=== PATIENT | female | born 1955 | race Caucasian/White ===

== ENCOUNTER 2023-09-12 09:58 | Outpatient (AMB) | payer OTHER, SELFPAY ==
--- NOTE | 2023-09-12 10:03 | MHC.PC.OV ---
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 Care F/U ( Growth On Neck ) Intake Note: pt is here to est care pt last mammo was 12/29 pt is coming here [place] pt has est with an TOY CONSULTANT In [facility] pt see's Derm [facility] Allergies caffeine Allergy (Severe, Verified 09/12/23 10:34) Palpitations cyclobenzaprine [From Flexeril] Allergy (Severe, Verified 09/12/23 10:34) Hives codone Allergy (Intermediate, Uncoded 09/12/23 10:34) Stomach Upset Medication List - Last Reconciled 09/12/23 by NUNU Yarbrough acetaminophen (Tylenol Extra Strength) 1,000 mg PO Q6H PRN amitriptyline mg PO amlodipine 5 mg PO DAILY atenolol mg PO BID biotin 1,000 mcg PO DAILY cholecalciferol (vitamin D3) 25 mcg PO DAILY coQ10 (ubiquinol) 200 mg PO DAILY cyclosporine 0.05% (Restasis) drps ophthalmic (eye) estradiol 0.01%(0.1mg/gram) vaginal flaxseed oil 1,000 mg PO DAILY fluorometholone 0.1% drps ophthalmic (eye) magnesium citrate,mag oxide mg PO wm-bs-rn3-yrh-bky-jvfy-lut-titi 250 mg (90 mg-160 mg) (Ocuvite Adult 50 Plus) 1 cap PO DAILY naproxen sodium (Aleve) 220 mg PO BID PRN kcrjv-8n-fbf-epa-fish oil-D3 667 mg (280 mg- 280 mg-107 mg) (Cardio [place] Benefits) caps PO omeprazole magnesium (Prilosec OTC) 20 mg PO DAILY PRN rosuvastatin mg PO triamcinolone acetonide 0.1% 1 appl topical BID-TID vitamin B complex (B Complex-Vitamin B12 tablet) 1 tab PO DAILY Tobacco use date assessed: 09/12/23 Fall risk assessment: 1 Fall in past year Last assessed Fall Risk: 09/12/23 Dental Screening Dental Screen Date: 01/05/24 Did you have a dental visit in the last 12 months?: Yes Did you have a dental problem in the last 6 months where you did not have access to dental care?: No Was dental information given to patient?: Patient has dentist HPI HPI Comments History of Present Illness Details Patient is a 68-year-old female here to establish care. She recently moved here from [place]. She originally made the appointment with a complaint of a growth on her neck which has since resided and is no longer a problem. She has a past medical history significant for hyperlipidemia, hypertension, vertigo. Her mammogram is due in October. Pap smear completed 6 months prior. Colonoscopy completed in 2021. Bone density completed within 5 years. Patient has agreed to send past medical records from previous provider. Patient states that she has experienced occasional heart palpitations. She denies any dizziness, shortness of breath, chest pain, numbness, epigastric pain, vomiting, diarrhea. Will obtain EKG and refer to Cardiology. She states that she has an echocardiogram performed recently in the past and will send us those records. [facility] Medical History (Updated 09/12/23 @ 11:35 by NUNU Yarbrough) Migraine Hyperlipidemia Hypertension Surgical History (Updated 09/12/23 @ 10:47 by NUNU Yarbrough) Hx of cholecystectomy History of breast biopsy Family History Family/Other Substance use disorder Social History Housing: [place] Patient Tobacco Use Status: Former Tobacco user e-Cigarette/Vaping Use: Never Used Second Hand Smoke Exposure: No service: No Current occupational status: retired Cognitive needs: No Hearing needs: No Vision needs: No Questionnaire PHQ-9 Over the last 2 weeks, how often have you been bothered by any of the following problems? 1. Little interest or pleasure in doing things: not at all 2. Feeling down, depressed, or hopeless: not at all 3. Trouble falling or staying asleep, or sleeping too much: not at all 4. Feeling tired or having little energy: not at all 5. Poor appetite or overeating: not at all 6. Feeling bad about yourself - or that you are a failure or have let yourself or your family down: not at all 7. Trouble concentrating on things, such as reading the newspaper or watching television: not at all 8. Moving or speaking so slowly that other people could have noticed. Or the opposite - being so fidgety or restless that you have been moving around a lot more than usual: not at all 9. Thoughts that you would be better off or of hurting yourself in some way: not at all Total score: 0 Depression Screening Interpretation: Negative Depression Screening Done: Yes 68350 - PHQ-9 Billing: Yes Source: Developed by Drs. Lauro Henry, Dyana Adam, Juan C Roland and colleagues, with an educational torey from [employer]. Thrive Questionnaire Date Thrive assessed: 09/12/23 I am a: Patient What is your living situation today?: I have a steady place to live Within the past 12 months, did the food you bought not last and you didn't have the money to get more?: Never true Within the past 12 months, did you worry whether your food would run out before you got money to buy more?: Never true Do you have trouble paying for medicines?: No Do you have trouble getting transportation to medical appointments?: No Do you have trouble paying your heating and electricity bill?: No Do you have trouble taking care of your child, family member or friend?: No Do you have trouble with day-to-day activities such as bathing, preparing meals, shopping, managing finances, etc.?: No Are you currently unemployed and looking for a job?: No Are you interested in more education?: No AUDIT C Alcohol Use Questionnaire (AUDIT-C) 1. How often do you have a drink containing alcohol?: Never Total Score: 0 RADHA-7 AMB Questionnaire RADHA-7 Date RADHA - 7 assessed: 09/12/23 Feeling nervous, anxious, or on edge: 0 = Not at all Not being able to stop or control worryin = Not at all Worrying too much about different things: 0 = Not at all Trouble relaxin = Not at all Being so restless that it is hard to sit still: 0 = Not at all Becoming easily annoyed or irritable: 0 = Not at all Feeling afraid as if something awful might happen: 0 = Not at all Total RADHA-7 score (0-4 normal; 5-9 mild; 10-14 moderate; 15-21 severe): 0 Source: Developed by Drs. Lauro Henry, Dyana Adam, Juan C Roland and colleagues, with an educational torey from [employer]. RADHA-7 Assessment Billing RADHA-7 Assessment Tool: RADHA-7 Assessment 86097 Review of Systems Const Details: Constitutional : No Weight loss, No Fever, No Chills, No Fatigue, No Malaise Cardiovascular : No Chest Pain, No SOB, No Dyspnea on Exertion, No Orthopnea, No Edema, No Palpitations Respiratory : No Cough, No Sputum, No Wheezing Gastrointestinal : No Nausea, No Vomiting, No Diarrhea, No Constipation, No abdominal Pain, No Hematochezia, No Melena Musculoskeletal : Admits intermittent pain of the right thigh. Denies trauma. Neuro : No Weakness, No Numbness, Admits occasional Dizziness, No Headache Psych : No Anxiety/Panic, No Depression Heme/Lymph: No Bruising, No Bleeding,No Lymphadenopathy Endocrine : No Polyuria, No Polydipsia All other systems reviewed and are negative Physical exam (Primary Care) Vital Signs: Last Vital Signs Pulse 67 09/12/23 10:04 BP 140/82 H 09/12/23 10:04 Pulse Ox 99 09/12/23 10:04 Oxygen Delivery Method Room Air 09/12/23 10:04 Care Plan Goal for BP management: Patient is going to take blood pressure readings at home. Next steps: Patient has follow-up appointment in 1 month BMI result Body Mass Index 31.9 Tobacco/Smoking Status: Tobacco use Status Tobacco use date assessed 09/12/23 09/12/23 10:24 Patient Tobacco Use Status Former Tobacco user 09/12/23 10:24 e-Cigarette/Vaping Use Never Used 09/12/23 10:24 Depression Screening Interpretation: Negative Const Other: Appearance: Alert.? Oriented X3.? No acute distress.? ENT: Pharynx normal.?Scant ceruman in right ear, TM inatact, pearly summers bilaterally. CVS: Normal heart rate and rhythm.? Pulses normal.? Respiratory: No respiratory distress.? Breath sounds normal.? Extremities: No lower extremity edema.? No calf ttp. 5/5 strength to bilateral upper and lower extremities. Pain on palpation to right thigh, medial aspect Neuro: Oriented X 3.? No motor deficit.? No sensory deficit. CN 2-12 intact Results Reviewed Results Reviewed: Will call patient with lab results. Assessment and Plan Assessment & Plan (1) Palpitations: Comment: Patient had in office EKG. Will refer to Cardiology. Patient states she had recent echocardiogram which she will be sending us. Patient has been educated on signs of worsening symptoms when to report back to the office or when to present to the ER. Code(s): R00.2 - Palpitations (2) Peripheral vestibular nystagmus: Comment: Patient has a history of B PPV. She states that she has had success in the past using physical therapy. Will refer to physical therapy for vertigo. Code(s): H55.09 - Other forms of nystagmus (3) Right thigh pain: Comment: Patient states for the past 2 months she has developed some right thigh pain. States the pain is intermittent. Denies any trauma to the area. Will order x-ray and intervene based on results Code(s): M79.651 - Pain in right thigh Plan: Will follow-up with x-ray results. Plan Take your medications as prescribed. If you were prescribed antibiotics today, it is important that you take your medication to their entirety, do not skip any doses, do not finish them early. Follow-up with your primary care provider this week. Return to the emergency department with new or worsening symptoms. Such as fevers, chills, chest pain, shortness of breath, nausea, vomiting, dizziness, headache, vision changes, lethargy In case of emergency call 911 Orders: Orders AMB EKG-In Office Today R00.2 - Palpitations Lipid Panel Today Z13.220 - Encounter for screening for lipoid disorders Vitamin D 25-OH (D2 and D3) Today Z13.21 - Encounter for screening for nutritional disorder UA CC w/rflx Micro + Cult Today E86.0 - Dehydration TSH reflex Free T4 Today Z13.29 - Encounter for screening for other suspected endocrine disorder MM tomosynthesis screening BI 1 Month Z12.31 - Encounter for screening mammogram for malignant neoplasm of breast PT Evaluation and Treatment Today H55.09 - Other forms of nystagmus Comprehensive Met. Panel Today Z91.89 - Other specified personal risk factors, not elsewhere classified Complete Blood Count Auto Diff Today Z13.0 - Encounter for screening for diseases of the blood and blood-forming organs and certain disorders involving the immune mechanism XR femur RT 2V Today M79.651 - Pain in right thigh Referrals Cardiology Referral R00.2 - Palpitations Coding Level of Care Code New Pt Level 4 (46868) Diagnoses Palpitations R00.2 Peripheral vestibular nystagmus H55.09 Right thigh pain M79.651 Additional Codes RADHA-7 Assessment Billing - RADHA-7 Assessment Tool: RADHA-7 Assessment 24133 ([id number]) Time Spent (min) 50
[2023-09-12 10:04] VITALS: BP 140/82; PULSE 67; O2SAT 99; BMI 31.9
== END 2023-09-12 11:22 | disposition home or self-care (01) ==
PROVIDERS: PCP Nurse Practitioner Primary Care; Visit Provider Nurse Practitioner Primary Care
DX: R00.2 Palpitations (principal); H55.09 Other forms of nystagmus; M79.651 Pain in right thigh
CPT/HCPCS: 99204

== ENCOUNTER 2023-10-09 10:46 | Outpatient (REF) | payer OTHER, SELFPAY ==
--- NOTE | ~2023-10-09 | XR_ITS ---
EXAMINATION: XR FEMUR, RIGHT CLINICAL INFORMATION: Right thigh pain. COMPARISON: None available. TECHNIQUE: AP and lateral views of the right femur were obtained. FINDINGS: The bones and soft tissues are normal. No fracture. No osseous lesions. XR/XR femur RT 2V IMPRESSION: Normal right femur.
[2023-10-09 13:08] LABS: MANUAL DIFF FLAG NO
[2023-10-09 13:24] LABS: Basophils Percent Auto 0.9 % (0-2); Eosinophils Absolute Auto 0.1 X10*3/uL (0.0-0.4); Eosinophils Percent Auto 2.4 % (0-4); Hematocrit 46.9 % (37.0-47.0); Hemoglobin 15.3 g/dl (12.0-16.0); Imm Gran Abs Auto 0.01 X10*3/uL (0.00-0.03); Imm Gran Pct Auto 0.2 % (0.0-0.4); Lymphocytes Absolute Auto 1.7 X10*3/uL (1.2-4.9); Mean Corpuscular HGB Conc 32.6 g/dl (31.0-35.0); Mean Corpuscular Hemoglobin 29.8 pg (27.0-33.0); Mean Corpuscular Volume 91.2 fL (80.0-98.0); Mean Platelet Volume 11.1 fL (9.4-12.3); Monocytes Absolute Auto 0.5 X10*3/uL (0.1-1.2); Monocytes Percent Auto 10.2 % (2-11); Neutrophils Absolute Auto 2.2 x10*3/uL (2.0-8.3); Neutrophils Percent Auto 49.3 % (45-73); Platelet Count 229 X10*3/uL (160-400); Red Blood Count 5.14 X10*6/uL (4.20-5.50); Red Cell Distribution Width 12.6 % (11.0-16.0); White Blood Count 4.5 X10*3/uL (4.8-10.8)
[2023-10-09 13:40] LABS: Color Urine Yellow; Glucose Urine UA Negative (Negative); Leukocyte Esterase Urine Negative (Negative); Nitrite Urine Negative (Negative); Urine Blood Negative (Negative); Urine Ketones Negative (Negative); Urine Protein Negative (Neg-Trace)
[2023-10-09 13:58] LABS: Alanine Aminotransferase 15 U/L (0-31); Albumin Level 3.8 g/dL (3.5-5.0); Alkaline Phosphatase 83 U/L (39-117); Anion Gap 11 (12-20); Aspartate Amino Transferase 26 U/L (5-31); Bilirubin Total 0.6 mg/dL (0.0-1.0); Blood Urea Nitrogen 15 mg/dL (9-16); Calcium 9.2 mg/dL (8.4-10.2); Carbon Dioxide 27 mmol/L (22-29); Chloride 108 mmol/L (96-108); Cholesterol 142 mg/dL (<200); Estimated Glomerular Filt Rate > 60; Glucose Random 85 mg/dL (60-115); HDL Cholesterol 42 mg/dL (>40); LDL Cholesterol Calculated 83 mg/dL (<100); Potassium 3.9 mmol/L (3.3-5.1); Sodium 142 mmol/L (135-145); Total Protein 6.8 g/dL (6.5-8.0); Triglycerides 85 mg/dL (<150)
[2023-10-09 14:00] LABS: TSH reflex Free T4 1.18 uIU/mL (0.32-4.0)
[2023-10-09 14:09] LABS: Appearance Urine Clear
[2023-10-13 17:23] LABS: Vitamin D 25-OH, D2 <4 ng/mL; Vitamin D 25-OH, D3 39 ng/mL; Vitamin D 25-OH, Total 39 ng/mL (30-100)
== END 2023-10-09 10:47 | disposition home or self-care (01) ==
LOC: HO.HMGCX 10:46
PROVIDERS: PCP Nurse Practitioner Primary Care; Visit Provider Nurse Practitioner Primary Care
DX: M79.651 Pain in right thigh (principal); E86.0 Dehydration; Z91.89 Other specified personal risk factors, not elsewhere classified; Z13.220 Encounter for screening for lipoid disorders; Z13.29 Encounter for screening for other suspected endocrine disorder; Z13.0 Encounter for screening for diseases of the blood and blood-forming organs and certain disorders involving the immune mechanism
CPT/HCPCS: 36415; 73552; 80053; 80061; 81003; 82306; 84443; 85025

== ENCOUNTER 2023-11-13 08:12 | Outpatient (AMB) | payer OTHER, SELFPAY ==
[2023-11-13 08:17] VITALS: BP 126/80; PULSE 62; O2SAT 97; BMI 32.0
--- NOTE | 2023-11-13 08:17 | A.OFFPC_ITS ---
Vital Signs 11/13/23 08:17 Height 5 ft 7.5 in Weight 207 lb 2 oz BMI 32.0 BP 126/80 Blood Pressure Location Rt brachial Position Sitting Pulse 62 Pulse Source Pulse Oximeter Pulse Oximetry (%) 97 Oxygen Delivery Method Room Air Intake Visit Reasons: Annual PE Intake Note: Pt is here for her Annual PE Pt's last Pap was [address] [place] Pt's has Mammo upcoming colon screen was 2020 in [place] and she was told 10 years Allergies caffeine Allergy (Severe, Verified 12/18/23 08:35) Palpitations cyclobenzaprine [From Flexeril] Allergy (Severe, Verified 12/18/23 08:35) Hives codone Allergy (Intermediate, Uncoded 12/09/23 09:21) Stomach Upset Medication List - Last Reconciled 11/13/23 by Joseluis Beckman, WOOD SCIENCE PROFESSOR acetaminophen (Tylenol Extra Strength) 1,000 mg PO Q6H PRN amitriptyline mg PO amlodipine 5 mg PO DAILY aspirin (Adult Aspirin Regimen) 81 mg PO DAILY atenolol mg PO BID biotin 1,000 mcg PO DAILY cholecalciferol (vitamin D3) 25 mcg PO DAILY coQ10 (ubiquinol) 200 mg PO DAILY estradiol 0.01%(0.1mg/gram) vaginal flaxseed oil 1,000 mg PO DAILY fluorometholone 0.1% drps ophthalmic (eye) lifitegrast 5% ([place]) drps ophthalmic (eye) magnesium citrate,mag oxide mg PO ao-pa-nn3-fje-nnv-xddy-lut-titi 250 mg (90 mg-160 mg) (Ocuvite Adult 50 Plus) 1 cap PO DAILY naproxen sodium (Aleve) 220 mg PO BID PRN vmctg-7r-zkv-epa-fish oil-D3 667 mg (280 mg- 280 mg-107 mg) (Cardio [place] Benefits) caps PO omeprazole magnesium (Prilosec OTC) 20 mg PO DAILY PRN rosuvastatin mg PO triamcinolone acetonide 0.1% 1 appl topical BID-TID vitamin B complex (B Complex-Vitamin B12 tablet) 1 tab PO DAILY Tobacco use date assessed: 11/13/23 Fall risk assessment: No Falls in past year Last assessed Fall Risk: 11/13/23 Dental Screening Dental Screen Date: 11/13/23 Did you have a dental visit in the last 12 months?: Yes Did you have a dental problem in the last 6 months where you did not have access to dental care?: No Was dental information given to patient?: Patient has dentist HPI HPI Comments History of Present Illness Details Patient is a 68-year-old female in for physical exam. Her next colonoscopy is due in 2029. Her mammogram is scheduled in 2 months. Due for bone density scan, will refer. Patient has established OBGYN. Up-to-date on immunizations with COVID and influenza. Patient does not want RSV vaccine. Patient will get shingles vaccine at local pharmacy. Patient has a chief complaint of chronic dry sinuses. She has an appointment with Ear Nose Throat in 5 days. Patient will be instructed that she can use saline rinse, and should utilize humidifier while sleeping. [facility] Medical History (Updated 12/09/23 @ 09:28 by Ajit Singh MD) Lower back pain Migraine Hyperlipidemia Hypertension Surgical History (Updated 09/12/23 @ 10:47 by NUNU Yarbrough) Hx of cholecystectomy History of breast biopsy Family History Family/Other Substance use disorder Social History Housing: House Patient Tobacco Use Status: Former Tobacco user e-Cigarette/Vaping Use: Never Used Second Hand Smoke Exposure: No service: No Current occupational status: retired Cognitive needs: No Hearing needs: No Vision needs: No Questionnaire PHQ-9 Over the last 2 weeks, how often have you been bothered by any of the following problems? 1. Little interest or pleasure in doing things: not at all 2. Feeling down, depressed, or hopeless: not at all 3. Trouble falling or staying asleep, or sleeping too much: not at all 4. Feeling tired or having little energy: not at all 5. Poor appetite or overeating: several days 6. Feeling bad about yourself - or that you are a failure or have let yourself or your family down: not at all 7. Trouble concentrating on things, such as reading the newspaper or watching television: not at all 8. Moving or speaking so slowly that other people could have noticed. Or the o pposite - being so fidgety or restless that you have been moving around a lot more than usual: not at all 9. Thoughts that you would be better off or of hurting yourself in some way: not at all Total score: 1 Depression Screening Interpretation: Negative Depression Screening Done: Yes 53405 - PHQ-9 Billing: Yes Source: Developed by Drs. Lauro Henry, Dyana Adam, Juan C Roland and colleagues, with an educational torey from [employer]. Thrive Questionnaire Date Thrive assessed: 11/13/23 AUDIT C Alcohol Use Questionnaire (AUDIT-C) 1. How often do you have a drink containing alcohol?: Never 2. How many drinks containing alcohol do you have on a typical day when you are drinking?: 1 or 2 3. How often do you have six or more drinks on one occasion?: Never Total Score: 0 RADHA-7 AMB Questionnaire RADHA-7 Date RADHA - 7 assessed: 11/13/23 Feeling nervous, anxious, or on edge: 0 = Not at all Not being able to stop or control worryin = Not at all Worrying too much about different things: 0 = Not at all Trouble relaxin = Not at all Being so restless that it is hard to sit still: 0 = Not at all Becoming easily annoyed or irritable: 1 = Several days Feeling afraid as if something awful might happen: 0 = Not at all Total RADHA-7 score (0-4 normal; 5-9 mild; 10-14 moderate; 15-21 severe): 1 Source: Developed by Drs. Lauro Henry, Dyana Adam, Juan C Roland and colleagues, with an educational torey from [employer]. Review of Systems Const Details: Constitutional : No Weight loss, No Fever, No Chills, No Fatigue, No Malaise ENT/Mouth : No sore throat, Admits dry nasal pasages. Eyes: No Eye Pain, No Swelling, No Redness Cardiovascular : No Chest Pain, No SOB, No Dyspnea on Exertion, No Orthopnea, No Edema, No Palpitations Respiratory : No Cough, No Sputum, No Wheezing Gastrointestinal : No Nausea, No Vomiting, No Diarrhea, No Constipation, No abdominal Pain, No Hematochezia, No Melena Genitourinary : No Dysuria, No Urinary Frequency, No Hematuria, Musculoskeletal : No joint pain, No Myalgias, No Joint Swelling Skin : No Skin Lesions, No rash Neuro : No Weakness, No Numbness, No Dizziness, No Headache Psych : No Anxiety/Panic, No Depression Heme/Lymph: No Bruising, No Bleeding,No Lymphadenopathy Endocrine : No Polyuria, No Polydipsia All other systems reviewed and are negative Physical exam (Primary Care) Vital Signs: Last Vital Signs Pulse 62 11/13/23 08:17 BP 126/80 11/13/23 08:17 Pulse Ox 97 11/13/23 08:17 Oxygen Delivery Method Room Air 11/13/23 08:17 BMI result Body Mass Index 32.0 Tobacco/Smoking Status: Tobacco use Status Tobacco use date assessed 11/13/23 11/13/23 08:25 Patient Tobacco Use Status Former Tobacco user 11/13/23 08:17 e-Cigarette/Vaping Use Never Used 11/13/23 08:17 PHQ-9: PHQ-9 Score PHQ-9: Total score 1 11/13/23 09:05 Depression Screening Interpretation: Negative Thrive Assessment: Date of Thrive Assessment Date Thrive assessed 11/13/23 11/13/23 08:31 Const Other: Appearance: Alert.? Oriented X3.? No acute distress.? Head: Normocephalic, atraumatic, Eyes: Pupils equal, round and reactive to light.?No photphobia. +red reflex. ENT: Pharynx normal.?Little Scaling in nasal passages, Cerumen impaction of right ear. Left TM visible pearly summers. Neck: Normal inspection.? Neck supple.? CVS: Normal heart rate and rhythm.? Pulses normal.? Respiratory: No respiratory distress.? Breath sounds normal.? Abdomen: Soft and nontender.? Skin: Skin warm and dry.? Normal skin color.? Normal skin turgor.? Extremities: No lower extremity edema.? No calf ttp. 5/5 strength to bilateral upper and lower extremities Back: No midline tenderness, no C-spine tenderness, full range of motion, no CVA tenderness bilaterally Neuro: Oriented X 3.? No motor deficit.? No sensory deficit. CN 2-12 intact Post Ear Lavage Left TM intact and pearly summers. Office Procedures Cerumen Removal From which ear canal was the cerumen removed: right Removal: irrigation Notes: patient tolerated procedure well [id number] Wax Removal by Spoon/Curette Results Reviewed Results Reviewed: Sodium 142 135-145 mmol/L Potassium 3.9 3.3-5.1 mmol/L CL 108 96-108 mmol/L CO2 27 22-29 mmol/L Gap 11 L 12-20 BUN 15 9-16 mg/dL Creat 0.85 0.5-1.4 mg/dL EGFR > 60 NOTE: For -[place] individuals, multiply the result by 1.210. Chronic Kidney Disease: Estimated GFR < 60 mL/min/1.73m2 Severe Kidney Disease: Estimated GFR < 15 mL/min/1.73m2 Glucose, Random 85 60-115 mg/dL CA 9.2 8.4-10.2 mg/dL Total Bili 0.6 0.0-1.0 mg/dL AST (GOT) 26 5-31 U/L ALT (GPT) 15 0-31 U/L Protein, Total 6.8 6.5-8.0 g/dL Alb 3.8 3.5-5.0 g/dL Triglyceride 85 <150 mg/dL Desirable Triglyceride: less than 150 mg/dL Borderline High Triglyceride 150-199 mg/dL High Triglyceride: 200-499 mg/dL Very High Triglyceride: greater than or equal to 5OO mg/dL Cholesterol 142 <200 mg/dL Desirable Cholesterol: less than 200 mg/dL Borderline High Cholesterol: 200-239 mg/dL High Cholesterol: greater than 239 mg/dL LDL Calculated 83 <100 mg/dL Desirable LDL: less than 100 mg/dL Near Optimal/Above Optimal LDL: 110-129 mg/dL Borderline High LDL: 130-159 mg/dL High LDL: 160-189 mg/dL Very High LDL: greater than or equal to 190 mg/dL HDL 42 >40 mg/dL Desirable HDL: greater than 40 mg/dL Note: This HDL assay may give artificially low results in patients with liver disease. Alk Phos 83 39-117 U/L TSH 1.18 0.32-4.0 uIU/mL Assessment and Plan Assessment & Plan (1) Encounter for routine adult physical exam with abnormal findings: Comment: Patient had labs drawn at previous appointment. Will have labs set to be drawn in 6 month follow-up Code(s): Z00.01 - Encounter for general adult medical examination with abnormal findings (2) Post-menopause: Comment: Will order patient bone density scan. Patient has established OBGYN. Code(s): Z78.0 - Asymptomatic menopausal state (3) Peripheral vestibular nystagmus: Comment: Patient is scheduled for physical therapy for vertigo in 7 days. Code(s): H55.09 - Other forms of nystagmus (4) Palpitations: Comment: Patient had EKG on file. Patient has cardiology appointment in 1 month. Code(s): R00.2 - Palpitations Plan: Take your medications as prescribed. If you were prescribed antibiotics today, it is important that you take your medication to their entirety, do not skip any doses, do not finish them early. Follow-up with your primary care provider this week. Return to the emergency department with new or worsening symptoms. Such as fevers, chills, chest pain, shortness of breath, nausea, vomiting, dizziness, headache, vision changes, lethargy In case of emergency call 911 Plan Patient will follow-up in 6 months Orders: Orders AMB Cerumen Removal 11/13/23 H61.21 - Impacted cerumen, right ear XR DEXA axial skeleton 11/13/23 Z78.0 - Asymptomatic menopausal state Comprehensive Met. Panel 6 Months I10 - Essential (primary) hypertension Complete Blood Count Auto Diff 6 Months Z13.0 - Encounter for screening for diseases of the blood and blood-forming organs and certain disorders involving the immune mechanism Coding Level of Care Code Est Pt Prev Care >65y(67049) Diagnoses Encounter for routine adult physical exam with abnormal findings Z00.01 Post-menopause Z78.0 Peripheral vestibular nystagmus H55.09 Palpitations R00.2 CPT Codes Office Procedure - CPT: 83649-Aiz Wax Removal by Spoon/Curette ([id number])
== END 2023-11-13 09:07 | disposition home or self-care (01) ==
LOC: HO.HMGC 08:12
PROVIDERS: PCP Nurse Practitioner Primary Care; Visit Provider Nurse Practitioner Primary Care
DX: Z00.01 Encounter for general adult medical examination with abnormal findings (principal); Z78.0 Asymptomatic menopausal state; H55.09 Other forms of nystagmus; R00.2 Palpitations
CPT/HCPCS: 69210; 99499

== ENCOUNTER 2023-12-09 09:13 | Outpatient (AMB) | payer OTHER, SELFPAY ==
--- NOTE | 2023-12-09 09:19 | A.OFFVIS_ITS ---
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 Intake Note: NPV Senior Telecommunications Specialist Required: No Accompanied by: Self / Same As Patient Allergies caffeine Allergy (Severe, Verified 12/09/23 09:21) Palpitations cyclobenzaprine [From Flexeril] Allergy (Severe, Verified 12/09/23 09:21) Hives codone Allergy (Intermediate, Uncoded 12/09/23 09:21) Stomach Upset Medication List - Last Reconciled 12/09/23 by Ajit Singh MD acetaminophen (Tylenol Extra Strength) 1,000 mg PO Q6H PRN amitriptyline 10 mg PO amlodipine 5 mg PO DAILY aspirin (Adult Aspirin Regimen) 81 mg PO DAILY atenolol 50 mg PO BID biotin 1,000 mcg PO DAILY cholecalciferol (vitamin D3) 25 mcg PO DAILY coQ10 (ubiquinol) 200 mg PO DAILY estradiol 0.01%(0.1mg/gram) vaginal flaxseed oil 1,000 mg PO DAILY fluorometholone 0.1% drps ophthalmic (eye) lifitegrast 5% (Xiidra) drps ophthalmic (eye) magnesium citrate,mag oxide mg PO [id number]-[id number]-weh-prh-bmac-lut-titi 250 mg (90 mg-160 mg) (Ocuvite Adult 50 Plus) 1 cap PO DAILY naproxen sodium (Aleve) 220 mg PO BID PRN sipyt-1k-xuw-epa-fish oil-D3 667 mg (280 mg- 280 mg-107 mg) (Cardio [place] Benefits) caps PO omeprazole magnesium (Prilosec OTC) 20 mg PO DAILY PRN rosuvastatin 20 mg PO triamcinolone acetonide 0.1% 1 appl topical BID-TID vitamin B complex (B Complex-Vitamin B12 tablet) 1 tab PO DAILY HPI HPI Comments History of Present Illness Details Ivonne is here for consultation regarding palpitations/PVCs. She states that she was living [place] and saw cardiology as well as EP there. As her family is from this area, she is moved locally. She states she saw somebody [facility] once and had a calcium scoring CT scan but did not follow-up. She would like to switch her care to [facility] for convenience. Overall, she is generally feeling okay. Palpitations are fairly controlled. She takes beta-blockers. She states she had various tests like echocardiograms, stress test in the past at [place]. Did not have any cardiac MRI or cardiac catheterization. She states they were talking about flecainide but she was never started on that. She has had these PVCs going back several decades almost since her 20s according to her. [facility] Medical History (Updated 12/09/23 @ 09:28 by Ajit Singh MD) Lower back pain Migraine Hyperlipidemia Hypertension Surgical History (Updated 09/12/23 @ 10:47 by NUNU Yarbrough) Hx of cholecystectomy History of breast biopsy Family History Family/Other Substance use disorder Social History Housing: House Patient Tobacco Use Status: Former Tobacco user e-Cigarette/Vaping Use: Never Used Second Hand Smoke Exposure: No service: No Current occupational status: retired Cognitive needs: No Hearing needs: No Vision needs: No Review of Systems Const Denies weakness Eyes Denies loss of vision ENT Denies dizziness Card Denies chest pain, Denies chest pain with activity, Denies syncope, Denies rapid heart rate, Denies pedal edema, Denies edema, Denies leg edema, Denies lightheadedness, Denies palpitations, Denies dyspnea, Denies dyspnea on exertion and Denies orthopnea Resp Denies cough, Denies dyspnea, Denies dyspnea on exertion and Denies wheezing GI Denies hematochezia and Denies change in stool character Denies hematuria, Denies urinary frequency and Denies dysuria Musc Denies abnormal gait, Denies muscle cramps, Denies muscle weakness, Denies numbness, Denies radiating pain into limb and Denies tingling Skin/Breast Denies nail changes and Denies rash Neuro Denies Abnormal speech present, Denies abnormal gait, Denies dizziness, Denies syncope, Denies loss of vision, Denies memory loss, Denies numbness, Denies t ingling and Denies weakness Psych Denies depression and Denies memory loss Endo Denies palpitations Aller/Immun Denies wheezing Physical Exam Vital Signs: Last Vital Signs Pulse 66 12/09/23 09:21 BP 134/80 12/09/23 09:21 BMI result Body Mass Index 32.3 Const General: comfortable and no acute distress Orientation/consciousness: patient oriented x3 HEENT Other: Unremarkable Head: Yes normal to inspection Neck Neck: Yes normal visual inspection Chest Chest palpation & inspection: normal inspection of the chest Resp Auscultation: clear to auscultation bilaterally Cardio Palpation: normal PMI Heart sounds: S1 normal heart sound present, S2 normal heart sound present, no gallops, no murmurs and no rubs GI Palpation (GI): Soft to palpation Back/Spine/Pelvis Other: unremarkable Skin General skin exam: no rashes or lesions noted Neuro General: patient oriented x3 Speech: No Abnormal speech present Extrem General: Yes normal to inspection Psych Mental Status: mental status grossly normal Assessment & Plan Assessment & Plan (1) PVC (premature ventricular contraction): Code(s): I49.3 - Ventricular premature depolarization Plan Recent EKG with sinus bradycardia at 59/Min; possible left atrial enlargement and otherwise unremarkable. Normal DE and corrected QT. Overall, history of PVCs going back many decades that have been previously worked up at [place]. Will need to get those records. May update an echocardiogram for cardiac function and get a Holter. We will also get calcium scoring CT scan that she has had [facility]. Follow-up once prior records available and after testing completed. Orders: Orders CA echo transthoracic complete Today I49.3 - Ventricular premature depolarization ECG 7 day holter monitor Today I49.3 - Ventricular premature depolarization Coding Level of Care Code New Pt Level 3 (61106) Diagnoses PVC (premature ventricular contraction) I49.3
[2023-12-09 09:21] VITALS: BP 134/80; PULSE 66; BMI 32.3
== END 2023-12-09 09:39 | disposition home or self-care (01) ==
PROVIDERS: PCP Nurse Practitioner Primary Care; Visit Provider Internal Medicine
DX: I49.3 Ventricular premature depolarization (principal)
CPT/HCPCS: 99203

== ENCOUNTER → 2023-12-09 09:13 | Outpatient (BNVA) | payer OTHER, SELFPAY | PROVIDERS: PCP Nurse Practitioner Primary Care; Visit Provider Internal Medicine ==

== ENCOUNTER 2023-12-18 08:06 | Outpatient (AMB) | payer OTHER, SELFPAY ==
--- NOTE | 2023-12-18 08:29 | AM.OFFWIN_ITS ---
Intake Vital Signs 12/18/23 08:31 Height 5 ft 7.5 in Weight 207 lb BMI 31.9 BP 132/80 Blood Pressure Location Lt brachial Position Sitting Pulse 75 Pulse Source Pulse Oximeter Temp 98.3 F Temp Source Temporal Artery Scan Pulse Oximetry (%) 96 Oxygen Delivery Method Room Air Intake Visit Reasons: EP ?Sinus infection Intake Note: pt is here today for sinus infection started 3 days ago Patient Tobacco Use Status: Former Tobacco user Allergies caffeine Allergy (Severe, Verified 12/18/23 08:35) Palpitations cyclobenzaprine [From Flexeril] Allergy (Severe, Verified 12/18/23 08:35) Hives codone Allergy (Intermediate, Uncoded 12/09/23 09:21) Stomach Upset Do you need a note to return to daycare/school/sports/work: No HPI HPI Comments History of Present Illness Details 68 y/o female patient who presents to [facility] in clinic with c/o Sinus pressure and congestion x 3 days. [facility] Medical History (Updated 12/09/23 @ 09:28 by Ajit Singh MD) Lower back pain Migraine Hyperlipidemia Hypertension Surgical History (Updated 09/12/23 @ 10:47 by NUNU Yarbrough) Hx of cholecystectomy History of breast biopsy Family History Family/Other Substance use disorder Social History Housing: House Patient Tobacco Use Status: Former Tobacco user e-Cigarette/Vaping Use: Never Used Second Hand Smoke Exposure: No service: No Current occupational status: retired Cognitive needs: No Hearing needs: No Vision needs: No Review of Systems Const All systems reviewed & are unremarkable except as noted in HPI and below Physical Exam Vital Signs: Last Vital Signs Temp 98.3 F 12/18/23 08:31 Pulse 75 12/18/23 08:31 BP 132/80 12/18/23 08:31 Pulse Ox 96 12/18/23 08:31 Oxygen Delivery Method Room Air 12/18/23 08:31 BMI result Body Mass Index 31.9 Const General: comfortable and no acute distress Orientation/consciousness: patient oriented x3 HEENT Head: Yes normocephalic Ears: external ears normal and TM abnormal with fluid behind the TM bilateral; not bulging, not bullous, not with effusion, not erythematous, not perforated and not retracted General nose exam: Abnormal mucous membranes and turbinates present boggy and Nasal discharge present Face and sinus: Yes sinus tenderness Mouth: moist mucous membranes Throat: Yes posterior oropharynx normal Resp Effort & Inspection: normal respiratory effort and able to speak in complete sentences Auscultation: clear to auscultation bilaterally, no crackles, no rales, no rhonchi and no wheezes Cardio Rate: regular rate Rhythm: regular rhythm Neuro General: patient oriented x3 Assessment & Plan Assessment & Plan (1) Acute rhinosinusitis: Code(s): J01.90 - Acute sinusitis, unspecified Plan: - Rest and hdrate well with fluids - Acetaminophen for pain relief - OTC cold remedies. Orders: Orders SARS-CoV2/FLU/RSV Today J01.90 - Acute sinusitis, unspecified Medications: New pseudoephedrine HCl ER (Sudafed 12 Hour) 120 mg PO Q12H 30 tabs 0RF J01.90 - Acute sinusitis, unspecified azithromycin 500 mg PO DAILY 3 tabs 0RF 3 days J01.90 - Acute sinusitis, unspecified Coding Level of Care Code Est Pt Level 3 (25563) Diagnoses Acute rhinosinusitis J01.90 Time Spent (min) 15
[2023-12-18 08:31] VITALS: BP 132/80; PULSE 75; TEMP 36.8; O2SAT 96; BMI 31.9
== END 2023-12-18 09:08 | disposition home or self-care (01) ==
PROVIDERS: PCP Nurse Practitioner Primary Care; Visit Provider Nurse Practitioner Family
DX: J01.90 Acute sinusitis, unspecified (principal)
CPT/HCPCS: 99213

== ENCOUNTER 2023-12-18 08:48 | Outpatient (REF) | payer OTHER, SELFPAY ==
[2023-12-18 11:39] LABS: Influenza A PCR NEGATIVE (Negative); Influenza B PCR NEGATIVE (Negative); Resp Syncy Virus RNA Qual PCR NEGATIVE (Negative); SARS COV2 PCR INHOUSE NEGATIVE (Negative)
== END 2023-12-18 08:49 | disposition home or self-care (01) ==
LOC: HO.LAB 08:48
PROVIDERS: Visit Provider Nurse Practitioner Family
DX: J01.90 Acute sinusitis, unspecified (principal)
CPT/HCPCS: 0241U

== ENCOUNTER → 2023-12-30 10:46 | Outpatient (REF) | payer OTHER, SELFPAY ==
--- NOTE | 2023-12-30 10:51 | HM_ITS ---
Conclusion: 1. Patient was monitored for total period of 6 days and 22 hours 2. Baseline normal sinus rhythm with average heart of 67 beats per minute 3. No significant pauses noted 4. Occasional PACs noted 5. Rare PVCs noted 6. One 3 beat luis of nonsustained VT noted at 177 beats per minute 7. One episode of palpitation correlates with ventricular couplet MTDD
--- NOTE | 2023-12-30 10:51 | CA_ITS ---
Transthoracic Echocardiogram Patient (Last, First, Middle): Ivonne Jimenez, Gender: Female Date of : 1955 Age: 68 Procedure Date: 12/30/2023 Procedure Type: Transthoracic Echocardiogram Location: OP Height: 172.72 cm Weight: 90.72 kg BSA: 2.04 m2 Heart Rate: bpm BP: 110 / 78 mmHg Newspaper Editor: TO Referring MD: Ajit Singh MD Lamp Developer: Froylan Pereyra MD Symptoms: I49.3 - Ventricular premature depolarization Study Quality: Fair/Contrast ECG Rhythm: Sinus Conclusions: - Essentially normal study Findings Procedure Information Contrast agent, definity, is being given per protocol without apparent complications. Left Ventricle Normal left ventricular size, thickness, and systolic function. The visually estimated ejection fraction is between 55-60%. Spectral Doppler is indicative of a normal filling pattern. Right Ventricle Normal right ventricular cavity size and systolic function. Atria Both atria are normal in size. Interatrial shunt cannot be excluded. Aortic Valve The aortic valve structure and function is likely normal. There is no aortic valve stenosis. There is no aortic valve regurgitation. Mitral Valve Normal mitral valve structure and function. There is trace mitral valve regurgitation. There is no mitral valve stenosis. Pulmonic Valve The pulmonic valve is likely normal. Tricuspid Valve Likely normal tricuspid valve structure and function. Tricuspid regurgitation envelope is inadequate for calculation of right ventricular systolic pressure. Normal right atrial pressure. Great Vessels All visible segments of the aorta are normal in size. The pulmonary artery was not well visualized. There is no dilatation of the ascending aorta measuring 2.80 cm. Venous The inferior vena cava is normal in size and collapses greater than 50% with inspiration. Pericardium/Pleural There is no evidence of pericardial effusion. Prior Study Comparison No prior study available for comparison. Measurements 2D Linear Measurements IVSd: 1.00 0.6-0.9/0.6-1.0 cm LVIDd: 4.42 3.9-5.3/4.2-5.9 cm LVIDd Index: 2.17 2.4-3.2/2.2-3.1 cm/m2 LVIDs: 2.92 2.0-3.6 cm LVPWd: 0.91 0.7-1.1 cm LA Diam: 3.20 2.7-3.8/3.0-4.0 cm LAIDs Index: 1.57 1.5-2.3 cm/m2 LV Mass: 174.10 67-162/88-224 g LV Mass Index: 85.34 43-95/49-115 g/m2 LVOT Diam: 1.90 3.0+(-)1.3 cm 2D Systolic Function EF 4C: 56.10 >55% EF 2C: 62.30 >55% EF BiP: 58.80 >55% Mitral Valve MV Pk E: 0.85 MV PK A: 0.78 MV Decel Time: 175.00 E/A: 1.10 E'Lateral: 7.94 E'Medial: 6.53 E/E' Med: 13.10 E/E' Lat: 10.70 PHT: 51.00 MVA PHT: 4.31 Decel Bethel: 4.87 Aortic Valve AoV Pk Colton: 1.33 AoV Mn Colton: 0.96 AoV VTI: 0.36 AoV Pk Grad: 7.00 Aov Mn Grad: 4.00 MARY CARMEN Cont.VTI: 2.10 LVOT LVOT Pk Colton: 1.00 LVOT Mn Colton: 0.68 LVOT VTI: 0.26 LVOT Pk Grad: 4.00 LVOT Mn Grad: 2.00 LVOT Diam: 1.90 LVOT Area: 2.84 Diastolic Function MV Pk E: 0.85 MV Pk A: 0.78 E/A: 1.10 E'Medial: 6.53 E/E' Med: 13.10 E' Laterial: 7.94 E/E' Lat: 10.70 Right Ventricle TAPSE (mm): 20.90 TVS' Colton: 10.60 Tricuspid Valve RA Press: 3.00 Great Vessels Aorta Sinus of Valsalva: 3.12 2.0-3.5 cm Ao Asc: 2.80 2.1-3.4 cm Updated in Other Vendor System with Status of Final Froylan Pereyra MD electronically signed on 12/31/2023 3:24:46 PM with status of Final
== END ==
LOC: HO.CARD 10:46
PROVIDERS: PCP Nurse Practitioner Primary Care; Visit Provider Internal Medicine
DX: I49.3 Ventricular premature depolarization (principal)
CPT/HCPCS: 93242; 93306; Q9957

== ENCOUNTER → 2023-12-30 10:51 | Outpatient (BNV) | payer OTHER, SELFPAY | PROVIDERS: PCP Nurse Practitioner Primary Care; Visit Provider Internal Medicine Cardiovascular Disease | DX: I49.1 Atrial premature depolarization (principal); I49.3 Ventricular premature depolarization | CPT/HCPCS: 93244; 93306 ==

== ENCOUNTER 2024-01-08 10:50 | Outpatient (REF) | payer OTHER, SELFPAY ==
--- NOTE | ~2024-01-08 | MM_ITS ---
EXAMINATION: MM SCREENING DIGITAL BREAST TOMOSYNTHESIS, BILATERAL CLINICAL INFORMATION: Screening. Asymptomatic. COMPARISON: Mammography: There are no prior mammograms for comparison. TECHNIQUE: Digital breast tomosynthesis is performed in both the craniocaudal and mediolateral oblique views along with computer-aided detection (CAD). Synthesized 2D images are generated from the tomosynthesis. FINDINGS: There are scattered areas of fibroglandular density (ACR BI-RADS breast composition Category b). There are grouped calcifications in the upper inner quadrant of the right breast for which additional mammographic imaging magnification is advised. Few, coarse benign calcifications are present in the deep third of the superior aspect of the right breast. In the left breast, there are no significant masses, abnormal calcifications, or other abnormalities. MM/MM tomosynthesis screening BI IMPRESSION: Calcifications of the right breast warrant additional mammographic imaging with magnification. No mammographic signs of malignancy left breast. ASSESSMENT: BI-RADS BI-RADS 0 - Incomplete: Needs additional Imaging. RECOMMENDATION: Additional views of the right breast. Radiology department staff will contact the patient for additional imaging. Additional Imaging required This examination should not preclude the clinical evaluation of a suspicious palpable abnormality. This patient's information was entered into a reminder system with a target due date for their next mammogram.
--- NOTE | ~2024-01-08 | MM_ITS ---
EXAMINATION: BONE DENSITOMETRY CLINICAL INDICATION: Asymptomatic menopausal state. COMPARISON: This is the patient's baseline examination. TECHNIQUE: Using a Sokolin DXA System (software version: 13.1) manufactured by [employer], dual-energy x-ray absorptiometry was performed of the lumbar spine and left hip. The images are of good technical quality. Summary results are attached. FINDINGS: AP SPINE L1-L2 (excluding L3 and L4): The data of L1-L4 has been changed to exclude the L3 and L4 vertebral bodies, because degenerative sclerosis at these levels may cause overestimation of lumbar spine density. BMD 1.263 g/cm2, Z-score 1.6, T-score 0.8, normal. LEFT FEMUR, NECK: BMD 0.932 g/cm2, Z-score 0.3, T-score -0.8, normal. LEFT FEMUR, TOTAL: BMD 1.052 g/cm2, Z-score 1.1, T-score 0.4, normal. IDENTIFIED RISK FACTORS: Height loss. Menopause. HISTORY OF FRACTURE: None listed. MEDICATIONS: Calcium supplement and/or multivitamin. Vitamin D. MM/XR DEXA axial skeleton IMPRESSION: 1. DIAGNOSIS: Normal bone density based on the lowest T-score value of -0.8 in the femoral neck applying World Health Organization criteria. 2. 10-YEAR FRACTURE RISK PREDICTION, FRAX: According to the guidelines, FRAX calculation should only be performed on patients in the osteopenia bone density category.?Therefore, FRAX was not performed on this patient.? 3. Treatment Recommendations: NOF guidelines recommend consideration for treatment in postmenopausal women and men age 50 and older presenting with the following: -A hip or vertebral (clinical or morphometric) fracture. -T-score less than or equal to -2.5 at the femoral neck or spine after appropriate evaluation to exclude secondary causes. -Low bone mass at the hip or spine and a 10-year fracture probability by FRAX of greater than or equal to 3% for hip fracture or greater than or equal to 20% for major osteoporotic fracture based on the [place] adapted WHO algorithm. 4. Other Recommendations: All treatment decisions require clinical judgment and consideration of individual patient factors, including patient preferences, comorbidities, previous drug use, risk factors not captured in the FRAX model (e.g. frailty, falls, vitamin D deficiency, increased bone turnover, interval significant decline in bone density) and possible under or overestimation of fracture risk by FRAX. FUTURE SCAN RECOMMENDATION: People with diagnosed cases of osteoporosis or at high risk for fracture should have regular bone mineral density tests. For patients eligible for Medicare, routine testing is allowed once every 2 years. The testing frequency can be increased to one year for patients who have rapidly progressing disease, those who are receiving or discontinuing medical therapy to restore bone mass, or have additional risk factors.
== END 2024-01-08 10:51 | disposition home or self-care (01) ==
LOC: HO.MAMMO 10:50
PROVIDERS: PCP Nurse Practitioner Primary Care; Visit Provider Nurse Practitioner Primary Care
DX: Z12.31 Encounter for screening mammogram for malignant neoplasm of breast (principal); Z13.820 Encounter for screening for osteoporosis; Z78.0 Asymptomatic menopausal state
CPT/HCPCS: 77063; 77067; 77080

== ENCOUNTER → 2024-01-08 11:00 | Outpatient (BNV) | payer OTHER, SELFPAY | PROVIDERS: PCP Nurse Practitioner Primary Care; Visit Provider Radiology Diagnostic Radiology | DX: Z12.31 Encounter for screening mammogram for malignant neoplasm of breast (principal) | CPT/HCPCS: 77063; 77067 ==

== ENCOUNTER 2024-02-17 14:04 | Outpatient (REF) | payer OTHER, SELFPAY ==
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
== END 2024-02-17 14:05 | disposition home or self-care (01) ==
LOC: HO.MAMMO 14:04
PROVIDERS: PCP Nurse Practitioner Primary Care; Visit Provider Nurse Practitioner Primary Care
DX: R92.1 Mammographic calcification found on diagnostic imaging of breast (principal)
CPT/HCPCS: 77061; 77065

== ENCOUNTER → 2024-02-17 14:30 | Outpatient (BNV) | payer MEDICARE, SELFPAY | PROVIDERS: PCP Nurse Practitioner Primary Care; Visit Provider Radiology Diagnostic Radiology | DX: R92.1 Mammographic calcification found on diagnostic imaging of breast (principal) | CPT/HCPCS: 77061; 77065; G0279 ==

== ENCOUNTER 2024-02-18 12:46 | Outpatient (REF) | payer OTHER, SELFPAY ==
--- NOTE | ~2024-02-18 | US_ITS ---
EXAMINATION: US DIAGNOSTIC ULTRASOUND BREAST, RIGHT CLINICAL INFORMATION: 5:00 oval mass right breast measuring approximately 8 mm, please evaluate sonographically. COMPARISON: No prior ultrasound. Prior mammography from [place] 12/10/2022, 08/17/2021, and 07/11/2020 were obtained. TECHNIQUE: Ultrasound of the right breast is performed with real-time summers scale imaging and color Doppler. Attention was given to the lower inner quadrant of the right breast. FINDINGS: At the 5:00 axis, 2 cm from the nipple, there is a 7 x 5 x 3 mm oval hypoechoic circumscribed mildly lobular mass with no posterior features, wider than tall, no internal or surrounding blood flow, or surrounding parenchymal distortion. 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 Unfortunately, no prior ultrasound is available, and thus six-month interval targeted right breast ultrasound is recommended to ensure stability. Otherwise, there is no additional suspicious finding in the lower inner quadrant of the right breast. Results are provided to the patient at time of visit by the technologist. US/US breast RT limited mamm only IMPRESSION: -No findings suspicious for malignancy in the right breast. -7 mm probable fibroadenoma is present in the 5:00 axis right breast, 2 cm from the nipple, measuring 7 x 5 x 3 mm. This appears similar to exams dating back to 2019. This is probably benign and targeted six-month follow-up right breast ultrasound recommended to ensure stability. -Calcifications are also probably benign and appear relatively unchanged although no prior magnification views available for direct comparison. Recommend six-month interval follow-up right breast mammography to include standard magnification views, and a full-field right ML view. ASSESSMENT: BI-RADS 3 - Probably benign finding(s) - 6 month follow-up suggested RECOMMENDATION: 6 Month F/U
== END 2024-02-18 12:47 | disposition home or self-care (01) ==
LOC: HO.MAMMO 12:46
PROVIDERS: PCP Nurse Practitioner Primary Care; Visit Provider Nurse Practitioner Primary Care
DX: R92.2 Inconclusive mammogram (principal)
CPT/HCPCS: 76642

== ENCOUNTER → 2024-02-18 13:00 | Outpatient (BNV) | payer OTHER, SELFPAY | PROVIDERS: PCP Nurse Practitioner Primary Care; Visit Provider Radiology Diagnostic Radiology | DX: N63.14 Unspecified lump in the right breast, lower inner quadrant (principal) | CPT/HCPCS: 76642 ==

== ENCOUNTER 2024-03-16 08:00 | Outpatient (RCR) | payer MEDICARE, SELFPAY ==
[2023-11-19 10:11] VITALS: BP 142/84; PULSE 64; O2SAT 96
--- NOTE | 2024-03-16 09:02 | MHC.PT.DC ---
[facility] [place] Office [place] Office [place] Office [address] Oleg Young [address] [phone] F: [phone] F: [phone] F: [phone] F: [phone] Physical Therapy Discharge Report Diagnosis: This is a 68 yo female presenting to skilled PT with a script for BPPV. Date of Surgery: Date of Evaluation: 11/19/23 Date of Discharge: 03/16/24 Treatments to Date: 16 Cancellations to Date: 0 No Shows to Date: 0 Discharge Status: Achieved Goals Improved Function Independent with HEP Discharge Summary: Patient has had 16 visits of PT. She has been tested for BPPV, educated on balance programs/HEP's, vestibular dysfunction HEP, strengthening HEP and educated on importance of a healthy lifestyle. She has made progress with her balance, has met her PT goals and is ready for DC at this time. She has an HEP to continue that are a multifaceted approach and is looking into an exercise bike for home. Educated her that she may return in 6 months-1 year if she would like a refresher and reassessment. She demos 5/5 hip and knee strength other than gluts which is about a 4+/5. She demos 24/24 on the DGI and normal scores on the [place] SOPT. She is ready and appropriate for DC at this time. Electronically signed by: Luz Mancilla, PT Please sign and return to therapist. Thank you for your referral.
== END 2024-03-16 09:02 | disposition home or self-care (01) ==
LOC: HO.PTCHIC 08:00
PROVIDERS: PCP Nurse Practitioner Primary Care; Visit Provider Nurse Practitioner Primary Care
DX: H55.09 Other forms of nystagmus (principal)
CPT/HCPCS: 95992; 97110; 97112; 97161

== ENCOUNTER 2024-03-17 08:45 | Outpatient (AMB) | payer OTHER, SELFPAY ==
[2024-03-17 08:55] VITALS: BP 126/70; PULSE 62; BMI 32.0
--- NOTE | 2024-03-17 08:55 | A.OFFVIS_ITS ---
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 Required: No Accompanied by: Self / Same As Patient Allergies caffeine Allergy (Severe, Verified 12/18/23 08:35) Palpitations cyclobenzaprine [From Flexeril] Allergy (Severe, Verified 12/18/23 08:35) Hives codone Allergy (Intermediate, Uncoded 12/09/23 09:21) Stomach Upset Medication List - Last Reconciled 03/17/24 by Ajit Singh MD acetaminophen (Tylenol Extra Strength) 1,000 mg PO Q6H PRN amitriptyline 10 mg PO amlodipine 5 mg PO DAILY aspirin (Adult Aspirin Regimen) 81 mg PO DAILY atenolol 50 mg PO BID biotin 1,000 mcg PO DAILY cholecalciferol (vitamin D3) 25 mcg PO DAILY coQ10 (ubiquinol) 200 mg PO DAILY estradiol 0.01%(0.1mg/gram) vaginal flaxseed oil 1,000 mg PO DAILY fluorometholone 0.1% drps ophthalmic (eye) lifitegrast 5% (Xiidra) drps ophthalmic (eye) magnesium citrate,mag oxide mg PO [id number]-[id number]-zkd-cqik-lut-titi 250 mg (90 mg-160 mg) (Ocuvite Adult 50 Plus) 1 cap PO DAILY naproxen sodium (Aleve) 220 mg PO BID PRN vyaaj-6w-pkl-epa-fish oil-D3 667 mg (280 mg- 280 mg-107 mg) (Cardio [place] Benefits) caps PO omeprazole magnesium (Prilosec OTC) 20 mg PO DAILY PRN pseudoephedrine HCl ER (Sudafed 12 Hour) 120 mg PO Q12H rosuvastatin 20 mg PO 5XW triamcinolone acetonide 0.1% 1 appl topical BID-TID vitamin B complex (B Complex-Vitamin B12 tablet) 1 tab PO DAILY HPI Comments Details: Ivonne returns for follow-up. Recently seen in consultation regarding palpitations and PVCs. She states that she was living [place] and saw cardiology as well as EP there. As her family is from this area, she has moved locally. She states she saw somebody [facility] once and had a calcium scoring CT scan but did not follow-up. She would like to switch her care to [facility] for c onvenience. Overall, she states that she feels fine. No specific complaints from cardiac at this time. She states she has had PVCs going back decades, almost his 20s. Remains on beta-blockers. [facility] Medical History (Updated 03/17/24 @ 11:28 by Ajit Singh MD) Atherosclerotic cardiovascular disease Lower back pain Migraine Hyperlipidemia Hypertension Surgical History Hx of cholecystectomy History of breast biopsy Family History Family/Other Substance use disorder Social History Housing: House Patient Tobacco Use Status: Former Tobacco user e-Cigarette/Vaping Use: Never Used Second Hand Smoke Exposure: No service: No Current occupational status: retired Cognitive needs: No Hearing needs: No Vision needs: No Review of Systems Const All systems reviewed & are unremarkable except as noted in HPI and below Denies chills, Denies fatigue, Denies fever(s), Denies weight gain and Denies weight loss Eyes Reports as per HPI and Denies no additional complaints ENT Denies no additional complaints and Reports as per HPI Card Denies chest pain, Denies leg edema, Denies lightheadedness, Denies palpitations, Denies dyspnea on exertion and Denies orthopnea Resp Denies cough and Denies dyspnea on exertion GI Denies hematochezia and Denies change in stool character Reports as per HPI Musc Denies muscle weakness and Denies radiating pain into limb Skin/Breast Reports system reviewed and no additional complaints, except as documented Neuro Reports no additional complaints and Reports as per HPI Psych Reports no additional complaints and Reports as per HPI Endo Denies fatigue and Denies palpitations Deuce/Lymph Reports no additional complaints and Reports as per HPI Aller/Immun Reports no additional complaints and Reports as per HPI Physical Exam Vital Signs: Last Vital Signs Pulse 62 03/17/24 08:55 BP 126/70 03/17/24 08:55 BMI result Body Mass Index 32.0 Const General: comfortable and no acute distress Orientation/consciousness: patient oriented x3 HEENT Other: Unremarkable Head: Yes normal to inspection Neck Neck: Yes normal visual inspection Chest Chest palpation & inspection: normal inspection of the chest Resp Auscultation: clear to auscultation bilaterally Cardio Palpation: normal PMI Heart sounds: S1 normal heart sound present, S2 normal heart sound present, no gallops, no murmurs and no rubs GI Palpation (GI): Soft to palpation Back/Spine/Pelvis Other: unremarkable Skin General skin exam: no rashes or lesions noted Neuro General: patient oriented x3 Extrem General: Yes normal to inspection Psych Mental Status: mental status grossly normal Assessment & Plan Assessment & Plan (1) Atherosclerotic cardiovascular disease: Code(s): I25.10 - Atherosclerotic heart disease of [place] coronary artery without angina pectoris Category: Medical Plan: In the calcium scoring CT scan from June 2023, total score was 90. All of it is in the LAD. She states that she is working with her PCP regarding statins. Per patient, has started intolerance. Currently, she is taking rosuvastatin 5 times a week as guided by her PCP. No specific changes at this time. Last LDL in our system 83 mg/dL but it seems that she also gets some done through her own PCP in [place]. (2) PVC (premature ventricular contraction): Code(s): I49.3 - Ventricular premature depolarization Category: Medical Plan: Recent EKG with sinus bradycardia at 59/Min; possible left atrial enlargement and otherwise unremarkable. Normal MN and corrected QT. Echocardiogram with LVEF of 55-60%; no significant valvular findings. In the Holter, underlying rhythm is sinus with an average rate of 67/Min. Rare supraventricular and ventricular ectopy with minimal burden. Overall, very low burden and with normal LVEF no specific management. She is already on beta-blockers that may can be continued. (3) PAC (premature atrial contraction): Code(s): I49.1 - Atrial premature depolarization Category: Medical Plan: Beta-blockers as above. Plan Total time spent including review of outside records, counseling, documentation, coordination of care 32 minutes. Coding Level of Care Code Est Pt Level 4 (47798) Diagnoses Atherosclerotic cardiovascular disease I25.10 PVC (premature ventricular contraction) I49.3 PAC (premature atrial contraction) I49.1
== END 2024-03-17 09:19 | disposition home or self-care (01) ==
PROVIDERS: PCP Nurse Practitioner Primary Care; Visit Provider Internal Medicine
DX: I25.10 Atherosclerotic heart disease of native coronary artery without angina pectoris (principal); I49.3 Ventricular premature depolarization; I49.1 Atrial premature depolarization
CPT/HCPCS: 99214

== ENCOUNTER → 2024-03-17 08:45 | Outpatient (BNVA) | payer OTHER, SELFPAY | PROVIDERS: PCP Nurse Practitioner Primary Care; Visit Provider Internal Medicine ==

== ENCOUNTER 2024-09-02 08:59 | Outpatient (REF) | payer OTHER, SELFPAY ==
--- NOTE | ~2024-09-02 | MM_ITS ---
EXAMINATION: MM DIAGNOSTIC DIGITAL BREAST TOMOSYNTHESIS, RIGHT Limited right breast ultrasound. CLINICAL INFORMATION: 6 month follow-up for right breast calcifications in probable complicated cyst versus solid mass at 5:00 on ultrasound. COMPARISON: Mammography: Comparison is made with multiple prior examinations dating back to 2019. TECHNIQUE: Digital breast tomosynthesis is performed in both the craniocaudal and mediolateral oblique views along with computer-aided detection (CAD). Synthesized 2D images are generated from the tomosynthesis. Limited right breast ultrasound. FINDINGS: The breasts are heterogeneously dense, which may obscure small masses (ACR BI-RADS breast composition Category c). Postsurgical changes are stable. Grouped amorphous calcifications in the upper inner breast middle depth are slightly increased from prior. Focal asymmetry in the lower central to slightly inner breast middle depth is stable from priors. No suspicious other abnormal findings. Targeted color Doppler ultrasound in the right breast at 5:00 2 cm from nipple again demonstrates a hypoechoic oval parallel circumscribed solid mass measuring 7 x 5 x 3 mm not significantly changed from prior ultrasound. MM/MM tomosynthesis diagnostic RT IMPRESSION: 1. Grouped calcifications in the upper inner breast middle depth slightly increased from prior. Recommend stereotactic core needle biopsy at this time for further valuation. The findings and recommendations were discussed with the patient the procedure will be scheduled. 2. Solid mass versus complicated cyst at 5:00 2 cm from nipple. Recommend 6 month follow-up for further evaluation of stability. ASSESSMENT: BI-RADS BI-RADS 4 - Suspicious finding RECOMMENDATION: Biopsy recommended Results were provided to the patient at time of visit by the technologist. This patient's information was entered into a reminder system with a target due date for their next mammogram. Electronically signed by: Renetta Hahn DO 09/02/2024 10:03 AM [facility]
--- OUTSIDE RECORDS SUMMARY | 2024-09-02 09:01 | XMS_ITS ---
Author Name [facility] Organization Unknown History of Medication Use Medication Directions Dispensed Refills Start Date End Date Stat estradiol (ESTRACE) 0.01 % vaginal cream Insert 2 g into the vagina daily. 08/28/2024 09/07/9999 aborted estradiol (ESTRACE) 0.01 % vaginal cream Place 0.5 grams into the vagina at bedtime twice weekly 08/28/2024 09/07/9999 active iVizia (PF) 04/25/2024 completed Miebo (PF) (drops) instill one drop into both eyes four times a day 04/17/2024 completed Eysuvis (drops, suspension) one drop four times daily for 2 weeks then twice daily for 2 weeks then stop 01/17/2024 completed ezetimibe (tablet) 10 mg 01/17/2024 co mpleted estradiol (cream) 0.01 % (0.1 mg/gram) 01/17/2024 completed amlodipine (tablet) 5 mg 01/17/2024 c ompleted Maskell-3 01/17/2024 completed Vitamin D3 01/17/2024 completed biotin 01/17/2024 completed rosuvastatin (tablet) 20 mg 01/17/2024 completed B-Complex (tablet) 01/17/2024 co mpleted Ocuvite Lutein 25 01/17/2024 com pleted Xiidra (dropperette) one drop twice daily in each eye 01/17/2024 completed coQ10 (ubiquinol) 01/17/2024 com pleted magnesium 01/17/2024 completed atenolol (tablet) 50 mg 01/17/2024 com pleted magnesium 30 MG tablet Take 30 mg by mouth 2 (two) times a day. 06/14/2023 active acetaminophen (TYLENOL) 120 MG suppository Insert 120 mg into the rectum 4 times daily (every 6 hours) as needed for moderate pain. 06/14/2023 active triamcinolone (KENALOG) 0.025 % cream Apply topically 2 (two) times a day. 06/14/2023 active Biotin 3 MG Tab Take 1 tablet by mouth daily. 06/14/2023 active naproxen sodium (ALEVE) 220 mg tablet Take 220 mg by mouth 2 (two) times a day with meals. Take with meals or food to reduce stomach upset. 06/14/2023 active thiamine (VITAMIN B-1) 250 mg tablet Take 250 mg by mouth daily. 06/14/2023 active rosuvastatin (CRESTOR) 20 MG tablet Take 20 mg by mouth 3 (three) times a week. 06/14/2023 active amLODIPine (NORVASC) 5 MG tablet Take 5 mg by mouth daily. 06/14/2023 active OMEprazole (PriLOSEC) 10 MG capsule Take 10 mg by mouth daily. 06/14/2023 active atenolol (TENORMIN) 50 MG tablet Take 50 mg by mouth 2 (two) times a day. 06/14/2023 active Restasis 0.05 % ophthalmic emulsion Administer 1 drop to both eyes 2 (two) times a day. 06/14/2023 active conjugated estrogens (PREMARIN) vaginal cream Apply a blueberry sized dollop into vagina digitally twice weekly 07/09/2023 active ergocalciferol (VITAMIN D2,DRISDOL) 36881 units Cap Take 50,000 Units by mouth once a week. 06/14/2023 active Problems Problem Status Onset Date Problem Type Date of Resoluti on Source Vaginal discharge active 2024-08-26 [facility] Atrophic vaginitis active [facility] Urinary tract infection symptoms active [facility]DiagnosisAct [facility]
== END 2024-09-02 09:00 | disposition home or self-care (01) ==
LOC: HO.MAMMO 08:59
PROVIDERS: Visit Provider Internal Medicine
DX: R92.8 Other abnormal and inconclusive findings on diagnostic imaging of breast (principal)
CPT/HCPCS: 76642; 77061; 77065

== ENCOUNTER → 2024-09-02 09:15 | Outpatient (BNV) | payer OTHER, SELFPAY | PROVIDERS: Visit Provider Internal Medicine | DX: R92.1 Mammographic calcification found on diagnostic imaging of breast (principal) | CPT/HCPCS: 76642; 77061; 77065 ==

== ENCOUNTER 2024-09-23 08:18 | Outpatient (AMB) | payer OTHER, SELFPAY ==
[2024-09-23 08:19] VITALS: BMI 31.7
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
--- OUTSIDE RECORDS SUMMARY | 2024-09-23 08:22 | XMS_ITS | Continuity of Care Document ---
Author Organization Cecilio Moore, Main Office Address [address] [facility] [address] [place] [address] Care Team Providers Care Associate Professor Of Surgery Name Role Phone BRIDGET HERRING Playground Official SOLEDAD JONAS Neurologist DANO ALAS Web Graphic Designer Assessment No assessment recorded. Plan of Treatment Reminders Order Date Submit Date Provider Last Modified By Organization Details Last Modified Time Details Appointments FOLLOW UP 45 2024 09:30A M Cecilio Mcnulty M.D. Not available Not available Not available JULITO Nagel ess 2024 09:30A M Reel Worker Not available Not available Not available JULITO SAWE 2024 01:00P M Cecilio Mcnulty M.D. Not available Not available Not available Lab None recorded . Referral None recorded . Procedures None recorded . Surgeries None recorded . Imaging None recorded . Medication Orders None recorded . Patient TargetsNo targets recorded. Patient InstructionsNo instructions recorded. Reason for Referral None Reported. Results Created Date Observation Date Name Description Value Unit Range Abnormal Flag Note LastModifiedBy Organization Detail LastModifiedTime 09/15/1908/26/2024 , carot id arter y No observ ation record ed. [email or web address] Not Available 2024 08:14:56 Result Notes None recorded. Problems Name Problem SNOMED Code Status Onset Date Resolution Date Notes Provider Name and Address Organization Details Recorded Time Palpitat ions 13843415 Active PVCs Cecilio Mcnulty MD [address] [place], [address], Cecilio Moore 3 11:19:24 Migraine 20581599 Active with aura, left sided pain Cecilio Mcnulty MD [address] [facility], [place], [address], [place] Cecilio D. 3 10:17:28 Hyperten sive disorder 92287258 Active Cecilio Mcnulty MD [address] [facility], [place], [address], [place], Cecilio D. 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 3 10:19:11 Low back pain 024321257 Active Cecilio Mnculty MD [address] [facility], [place], [address], [place], Cecilio D. 3 10:20:07 Eczema 89137226 Active Cecilio Mcnulty MD [address] [facility], [place], [address], [place] Cecilio D. 3 10:20:41 Hemorrho ids 19734305 Active Cecilio Mcnulty MD [address] [facility], [place], [address], [place] Cecilio D. 3 10:20:57 Kidney stone 83548108 Completed 02/20/2023 Cecilio Mcnulty MD [address] [facility], [place], [address], [place], Cecilio D. 3 10:25:36 Peripher al vestibul ar disease 84092242 Active Cecilio Mcnulty MD [address], [place], [address], [place], Cecilio D. 3 11:19:36 Hyperlip idemia 53728805 Active Cecilio Mcnulty MD [address], [place], [address], [place], Cecilio D. 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 Procedures Surgical History Date Name Laterality Status Provider Name and Address Organization Details Recorded Time 10/30/19 24 JULITO CORTES completed Cecilio Mcnulty MD [address] [place] [address], [address], Cecilio Moore 10/29/2023 18:49:30 08/08/20 23 comprehensive eye examination completed Cecilio Martinez 10/17/2023 12:51:20 01/07/20 23 Dental prophylaxis adult completed Cecilio Martinez 10/17/2023 12:51:47 11/07/19 23 Most Recent Mammogram completed Cecilio Coronado 02/20/2023 10:07:11 05/09/20 22 Date of Last Pap Smear completed Cecilio Coronado 02/20/2023 10:07:45 12/19/19 22 Dxa bone density yasir vrt fx completed Cecilio Coronado 10/31/2023 09:53:28 09/08/19 05 Song Writer Surgery completed Cecilio Coronado 02/20/2023 08:59:01 09/08/19 00 Breast Biopsy completed Cecilio Coronado 02/20/2023 08:57:33 09/08/18 99 cholecystectomy completed Cecilio Okeefe 02/20/2023 08:58:22 Imaging Results None recorded. Procedure Notes None recorded. Medical Equipment None Reported. Allergies Allergen ID Allergen Name Allergen Category Reaction Reaction Severity Criticality Documentation Date Start Date Code Code System Note Provider Name and Address Organization Details Recorded Time 3652 caffeine food,medi cation Not available Not available Not available 02/20/2023 1886 RxNorm DEN Fu Ian D. 3 08:59:50 3653 codeine medicatio n vomiting Not available low 02/20/2023 2670 RxNorm Cecilio Mcnulty MD [address] [place] [address], [address], Cecilio Moore 3 10:36:38 3654 cyclobenz aprine hydrochlo ride medicatio n hives Not available low 02/20/2023 96917 RxNorm Cecilio Mcnulty MD [address] [place] [address], [address], Cecilio Moore 3 10:36:45 3655 hydrochlo rothiazid e medicatio n vomiting Not available low 02/20/2023 5487 RxNorm Cecilio Mcnulty MD [address] [place] [address], [address], Cecilio Moore 3 10:37:08 Medications Name Sig Start Date Stop Date Status Note LastModified by Organization Details LastModified Time azithromy ashli 250 mg tablet TAKE 2 TABLETS BY MOUTH TODAY, THEN TAKE 1 TABLET DAILY FOR 9 DAYS DIRECTED 02/15 completed Not Available Not Available Not Available sumatript an 100 mg tablet TAKE 1 TABLET (100 MG) BY ORAL ROUTE AFTER ONSET OF MIGRAINE ; MAY REPEAT AFTER 2 HOURS IF HEADACHE RETURNS, NOT TO EXCEED 200MG IN 24HRS active Not Available Not Available No t Available famotidin e 40 mg tablet TAKE 1 TABLET BY MOUTH EVERY MORNING 10/16 completed Not Available Not Available Not Available naproxen 250 mg tablet 1 tpo with food or milk orally twice daily as needed 02/20 completed Not Available Not Available Not Available amlodipin e 5 mg tablet TAKE 1 TABLET BY MOUTH EVERY DAY active Not Available Not Available No t Available triamcino lone acetonide 0.1 % topical cream APPLY TO AFFECTED AREAS TWICE A DAY X 2 WEEKS THEN NEEDED active Not Available Not Available No t Available prednisol one acetate 1 % eye drops,ivonne pension 1 drop in both eyes 2-4 times a day as needed 02/15 completed Not Available Not Available Not Available amitripty line 10 mg tablet Take 1 tabletes by mouth every evening active Not Available Not Available No t Available fluoromet holone 0.1 % eye drops,ivonne pension INSTILL 1 DROP INTO BOTH EYES 4 TIMES A DAY FOR 5 DAYS THEN STOP active Not Available Not Available No t Available gabapenti n 300 mg capsule 1 senior attorney qpm 02/20 completed Not Available Not Available Not Available mupirocin 2 % topical ointment APPLY TO AFFECTED AREA TWICE A DAY FOR 10 DAYS 05/19 completed Not Available Not Available Not Available gabapenti n 100 mg capsule 1 senior attorney qam 02/20 completed Not Available Not Available Not Available clobetaso l 0.05 % topical ointment 02/20 completed Not Available Not Available Not Available estradiol 0.01% (0.1 mg/gram) vaginal cream Apply 1/4 applicat or 3 times per week active Once weekly Not Available Not Available Not Available atenolol 50 mg tablet TAKE 1 TABLET BY MOUTH TWICE A DAY active Not Available Not Available No t Available azithromy ashli 500 mg tablet 02/15 completed Not Available Not Available Not Available ezetimibe 10 mg tablet TAKE 1 TABLET BY MOUTH EVERY DAY NOT TAKING 04/30 completed Not Available Not Available Not Available Restasis 0.05 % eye drops in a dropperet te INSTILL 1 DROP INTO BOTH EYES TWICE A DAY 10/16 completed Not Available Not Available Not Available rosuvasta tin 20 mg tablet TAKE ONE TABLET BY MOUTH FIVE DAYS A WEEK ONLY 2024 active Not Available Not Available Not Avai lable magnesium active Not Available Not Amanda ilable Not Available biotin active Not Available Not Availa ble Not Available Vitamin D3 1,000 UNTIS 2 X DAY active Not Available Not Available No t Available Zirgan 0.15 % eye gel 02/20 completed Not Available Not Available Not Available Aleve 220 mg capsule Take 2 capsules every day by oral route as needed. active for migraine Not Available Not Available Not Available Xiidra 5 % eye drops in a dropperet te INSTILL 1 DROP INTO BOTH EYES TWICE A DAY 05/19 completed Not Available Not Available Not Available Eysuvis 0.25 % eye drops,ivonne pension LOCATION : BOTH EYES. ONE DROP FOUR TIMES DAILY FOR 2 WEEKS THEN TWICE DAILY FOR 2 WEEKS THEN STOP 02/15 completed Not Available Not Available Not Available Miebo (PF) 100 % eye drops INSTILL ONE DROP INTO BOTH EYES FOUR TIMES DAILY . BOTTLE PREPARAT ION IS REQUIRED . REFER TO PACKAGE INSERT FOR SPECIAL PREPARAT ION AND ADMINIST RATION INSTRUCT IONS. active Not Available Not Available No t Available Vitals None Recorded Social History Question Answer Notes LastModified by Organizat ion Details LastModified Time Tobacco Smoking Status Never Smoker DEN Fu Ian D. 02/20/2023 08:52:45 What Is Your Level Of Alcohol Consumption? None [email or web address] Information not available 02/20/2023 What Is Your Level Of Caffeine Consumption? None [email or web address] Information not available 02/20/2023 What Type Of Diet Are You Following? REGULAR [email or web address] Information not available 02/20/2023 What Was The Date Of Your Most Recent Tobacco Screening? 05/19/2024 [email or web address] Information not available 05/19/2024 Do You Use Any Illicit Or Recreational Drugs? No [email or web address] Information not available 02/20/2023 Has Tobacco Cessation Counseling Been Provided? No [email or web address] Information not available 02/20/2023 Do You Or Have You Ever Used Any Other Forms Of Tobacco Or Nicotine? No [email or web address] Information not available 02/20/2023 Sex: Unknown Functional Status Question Answer Note LastModified by Organizat ion Details LastModified Time What is your exercise level? Occasional Walks twice a week [email or web address] Information not available 02/20/2023 Mental Status None recorded. Family History Relationship Description Onset Age of this Age Resolved Age Notes LastModified by Organization Details LastModified Time Brother Family history of Cardiovascul ar disease CABG x 4 [email or web address] Not available 02/20/2023 10:34:51 Brother Migraine [email or web address] Not availab le 02/20/2023 10:35:48 Mother Family history of Hypertension [email or web address] Not available 10:34:26 Mother Family history of hyperlipidem ia [email or web address] Not available 2022 10:35:01 Unspecified Relation Family history of headache disorder [email or web address] Not available 2022 08:13:42 Maternal Uncle Family history of Glaucoma [email or web address] Not available 2022 10:35:20 Father Malignant tumor of lung [email or web address] Not available 2022 10:33:51 Medical History Condition Response Other Y Arthritis Y Kidney Stones Y Heart Disease Y Eczema Y Headaches Y Hypertension Y Chicken Pox Y Kidney Disease Y Gynecological History Statement/Question Response Date of Last Pap Smear 05/09/2022 Most Recent Mammogram 11/06/2022 Obstetrics History GPAL:G 0 P 0 0 0 0 Immunizations Vaccine Type Date Status Note Provider Nam e and Address Organization Details Recorded Time COVID-19, mRNA, LNP-S, PF, 100 mcg/0.5mL dose or 50 mcg/0.25mL dose 1 completed DEN Fu Ian D. 04/22/2023 11:50:30 COVID-19, mRNA, LNP-S, PF, 100 mcg/0.5mL dose or 50 mcg/0.25mL dose 1 completed DEN Fu Ian D. 04/22/2023 11:50:42 COVID-19, mRNA, LNP-S, PF, 100 mcg/0.5mL dose or 50 mcg/0.25mL dose 1 completed DEN Fu Ian D. 04/22/2023 11:50:51 COVID-19, mRNA, LNP-S, PF, 100 mcg/0.5mL dose or 50 mcg/0.25mL dose 2 completed DEN Fu Ian D. 04/22/2023 11:51:02 COVID-19, mRNA, LNP-S, bivalent, PF, 50 mcg/0.5 mL or 25mcg/0.25 mL dose 2 completed DEN Fu Ian D. 04/22/2023 11:51:38 Tdap 3 completed DEN Fu Ian D. 04/22/2023 11:51:57 Pneumococcal conjugate PCV20, polysaccharide [id number] conjugate, adjuvant, PF 3 completed DEN Fu Ian D. 04/22/2023 11:52:47 Pneumococcal conjugate PCV 13 1 completed DEN Fu Ian D. 04/22/2023 11:53:17 influenza, unspecified formulation 2 completed DEN Fu Ian D. 04/22/2023 11:53:43 COVID-19, mRNA, LNP-S, bivalent, PF, 50 mcg/0.5 mL or 25mcg/0.25 mL dose 3 completed Cecilio Mcnulty MD [address] [place] [address], [phone], Cecilio Moore 04/25/2023 08:05:28 Past Encounters Encounter ID Performer Location Encounter Start Date Encounter Closed Date Diagnosis/Indication Diagnosis SNOMED-CT Code Diagnosis ICD10 Code Diagnosis Note [id number] Antonieta Mcnulty Main Office [address] [facility] [address] [place] [address] 08/26/2024 11:39:12 09/15/2024 15:49:09 Health Concerns Section Related Observation LastModified by Organization Detkrunal abbott LastModified Time None Recorded Concern Status LastModified by Organization Details LastModified Time None Recorded Payers Encounter Date Sequence Insurance Name Policy Number Policy [place] Covered Member ID [place] Member ID Guarantor Name 08/26/2024 1 [employer] (MEDICARE REPLACEMENT/ ADVANTAGE - PPO) Ivonne Jimenez [id number] Ivonne Jimenez [place] Episode No OBEpisode recorded.
--- OUTSIDE RECORDS SUMMARY | 2024-09-23 08:22 | XMS_ITS | Data Portability ---
Author Organization [facility] - Cecilio Mcnulty, Inactive Address [address] [place] [address] Care Team Providers Care High Energy Forming Equipment Operator Name Role Phone BRIDGET HERRING Restaurant Greeter SOLEDAD JONAS Neurologist DANO ALAS Feedmobile Driver [phone] Assessment Encounter Date Assessment Date Assessment LastModified by Organization Details LastModified Time 10/30/2023 10/30/2023 Patient has received initial Covid 19 vaccinations along with appropriate boosters. Patient has received annual high-dose influenza vaccine. RSV vaccine has been recommended. Shingrix vaccines have been recommended. Patient farnsworth last gynecology exam in July [address] Denice Walton. Last mammogram was reportedly in December 2022 and was normal. Patient's last bone density test was on 12/18/2021 and was normal with follow-up recommended after 12/18/2026. Last eye exam was in August 2023 and following annually. Patient's last dental exam was on 10/29/2023 and following regularly. InBody screening is notable for normal muscle mass. Next annual wellness exam to be done in one year. [email or web address] Not available 10/31/2023 09:23:36 Plan of Treatment Reminders Order Date Submit Date Provider Last Modified By Organization Details Last Modified Time Details Appointments FOLLOW UP 45 2024 09:30A M Cecilio Mcnulty M.D. Not available Not available Not available JULITO Nagel ess 2024 09:30A M Loom Operator Apprentice Not available Not available Not available JULITO SAWE 2024 01:00P Fernanda Mcnulty M.D. Not available Not available Not available Lab hsv (1+2) igm Ab, serum 2023 [facility], [address] [place], [address], 06/11/2024 04:03:14 BMP, serum or plasma 2023 [facility], [address] [place], [address], 05/15/2024 15:00:17 TSH, serum or plasma 2023 [facility], [address] [place], [address], 05/15/2024 15:00:20 lipid panel, serum 2023 [facility], [address] [place], [address], 05/15/2024 15:00:15 apolipop rotein B (apo B), serum 2023 024 [facility], [address] [place] [address], [phone], 05/15/2024 15:00:21 hepatic function panel, serum 2023 024 [facility], [address] [place] [address], [phone], 05/15/2024 15:00:17 PERFECTO (antinuc lear antibodi es) screen, ifa, serum 2023 024 [facility], [address] [place], [address], 05/15/2024 15:00:18 erythroc yte sediment ation rate by oliva en method 2023 024 [facility], [address] [place] [address], [phone], 05/15/2024 15:00:18 ccp (cyclic citrulli nated peptide) igg, serum [address] [employer] [facility], [address] [place] [address], [phone], 05/15/2024 15:00:19 C3 + C4 (complem ent), serum [address] [employer] [facility], [address] [place], [address], 05/15/2024 15:00:16 sjogren antibody panel, serum [address] [employer] [facility], [address] [place] [address], [phone], 05/15/2024 15:00:19 Referral None recorded . Procedures None recorded . Surgeries None recorded . Imaging None recorded . Medication Orders None recorded . Patient TargetsNo targets recorded. Patient Instructions Encounter Date Encounter Id Patient Instructions Last Modified By Organization Details Last Modified Time 10/30/2023 [id number] In compliance with Medicare guidelines, we will be billing Medicare to inform them of your adherence to completing your necessary preventive care. [email or web address] Not available 10/29/2023 18:49:29 Discussed and explained advance directives such as standard forms to the {{patient* caregi gennaro patient and caregiver}}. Face to face discussion lasted for a duration of _5__ minutes. [email or web address] Not available 10/30/2023 15:38:31 Reason for Referral None Reported. Results Created Date Observation Date Name Description Value Unit Range Abnormal Flag Note LastModifiedBy Organization Detail LastModifiedTime 10/16/19 24 10/20/2023 ALBUM INVENU URINE W/CRE ATINI NE creatinine, random urine 149 mg/dL 20-275 normal Not Available [facility] [address], [place], [address], 10/20/2023 16:11:24 10/16/19 24 10/20/2023 ALBUM INVENU M URINE W/CRE ATINI NE albumin, urine 0.8 mg/dL see note: normal Refer ence Range : Refer ence Range Not estab lishe d Not Available [facility] [place] [facility] [address] [place], [address], 10/20/2023 16:11:24 10/16/19 24 10/20/2023 ALBUM IN, RANDO M URINE W/CRE ATINI NE albumin/crea tinine ratio, random urine 5 mcg/m g_cre at <30 normal The ADA defin es abnor malit ies in album in excre tion as follo ws: Album inuri a Categ ory Resul t (mcg/ mg creat inine ) Mali l to Mildl y incre ased <30 Moder ately incre ased 30-29 9 Sever brigette incre ased > OR = 300 The ADA recom mends that at least two of three speci mens colle cted withi n a 3-6 month perio d be abnor mal befor e consi vanessa g a patie nt to be withi n a diagn ostic categ ory. Not Available [facility] [place] [facility] [address] [place], [place], [address], 10/20/2023 16:11:24 10/16/19 24 10/20/2023 BASIC METAB OLIC PANEL glucose 89 mg/dL 65-99 normal Fasti ng refer ence inter hayley Not Available [facility] [place] [facility] [address] [place], [place], [address], 10/20/2023 16:11:25 10/16/19 24 10/20/2023 BASIC METAB OLIC PANEL urea nitrogen (BUN) 18 mg/dL 7-25 normal Not Available [facility] [place] [facility] [address] [place], [address], 10/20/2023 16:11:25 10/16/19 24 10/20/2023 BASIC METAB OLIC PANEL creatinine 0.88 mg/dL 0.50-1 .05 normal Not Available [facility] [address] [place], [place], [address], 10/20/2023 16:11:25 10/16/19 24 10/20/2023 BASIC METAB OLIC PANEL eGFR 72 mL/mi n/1.7 3m2 > or = 60 normal Not Available [facility] [address] [place], [place], [address], 10/20/2023 16:11:25 10/16/19 24 10/20/2023 BASIC METAB OLIC PANEL BUN/creatini ne ratio SEE NOTE: (calc ) 6-22 Not Repor ty: BUN and Creat inine are withi n refer ence range . Not Available [facility] [address] [place], [place], [address], 10/20/2023 16:11:25 10/16/19 24 10/20/2023 BASIC METAB OLIC PANEL sodium 140 mmol/ L 135-14 6 normal Not Available [facility] [address] [place], [place], [address], 10/20/2023 16:11:25 10/16/19 24 10/20/2023 BASIC METAB OLIC PANEL potassium 4.3 mmol/ L 3.5-5. 3 normal Not Available [facility] [address] [place], [place], [address], 10/20/2023 16:11:25 10/16/19 24 10/20/2023 BASIC METAB OLIC PANEL chloride 103 mmol/ L 98-110 normal Not Available [facility] [address] [place], [place], [address], 10/20/2023 16:11:25 10/16/19 24 10/20/2023 BASIC METAB OLIC PANEL carbon dioxide 31 mmol/ L 20-32 normal Not Available [facility] [address], [place], [address], 10/20/2023 16:11:25 10/16/19 24 10/20/2023 BASIC METAB OLIC PANEL calcium 9.3 mg/dL 8.6-10 .4 normal Not Available [facility] [address], [place], [address], 10/20/2023 16:11:25 10/16/19 24 10/20/2023 HEPAT IC FUNCT ION PANEL protein, total 6.9 g/dL 6.1-8. 1 normal Not Available [facility] [address], [place], [address], 10/20/2023 16:11:25 10/16/19 24 10/20/2023 HEPAT IC FUNCT ION PANEL albumin 4.2 g/dL 3.6-5. 1 normal Not Available [facility] [address], [place], [address], 10/20/2023 16:11:25 10/16/19 24 10/20/2023 HEPAT IC FUNCT ION PANEL globulin 2.7 g/dL_ (calc ) 1.9-3. 7 normal Not Available [facility] [address], [place], [address], 10/20/2023 16:11:25 10/16/19 24 10/20/2023 HEPAT IC FUNCT ION PANEL albumin/glob ulin ratio 1.6 (calc ) 1.0-2. 5 normal Not Available [facility] [address], [place], [address], 10/20/2023 16:11:25 10/16/19 24 10/20/2023 HEPAT IC FUNCT ION PANEL bilirubin, total 0.4 mg/dL 0.2-1. 2 normal Not Available [facility] [address], [place], [address], 10/20/2023 16:11:25 10/16/19 24 10/20/2023 HEPAT IC FUNCT ION PANEL bilirubin, direct 0.1 mg/dL < or = 0.2 normal Not Available [facility] [address], [place], [address], 10/20/2023 16:11:25 10/16/19 24 10/20/2023 HEPAT IC FUNCT ION PANEL bilirubin, indirect 0.3 mg/dL _(nikolai c) 0.2-1. 2 normal Not Available [facility] [address], [place], [address], 10/20/2023 16:11:25 10/16/19 24 10/20/2023 HEPAT IC FUNCT ION PANEL alkaline phosphatase 82 U/L 37-153 normal Not Available [facility] [address], [place], [address], 10/20/2023 16:11:25 10/16/19 24 10/20/2023 HEPAT IC FUNCT ION PANEL AST 22 U/L 10-35 normal Not Available [facility] [address], [place], [address], 10/20/2023 16:11:25 10/16/19 24 10/20/2023 HEPAT IC FUNCT ION PANEL ALT 16 U/L 6-29 normal Not Available [facility] [address], [place], [address], 10/20/2023 16:11:25 10/16/19 24 10/20/2023 LIPOP ROTEI N (A) lipoprotein (A) 58 nmol/ L <75 Risk Categ ory Optim al < 75 nmol/ L Moder ate 75 - 125 nmol/ L High > 125 nmol/ L Cardi ovasc ular event risk categ ory cut point s (opti mal, moder ate, high) are based on Elena Gomes. [facility] 2017; 69:69 2-711 . Not Available [facility] [place] [facility] [address], [place], [address], 10/20/2023 16:11:26 10/16/19 24 10/20/2023 CBC (H/H, RBC, INDIC ES, WBC, PLT) white blood cell count 4.3 thous and/u L 3.8-10 .8 normal Not Available [facility] [place] [facility] [address], [place], [address], 10/20/2023 16:11:27 10/16/19 24 10/20/2023 CBC (H/H, RBC, INDIC ES, WBC, PLT) red blood cell count 5.38 jamel on/uL 3.80-5 .10 high Not Available [facility] [place] [facility] [address], [place], [address], 10/20/2023 16:11:27 10/16/19 24 10/20/2023 CBC (H/H, RBC, INDIC ES, WBC, PLT) hemoglobin 16.0 g/dL 11.7-1 5.5 high Not Available [facility] [place] [facility] [address], [place], [address], 10/20/2023 16:11:27 10/16/19 24 10/20/2023 CBC (H/H, RBC, INDIC ES, WBC, PLT) hematocrit 48.5 % 35.0-4 5.0 high Not Available [facility] [place] [facility] [address], [place], [address], 10/20/2023 16:11:27 10/16/19 24 10/20/2023 CBC (H/H, RBC, INDIC ES, WBC, PLT) MCV 90.1 fL 80.0-1 00.0 normal Not Available [facility] [place] [facility] [address], [place], [address], 10/20/2023 16:11:27 10/16/19 24 10/20/2023 CBC (H/H, RBC, INDIC ES, WBC, PLT) MCH 29.7 pg 27.0-3 3.0 normal Not Available [facility] [place] [facility] [address], [place], [address], 10/20/2023 16:11:27 10/16/19 24 10/20/2023 CBC (H/H, RBC, INDIC ES, WBC, PLT) MCHC 33.0 g/dL 32.0-3 6.0 normal Not Available [facility] [address], [place], [address], 10/20/2023 16:11:27 10/16/19 24 10/20/2023 CBC (H/H, RBC, INDIC ES, WBC, PLT) RDW 12.3 % 11.0-1 [address] [facility] [place] [facility] [address], [place], [address], 10/20/2023 16:11:27 10/16/19 24 10/20/2023 CBC (H/H, RBC, INDIC ES, WBC, PLT) platelet count 227 thous and/u L 140-40 0 normal Not Available [facility] [address], [place], [address], 10/20/2023 16:11:27 10/16/19 24 10/20/2023 CBC (H/H, RBC, INDIC ES, WBC, PLT) MPV 11.5 fL 7.5-12 .5 normal Not Available [facility] [address], [place], [address], 10/20/2023 16:11:27 10/16/19 24 10/20/2023 URINA LYSIS , COMPL ETE color DARK YELLOW yellow normal Not Available [facility] [place] [facility] [address], [place], [address], 10/20/2023 16:11:27 10/16/19 24 10/20/2023 URINA LYSIS , COMPL ETE appearance CLEAR clear normal Not Available [facility] [place] [facility] [address], [place], [address], 10/20/2023 16:11:27 10/16/19 24 10/20/2023 URINA LYSIS , COMPL ETE specific gravity 1.022 1.001- 1.035 normal Not Available [facility] [address], [place], [address], 10/20/2023 16:11:27 10/16/19 24 10/20/2023 URINA LYSIS , COMPL ETE pH 7.0 5.0-8. 0 normal Not Available [facility] [address], [place], [address], 10/20/2023 16:11:27 10/16/19 24 10/20/2023 URINA LYSIS , COMPL ETE glucose NEGATI VE negati ve normal Not Available [facility] [address], [place], [address], 10/20/2023 16:11:27 10/16/19 24 10/20/2023 URINA LYSIS , COMPL ETE bilirubin NEGATI VE negati ve normal Not Available [facility] [address], [place], [address], 10/20/2023 16:11:27 10/16/19 24 10/20/2023 URINA LYSIS , COMPL ETE ketones NEGATI VE negati ve normal Not Available [facility] [address], [place], [address], 10/20/2023 16:11:27 10/16/19 24 10/20/2023 URINA LYSIS , COMPL ETE occult blood NEGATI VE negati ve normal Not Available [facility] [place] [facility] [address], [place], [address], 10/20/2023 16:11:27 10/16/19 24 10/20/2023 URINA LYSIS , COMPL ETE protein NEGATI VE negati ve normal Not Available [facility] [place] [facility] [address], [place], [address], 10/20/2023 16:11:27 10/16/19 24 10/20/2023 URINA LYSIS , COMPL ETE nitrite NEGATI VE negati ve normal Not Available [facility] [place] [facility] [address], [place], [address], 10/20/2023 16:11:27 10/16/19 24 10/20/2023 URINA LYSIS , COMPL ETE leukocyte esterase NEGATI VE negati ve normal Not Available [facility] [place] [facility] [address], [place], [address], 10/20/2023 16:11:27 10/16/19 24 10/20/2023 URINA LYSIS , COMPL ETE WBC 0-5 /hpf < or = 5 normal Not Available [facility] [place] [facility] [address], [place], [address], 10/20/2023 16:11:27 10/16/19 24 10/20/2023 URINA LYSIS , COMPL ETE RBC NONE SEEN /hpf < or = 2 normal Not Available [facility] [place] [facility] [address], [place], [address], 10/20/2023 16:11:27 10/16/19 24 10/20/2023 URINA LYSIS , COMPL ETE squamous epithelial cells 0-5 /hpf < or = 5 Not Available [facility] [place] [facility] [address] [place], [place], [address], 10/20/2023 16:11:27 10/16/19 24 10/20/2023 URINA LYSIS , COMPL ETE bacteria NONE SEEN /hpf none seen normal Not Available [facility] [place] [facility] [address] [place], [place], [address], 10/20/2023 16:11:27 10/16/19 24 10/20/2023 URINA LYSIS , COMPL ETE hyaline cast NONE SEEN /lpf none seen normal Not Available [facility] [place] [facility] [address], [place], [address], 10/20/2023 16:11:27 10/16/19 24 10/20/2023 URINA LYSIS , COMPL ETE note This urine was meena zed for the prese nce of WBC, RBC, bacte lorena, casts , and other forme d eleme nts. Only those eleme nts seen were repor ty. Not Available [facility] [place] [facility] [address] [place], [place], [address], 10/20/2023 16:11:27 10/16/19 24 10/20/2023 HEPAT ITIS C AB W/REF L TO HCV RNA, QN, PCR hepatitis C antibody NON-RE ACTIVE non-re active normal HCV antib sofie was non-r eacti ve. There is no labor atory evide nce of HCV infec tion. In most cases , no furth er actio n is requi red. Howev er, if recen t HCV expos ure is suspe cted, a test for HCV RNA (test code 21562 ) is sugge sted. For addit ional infor liliana n mariela e refer to http: //edu catnilton n.que stdia gnost ics.c om/fa q/FAQ 22v1 (This link is being provi ded for infor matio nal/ educa taryn l purpo ses only. ) Not Available [facility] [place] [facility] [address], [place], [address], 10/20/2023 16:11:28 10/16/19 24 10/16/2023 APOLI POPRO TEIN B apolipoprote in B 83 mg/dL <90 Risk: Optim al <90 mg/dL ; Moder ate 90-11 9 mg/dL ; High >= 120 mg/dL ; Cardi ovasc ular event risk categ ory cut point s (opti mal, moder ate, high) are based on Natio nal Lipid Assoc iatio n recom menda tions - Kai PEREZ et al. J of Clin Lipid . 2015; 9: 129-1 69 and Guillermo SALDAÑA et al. Endoc r Pract . 2017; 23(Sterling ppl 2):1- 87. Not Available [facility] - Manual Order Only [address], [place], [address], 10/23/2023 19:55:12 10/16/19 24 10/16/2023 HSCRP hs-CRP 0.7 mg/L <1.0 The AHA/C DC Guide lines recom mend hs-CR P range s for ident ifyin g Relat ming Cardi ovasc ular Risk in patie nts ages >17 years : <1.0 mg/L Lower Relat ming Cardi ovasc ular Risk; 1.0-3 .0 mg/L [place] ge Relat ming Cardi ovasc ular Risk; 3.1-1 0.0 mg/L Highe r Relat ming Cardi ovasc ular Risk. For patie nts with highe r cardi ovasc ular risk, consi karel retes ting in 1-2 weeks to exclu de a benig n trans ient eleva tion secon diane to infec tion or infla mmati on from the basel ine CRP value . Persi stent eleva tions of >10.0 mg/L upon retes ting may be assoc iated with infec tion and infla mmati on. The AHA/C DC recom menda tions are based on Pears on TA et al. Circjack linares n. 2002; 107:4 99-51 1. Not Available [facility] - Manual Order Only [address], [place], [address], 10/23/2023 19:55:12 10/16/19 24 10/16/2023 LIPID PANEL cholesterol, total 154 mg/dL <200 Not Available [facility] - Manual Order Only [address], [place], [address], 10/23/2023 19:55:13 10/16/19 24 10/16/2023 LIPID PANEL HDL cholesterol 47 mg/dL >49 low Not Available [facility] Manual Order Only [address], [place], [address], 10/23/2023 19:55:13 10/16/19 24 10/16/2023 LIPID PANEL triglyceride s 76 mg/dL <150 Not Available [facility] - Manual Order Only [address], [place], [address], 10/23/2023 19:55:13 10/16/19 24 10/16/2023 LIPID PANEL LDL cholesterol 91 mg/dL _(nikolai c) <100 Marisela able range <100 mg/dL for prima ry preve ntion ; <70 mg/dL for patie nts with CHD or diabe tic patie nts with >= 2 CHD risk facto rs. LDL-C is now calcu lated using the Jia n-Hop kins kelly montero, which is a valid ated novel kenya briseno than the Fried bj equat ion in the estim ation of LDL-C . Jia DAY et al. OLGA LIDIA. 2013; 310(1 9): 2061- 2068 (http ://ed ucati on.Qu Zafar [employer]. com/f aq/FA Q164) Not Available [facility] - Manual Order Only [address], [place], [address], 10/23/2023 19:55:13 10/16/19 24 10/16/2023 LIPID PANEL chol/HDL-C 3.3 calc <5.0 Not Available [facility] - Manual Order Only [address], [place], [address], 10/23/2023 19:55:13 10/16/19 24 10/16/2023 LIPID PANEL non-HDL cholesterol 107 mg/dL _(nikolai c) <130 For patie nts with diabe ayo plus 1 major ASCVD risk facto r, treat ing to a non-H DL-C goal of <100 mg/dL (LDL- C of <70 mg/dL ) is consi dered a thera peuti c optio n. Not Available [facility] - Manual Order Only [address], [place], [address], 10/23/2023 19:55:13 10/16/19 24 10/16/2023 ADMA AND SDMA adma (asymmetric dimethylargi nine) 103 NG/mL <100 high [place] ty ADMA level s are assoc iated with signi fican t subcl inica l ather oscle rosis while eleva ty SDMA level s are assoc iated with kidne y funct ion and stron gly corre late with reduc ed eGFR. Avail able prosp ectiv e studi es sugge st an incre ased risk of cardi ovasc ular disea se with highe r ADMA anuradha ntrat ions (1). Based on an inter nal refer ence range study using 180 'appa rentl y healt hy,' non-s mokin g donor s, [facility] has defin ed the follo wing cut-o ffs for ADMA: A cut-o ff of <100 ng/mL defin es an 'appa rentl y healt hy' popul ation at optim al relat ming risk for a cardi ovasc ular event , 100-1 23 ng/mL defin es a popul ation at moder ate relat ming risk for a cardi ovasc ular event , and >123 ng/mL defin es a high relat ming risk popul ation . (Refe rence : 1-Nghia Fuentes al. J Am Heart Assoc . 2015; 4: e0018 33).T his test was devel oped and its meena tical perfo rmanc e elal cteri stics have been deter mined by [facility] Cardi ometa jose segovia of [place] sotelo at [facility]. It has not been clear ed or appro syeda by the U.S. Food and Drug Admin istra tion. This assay has been valid ated pursu ant to the CLIA regul ation s and is used for clini nikolai purpo ses. Not Available [facility] - Manual Order Only [address], [place], [address], 10/23/2023 19:55:13 10/16/19 24 10/16/2023 ADMA AND SDMA sdma (symmetric dimethylargi nine) 118 NG/mL 73-135 Not Available [facility] - Manual Order Only [address], [place], [address], 10/23/2023 19:55:13 10/16/19 24 10/16/2023 TMAO (TRIM ETHYL AMINE N-OXI DE) tmao (trimethylam ine N-oxide) 0.9 um <6.2 Based on a popul ation (N=40 [id number]) defin ed as ambul atory stabl e patie nts witho ut acute coron mingo syndr ome who under went elect ming diagn ostic coron mingo angio graph y (1) and a refer ence range study of appar ently healt hy donor s (N=18 [id number]), we have defin ed the follo wing cut-o ffs for TMAO to asses s relat ming risk of a cardi ovasc ular event : A cut-o ff of <6.2 uM defin es a popul ation at optim al relat ming risk for a cardi ovasc ular event relat ming to those above this level . 6.2-9 .9 uM defin es a popul ation at moder ate relat ming risk for a cardi ovasc ular event (two- fold incre ased risk of MACE at 3 years ) relat ming to those with TMAO <6.2 uM (1). Given the dose- depen dent relat ionsh ip betwe en TMAO and cardi ovasc ular event risk demon strat ed acros s multi ple clini nikolai subgr oups (2), those above the upper limit of the [facility] 95% popul ation inter hayley (>=10 .0 uM) are defin ed as high relat ming risk for a cardi ovasc ular event relat ming to those with TMAO <6.2 uM. (Refe helene s: 1-Shivam love et al. N Engl J Med. 2013; 368:1 575-1 584. 2-Kings burgos Y, et al. J Am Heart Assoc . 2017; 6(7)) .This test was devel oped and its meena tical perfo rmanc e ella cteri stics have been deter mined by [facility] Cardi ometa bolandrew segovia of [place] sotelo at [facility]. It has not been clear ed or appro syeda by the U.S. Food and Drug Admin istra tion. This assay has been valid ated pursu ant to the CLIA regul ation s and is used for clini nikolai purpo ses. Not Available [facility] Manual Order Only [id number], [place], [address], 10/23/2023 19:55:14 10/16/19 24 10/16/2023 THYRO ID STIMU LATIN G HORMO NE (TSH) thyroid stimulating hormone (TSH) 2.20 mlu/L 0.40-4 .50 For addit ional infor mariela mcnair e refer to http: //dyan montero.Que stDia gnost ics.c om/fa q/FAQ 138 This test was perfo rmed using the Sieme ns TSH immun oassa y metho d. Value s obtai song with previ ous assay metho ds canno t be used inter kimble eably . Not Available [facility] - Manual Order Only [address], [place], [address], 10/23/2023 19:55:14 10/16/19 24 10/16/2023 URIC ACID uric acid 4.3 mg/dL 2.5-7. 3 Not Available [facility] - Manual Order Only [address], [place], [address], 10/23/2023 19:55:14 10/16/19 24 10/16/2023 HEMOG LOBIN A1C HbA1C 5.2 % <5.7 For the purpo se of cesario irizarry for the prese nce of diabe ayo: <5.7% is consi stent with the absen ce of diabe ayo; 5.7-6 .4% is consi stent with incre ased risk for diabe ayo (pred iabet es); >= 6.5% is consi stent with diabe ayo. This assay resul t is consi stent with a decre ased risk of diabe ayo. Curre ntly, no conse nsus exist s edwin cazares use of hemog lobin A1c for diagn osis of diabe ayo in child rosalba. Accor debora to Ameri can Diabe ayo Assoc iatio n (ADA) guide lines , hemog lobin A1c <7.0% repre sents optim al contr ol in non-p regna nt diabe tic patie nts. Diffe rent metri cs may apply to speci fic patie nt popul ation s. Stand ards of Medic al Care in Diabe ayo (ADA) . Not Available [facility] - Manual Order Only [id number], [place], [address], 10/23/2023 19:55:15 10/16/19 24 10/16/2023 HEMOG LOBIN A1C estimated average glucose 103 mg/dL <117 The estim ated avera ge gluco se value is an adjun ct to the treat ment of both Type I and Type II Diabe ayo. It is not inten ded for the diagn osis or risk asses sment of patie nts witho ut diabe ayo. (Refe rence : Dillan DÍAZ et al. Diabe ayo Care 2008; 31:14 73-14 78). Not Available [facility] - Manual Order Only [id number], [place], [address], 10/23/2023 19:55:15 10/16/19 24 10/16/2023 MYELO PEROX IDASE myeloperoxid ase 344 pmol/ L <470 Based on a high risk sub-p opula tion (N=92 0) defin ed as ambul atory stabl e patie nts witho ut acute coron mingo syndr ome who under went elect ming diagn ostic coron mingo angio graph y (1) and a refer ence range study of appar ently healt hy donor s, we have defin ed the follo wing cut-o ffs for MPO: A cut-o ff of <470 pmol/ L defin es an 'appa rentl y healt hy' popul ation at optim al relat ming risk for a cardi ovasc ular event , 470-5 39 pmol/ L defin es a popul ation at moder ate relat ming risk for a cardi ovasc ular event (2-fo ld incre ased risk of MACE at 3 years ), and > = 540 pmol/ L defin es a popul ation with a high relat ming risk for a cardi ovasc ular event . (Refe rence : 1. Joce et al. Am J Cardi ol. 2013; 111:4 65-47 0 and perso nal commu nicat ion with Joce et al). This test was devel oped and its meena tical perfo rmanc e ella cteri stics have been deter mined by [facility] ometa jose sotelo at [facility]. It has not been clear ed or appro syeda by the U.S. Food and Drug Admin istra tion. This assay has been valid ated pursu ant to the CLIA regul ation s and is used for clini nikolai purpo ses. Not Available [facility] - Manual Order Only [id number], [place], [address], 10/23/2023 19:55:15 10/16/19 24 10/16/2023 VITAM IN D 25 HYDRO XY LC-MS /MS vitamin D 25 hydroxy by lc-MS/MS 42.7 NG/mL >29.9 Vitam in D, 25-Hy droxy repor ts anuradha ntrat ions of two commo n forms , 25-OH D2 and 25-OH D3. 25-OH D3 indic ates both endog enous produ ction and suppl ement ation . 25-OH D2 is an indic ator of exoge nous sourc es, such as diet or suppl ement ation . Thera py is based on measu remen t of Total 25-OH D, with level s <20 ng/mL indic ative of Vitam in D defic iency , while level s betwe en 20 ng/mL and 30 ng/mL sugge st insuf ficie ncy. Optim al level s are >=30 ng/mL . For addit ional infor mariela mcnair e refer to http: //[facility] cody montero.que stdia gnost ics.c om/fa q/FAQ 199(T his link is being provi ded for infor liliana montero/[facility] cody nal purpo ses only. )This test was devel oped and its meena tical perfo rmanc e ella cteri stics have been deter mined by [facility] timothy Navas r of [place] ashleigh at [facility]. It has not been clear ed or appro syeda by the U.S. Food and Drug Admin istra tion. This assay has been valid ated pursu ant to the CLIA regul ation s and is used for clini nikolai purpo ses. Not Available [facility] - Manual Order Only [id number], [place], [address], 10/23/2023 19:55:16 10/17/19 24 10/17/2023 visnilton n scree n* Acuity Far - Right Eye 20/35 Not Available Main O ffice [address], [place], [address], 10/17/2023 12:49:01 10/17/19 24 10/17/2023 visio n scree n* Acuity Far - Left Eye 20/40 Not Available Main O ffice [address], [place], [address], 10/17/2023 12:49:01 10/17/19 24 10/17/2023 visio n scree n* Acuity Intermediate - OU 20/35 Not Available Main O ffice [address] [facility] [address], [place], [address], 10/17/2023 12:49:01 10/17/19 24 10/17/2023 visio n scree n* Acuity Near - OU 20/25 Not Available Main O ffice [address] [facility] [address], [place], [address], 10/17/2023 12:49:01 10/17/19 24 10/17/2023 visio n scree n* Lateral Glare Passed Not Available Main O ffice [address] [facility] [address], [place], [address], 10/17/2023 12:49:01 10/17/19 24 10/17/2023 visio n scree n* Stereopsis Far 70% Not Available Main O ffice [address] [facility] [address], [place], [address], 10/17/2023 12:49:01 10/17/19 24 10/17/2023 visio n scree n* Phorias Far - Horizontal 0.0 Not Available Fernanda n Office [address], [place], [address], 10/17/2023 12:49:01 10/17/19 24 10/17/2023 visio n scree n* Phorias Far - Vertical 0.0 Not Available Main Office [address] [facility] [address], [place], [address], 10/17/2023 12:49:01 10/17/19 24 10/17/2023 visio n scree n* Fusion Far 4 Dots Not Available Main Of fice [address] [facility] [address], [place], [address], 10/17/2023 12:49:01 10/17/19 24 10/17/2023 visio n scree n* Colors Far - Jose Guadalupe Passed Not Available Main O ffice [address] [facility] [address], [place], [address], 10/17/2023 12:49:01 10/17/19 24 10/17/2023 visio n scree n* Peripheral Vision Test - Left Percei syeda Not Available Main Office [address] [facility] [address], [place], [address], 10/17/2023 12:49:01 10/17/19 24 10/17/2023 visio n scree n* Peripheral Vision Test - Right Percei syeda Not Available Main Office [address], [place], [address], 10/17/2023 12:49:01 10/17/19 24 10/17/2023 artificial glass eye maker test* Unknown Analyte 66.1 Not Available Main O ffice [address] [facility] [address], [place], [address], 10/17/2023 12:40:30 10/17/19 24 10/17/2023 artificial glass eye maker test* Unknown Analyte 74.0 Not Available Main O ffice [address] [facility] [address], [place], [address], 10/17/2023 12:40:30 10/17/19 24 10/17/2023 artificial glass eye maker test* Unknown Analyte 53.5 Not Available Main O ffice [address] [facility] [address], [place], [address], 10/17/2023 12:40:30 10/17/19 24 10/17/2023 artificial glass eye maker test* Unknown Analyte 68.1 Not Available Main O ffice [address] [facility] [address], [place], [address], 10/17/2023 12:40:30 10/17/19 24 10/17/2023 artificial glass eye maker test* Unknown Analyte 54.0 Not Available Main O ffice [address] [facility] [address], [place], [address], 10/17/2023 12:40:30 10/17/19 24 10/17/2023 artificial glass eye maker test* Unknown Analyte 60.4 Not Available Main O ffice [address] [facility] [address], [place], [address], 10/17/2023 12:40:30 10/17/19 24 10/17/2023 gait test (PROC ) Time taken to walk 4m 5.22 Not Available Main Office [address] [facility] [address], [place], [address], 10/17/2023 12:40:30 10/17/19 24 10/17/2023 gait test (PROC ) Gait speed in meters p/s 0.76 Not Available Main O ffice [address] [facility] [address], [place], [address], 10/17/2023 12:40:30 10/17/19 24 10/17/2023 STOP bang sleep apnea tool* Result 3 Not Available Main Offic e [address] [facility] [address], [place], [address], 10/17/2023 12:40:29 10/17/19 24 10/17/2023 STOP bang sleep apnea tool* Interpretati on 3-4 Interm ediate Risk for DANIEL Not Available Main Office [address] [facility] [address], [place], [address], 10/17/2023 12:40:29 10/17/19 24 10/17/2023 STOP bang sleep apnea tool* CPAP No Not Available Main Offic e [address] [facility] [address], [place], [address], 10/17/2023 12:40:29 10/17/19 24 10/17/2023 lakeisha metry testi ng* Status if not performed Patien t unable to comple te Not Available Main Office [address] [facility] [address], [place], [address], 10/17/2023 12:40:29 10/17/19 24 10/17/2023 funct ional asses sment scree edie* Gender Female Not Available Main Offic e [address] [facility] [address], [place], [address], 10/17/2023 12:40:29 10/17/19 24 10/17/2023 funct ional asses sment scree edie* Result Satisf ied Not Available Main Office [address] [facility] [address], [place], [address], 10/17/2023 12:40:29 10/17/19 24 10/17/2023 epwor th sleep iness scale * Total Score 5 Not Available Main O ffice [address] [facility] [address], [place], [address], 10/17/2023 12:40:29 10/17/19 24 10/17/2023 epwor th sleep iness scale * Indication 0-10 Normal Not Available Main Office [address] [facility] [address], [place], [address], 10/17/2023 12:40:29 10/17/19 24 10/17/2023 narvaez anxie ty inven tory* Total Score 6 Not Available Main O ffice [address] [facility] [address], [place], [address], 10/17/2023 12:40:28 10/17/19 24 10/17/2023 narvaez anxie ty inven tory* Indication 0-7 Normal Not Available Main Office [address] [facility] [address], [place], [address], 10/17/2023 12:40:28 10/17/19 24 10/17/2023 (TEDDY) ankle brach ial index * Right Arm 120 Not Available Main Off ice [address] [facility] [address], [place], [address], 10/17/2023 12:40:28 10/17/19 24 10/17/2023 (TEDDY) ankle brach ial index * Left Arm 120 Not Available Main Offi ce [address] [facility] [address], [place], [address], 10/17/2023 12:40:28 10/17/19 24 10/17/2023 (TEDDY) ankle brach ial index * Right Ankle 170 Not Available Main O ffice [address] [facility] [address], [place], [address], 10/17/2023 12:40:28 10/17/19 24 10/17/2023 (TEDDY) ankle brach ial index * Left Ankle 210 Not Available Main Of fice [address] [facility] [address], [place], [address], 10/17/2023 12:40:28 10/17/19 24 10/17/2023 (TEDDY) ankle brach ial index * Right TEDDY 1.41 Not Available Main Off ice [address] [facility] [address], [place], [address], 10/17/2023 12:40:28 10/17/19 24 10/17/2023 (TEDDY) ankle brach ial index * Right TEDDY Intrepretati on Greate r than 1.4 -Calci ficati on Vessel Harden ing Not Available Main Office [address] [facility] [address], [place], [address], 10/17/2023 12:40:28 10/17/19 24 10/17/2023 (TEDDY) ankle brach ial index * Left TEDDY 1.75 Not Available Main Offi ce [address] [facility] [address], [place], [address], 10/17/2023 12:40:28 10/17/19 24 10/17/2023 (TEDDY) ankle brach ial index * Left TEDDY Interpretati on Greate r than 1.4 -Calci ficati on Vessel Harden ing Not Available Main Office [address] [facility] [address], [place], [address], 10/17/2023 12:40:28 10/17/19 24 10/17/2023 body compo sitio n meena sis (PROC ) Body Mass Index (BMI) 31.8 Not Available Main Office [address] [facility] [address], [place], [address], 10/17/2023 12:40:28 10/17/19 24 10/17/2023 body compo sitio n meena sis (PROC ) Body Fat % 50.1 Not Available Main Of fice [address] [facility] [address], [place], [address], 10/17/2023 12:40:28 10/17/19 24 10/17/2023 body compo sitio n meena sis (PROC ) Skeletal Muscle Mass (SMS) 54.5 Not Available Main O ffice [address] [facility] [address], [place], [address], 10/17/2023 12:40:28 10/17/19 24 10/17/2023 body compo sitio n meena sis (PROC ) Basal Metabolic Rate (BMR) 1363 Not Available Main Office [address] [facility] [address], [place], [address], 10/17/2023 12:40:28 01/19/20 24 01/26/2024 LIPID PANEL , STAND DALILA cholesterol, total 146 mg/dL <200 normal Not Available [facility] - Manual Order Only [address], [place], [address], 01/26/2024 22:24:26 01/19/20 24 01/26/2024 LIPID PANEL , STAND DALILA HDL cholesterol 48 mg/dL > or = 50 low Not Available [facility] - Manual Order Only [address], [place], [address], 01/26/2024 22:24:26 01/19/20 24 01/26/2024 LIPID PANEL , STAND DALILA triglyceride s 85 mg/dL <150 normal Not Available [facility] - Manual Order Only [address], [place], [address], 01/26/2024 22:24:26 01/19/20 24 01/26/2024 LIPID PANEL , STAND DALILA LDL-choleste rol 81 mg/dL _(nikolai c) normal Refer ence range : <100 Marisela able range <100 mg/dL for prima ry preve ntion ; <70 mg/dL for patie nts with CHD or diabe tic patie nts with > or = 2 CHD risk facto rs. LDL-C is now calcu lated using the Jia n-Hop kins calcu latio n, which is a valid ated novel yvano d josette rudd r accur acoliverio than the Fried bj equat ion in the estim ation of LDL-C . Jia montero SS et al. OLGA LIDIA. 2013; 310(1 9): 2061- 2068 (http ://ed ucati on.Tasha resendizPointworthys. com/f aq/FA Q164) Not Available [facility] - Manual Order Only [address], [place], [address], 01/26/2024 22:24:26 01/19/20 24 01/26/2024 LIPID PANEL , STAND DALILA chol/HDLC ratio 3.0 (calc ) <5.0 normal Not Available [facility] - Manual Order Only [address], [place], [address], 01/26/2024 22:24:26 01/19/20 24 01/26/2024 LIPID PANEL , STAND DALILA non HDL cholesterol 98 mg/dL _(nikolai c) <130 normal For patie nts with diabe ayo plus 1 major ASCVD risk facto r, treat ing to a non-H DL-C goal of <100 mg/dL (LDL- C of <70 mg/dL ) is alfredoi martine melendez optio n. Not Available [facility] - Manual Order Only [address], [place], [address], 01/26/2024 22:24:26 01/19/20 24 01/26/2024 HEPAT IC FUNCT ION PANEL protein, total 6.8 g/dL 6.1-8. 1 normal Not Available [facility] - Manual Order Only [address], [place], [address], 01/26/2024 22:24:26 01/19/20 24 01/26/2024 HEPAT IC FUNCT ION PANEL albumin 4.1 g/dL 3.6-5. 1 normal Not Available [facility] - Manual Order Only [address], [place], [address], 01/26/2024 22:24:26 01/19/20 24 01/26/2024 HEPAT IC FUNCT ION PANEL globulin 2.7 g/dL_ (calc ) 1.9-3. 7 normal Not Available [facility] - Manual Order Only [address], [place], [address], 01/26/2024 22:24:26 01/19/20 24 01/26/2024 HEPAT IC FUNCT ION PANEL albumin/glob ulin ratio 1.5 (calc ) 1.0-2. 5 normal Not Available [facility] - Manual Order Only [address], [place], [address], 01/26/2024 22:24:26 01/19/20 24 01/26/2024 HEPAT IC FUNCT ION PANEL bilirubin, total 0.5 mg/dL 0.2-1. 2 normal Not Available [facility] - Manual Order Only [address], [place], [address], 01/26/2024 22:24:26 01/19/20 24 01/26/2024 HEPAT IC FUNCT ION PANEL bilirubin, direct 0.1 mg/dL < or = 0.2 normal Not Available [facility] - Manual Order Only [address], [place], [address], 01/26/2024 22:24:26 01/19/20 24 01/26/2024 HEPAT IC FUNCT ION PANEL bilirubin, indirect 0.4 mg/dL _(nikolai c) 0.2-1. 2 normal Not Available [facility] - Manual Order Only [address], [place], [address], 01/26/2024 22:24:26 01/19/20 24 01/26/2024 HEPAT IC FUNCT ION PANEL alkaline phosphatase 84 U/L 37-153 normal Not Available [facility] - Manual Order Only [address], [place], [address], 01/26/2024 22:24:26 01/19/20 24 01/26/2024 HEPAT IC FUNCT ION PANEL AST 23 U/L 10-35 normal Not Available [facility] - Manual Order Only [address], [place], [address], 01/26/2024 22:24:26 01/19/20 24 01/26/2024 HEPAT IC FUNCT ION PANEL ALT 18 U/L 6-29 normal Not Available [facility] - Manual Order Only [address], [place], [address], 01/26/2024 22:24:26 01/19/20 24 01/26/2024 APOLI POPRO TEIN B apolipoprote in B 71 mg/dL <90 Refer ence Range : <90 Risk Categ ory: Optim al < 90 Moder ate 90 - 119 High > or = 120 Cardi ovasc ular event risk categ ory cut point s (opti mal, moder ate, high) are based on Natio nal Lipid Assoc iatio n recom cesara rainer -Pablo gray TA et al. J Clin Lipid . 2015; 9:129 -169 and Guillermo SALDAÑA et al. Endoc r Pract . 2017; 23(Sterling ppl 2):1- 87. Not Available [facility] - Manual Order Only [address], [place], [address], 01/26/2024 22:24:27 01/19/20 24 01/26/2024 CARDI O IQ(R) HOMOC YSTEI NE homocysteine 9.3 umol/ L <10.4 Homoc ystei ne is incre ased by funct ional defic iency of folat e or vitam in B12. Testi ng for methy lmalo rei acid diffe renti ates betwe en these defic ienci es. Other cause s of incre ased homoc ystei ne inclu de renal failu re, folat e antag onist s such as metho trexa te and pheny toin, and expos ure to nitro us oxide . Selhu b J, et al. Shruti Inter n Med. 1999; 131(5 ):331 -9. Homoc ystei ne is incre ased by funct ional defic iency of folat e or vitam in B12. Testi ng for methy lmalo rei acid diffe renti ates betwe en these defic ienci es. Other cause s of incre ased homoc ystei ne inclu de renal failu re, folat e antag onist s such as metho trexa te and pheny toin, and expos ure to nitro us oxide . Selsosa Murray, et al., Shruti Inter n Med. 1999; 131(5 ):331 -9. Not Available [facility] - Manual Order Only [address], [place], [address], 01/26/2024 22:24:27 05/06/20 24 05/15/2024 LIPID PANEL , STAND DALILA cholesterol, total 152 mg/dL <200 normal Not Available [facility] [place] [facility] [address], [place], [address], 05/15/2024 15:00:12 05/06/20 24 05/15/2024 LIPID PANEL , STAND DALILA HDL cholesterol 47 mg/dL > or = 50 low Not Available [facility] [place] [facility] [address], [place], [address], 05/15/2024 15:00:12 05/06/20 24 05/15/2024 LIPID PANEL , STAND DALILA triglyceride s 87 mg/dL <150 normal Not Available [facility] [place] [facility] [address], [place], [address], 05/15/2024 15:00:12 05/06/20 24 05/15/2024 LIPID PANEL , STAND DALILA LDL-choleste rol 87 mg/dL _(nikolai c) normal Refer ence range : <100 Marisela able range <100 mg/dL for prima ry preve ntion ; <70 mg/dL for patie nts with CHD or diabe tic patie nts with > or = 2 CHD risk facto rs. LDL-C is now calcu lated using the Jia n-Hop kins calcu vijay n, which is a valid ated novel yvano balwinder lorenzote r accur acy than the Fried bj equat ion in the estim ation of LDL-C . Jia DAY et al. OLGA LIDIA. 2013; 310(1 9): 2061- 2068 (http ://ed ucati on.Qu [employer]. com/f aq/FA Q164) Not Available [facility] [place] [facility] [address], [place], [address], 05/15/2024 15:00:12 05/06/20 24 05/15/2024 LIPID PANEL , STAND DALILA chol/HDLC ratio 3.2 (calc ) <5.0 normal Not Available [facility] [place] [facility] [address], [place], [address], 05/15/2024 15:00:12 05/06/20 24 05/15/2024 LIPID PANEL , STAND DALILA non HDL cholesterol 105 mg/dL _(nikolai c) <130 normal For patie nts with diabe ayo plus 1 major ASCVD risk facto r, treat ing to a non-H DL-C goal of <100 mg/dL (LDL- C of <70 mg/dL ) is consi dered a thera peuti c optio n. Not Available [facility] [place] [facility] [address], [place], [address], 05/15/2024 15:00:12 05/06/20 24 05/15/2024 COMPL EMENT COMP C3 + C4 complement component C3C 137 mg/dL 83-193 normal Not Available [facility] [place] [facility] [address], [place], [address], 05/15/2024 15:00:16 05/06/20 24 05/15/2024 COMPL EMENT COMP C3 + C4 complement component C4C 39 mg/dL 15-57 normal Not Available [facility] [place] [facility] [address], [place], [address], 05/15/2024 15:00:16 05/06/20 24 05/15/2024 BASIC METAB OLIC PANEL glucose 90 mg/dL 65-99 normal Fasti ng refer ence inter hayley Not Available [facility] [place] [facility] [address], [place], [address], 05/15/2024 15:00:17 05/06/20 24 05/15/2024 BASIC METAB OLIC PANEL urea nitrogen (BUN) 17 mg/dL 7-25 normal Not Available [facility] [place] [facility] [address], [place], [address], 05/15/2024 15:00:17 05/06/20 24 05/15/2024 BASIC METAB OLIC PANEL creatinine 0.90 mg/dL 0.50-1 .05 normal Not Available [facility] [place] [facility] [address] [place], [place], [address], 05/15/2024 15:00:17 05/06/20 24 05/15/2024 BASIC METAB OLIC PANEL eGFR 70 mL/mi n/1.7 3m2 > or = 60 normal Not Available [facility] [place] [facility] [address], [place], [address], 05/15/2024 15:00:17 05/06/2005/15/2024 BASIC METAB OLIC PANEL BUN/creatini ne ratio SEE NOTE: (calc ) 6-22 Not Repor ty: BUN and Creat inine are withi n refer ence range . Not Available [facility] [place] [facility] [address], [place], [address], 05/15/2024 15:00:17 05/06/20 24 05/15/2024 BASIC METAB OLIC PANEL sodium 142 mmol/ L 135-14 6 normal Not Available [facility] [place] [facility] [address], [place], [address], 05/15/2024 15:00:17 05/06/20 24 05/15/2024 BASIC METAB OLIC PANEL potassium 4.6 mmol/ L 3.5-5. 3 normal Not Available [facility] [address], [place], [address], 05/15/2024 15:00:17 05/06/20 24 05/15/2024 BASIC METAB OLIC PANEL chloride 104 mmol/ L 98-110 normal Not Available [facility] [address], [place], [address], 05/15/2024 15:00:17 05/06/20 24 05/15/2024 BASIC METAB OLIC PANEL carbon dioxide 27 mmol/ L 20-[address] [facility] [place] [facility] [address], [place], [address], 05/15/2024 15:00:17 05/06/20 24 05/15/2024 BASIC METAB OLIC PANEL calcium 9.5 mg/dL 8.6-10 .[address] [facility] [place] [facility] [address], [place], [address], 05/15/2024 15:00:17 05/06/2005/15/2024 HEPAT IC FUNCT ION PANEL protein, total 6.8 g/dL 6.1-8. 1 normal Not Available [facility] [address], [place], [address], 05/15/2024 15:00:17 05/06/20 24 05/15/2024 HEPAT IC FUNCT ION PANEL albumin 4.1 g/dL 3.6-5. [address] [facility] [place] [facility] [address], [place], [address], 05/15/2024 15:00:17 05/06/20 24 05/15/2024 HEPAT IC FUNCT ION PANEL globulin 2.7 g/dL_ (calc ) 1.9-3. 7 normal Not Available [facility] [address], [place], [address], 05/15/2024 15:00:17 05/06/20 24 05/15/2024 HEPAT IC FUNCT ION PANEL albumin/glob ulin ratio 1.5 (calc ) 1.0-2. 5 normal Not Available [facility] [address], [place], [address], 05/15/2024 15:00:17 05/06/20 24 05/15/2024 HEPAT IC FUNCT ION PANEL bilirubin, total 0.5 mg/dL 0.2-1. 2 normal Not Available [facility] [address], [place], [address], 05/15/2024 15:00:17 05/06/20 24 05/15/2024 HEPAT IC FUNCT ION PANEL bilirubin, direct 0.1 mg/dL < or = 0.2 normal Not Available [facility] [address], [place], [address], 05/15/2024 15:00:17 05/06/20 24 05/15/2024 HEPAT IC FUNCT ION PANEL bilirubin, indirect 0.4 mg/dL _(nikolai c) 0.2-1. 2 normal Not Available [facility] [address], [place], [address], 05/15/2024 15:00:17 05/06/20 24 05/15/2024 HEPAT IC FUNCT ION PANEL alkaline phosphatase 88 U/L 37-153 normal Not Available [facility] [address], [place], [address], 05/15/2024 15:00:17 05/06/20 24 05/15/2024 HEPAT IC FUNCT ION PANEL AST 22 U/L 10-35 normal Not Available [facility] [address], [place], [address], 05/15/2024 15:00:17 05/06/20 24 05/15/2024 HEPAT IC FUNCT ION PANEL ALT 16 U/L 6-29 normal Not Available [facility] [address], [place], [address], 05/15/2024 15:00:17 05/06/20 24 05/15/2024 SED RATE BY MODIF IED WESTE RGREN sed rate by modified westergren 2 mm/h < or = 30 normal Not Available [facility] [address], [place], [address], 05/15/2024 15:00:18 05/06/20 24 05/15/2024 PERFECTO SCREE N, IFA, W/REF L TITER AND PATTE RN PERFECTO screen, ifa POSITI VE negati ve abnormal PERFECTO IFA is a first line scree n for detec ting the prese nce of up to appro ximat brigette 150 autoa ntibo dies in vario us autoi mmune disea ses. A posit ming PERFECTO IFA resul t is sugge stive of autoi mmune disea se and refle xes to titer and monie rn. Furth er labor atory testi ng may be consi dered if clini sherry indic ated. For addit ional infor mariela mcnair e refer to http: //[facility] cody montero.Que stDia gnost ics.c om/fa q/FAQ 177 (This link is being provi ded for infor liliana nal/ educa taryn l purpo ses only. ) Not Available [facility] [place] [facility] [address], [place], [address], 05/15/2024 15:00:18 05/06/20 24 05/15/2024 PERFECTO SCREE N, IFA, W/REF L TITER AND PATTE RN PERFECTO titer 1:40 titer high A low level PERFECTO titer may be prese nt in pre-c linic al autoi mmune disea ses and mali l indiv idual s. Refer ence Range <1:40 Negat ming 1:40- 1:80 Low Antib sofie Level >1:80 [place] ty Antib sofie Level Not Available [facility] [address], [place], [address], 05/15/2024 15:00:18 05/06/20 24 05/15/2024 PERFECTO SCREE N, IFA, W/REF L TITER AND PATTE RN PERFECTO pattern NUCLEA R, HOMOGE NEOUS abnormal Homog eneou s patte rn is assoc iated with syste ivon lupus eryth emato ivonne (SLE) , drug- induc ed lupus and rochelle ile idiop athic arthr itis. AC-1: Homog eneou s Inter natio nal Conse nsus on PERFECTO Patte rns (http s://d oi.or g/10. 1515/ [facility]- 2017- 0052) Not Available [facility] [place] [facility] [address], [address], 05/15/2024 15:00:18 05/06/2005/15/2024 SJOGR EN'S ANTIB ODIES (SS-A ,SS-B ) sjogren's antibody (ss-A) <1.0 NEG ai <1.0 neg normal Not Available [facility] [place] [facility] [address], [address], 05/15/2024 15:00:19 05/06/20 24 05/15/2024 SJOGR EN'S ANTIB ODIES (SS-A ,SS-B ) sjogren's antibody (ss-B) <1.0 NEG ai <1.0 neg normal Not Available [facility] [place] [facility] [address], [address], 05/15/2024 15:00:19 05/06/2005/15/2024 CYCLI C CITRU LLINA TY PEPTI DE (CCP) AB (IGG) cyclic citrullinate d peptide (ccp) Ab (IgG) <16 units normal Refer ence Range Negat ming: <20 Weak Posit ming: 20-39 Moder ate Posit ming: 40-59 Stron g Posit ming: >59 Not Available [facility] [place] [facility] [address], [address], 05/15/2024 15:00:19 05/06/2005/15/2024 HSV 1/2 IGG,T YPE SPECI FIC AB hsv 1 IgG, type specific Ab 3.05 index high Not Available [facility] [place] [facility] [address] [place], [address], 05/15/2024 15:00:20 05/06/20 24 05/15/2024 HSV 1/2 IGG,T YPE SPECI FIC AB hsv 2 IgG, type specific Ab <0.90 index normal Index Inter preta tion ----- ----- ----- ---- <0.90 Negat ming 0.90- 1.09 Equiv ocal >1.09 Posit ming This assay utili zes recom binan t type- speci fic antig ens to diffe renti ate HSV-1 from HSV-2 infec tions . A posit ming resul t canno t disti nguis h betwe en recen t and past infec tion. If recen t HSV infec tion is suspe cted but the resul ts are negat ming or equiv ocal, the assay shoul d be repea ty in 4-6 weeks . The perfo rmanc e ella cteri stics of the assay have not been estab lishe d for pedia tric popul ation s, immun ocomp romis ed patie nts, or neona nathaniel scree edie. For addit ional infor marieal mcnair e refer to http: //dyan montero.Que stDia gnost ics.c om/fa q/FAQ 118 (This link is being provi ded for infor liliana fernandes/ educjuan alberto centeno l purpo ses only. ) Not Available [facility] [place] [facility] [address] [place], [address], 05/15/2024 15:00:20 05/06/20 24 05/15/2024 TSH TSH 2.57 mIU/L 0.40-4 .50 normal Not Available [facility] [place] [facility] [address] [place], [address], 05/15/2024 15:00:20 05/06/20 24 05/15/2024 APOLI POPRO TEIN B apolipoprote in B 81 mg/dL <90 Refer ence Range : <90 Risk Categ ory: Optim al < 90 Moder ate 90 - 119 High > or = 120 Cardi ovasc ular event risk categ ory cut point s (opti mal, moder ate, high) are based on Natio nal Lipid Assoc iatio n recom menda tiliseth -Pablo crystalon TA et al. J Clin Lipid . 2015; 9:129 -169 and Guillermo SALDAÑA et al. Endoc r Pract . 2017; 23(Sterling ppl 2):1- 87. Not Available [facility] [address], [place], [address], 05/15/2024 15:00:20 10/17/19 24 10/17/2023 elect rocar diogr am No observ ation record ed. [address], [address], 10/30/2023 09:51:40 10/17/19 24 10/17/2023 audio gram No observ ation record ed. [address], [address], 10/30/2023 09:51:39 11/04/19 24 audio gram No observ ation record ed. [address], [address], 02/16/2024 15:01:16 11/04/19 24 visio n scree n* No observ ation record ed. [address], [address], 02/16/2024 15:01:16 11/04/19 24 elect rocar diogr am No observ ation record ed. [address] [place], [address], 02/16/2024 15:01:16 11/04/19 24 body compo sitio n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 perform this serologic workup including PERFECTO, sedimentat ion rate, CCP antibody, complement (C3 and C4) levels and Sjogren antibodies . Ulcer of mouth [id number] K12.1 Patient appears to have episodic mouth ulceration s also likely representi ng aphthous ulcers. Patient wishes to have herpes simplex titers drawn which will be done at this time. Patient has been encouraged to use only use symptomati c management versus antiviral therapy as severity of ulcer is mild and resolves in several days. Spider bite wound [id number] T14.8XXA Patient with small lesion on the right wrist which has characteri stics of a spider bite. Patient will continue to monitor and report any increase in erythema, tenderness , fever or red streaking up the arm. [id number] Cecilio Mcnulty MD Main Office [address] [place] [address] [address] [place] [address] 05/19/2024 13:54:47 05/19/2024 14:46:28 Hyperlipidemia [id number] E78.49 Patient has a history of elevated LDL and low HDL and has increased rosuvastat in 20 mg to 5 times per week due to an abnormal coronary calcium score of 89. Patient is taking low-dose aspirin (81 mg) daily. Recent fasting blood work notable for total cholestero l 152, HDL 47, triglyceri caden 87 (increased from 85), LDL 87 (increased from 81), apolipopro tein B 81 (increased from 71) and normal hepatic panel. Patient has been encouraged to continue to follow a low-choles terol diet and to increase both aerobic exercise and resistance training. Lipoprotei n (a) was previously normal at 58. Patient will continue fish oil twice a day. Recheck fasting lipid panel, apolipopro tein B in 3-6 months. If patient unable to achieve goal LDL of less than 70, goal apolipopro tein B less than 70, goal HDL greater than 50 and goal triglyceri caden less than 100 then patient will need to consider the addition of either Zetia 10 mg daily or replacemen t of OTC fish oil with Vascepa 2 g twice daily. Patient will be scheduled for follow-up CIMT test in August 2024. Hypertensive disorder 38 831073 I10 Patient has borderline blood pressure of 136/78 in the office today. Patient will continue current management consisting of amlodipine and atenolol therapy. Patient been encouraged to follow a low-sodium diet and to increase activity/e xercise. Recheck blood pressure at follow-up visit in 3-6 months. Patient encouraged to continue to follow blood pressure at home. Goal blood pressure is less than 130/80. Migraine [id number] G43.90 9 Patient has a history of migraine headaches which may have had mild preventati ve benefit from regular amitriptyl ine dosing. Patient will report any increase in frequency or severity of migraines while tapering amitriptyl ine or after its discontinu ation. Patient will continue use of Aleve or sumatripta n at onset of headaches/ aura. Palpitations [id number] R0 0.2 Patient has a history of palpitatio ns associated with PVCs. Patient will continue atenolol 50 mg twice daily. Patient has been evaluated by clinical cardiology /electroph ysiology in the past and patient will continue to follow with Dr. Israel montero of cardiology . Obesity [id number] E66.09 Z68.32 Patient has an elevated BMI of 32.9 and a previous InBody screening notable for elevated body fat mass/perce nt body fat. Patient has been advised to reduce portion size, increase exercise (aerobic and resistance training) and reduce/chloe id consumptio n of complex carbohydra te and starch after 3 p.m. Patient will consider intermitte nt fasting in hopes of indirectly leading to weight loss. Recheck at next visit. Dry eyes [id number] H04.1 23 Patient has significan t history of dry eye but also notes history of dry mouth and vaginal dryness and question if patient has a form of sicca syndrome. Patient does also complain of rather diffuse joint discomfort . Serologic workup including PERFECTO, sedimentat ion rate, CCP antibody, complement (C3 and C4) levels and Sjogren antibodies was normal. We will taper off amitriptyl ine (10 mg alternatin g with 5 mg every other day for several weeks than 5 mg every day for several weeks then 5 mg every other day for several weeks then discontinu e). Patient will be referred to [facility] for further evaluation and potential treatment of dry eyes syndrome. Peripheral vestibular disease [id number] H81.399 Patient has a history of peripheral vestibular disease/dy sfunction and patient will taper off amitriptyl ine as noted above. Patient will notify the office if develops any significan t recurrent symptoms while tapering amitriptyl ine or after its discontinu ation. Patient was referred to neurology (Drs. Villagomez/Elie rivera/Radha Shane) for continued management . [id number] Antonieta Mcnulty Main Office [address] [place] [address] [address] [place] [address] 08/26/2024 11:39:12 09/15/2024 15:49:09 Health Concerns Section Related Observation LastModified by Organization Detai ls LastModified Time None Recorded Concern Status LastModified by Organization Details LastModified Time None Recorded Advance Directives Directive None Recorded Payers Encounter Date Sequence Insurance Name Policy Number Policy [place] Covered Member ID [place] Member ID Guarantor Name 10/30/2023 1 [employer] (MEDICARE REPLACEMENT/ ADVANTAGE - PPO) Ivonne Jimenez [id number] Ivonne Jimenez 02/16/2024 1 [employer] (MEDICARE REPLACEMENT/ ADVANTAGE - PPO) Ivonne Jimenez [id number] Ivonne Jimenez 04/30/2024 1 [employer] (MEDICARE REPLACEMENT/ ADVANTAGE - PPO) Ivonne Jimenez [id number] Ivonne Jimenez 05/19/2024 1 [employer] (MEDICARE REPLACEMENT/ ADVANTAGE - PPO) Ivonne Jimenez [id number] Ivonne Jimenez 08/26/2024 1 [employer] (MEDICARE REPLACEMENT/ ADVANTAGE - PPO) Ivonne Jimenez [id number] Ivonne Jimenez Notes Date Note Type Note Provider Name and Address Organization Details Recorded Time 10/30/2023 text/html Medicare Annual Wellness VisitReported bypatient.Diet and Nutrition:healthy diet Fracture Risk:no history of fractures; no recent explained fracture; no sudden unexplained fractures; no previous musculoskeletal injuries Physical Activity:exercises on a regular basis; recent increase in physical activity; good physical condition Depression Risk:never feels sad, empty, or tearful; no loss of interest in activities; no significant changes in weight; no sleep disturbances or insomnia; no agitation; no loss of energy; no feelings of worthlessness or guilt; no thoughts of suicide; no history of depression; no history of mood disorders Orientation:no disorientation to time; no disorientation to date; no disorientation to place Concentration and Memory:no decreased concentrating ability; no memory lapses or loss; does not forget words Speech/Motor difficulties:no speech difficulties; no difficulty expressing formulated concepts; no difficulty with fine manipulative tasks; no difficulty writing/copying; no slowed reaction time; does not knock things over when trying to pick them up Hearing:no loss of hearing Vision:no vision problems Activities of Daily Living:able to bathe with limited or no assistance; able to contol urination and bowels; able to dress with limited or no assistance; able to feed self with limited or no assistance; able to get out of chair or bed with limited or no assistance; able to groom with limited or no assistance; able to toilet with limited or no assistance Instrumental Activities of Daily Living:able to do house work with limited or no assistance; able to grocery shop with limited or no assistance; able to manage medications with limited or no assistance; able to manage money with limited or no assistance; able to prepare meals with limited or no assistance; able to use the phone with limited or no assistance Falls Risk Assessment:no frequent falls while walking; no fall in the past year; no fall since last visit; no dizziness/vertigo Home Safety:no unsafe david hazzards; no unsafe stairs; no unsafe gas appliances; working smoke/CO detectors; wears protective head gear for biking/high velocity; use of seatbelts; practicing 'safer sex'; no vision or hearing loss while driving; no fire arms; has hand bars in the bathroom/shower; good lighting in the home Patient is here for the [facility] Wellness Program and Subsequent Annual Wellness Exam. During this visit we will review and discuss their Health Risk Assessment and review the various tests and procedures performed as part of the [facility] Annual Wellness Program. The patient has no current acute medical complaints, nor any recent hospitalizations. Discussion Points for Review during Visit: -Review current medical conditions and specialists' consultations in detail. -Labs and testing review in great detail. -Review risks associated w/pain, nutrition, hydration, sleep, stress, activity and sexual health. -Review risks of alcohol, caffeine, and tobacco. -Preventative services and offer available/appropriate services. -Review personal, home and driving safety. Cecilio Mcnulty MD [address] [place] [address], [phone], Cecilio Moore. 10/31/2023 09:23:41 02/16/2024 text/html Patient presents for three-month hyperlipidemia, hypertension, obesity, palpitations and peripheral vestibular disease follow-up. Patient since her last visit she started daily low-dose aspirin therapy, doubled her fish oil, increased rosuvastatin to 5 days per week and has been attending physical therapy for balance training. Patient also notes seeing a slip seat coverer, Dr. Alas, who performed echocardiogram which was reportedly normal. Cecilio Mcnulty MD [address] [place] [address], [phone], Cecilio Moore. 02/16/2024 16:00:07 04/30/2024 text/html The patient now presents for complaint of small lesion on the right wrist following a pinch several days ago. Patient denies any additional skin lesions, fever or any red streaking up the arm. Patient also notes episodic oral ulcerations that occur approximately every 2 weeks with resolution after 3-4 days. Patient notes ulcers are similar to canker sores that she has had in the past. Patient also notes significant dry eye which has been difficult to manage as well as complaints of dry mouth and vaginal dryness. Patient has now been placed on Meibo ophthalmic drops (1 drop both eyes 4 times a day). Cecilio Mcnulty MD [address] [place], [phone], Cecilio Moore. 04/30/2024 16:54:27 05/19/2024 text/html Patient presents for six-month hyperlipidemia, hypertension, migraine, obesity, palpitations and peripheral vestibular disease follow-up. Patient was advised to take [place] ProDHA however supplement contains possible iodine which patient is allergic and therefore patient has not taken the supplement. Patient notes continued severe dry eye which has prevented cataract surgery. Patient has been taking amitriptyline for many years for anxiety disorder but feels as though she does not need this anymore particularly since mucosal membrane dryness is associated with the medication. 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 Cecilio Mcnulty MD [address] [place] [address], [phone], Cecilio Moore 05/19/2024 18:25:35 OBGyn Episode No OBEpisode recorded.
== END 2024-09-23 09:16 | disposition home or self-care (01) ==
PROVIDERS: PCP Internal Medicine; Visit Provider Surgery
DX: R92.1 Mammographic calcification found on diagnostic imaging of breast (principal)
CPT/HCPCS: 99203

== ENCOUNTER 2024-11-10 10:01 | Outpatient (AMB) | payer OTHER, SELFPAY ==
--- NOTE | 2024-11-10 10:12 | A.OFFVIS_ITS ---
Vital Signs 11/10/24 10:21 Height 5 ft 7.5 in Weight 203 lb BMI 31.3 BP 132/60 Blood Pressure Location Rt brachial Position Sitting Pulse 61 Intake Visit Reasons: s/p stero bx at [facility] Intake Note: This patient presents for breast biopsy results. Pt c/o; reports no complaints. 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: No Accompanied by: Self / Same As Patient Allergies caffeine Allergy (Severe, Verified 11/10/24 10:22) Palpitations cyclobenzaprine [From Flexeril] Allergy (Severe, Verified 11/10/24 10:22) Hives codone Allergy (Intermediate, Uncoded 11/10/24 10:22) Stomach Upset Medication List - Last Reconciled 11/10/24 by Hilton Stephenson MD acetaminophen (Tylenol Extra Strength) 1,000 mg PO Q6H PRN amitriptyline 10 mg PO amlodipine 5 mg PO DAILY aspirin (Adult Aspirin Regimen) 81 mg PO DAILY atenolol 50 mg PO BID biotin 1,000 mcg PO DAILY cholecalciferol (vitamin D3) 25 mcg PO DAILY coQ10 (ubiquinol) 200 mg PO DAILY estradiol 0.01%(0.1mg/gram) vaginal flaxseed oil 1,000 mg PO DAILY fluorometholone 0.1% drps ophthalmic (eye) lifitegrast 5% (Xiidra) drps ophthalmic (eye) magnesium citrate,mag oxide mg PO [id number]-gjy-ctkt-lut-titi 250 mg (90 mg-160 mg) (Ocuvite Adult 50 Plus) 1 cap PO DAILY naproxen sodium (Aleve) 220 mg PO BID PRN vnwse-5p-zit-epa-fish oil-D3 667 mg (280 mg- 280 mg-107 mg) (Cardio [place] Benefits) caps PO omeprazole magnesium (Prilosec OTC) 20 mg PO DAILY PRN pseudoephedrine HCl ER (Sudafed 12 Hour) 120 mg PO Q12H rosuvastatin 20 mg PO 5XW triamcinolone acetonide 0.1% 1 appl topical BID-TID vitamin B complex (B Complex-Vitamin B12 tablet) 1 tab PO DAILY HPI HPI s/p stero bx at [facility]: Details: She had undergone stereotactic biopsy with an upright mammogram machine in [facility] last 10/15/2024. This was arranged because of right breast calcifications. This had to be an upright mammogram machine as she could not tolerate being in prone position for prolonged periods of time because of her back problems. She has no new complaints currently. [facility] Medical History Calcification of right breast Atherosclerotic cardiovascular disease Lower back pain Migraine Hyperlipidemia Hypertension Surgical History Hx of surgical procedure S/P anal fissurectomy Hx of cholecystectomy History of breast biopsy Family History Family/Other Substance use disorder Maternal Aunt Ovarian cancer Other Lung cancer Stomach cancer Social History Housing: House Patient Tobacco Use Status: Former Tobacco user e-Cigarette/Vaping Use: Never Used Second Hand Smoke Exposure: No service: No Current occupational status: retired Cognitive needs: No Hearing needs: No Vision needs: No Female Reproductive History Menstrual Age of Menarche: 14 Review of Systems Const Denies chills and Denies fever(s) Card Denies chest pain and Denies chest pain at rest Resp Denies cough GI Denies abdominal pain Physical Exam Vital Signs: Last Vital Signs Pulse 61 11/10/24 10:21 BP 132/60 11/10/24 10:21 BMI result Body Mass Index 31.3 Const General: comfortable and no acute distress Resp Effort & Inspection: normal respiratory effort GI Palpation (GI): Soft to palpation Assessment & Plan Assessment & Plan (1) Calcification of right breast: Code(s): R92.1 - 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 Category: Medical Plan: Status post stereotactic biopsy done in [facility]. Fortunately her path report shows benign breast tissue with Lyndsay adenomatous stroma She understands the benign nature of this pathology. I emphasized to her the importance of regular screening mammograms I can see her in the office on a p.r.n. basis. Coding Level of Care Code Est Pt Level 3 (09152) Diagnoses Calcification of right breast R92.1
[2024-11-10 10:21] VITALS: BP 132/60; PULSE 61; BMI 31.3
--- OUTSIDE RECORDS SUMMARY | 2024-11-10 11:47 | XMS_ITS | Data Portability ---
Author Organization [facility] [place], [facility] Address [address] , [place] [address] Care Team Providers Care Collection Officer Name Role Phone [facility]YS[facility] OTHER Assessment No assessment recorded. Plan of Treatment Reminders Order Date Submit Date Provider Last Modified By Organization Details Last Modified Time Details Appointments None recorded. Lab None recorded. Referral physical therapist referral - 1. 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 Right chondromalc ia patella, VMO protocol 2012 013 SIMRAN Not available 3 03:53:55 Procedures None recorded. Surgeries None recorded. Imaging x-ray, knee 2012 013 [facility] [place], [address], [place], [address], 3 03:54:04 x-ray, shoulder 2012 013 [facility] [place], [address], [address], [place], [address], 3 03:54:04 Medication Orders prednisone 10 mg tablet 2012 013 SIMRAN [id number], [address], [address], 3 03:53:59 Patient TargetsNo targets recorded. Patient Instructions Encounter Date Encounter Id Patient Instructions Last Modified By Organization Details Last Modified Time 02/10/2013 [id number] Right shoulder impingement, plan prednisone low dose daily and physical therapy for this, if not better after 6012 weeks consider ultrasound to rule out biceps pathology and bursitis. ? ? ?For her knee, mostly patellofemoral which would improve with therapy and strengthening. ? ? ?All questions answered, if side effects from prednisone call and taper dose, otherwise follow up 6 weeks for repeat check and prednisone taper. ? ? ?This is low dose unlike dose-pack but may have effects and if so let us know so taper can occur quickly over one week. ? ? ? Reassured right sternoclavicular joint swelling is due to change of use with shoulder pain and or exacerbated by her underlying mild scoliosis, not evidence of tumor. ? ? ?No need for CT or further workup unless it becomes red, warm or grows painful. ? ? ? dboyette Not available 02/10/2013 21:29:06 Reason for Referral 1. Right shoulder mild adhes ming capsultis with AC joint arthritis, impingement, SC joint swelling evaluate and treat as needed.2. Right chondromalcia patella, VMO protocol Referring Physician: Vida Couch, Orthopedic Surgery, Encounter Date: 02/10/2013 Results Created Date Observation Date Name Description Value Unit Range Abnormal Flag Note LastModifiedBy Organization Detail LastModifiedTime Result Notes None recorded. Problems Name Problem SNOMED Code Status Onset Date Resolution Date Notes Provider Name and Address Organization Details Recorded Time Chondromalaci a of patella 12797890 Active Not Available [facility] 3 03:00:40 Adhesive capsulitis of shoulder 969189957 Active Not Available [facility] 3 03:00:40 Bursitis of shoulder 040050975 Active Not Available [facility] 3 03:00:40 Problem Notes None recorded. Procedures Surgical History Date Name Laterality Status Provider Name and Address Organization Details Recorded Time General Surgery completed Vida Couch MD [address], [address], [place], [address], [facility] 02/10/2013 13:34:07 General Surgery completed Hemal [facility] 02/10/2013 13:26:51 General Surgery completed Vida Couch MD [address], [address], [place], [address], [facility] [place] 02/10/2013 13:34:07 General Surgery completed MD Justa Hendricks[address], [place], [address], [facility] [place] 02/10/2013 13:34:07 Hysteroscopy ablation completed Vida Couch MD [address], [address], [place], [address], [facility] [place] 02/10/2013 13:34:07 Imaging Results None recorded. Procedure Notes None recorded. Medical Equipment None Reported. Allergies Allergen ID Allergen Name Allergen Category Reaction Reaction Severity Criticality Documentation Date Start Date Code Code System Note Provider Name and Address Organization Details Recorded Time 33504 codeine medicatio n nausea Not available Not available 02/10/2013 2670 RxNorm Quashima Booker lewis [facility] [place] 3 13:26:51 95059 cyclobenz aprine hydrochlo ride medicatio n angioedem a hives Not available Not available Not available 02/10/2013 71940 RxNorm Yassinema Booker lewis [facility] 3 13:26:51 52863 caffeine food,medi cation other severe Not available 02/10/2013 1886 RxNorm nervo , khoa Couch MD [address], [address], [place], [address], [facility] [place] 3 13:32:54 59044 cortisone medicatio n other severe Not available 02/10/2013 2878 RxNorm invol untar y muscl e spasm Vida Couch MD [address], [address], [place], [address], [facility] [place] 3 13:41:15 Medications Name Sig Start Date Stop Date Status Note LastModified by Organization Details LastModified Time prednisone 10 mg tablet Take 1 tablet every day by oral route with meals for 60 days. 013 active Not Available Not Available Not Avai lable amitriptylin e-chlordiaze poxide 12.5 mg-5 mg tablet active Not Available Not Available Not Available prednisone 20 mg tablet active Not Available Not Available Not Available flaxseed oil 1,000 mg capsule active Not Available Not Available Not Available potassium 99 mg tablet active Not Available Not Available No t Available atenolol 50 mg tablet active Not Available Not Available No t Available naproxen 500 mg tablet active Not Available Not Available No t Available biotin 1 mg tablet active Not Available Not Available Not Available glucosamin 375 mg-chond 300 mg-collagen 50 mg-hyaluroni c acid 2 mg cap active Not Available Not Available Not Available magnesium active Not Available Not Amanda ilable Not Available [place] 3 Fish Oil active Not Available Not Available Not Available CoQ-10 active Not Available Not Availa ble Not Available B-12 DOTS active Not Available Not Amanda ilable Not Available PEG-3350 with flavor packs 420 gram oral solution active Not Available Not Available Not Available Vitals Date Recorded Body weight Body height Body mass index (BMI) Provider Name and Address Organization Details Last Updated DateTime 02/10/2013 11782 g 170 cm 27.5 kg/m2 Hemal [facility] [place] 02/10/2013 13:26:51 Social History Question Answer Notes LastModified by Organizat ion Details LastModified Time What Is Your Level Of Alcohol Consumption? None [id number] Information not available 06/23/2020 How Much Tobacco Do You Chew? None [id number] Information not available 06/23/2020 Are You Currently Employed? Yes [id number] Information not available 06/23/2020 Which Illicit Or Recreational Drugs Have You Used? None [id number] Information not available 06/23/2020 Who Is Your Employer? 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 With Others Information not available 02/10/2013 Marital Status Informatio n not available 02/10/2013 How Much Tobacco Do You Smoke? No [id number] Information not available 06/23/2020 Sex: Unknown Functional Status None recorded. Mental Status None recorded. Family History Relationship Description Onset Age of this Age Resolved Age Notes LastModified by Organization Details LastModified Time Unspecified Relation Malignant neoplastic disease previo usly record ed as Cancer [id number] Not available 02/24/2013 03:00:28 Medical History Condition Response Coronary Artery Disease N Gout N Dental Cavities N Kidney Stones N Hyperthyroidism N Heart Arrhythmia N A: No Past Medical Problems Reported N Connective Tissue Disease (RA, Lupus) N Reflux Disease N Poliomyelitis N Hiatal Hernia/Reflux Disease N Depression N Pacemaker N Anesthesia Complications N Has Pacemaker N Arthritis N COPD/Lung Disease N Blood Clots (Deep Venous Thrombosis) N Infections N Cancer N Stroke/TIA N Hypercholesterolemia N Liver Disease N Organ Transplant N GI Disease/Reflux N Alcohol Abuse N Fibromyalgia Y Dialysis N Leg/Foot Ulcers N Kidney Disease N Defibrillator N Anemia N Implants N Ulcers N Heart Attack ([place]) N Peripheral Vascular Problem N Diabetes N Bleeding Disorder N Claustrophobic N Heart Murmur N Tuberculosis N AIDS/HIV N Drug Dependency/Addiction N Urinary Tract Infection N Chronic Pain N Asthma N Seizures N Sleep Apnea N Pulmonary Embolism N Hypertension Y Osteoporosis N Gynecological HistoryNo gynecological history recorded. Obstetrics History GPAL:G 0 P 0 0 0 0 Past Encounters Encounter ID Performer Location Encounter Start Date Encounter Closed Date Diagnosis/Indication Diagnosis SNOMED-CT Code Diagnosis ICD10 Code Diagnosis Note [id number] [facility] [address] [facility] [place] [address] 02/10/2013 13:13:44 02/10/2013 14:51:55 Health Concerns Section Related Observation LastModified by Organization Detai ls LastModified Time None Recorded Concern Status LastModified by Organization Details LastModified Time None Recorded Advance Directives Directive None Recorded Payers Encounter Date Sequence Insurance Name Policy Number Policy [place] Covered Member ID [place] Member ID Guarantor Name 02/10/2013 1 [place] DOS ON OR BEFORE 09/08/2024 - [facility] (PPO) [id number] Ivonne Jimenez [id number] Ivonne Jimenez Notes Date Note Type Note Provider Name a nd Address Organization Details Recorded Time 3 text/html 57 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 Had frozen left shoulder years ago, never got all range of motion back, now right side starting to hurt and losing some motion. Had evaluation at [facility] where she was given Aleve and therapy. Now still hurting with overhead and adduction. MRI showed bursitis. Patient not enthusiastic about injection of steroid. States previous injecitons caused her a systemic reaction with muscle spasm. Now having neck and sternoclavicular pain. Other problem is her right knee, notes pain wtih wrong step, no specific injury, here for recommendations. Vida Couch MD [address], [address], [place], [address], [facility] [place] 02/10/2013 21:29:20 OBGyn Episode No OBEpisode recorded.
--- OUTSIDE RECORDS SUMMARY | 2024-11-10 11:47 | XMS_ITS | Encounter Summary ---
Author Organization [facility] Address [address] [place] [address] Care Team Providers Care Final Inspector Balance Wheel Name Role Phone Cecilio Mcnulty MD Primary Care Provider [phone] Reason for Referral * Imaging (Routine) - Pending Review Specialty Diagnoses / Procedures Referred By Contac t Referred To Contact Radiology Diagnoses 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 Procedures MG Stereo Bx Breast Perc 1st Lesion Right w/ MG Post Clip Imaging to follow Hilton Stephenson MD [address] [place] [address] DR NEUMANN [address] [place] [address] Phone: tel: fax: [address] [address] Phone: tel: Referral ID Status Reason Start Date Expiration Date V isits Requested Visits Authorized [id number] Pending Review 10/05/2024 10/05/2025 1 1 Reason for Visit * Imaging (Routine) - Pending Review Specialty Diagnoses / Procedures Referred By Contac t Referred To Contact Radiology Diagnoses 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 Procedures MG Stereo Bx Breast Perc 1st Lesion Right w/ MG Post Clip Imaging to follow Hilton Stephenson MD [address] [place] [address] DR [facility] [place] [address] Phone: tel: fax: [address] [address] Phone: tel: Referral ID Status Reason Start Date Expiration Date V isits Requested Visits Authorized [id number] Pending Review 10/05/2024 10/05/2025 1 1 Encounter Details Date Type Department Care Team (Latest Contact Info) Description 10/14/2024 7:18 AM EST - 10/14/2024 11:59 PM EST Hospital Encounter [facility] at [address] [address] 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 Discharge Disposition: Home or Self Care Social History Tobacco Use Types Packs/Day Years Used Date Smoking Tobacco: Never Assessed Comments Unknown Sex and Gender Information Value Date Recorded Sex Assigned at Female 10/08/2024 9:19 AM EST Legal Sex Female 10:19 AM EST Gender Identity Female 10/08/2024 9:19 AM EST Sexual Orientation Straight 10/08/2024 9: 19 AM EST documented as of this encounter Discharge Disposition Disposition Code Departure Means Destination Home or Self Care documented in this encounter Plan of Treatment Not on file documented as of this encounter Procedures Procedure Name Priority Date/Time Associated Diagnosis Comments MG STEREO BX BREAST PERC 1ST LESION RIGHT Routine 10/14/2024 9:02 AM EST 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 TISSUE EXAM Routine 10/14/2024 8:12 AM EST 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 documented in this encounter Results * MG Stereo Bx Breast Perc 1st Lesion Right w/ MG Post Clip Imaging to follow (10/14/2024 9:02 AM EST) Anatomical Region Laterality Modality Breast Right Mammography 10/14/2024 8:53 AM EST Impressions 10/15/2024 1:53 PM EST Stereotactic core biopsy of the right breast. ?? Pathology: Date of pathology report: 10/15/2024 Pathology: Benign breast tissue with calcifications and fibroadenomatoid stroma. No atypia or neoplasm identified. Pathologist: Ashly Bates M.D. Concordant with the imaging appearance. Patient was notified of the results and recommended follow-up. RECOMMENDATION: Screening bilateral mammogram is recommended in 1 year. -------- FINAL REPORT -------- Dictated By: Anneliese Ponce Dictated Date: 10/14/2024 08:53 ET Assigned Physician: Anneliese Ponce Reviewed and Electronically Signed By: Anneliese Ponce Signed Date: 10/15/2024 13:53 ET Workstation ID: [id number] Transcribed By: Self Edit Transcribed Date: 10/15/2024 13:49 ET Narrative 10/15/2024 1:53 PM EST STEREOTACTIC BREAST CORE NEEDLE BIOPSY CLINICAL: ?? 69 years old, Female, referred for stereotactic breast biopsy of right breast calcifications. ?? COMPARISON: 09/02/2024, 02/17/2024, 01/08/2024, 12/10/2022 PROCEDURE: ?? Informed consent was obtained. ??Preprocedure time out was performed per routine. ??The patient was positioned upright, and preliminary digital tomographic/stereotactic imaging of the right breast confirms the presence of calcifications medially at 3:00. ?? A medial approach was used. The skin was prepped using sterile technique. Cutaneous and subcutaneous anesthesia was achieved using 2% Xylocaine. ?? A standard 10- gauge core biopsy needle was advanced to the target, and satisfactory positioning was confirmed with pre- and post-fire imaging. ??A total of 5 vacuum assisted core biopsy specimens were obtained. Specimen radiograph reveals the presence of calcification. Specimens were sent for pathologic analysis, results pending. A coil shaped postbiopsy clip was deployed to kyle the biopsy site. ?? Postprocedure mammographic images disclose the clip to be at the targeted site. RCC, RMLO and RML 2-D post procedure mammography was performed. There are no visualized residual microcalcifications noted at the biopsy site. There is a small hematoma measuring 1.6 x 0.4 cm at the biopsy site. BREAST DENSITY: Specimens were sent for pathologic analysis, results pending. ??Hemostasis was achieved with manual compression. Dermabond and sterile gauze were applied, and the patient was given post biopsy instructions. There were no immediate complications. ??The patient tolerated the procedure well and left the department in good condition. Procedure Note Anneliese Ponce MD - 10/15/2024 STEREOTACTIC BREAST CORE NEEDLE BIOPSY CLINICAL: 69 years old, Female, referred for stereotactic breast biopsyof right breast calcifications. COMPARISON: 09/02/2024, 02/17/2024, 01/08/2024, 12/10/2022 PROCEDURE: Informed consent was obtained. Preprocedure time out was performed perroutine. The patient was positioned upright, and preliminary digitaltomographic/stereotactic imaging of the right breast confirms the presenceof calcifications medially at 3:00. A medial approach was used. The skin was prepped using sterile technique.Cutaneous and subcutaneous anesthesia was achieved using 2% Xylocaine. Astandard 10-gauge core biopsy needle was advanced to the target, andsatisfactory positioning was confirmed with pre- and post-fire imaging. Atotal of 5 vacuum assisted core biopsy specimens were obtained. Specimen radiograph reveals the presence of calcification. Specimens weresent for pathologic analysis, results pending. A coil shaped postbiopsyclip was deployed to kyle the biopsy site. Postprocedure mammographicimages disclose the clip to be at the targeted site. RCC, RMLO and RML 2-D post procedure mammography was performed. There areno visualized residual microcalcifications noted at the biopsy site. Thereis a small hematoma measuring 1.6 x 0.4 cm at the biopsy site. BREAST DENSITY: Specimens were sent for pathologic analysis, results pending. Hemostasiswas achieved with manual compression. Dermabond and sterile gauze wereapplied, and the patient was given post biopsy instructions. There were noimmediate complications. The patient tolerated the procedure well andleft the department in good condition. IMPRESSION: Stereotactic core biopsy of the right breast. Pathology: Date of pathology report: 10/15/2024 Pathology: Benign breast tissue with calcifications and fibroadenomatoidstroma. No atypia or neoplasm identified. Pathologist: Ashly Bates M.D. Concordant with the imaging appearance. Patient was notified of theresults and recommended follow-up. RECOMMENDATION: Screening bilateral mammogram is recommended in 1 year. -------- FINAL REPORT -------- Dictated By: Anneliese Ponce Dictated Date: 10/14/2024 08:53 ET Assigned Physician: Anneliese Ponce Reviewed and Electronically Signed By: Anneliese Ponce Signed Date: 10/15/2024 13:53 ET Workstation ID: [id number] Transcribed By: Self Edit Transcribed Date: 10/15/2024 13:49 ET us Hilton Stephenson MD IMG BI PROCEDURES F inal Result * Tissue exam (10/14/2024 8:12 AM EST) Final Diagnosis A. Right breast, 3 o'clock, calcifications, stereotactic core biopsy: Benign breast tissue with calcifications in fibroadenomatoid stroma No atypia or neoplasm identified B. Right breast, 3 o'clock, tissue, stereotactic core biopsy: Benign breast tissue with calcifications in fibroadenomatoid stroma No atypia or neoplasm identified 10/15/2024 10:05 AM [facility] Comment Dr. Ponce notified via secure chat on 10/15/24. 10/15/2024 10:05 AM [facility] Clinical Information 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 [R92.1] Biopsy is done for: Microcalcification s, coarse Ultrasound shows: 5 10g samples, 5 mm group of calcifications in the right breast as 3 o'clock Probability that the target was sampled: High History of previous breast cancer: No History of non-breast cancer: No History of atypical hyperplasia: No History of radiation/chemothe rapy: No 10/15/2024 10:05 AM [facility] Gross Description A. Breast, Right, calcifications: Labeled right breast calcs . Received in formalin are eight soft, yellow-white to red, fibrofatty tissue cores and core fragments, admixed with a moderate amount of blood clot, ranging from 0.1 x 0.1 cm to 1.3 x 0.5 cm, submitted in toto in one cassette, between sponges, eight pieces, x3. B. Breast, Right, tissue: Labeled right breast tissue . Received in formalin, on a plastic collection device, are multiple soft to rubbery, yellow-white to red, fibrofatty tissue cores and core fragments, admixed with a moderate amount of blood clot, ranging from less than 0.1 cm to 2.2 x 0.5 cm, aggregating to 5.0 x 4.3 x 0.5 submitted in toto in two cassettes, between sponges, multiple pieces, x3. Please note: Small tissue fragments may not survive processing. Time tissue collected: A: 8:12 AM (10/14/2024), B: 8:22 AM (10/14/2024) Time tissue put in formalin: A and B: 8:22 AM (10/14/2024) Time tissue exits final stage of formalin on tissue processor: 9:00 PM (10/14/2024) Total fixation time (Ideally greater than 6 hours and less than 72 hours): Approximately 12.75 hours dvb/AL 10/15/2024 10:05 AM EST [facility] Disclaimer Unless otherwise specified, all tissue is 10% NB formalin fixed and paraffin embedded. 10/15/2024 10:05 AM EST [facility] Tissue Right breast structure / Unknown 10/14/2024 8:12 AM EST 10/14/2024 9:38 AM EST Tissue specimen (specimen) Right breast structure / Unknown 10/14/2024 8:22 AM EST 10/14/2024 9:38 AM EST us Anneliese Ponce MD LAB PATHOLOGY ORDERABLES Final R esult [facility] [address] [place] [address], documented in this encounter Visit Diagnoses Diagnosis 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 documented in this encounter Administered Medications Inactive Administered Medications - up to 3 most recent administrations Medication Order MAR Action Action Date Dose Rate Site lidocaine (XYLOCAINE) 2 % injection 10 mL 10 mL, intradermal, Once, On Gabriella 10/14/24 at 0800, For 1 dose Given 10/14/2024 8:33 AM EST 10 mL Right Breast lidocaine-EPINEPHrine (XYLOCAINE W/EPI) 1 %-1:100,000 injection 10 mL 10 mL, injection, Once, On Gabriella 10/14/24 at 0800, For 1 dose Given 10/14/2024 8:31 AM EST 10 mL documented in this encounter Care Teams Final Inspector Balance Wheel Relationship Specialty Start Date End Date Cecilio Mcnulty MD [address] [address] PCP - General Internal Medicine 10/08/24 documented as of this encounter
--- OUTSIDE RECORDS SUMMARY | 2024-11-10 11:47 | XMS_ITS | Clinical Summary ---
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 Discharge Disposition: Home or Self Care 10/14/2024 7:18 AM EST - 10/14/2024 11:59 PM EST Hospital Encounter [facility] at [address] [phone] 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 Discharge Disposition: Home or Self Care from Last 3 Months Social History Tobacco Use Types Packs/Day Years Used Date Smoking Tobacco: Never Assessed Comments Unknown Sex and Gender Information Value Date Recorded Sex Assigned at Female 10/08/2024 9:19 AM EST Legal Sex Female 10:19 AM EST Gender Identity Female 10/08/2024 9:19 AM EST Sexual Orientation Straight 10/08/2024 9: 19 AM EST Plan of Treatment Health Maintenance Due Date Last Done Comments DTaP,Tdap,and Td Vaccines (1 - Tdap) 1975 Pneumococcal Vaccine: 50+ Ye ars (1 of 1 - PCV) 2006 Zoster Vaccines (1 of 2) 2006 COVID-19 Vaccine (2023-2 5 season) 2024 Influenza Vaccine (#1) 2024 Colorectal Cancer Screening: Colonoscopy 09/23/2024 Depression Screening 09/23/2024 Falls Risk Assessment 09/23/2024 Hepatitis C Screening 09/23/2024 Medicare Annual Wellness Visit 09/23/2024 Osteoporosis Screening (Bone Density Screening) 09/23/2024 Social Influencers of Health Screening 09/23/2024 Breast Cancer Screening 10/14/2026 10/14/2024 RSV Immunization Patients 60 + Years Old (1 - 1-dose 75+ series) 2031 HIB Vaccines Aged Out No longer eligi ble based on patient's age to complete this topic HPV Vaccines Aged Out No longer eligi ble based on patient's age to complete this topic Hepatitis A Vaccines Aged Out No long er eligible based on patient's age to complete this topic Hepatitis B Vaccines Aged Out No long er eligible based on patient's age to complete this topic IPV Vaccines Aged Out No longer eligi ble based on patient's age to complete this topic MMR Vaccines Aged Out No longer eligi ble based on patient's age to complete this topic Meningococcal ACWY Vaccine Aged Out N o longer eligible based on patient's age to complete this topic Meningococcal B Vacine Aged Out No lo nger eligible based on patient's age to complete this topic RSV Immunization Patients Un karel 20 months Aged Out No longer eligible b ased on patient's age to complete this topic Varicella Vaccines Aged Out No longer eligible based on patient's age to complete this topic Medical Devices Implanted Type Area Collar Setter Device Identifier Shelf Expiration Date Model / Serial / Lot Marker Biopsy [employer] Implant Strl Breast Bx - [id number] Implanted:Qty: 1 on 10/14/2024 by Anneliese Ponce MD at [facility] Imaging Implants Right: Breast [employer] [id number] 03/11/2027 4010-05- 10-T3 / / [id number] Procedures Procedure Name Priority Date/Time Associated Diagnosis Comments MG MAMMO DIGITAL DIAGNOSTIC POST CLIP RIGHT Routine 10/14/2024 10:08 AM EST 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 MG STEREO BX BREAST PERC 1ST LESION RIGHT Routine 10/14/2024 9:02 AM EST 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 TISSUE EXAM Routine 10/14/2024 8:12 AM EST 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 from Last 3 Months Results * MG Mammo Digital Diagnostic Clip Post MG Guide Right (Statistics) (10/14/2024 10:08 AM EST) Anatomical Region Laterality Modality Breast [...] Signed Date: 10/15/2024 13:53 ET Workstation ID: [id number] Transcribed By: Self Edit Transcribed Date: 10/15/2024 [...] Signed Date: 10/15/2024 13:53 ET Workstation ID: [id number] Transcribed By: Self Edit Transcribed Date: 10/15/2024 13:49 ET Hilton Stephenson MD IMG BI PROCEDURES F inal Result * MG Stereo Bx Breast Perc 1st [...] Signed Date: 10/15/2024 13:53 ET Workstation ID: [id number] Transcribed By: Self Edit Transcribed Date: 10/15/2024 [...] Signed Date: 10/15/2024 13:53 ET Workstation ID: [id number] Transcribed By: Self Edit Transcribed Date: 10/15/2024 [...] atypia or neoplasm identified 10/15/2024 10:05 AM [facility] Comment Dr. Ponce notified via secure chat on 10/15/24. 10/15/2024 10:05 AM [facility] Clinical Information Mammographic calcification found [...] of radiation/chemothe rapy: No 10/15/2024 10:05 AM [facility] Gross Description A. Breast, Right, [...] 12.75 hours dvb/AL 10/15/2024 10:05 AM EST [facility] Disclaimer Unless otherwise specified, all tissue is 10% NB formalin fixed and paraffin embedded. 10/15/2024 10:05 AM EST [facility] Tissue Right breast structure / Unknown 10/14/2024 8:12 AM EST 10/14/2024 9:38 AM EST Tissue specimen (specimen) Right breast structure / Unknown 10/14/2024 8:22 AM EST 10/14/2024 9:38 AM EST us Anneliese Ponce MD LAB PATHOLOGY ORDERABLES Final R esult [facility] [address] [place] [address], from Last 3 Months Insurance [facility] MEDIC[facility]VANTAGE on file Care Teams Group Therapist Relationship Specialty Start Date End Date Cecilio Mcnulty MD [address] [place] [phone] PCP - General Internal Medicine 10/08/24
--- OUTSIDE RECORDS SUMMARY | 2024-11-10 11:47 | XMS_ITS | Encounter Summary ---
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 Procedures MG Mammo Digital Diagnostic Clip Post MG Guide Right (Statistics) Hilton Stephenson MD [address] [place] [address] [address] NEUM[address] [place] [phone] Phone: tel: fax: [address] [phone] Phone: tel: Referral ID Status Reason Start Date Expiration Date Visits Re quested Visits Authorized [id number] Closed 10/05/2024 10/05/2025 1 1 Reason for Visit * Imaging (Routine) - Closed Specialty Diagnoses / Procedures Referred By Contac t Referred To Contact Radiology Diagnoses 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 Procedures MG Mammo Digital Diagnostic Clip Post MG Guide Right (Statistics) Hilton Stephenson MD [address] [place] [address] [address] NEUMANN [address] [place] [phone] Phone: tel: fax: [address] [phone] Phone: tel: Referral ID Status Reason Start Date Expiration Date Visits Re quested Visits Authorized [id number] Closed 10/05/2024 10/05/2025 1 1 Encounter Details Date Type Department Care Team (Latest Contact Info) Description 10/14/2024 8:30 AM EST - 10/14/2024 11:59 PM EST [facility] at [address] [phone] Mammographic calcification found on diagnostic [...] documented in this encounter Results * MG Mammo Digital Diagnostic Clip [...] Signed Date: 10/15/2024 13:53 ET Workstation ID: [id number] Transcribed By: Self Edit Transcribed Date: 10/15/2024 [...] Signed Date: 10/15/2024 13:53 ET Workstation ID: [id number] Transcribed By: Self Edit Transcribed Date: 10/15/2024 13:49 ET us Hilton Stephenson MD IMG BI PROCEDURES F inal Result documented in this encounter Visit Diagnoses Diagnosis 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
--- OUTSIDE RECORDS SUMMARY | 2024-11-10 11:47 | XMS_ITS | Clinical Summary ---
Author Organization [facility] Address [address] [place] [address] Care Team Providers Care Patternmaker Helper Name Role Phone Unavailable Primary Care Provider Unavailabl e Allergies Active Allergy Reactions Criticality Noted Date Comments Cyclobenzaprine Unknown/Patient and Family Unable to Define Medium 06/12/2023 Medications Medication Sig Dispensed Refills Start Date End Date Status amLODIPine (NORVASC) 5 MG tablet Take 5 mg by mouth daily. 05/16/2023 Active atenolol (TENORMIN) 50 MG tablet Take 50 mg by mouth 2 (two) times a day. 05/16/2023 Active Restasis 0.05 % ophthalmic emulsion Administer 1 drop to both eyes 2 (two) times a day. 05/16/2023 Active rosuvastatin (CRESTOR) 20 MG tablet Take 20 mg by mouth 3 (three) times a week. 04/18/2023 Active naproxen sodium (ALEVE) 220 mg tablet Take 220 mg by mouth 2 (two) times a day with meals. Take with meals or food to reduce stomach upset. Active acetaminophen (TYLENOL) 120 MG suppository Insert 120 mg into the rectum 4 times daily (every 6 hours) as needed for moderate pain. Active OMEprazole (PriLOSEC) 10 MG capsule Take 10 mg by mouth daily. Active magnesium 30 MG tablet Take 30 mg by mouth 2 (two) times a day. Active ergocalciferol (VITAMIN D2,DRISDOL) 32804 units Cap Take 50,000 Units by mouth once a week. Active Biotin 3 MG Tab Take 1 tablet by mouth daily. Active thiamine (VITAMIN B-1) 250 mg tablet Take 250 mg by mouth daily. Active triamcinolone (KENALOG) 0.025 % cream Apply topically 2 (two) times a day. Active estradiol (ESTRACE) 0.01 % vaginal creamIndications:Atro phic vaginitis Place 0.5 grams into the vagina at bedtime twice weekly 42.5 g 1 08/26/2024 Active Active Problems Problem Noted Date Diagnosed Date Vaginal discharge 08/26/2024 Assessment & Plan (08/26/2024 2:28 PM EST): Using vaginal estrogen successfully for dryness Has some vaginal discharge that is beige and has an odor No bleeding Also intermittent L groin irritation No new exposures to soaps, etc No GI or issues No new sexual contacts Affirm collected Encounter for annual routine gynecological exami [facility] [place] 06/12/2023 Assessment & Plan (06/12/2023 10:55 AM EDT): 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 Pap done - every 3-4 years Mammo and colonoscopy current Bone density was perfect a few years ago Mild urge incontinence - declines meds Vaginal estrogen reinitiated Encounters Date Type Department Care Team Description 09/03/2024 Orders Only [facility] Department Of Telephone Directory Deliverer [address] [place] [address] Denice Walton MD Acute vaginitis (Primary Dx) 08/26/2024 2:00 PM EST Office Visit [facility] Department Of Telephone Directory Deliverer [address] [phone] Denice Walton MD Atrophic vaginitis (Primary Dx); Vaginal discharge; Urinary tract infection symptoms 08/26/2024 Orders Only [facility] Department Of Telephone Directory Deliverer [address] [phone] Denice Walton MD from Last 3 Months Family History Medical History Relation Name Comments Heart attack Brother Hypertension Mother Relation Name Status Comments Brother Mother Social History Tobacco Use Types Packs/Day Years Used Date Smoking Tobacco: Never Smokeless Tobacco: Never Tobacco Cessation:Counseling Given: Not Answered Sex and Gender Information Value Date Recorded Sex Assigned at Female 06/12/2023 10:26 AM EDT Gender Identity Female 06/12/2023 10:26 AM EDT Sexual Orientation Heterosexual (straight) 06/12 10:26 AM EDT Last Filed Vital Signs Vital Sign Reading Time Taken Comments Blood Pressure 120/75 08/26/2024 2:11 PM EST Pulse 65 08/26/2024 2:11 PM EST Temperature - - Respiratory Rate - - Oxygen Saturation - - Inhaled Oxygen Concentration - - Weight 92.5 kg (204 lb) 08/26/2024 2:11 PM EST Height 170.2 cm (5' 7 ) 08/26/2024 2:11 PM EST Body Mass Index 31.95 08/26/2024 2:11 PM EST Plan of Treatment Upcoming Encounters Date Type Department Care Team (Late st Contact Info) Description 01/13/2025 11:30 AM EDT Office Visit [facility] Department Of Telephone Directory Deliverer Lucinda [address] [place] [phone] Denice Walton MD [address] [place] [address] Health Maintenance Due Date Last Done Comments Hepatitis C Virus Screening 1956 DTaP/Tdap/Td Vaccines (1 - Tdap) 1975 Mammogram 1996 Colonoscopy 2001 Pneumococcal Vaccines 50+ (1 of 1 - PCV) 2006 Zoster (Shingles) Vaccine (1 of 2) 2006 RSV Vaccine 60 years and older and Patients (1 - Risk 60-74 years 1-dose series) 2016 DXA Bone Density (Females,Ages 65 and older) 2021 Influenza Vaccine 04/08/2024 05/09/2022, 06/06/2020 COVID-19 Vaccine ( season) 2024 06/03/2022, 01/23/2022, 07/09/2021, Additional history exists Hepatitis B Vaccines Aged Out No long er eligible based on patient's age to complete this topic Procedures Procedure Name Priority Date/Time Associated Diagnosis Comments URINE CULTURE Routine 08/26/2024 8:35 PM EST POCT URINALYSIS DIPSTICK, NON-AUTOMATED Routine 08/26/2024 2:58 PM EST Atrophic vaginitis Vaginal discharge Urinary tract infection symptoms BACTERIAL VAGINOSIS, STEPHANIE Routine 08/26/2024 2:54 PM EST Atrophic vaginitis Vaginal discharge Urinary tract infection symptoms CV/TV, STEPHANIE Routine 08/26/2024 2:54 PM EST Atrophic vaginitis Vaginal discharge Urinary tract infection symptoms from Last 3 Months Results * (ABNORMAL) URINE CULTURE (08/26/2024 8:35 PM EST) Urine Culture Rt Status Beta hemolytic Streptococcus , group G Less than 10,000 colonies/mL (A) [facility] 1 Comment: Penicillin and ampicillin are drugs of choice for treatment of beta-hemolytic streptococcal infections. Susceptibility testing of penicillins and other beta-lactam agents approved by the FDA for treatment of beta-hemolytic streptococcal infections need not be performed routinely because nonsusceptible isolates are extremely rare in any beta-hemolytic streptococcus and have not been reported for Streptococcus pyogenes (group A). ([facility]) 08/26/2024 8:35 PM EST 08/27/2024 Narrative [facility] ([facility]JI) - 09/03/2024 1:20 PM EST Performed at: ??01 - [facility] [address] ??[id number] Health Science Writer: Harriett Shelton MD, Phone: ??[phone] Specimen Comment: A duplicate report has been generated due to demographic updates. Denice Walton MD LAB AMB MICRO DIAMOND DUNCAN [facility]) [facility] * (ABNORMAL) POCT Urinalysis Dipstick, Non-Automated (08/26/2024 2:58 PM EST) Source, UA Voided Color, UA Yellow Yellow & Clear, Yellow Clarity, UA Clear Clear Glucose, UA Negative Negative Bilirubin, UA Negative Negative Ketones, UA Trace (5)(A) Negative Spec Grav, UA 1.010 1.005, 1.010, 1.015, 1.020, 1.025 Blood, UA Negative Negative pH, UA 7.0 5.0, 5.5, 6.0, 6.5, 7.0, 7.5, 8.0 Protein, UA Trace(A) Negative Urobilinogen, UA 1.0 0.2, 1.0 Nitrite, UA Negative Negative Leukocyte Esterase, UA Negative Negative Lot Number na Glue Jointer Feeder Pass Pass Urine 08/26/2024 2:58 PM EST Denice Walton MD POINT OF CARE TEST O RDERABLES * CV/TV, STEPHANIE (08/26/2024 2:54 PM EST) Trichomonas Vaginalis TMA NEGATIVE NEGATIVE [facility] Wendy Species NEGATIVE NEGATIVE [facility] Wendy Glabrata NEGATIVE NEGATIVE [facility] Microbiology 08/26/2024 2:54 PM EST 08/26/2024 8:37 PM EST Denice Walton MD LAB AMB MICRO ORDERA BLES [facility] [address] * Bacterial Vaginosis, STEPHANIE (08/26/2024 2:54 PM EST) Bacterial Vaginosis, PCR NEGATIVE Negative [facility] Microbiology Artery specimen / Unknown 08/26/2024 2:54 PM EST 08/26/2024 8:37 PM EST Denice Walton MD LAB AMB MICRO ORDERA BLES [facility] [address] [place] [address] from Last 3 Months
--- OUTSIDE RECORDS SUMMARY | 2024-11-10 11:47 | XMS_ITS | Data Portability ---
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 Plan of Treatment Reminders Order Date Submit Date Provider Last Modified By Organization Details Last Modified Time Details Appointments None recorded. Lab HPV DNA, high-risk + low-risk 2021 022 [facility], [address], [place], [address], 07:57:25 CMP, serum or plasma 2020 021 [email or web address], [address], [place] [address] [place] [address], [address], 14:08:27 vitamin B12, serum 2020 021 [email or web address], [address], [place] [address], [address], 14:08:27 CBC w/ auto diff 2020 021 [email or web address] [facility], [address], [place] [address], [address], 14:08:28 estradiol, serum 2020 021 [email or web address], [address], [address], [place], [address], 14:08:28 FSH (follicle- stimulatin g hormone), serum 2020 021 [email or web address] [facility], [address], [address], [place], [address], 14:08:28 T3, free, serum or plasma 2020 021 [email or web address] [facility], [address], [address], [place], [address], 14:08:28 TSH, serum or plasma 2020 021 [email or web address] [facility], [address], [facility] [address], [place], [address], 14:08:28 thyroid peroxidase (tpo) Ab, serum 2020 021 [email or web address] [facility], [address], [address], [place], [address], 14:08:28 vitamin D, 25-hydroxy , total, serum 2020 021 [facility], [address], [address], [place], [address], 14:08:28 testostero ne, total, serum 2020 021 [email or web address], [address], [address], [place], [address], 14:08:29 T4, free, serum 2020 021 [email or web address] [facility], [address] [facility], [place], [address], 14:08:29 urinalysis , dipstick 2020 021 [email or web address] In-Office Order, Internal Use Only DO Not Attach Compendium DO Not Attach Compendium, Do Not Delete/merge, [id number] 10:51:11 culture, urine 2020 021 [place] [facility], [address], [facility] [address], [place], [address], 23:18:10 Referral urogynecol ogy physical therapy referral [address] [facility], [address] [place] [address], [address], 09:44:46 Procedures None recorded. Surgeries None recorded. Imaging None recorded. Medication Orders clobetasol 0.05 % topical ointment 2021 022 [facility][id number], [address] [place] [address], [address], 2 16:31:07 estradiol 0.01% (0.1 mg/gram) vaginal cream 2020 021 [id number] [address] [place] [address], [address], 1 12:39:34 Diflucan 150 mg tablet 2020 021 [email or web address] [id number] [address] [place] [address], [address], 2 15:20:36 estradiol 0.01% (0.1 mg/gram) vaginal cream 2019 020 [facility] #[id number], [address] [place] [address], [address], 0 10:39:13 Patient TargetsNo targets recorded. Patient Instructions Encounter Date Encounter Id Patient Instructions Last Modified By Organization Details Last Modified Time 07/03/2020 [id number] Discussed very briefly the use of oral vitamin K2 supplement in addition or with Vitamin D. Given its low risk I have recommended she consider use. Follow labeled instructions. Consider tumeric or CBD for pain She completed a symptom questionnaire. Her severity score was 16 points suggesting mild condition. She is given a [employer] book to consider this or traditional treatment options [email or web address] Not available 07/03/2020 10:37:46 11/13/2020 [id number] fu prn - will report results to her via patient portal [email or web address] Not available 11/13/2020 13:26:28 03/07/2021 [id number] discussed biote and decided to proceed with labs and further discussion about hormone pellets. Increase cream to qd [email or web address] Not available 03/28/2021 06:45:52 11/06/2021 [id number] I discussed the patient various age-appropriate wellness issues. Including available screening. I reviewed with her the benefits of exercise and healthy eating and weight maintenance. I've completed testing as outlined in this note and she is to follow up for other testing with her primary care provider as she desires. Will repeat exam in ~ 3 months with likely step down in steroid strength; continue the estrogen cream in pattern tolerated- stop if needed [email or web address] Not available 11/06/2021 16:30:58 05/08/2022 [id number] remain off clobetasol; use estrogen cream twice weekly ; fu CARLEE if any return of issues nuckles Not available 05/08/2022 09:24:58 Reason for Referral Urogynecology Physical Thera py Referral for Urinary incontinence Referring Physician: Emilia Dodge, Gynecology, Encounter Date: 11/13/2020 Results Created Date Observation Date Name Description Value Unit Range Abnormal Flag Note LastModifiedBy Organization Detail LastModifiedTime 11/14/19 21 11/14/2020 cultu re, urine culture, urine, routine SEE NOTE CULTU RE, URINE , ROUTI NE Micro Numbe r: [id number] Test Statu s: Final Speci men Sourc e: URINE Speci men Quali ty: Adequ ate Resul t: No Growt h Not Available [facility] [address] [place], [address], 11/14/2020 23:18:10 11/14/19 21 11/13/2020 urina lysis , dipst ick Leukocytes Negati ve Not Available In-Office Order Internal Use Only DO Not Attach Compendium DO Not Attach Compendium, Do Not Delete/merge, 11/13/2020 09:40:02 11/14/19 21 11/13/2020 urina lysis , dipst ick Nitrite negati ve Not Available In-Office Order Internal Use Only DO Not Attach Compendium DO Not Attach Compendium, Do Not Delete/merge, 11/13/2020 09:40:02 11/14/19 21 11/13/2020 urina lysis , dipst ick Urobilinogen .2 Not Available In-Of fice Order Internal Use Only DO Not Attach Compendium DO Not Attach Compendium, Do Not Delete/merge, 11/13/2020 09:40:02 11/14/19 21 11/13/2020 urina lysis , dipst ick Protein Negati ve Not Available In-Office Order Internal Use Only DO Not Attach Compendium DO Not Attach Compendium, Do Not Delete/merge, 11/13/2020 09:40:02 11/14/19 21 11/13/2020 urina lysis , dipst ick pH 6.5 Not Available In-Office Order Internal Use Only DO Not Attach Compendium DO Not Attach Compendium, Do Not Delete/merge, 11/13/2020 09:40:02 11/14/19 21 11/13/2020 urina lysis , dipst ick Blood Negati ve Not Available In-Office Order Internal Use Only DO Not Attach Compendium DO Not Attach Compendium, Do Not Delete/merge, 11/13/2020 09:40:02 11/14/19 21 11/13/2020 urina lysis , dipst ick Specific Sutton 1.025 Not Available In-Off ice Order Internal Use Only DO Not Attach Compendium DO Not Attach Compendium, Do Not Delete/merge, 11/13/2020 09:40:02 11/14/19 21 11/13/2020 urina lysis , dipst ick Ketone Negati ve Not Available In-Office Order Internal Use Only DO Not Attach Compendium DO Not Attach Compendium, Do Not Delete/merge, [id number] 11/13/2020 09:40:02 11/14/19 21 11/13/2020 urina lysis , dipst ick Bilirubin Negati ve Not Available In-Office Order Internal Use Only DO Not Attach Compendium DO Not Attach Compendium, Do Not Delete/merge, [id number] 11/13/2020 09:40:02 11/14/19 21 11/13/2020 urina lysis , dipst ick Glucose Negati ve Not Available In-Office Order Internal Use Only DO Not Attach Compendium DO Not Attach Compendium, Do Not Delete/merge, [id number] 11/13/2020 09:40:02 11/14/19 21 11/13/2020 urina lysis , dipst ick Appearance Slight ly Cloudy Not Available In-Office Order Internal Use Only DO Not Attach Compendium DO Not Attach Compendium, Do Not Delete/merge, [id number] 11/13/2020 09:40:02 11/14/19 21 11/13/2020 urina lysis , dipst ick Color Pale Yellow Not Available In-Office Order Internal Use Only DO Not Attach Compendium DO Not Attach Compendium, Do Not Delete/merge, [id number] 11/13/2020 09:40:02 11/07/19 22 11/06/2021 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 Sourc e Not Given : Adequ acy: Satis facto ry for evalu ation - Image d ThinP rep techn ique Gener al Categ ory: Negat natalie for Intra epith elial Lesio n or Malig bre Narra tive Descr iptio n: Atrop hy B. Uroge nital sourc e for HPV testi ng: NEGAT NATALIE for high risk human papil dave virus by Pant er Aptim a HPV Assay testi ng The Aptim a HPV Assay test by the Pant danielle cage, is an FDA-a pprov ed in vitro nucle ic acid ampli ficat ion test for the quali tativ e detec tion of E6/E7 viral messe nger RNA (mRNA ) from 14 high- risk types of human papil lomav irus (HPV) in cervi nikolai speci mens. The high- risk types detec ty by the assay inclu de 16, 18, 31, 33, 35, 39, 45, 51, 52, 56, 58, 59, 66 and 68. Cervi nikolai speci mens in ThinP rep Pap Test vials conta ining Prese rvCyt solut ion and colle cted with broom or cytob moore/ spatu la devic es may be teste d with the Aptim a HPV Assay . The estab lishe d repor table jase l refer ence inter hayley is NEGAT NATALIE. The FDA has appro syeda the use of this test as indic ated: 1) To scree n patie nts 21 years or older with atypi nikolai squam ous cells of undet ermin ed signi fican ce (ASCU S) cervi nikolai cytol ogy resul ts to deter mine the need for refer ral to colpo scopy . The resul ts of this test are not inten ded to preve nt women from [facility] to colpo scopy . 2) In women 30 years and older , the Aptim a HPV Assay test can be used with cervi nikolai cytol ogy to adjun ctive ly scree n to asses s the prese nce or absen ce of high- risk HPV types . This infor liliana n, toget her with the physi coreen? s asses sment of cytol ogy histo ry, other risk facto rs, and profe ssion al guide lines , may be used to guide patie nt manag ement . The Aptim a HPV Assay test is not inten ded for use as a scree edie devic e for women under age 30 with jase l cervi nikolai cytol ogy. This test is not a subst itute for regul ar cervi nikolai cytol ogy scree edie. Detec tion of HPV using the APTIM A HPV Assay does not diffe renti ate HPV types and canno t evalu ate persi stenc e of any one type. This assay has not been evalu ated for manag ement of HPV vacci nated women , women with prior ablat natalie or excis ional thera py, hyste recto my, pregn louise, or those women with other risk facto rs (e.g. , immun ocomp romis ed healt h, histo ry of sexua lly trans mitte d infec tions ). The Aptim a HPV Assay is desig song to luís bush for detec tion of cervi nikolai disea se and shoul d be used in conju nctio n with clini nikolai infor matio n deriv ed from other diagn ostic and scree edie tests , physi nikolai exami natio ns, and full medic al histo ry, in accor dance with appro priat e patie nt manag ement proce dures . El ectro nical ly Nancy d Out * ASC/ 22 DEN Watson( CP) Clini nikolai Histo ry Date of Last Menst rual Perio d: Comme nts: A. Sourc e Not Given : Recei syeda one ThinP rep vial conta ining 20ml of Prese rvcyt fluid for Pap testi ng. B. Uroge nital sourc e for HPV testi ng: Recei syeda inter rosa aliqu otted ThinP rep Prese rvcyt fluid for testi ng. Previ ous pap date: 2017 Preci ous pap resul ts: WNL & Negat natalie HPV Not Available [facility] [address], [place], [address], 11/08/2021 16:45:27 Result Notes None recorded. Problems Name Problem SNOMED Code Status Onset Date Resolution Date Notes Provider Name and Address Organization Details Recorded Time Palpitations [id number] Marion lewis [place] - [facility] 4 09:30:30 Mitral valve prolapse 883302677 Active Maria A lewis [place] [facility] 4 09:30:30 Stress [id number] ROME Cummings - [facility] 4 09:30:30 Hypertensive disorder 64225552 Active Maria A Rangel null, [place] - [facility] 4 09:30:30 Polyp of colon 67009680 Active Maria A Rangel null, [place] [facility] 4 09:30:30 Hypercholester olemia 90343983 Active Maria A Rangel null, [place] [facility] 4 09:30:30 Atrophic vulvovaginitis 96087693 Active Jared Escamilla null[place] [facility] 5 11:21:49 Urinary incontinence 839242769 Active Jared Escamilla null[place] [facility] 5 11:21:49 Vertigo 920178376 Active 2021 Mary Beth Rodriguez null[place] [facility] 2 15:32:50 Low back pain 560522489 Active 2021 Mary Beth Rodriguez null[place] [facility] 2 15:32:57 Problem Notes None recorded. Procedures Surgical History Date Name Laterality Status Provider Name and Address Organization Details Recorded Time 022 Date of Last Pap Smear completed Mary Beth Rodriguez [facility] 05/08/2022 08:32:08 022 microscopic examination of cervical Papanicolaou smear and Human papillomavirus deoxyribonucleic acid detection cotesting completed Julee Nj [facility] 05/14/2023 15:15:35 022 Date of Last Mammogram completed Mary Beth Rodriguez [facility] 11/06/2021 15:33:16 022 completed Mary Beth Rodriguez [facility] 11/06/2021 15:33:55 020 Date of Last Colonoscopy completed Su Hurley [facility] 07/03/2020 09:11:18 012 Colonoscopy completed Maria A Rangel [facility] 06/16/2014 09:30:30 009 Operative Hysteroscopy completed Maria A Rangel [facility] 06/16/2014 09:30:30 007 Colonoscopy completed Maria A Rangel [facility] 06/16/2014 09:30:30 004 Breast Surgery completed Maria A Rangel [facility] 06/16/2014 09:30:30 004 Cholecystectomy completed Maria A Rangel [facility] 06/16/2014 09:30:30 980 Breast Surgery completed Maria A Rangel [facility] 06/16/2014 09:30:30 Imaging Results None recorded. Procedure Notes None recorded. Medical Equipment None Reported. Allergies Allergen ID Allergen Name Allergen Category Reaction Reaction Severity Criticality Documentation Date Start Date Code Code System Note Provider Name and Address Organization Details Recorded Time 5962 codeine medicatio n nausea Not available Not available 06/16/2014 2670 RxNorm Maria A lewis [facility] 4 09:43:29 5963 caffeine food,medi cation irregular heart rate Not available Not available 06/16/2014 1886 RxNorm shake s Maria A lewis [facility] 4 09:43:29 5964 hydrocodo ne Not available dizziness Not available Not available 06/16/2014 5489 RxNorm GI upset Maria A lewis [facility] 4 09:43:29 5965 cyclobenz aprine hydrochlo ride medicatio n hives Not available Not available 06/16/2014 06374 RxNorm Maria A lewis [facility] 4 09:43:29 Medications Name Sig Start Date Stop Date Status Note LastModified by Organization Details LastModified Time amoxicilli n 500 mg capsule active Not Available Not Available Not Available prednisone 10 mg tablet 10/21 completed Not Available Not Available Not Available doxycyclin e hyclate 100 mg capsule 03/18 completed Not Available Not Available Not Available amitriptyl ine-chlord iazepoxide 12.5 mg-5 mg tablet TAKE 1/2 TABLET BY MOUTH ONCE DAILY 10/07 completed Not Available Not Available Not Available atorvastat in 10 mg tablet qd 10/21 completed Not Available Not Available Not Available azithromyc in 250 mg tablet 10/21 completed Not Available Not Available Not Available ibuprofen 800 mg tablet 10/20 completed Not Available Not Available Not Available tramadol 37.5 mg-acetami nophen 325 mg tablet active Not Available Not Available No t Available fluconazol e 150 mg tablet TAKE 1 TAB BY MOUTH NOW 11/06 completed Not Available Not Available Not Available metoprolol succinate ER 50 mg tablet,ext ended release 24 hr 11/17 completed Not Available Not Available Not Available clarithrom ycin 500 mg tablet active Not Available Not Available No t Available sumatripta n 100 mg tablet ONE TAB AT ONSET OF HEADACHE - DO NOT EXCEED 3 PER WEEK active prn Not Available Not Available No t Available ondansetro n HCl 4 mg tablet 10/07 completed Not Available Not Available Not Available prednisone 20 mg tablet 07/03 completed Not Available Not Available Not Available atenolol 25 mg tablet 1 tab daily 12/03 completed Not Available Not Available Not Available naproxen 250 mg tablet 1 TABLET WITH FOOD OR MILK ORALLY TWICE A DAY 90 DAYS active PRN Not Available Not Available No t Available amlodipine 2.5 mg tablet qd 10/21 completed Not Available Not Available Not Available ciprofloxa ashli 250 mg tablet 03/18 completed Not Available Not Available Not Available amlodipine 5 mg tablet TAKE 1 TABLET BY MOUTH EVERY DAY active Not Available Not Available No t Available valacyclov ir 500 mg tablet TAKE 1 TABLET EVERY DAY 10/21 completed Not Available Not Available Not Available sulfametho xazole 800 mg-trimeth oprim 160 mg tablet 10/07 completed Not Available Not Available Not Available triamcinol one acetonide 0.1 % topical cream PLEASE SEE ATTACHED FOR DETAILED DIRECTION S active Not Available Not Available No t Available acyclovir 800 mg tablet 10/07 completed Not Available Not Available Not Available Vitamin B-12 50 mcg tablet Take 2 tablets every day by oral route. 10/07 completed Not Available Not Available Not Available oxycodone- acetaminop hen 5 mg-325 mg tablet 10/07 completed Not Available Not Available Not Available prednisolo ne acetate 1 % eye drops,susp ension LOCATION: BOTH EYES. USE 1 DROP IN BOTH EYES 2-4 TIMES A DAY NEEDED active Not Available Not Available No t Available tamsulosin 0.4 mg capsule 10/07 completed Not Available Not Available Not Available amitriptyl ine 10 mg tablet TAKE 1 OR 2 TABLETS BY MOUTH EVERY EVENING active Not Available Not Available No t Available cephalexin 500 mg capsule 10/07 completed Not Available Not Available Not Available Proctofoam HC 1 %-1 % APPLY 1 APPLICATO R INTO RECTUM EVERY 6 HOURS NEEDED FOR PAIN 10/07 completed Not Available Not Available Not Available triamcinol one acetonide 0.1 % topical ointment as needed active Not Available Not Available N ot Available lisinopril 10 mg tablet 10/07 completed Not Available Not Available Not Available fluorometh olone 0.1 % eye drops,susp ension LOCATION: BOTH EYES. USE 1 DROP 4 TIMES A DAY IN BOTH EYES X 7-10 DAYS NEEDED active Not Available Not Available No t Available polymyxin B sulfate 10,000 unit-trime thoprim 1 mg/mL eye drops 03/18 completed Not Available Not Available Not Available flecainide 50 mg tablet TAKE 1 1/2 TABLETS BY MOUTH EVERY 12 HOURS 05/08 completed Not Available Not Available Not Available gabapentin 300 mg capsule TAKE 1 CAPSULE BY MOUTH EVERY DAY IN THE EVENING active Not Available Not Available No t Available montelukas t 10 mg tablet TAKE 1 TABLET BY MOUTH EVERY DAY 03/07 completed Not Available Not Available Not Available gabapentin 100 mg capsule TAKE 1 CAPSULE BY MOUTH EVERY DAY IN THE MORNING active Not Available Not Available No t Available clobetasol 0.05 % topical ointment APPLY A THIN LAYER TO THE AFFECTED AREA(S) BY TOPICAL ROUTE 1 TIMES PER DAY active Not Available Not Available No t Available diazepam 10 mg tablet active Not Available Not Available Not Available estradiol 0.01% (0.1 mg/gram) vaginal cream APPLY 1/4 APPLICATO R 3 TIMES PER WEEK active Not Available Not Available No t Available methylpred nisolone 4 mg tablets in a dose pack active Not Available Not Available Not Available fluticason e propionate 50 mcg/actuat ion nasal spray,susp ension prn 03/18 completed Not Available Not Available Not Available atenolol 50 mg tablet TAKE 1 TABLET BY MOUTH TWICE A DAY active Not Available Not Available No t Available diazepam 5 mg tablet 11/13 completed Not Available Not Available Not Available amoxicilli n 875 mg-potassi um clavulanat e 125 mg tablet active Not Available Not Available Not Available magnesium 250 mg (as magnesium oxide) tablet Take 1 tablet every day by oral route. active Not Available Not Available No t Available Vitamin D3 25 mcg (1,000 unit) capsule Take 1 capsule twice a day by oral route. active Not Available Not Available No t Available Restasis 0.05 % eye drops in a dropperett e INSTILL 1 DROP INTO BOTH EYES TWICE A DAY active Not Available Not Available No t Available Ciprodex 0.3 %-0.1 % ear drops,susp ension 07/03 completed Not Available Not Available Not Available rosuvastat in 20 mg tablet TAKE 1 TABLET BY MOUTH THREE TIMES A WEEK. active Not Available Not Available No t Available Aleve 1 po prn active Not Available Not Avai lable Not Available vitamin B complex QD active Not Available Not Available Not Available Fish Oil 1 tab qd active Not Available Not Av ailable Not Available Glucosamin e 1 tab qd 10/07 completed Not Available Not Available Not Available Co Q10 1 tab qd active Not Available Not Avai lable Not Available Flax Seed Oil 1 tab prn active Not Available Not Available No t Available multivitam in 1 tab qd active Not Available Not Available Not Available diclofenac 1 % topical gel 07/03 completed Not Available Not Available Not Available Zirgan 0.15 % eye gel PLACE 1 DROP INTO THE RIGHT EYE 5 TIMES A DAY FOR 7 DAYS, THEN 1 DROP 3 TIMES A DAY FOR 7 DAYS active Not Available Not Available No t Available Suprep Bowel Prep Kit 17.5 gram-3.13 gram-1.6 gram oral solution 07/03 completed Not Available Not Available Not Available Osphena 60 mg tablet TAKE 1 TABLET(S) EVERY DAY BY ORAL ROUTE. active Not Available Not Available No t Available Osphena 1 daily with food 2013 active was given 3 weeks of sample s; see ECW Not Available Not Available Not Available Xiidra 5 % eye drops in a dropperett e PLACE 1 DROP INTO BOTH EYES TWICE DAILY 03/07 completed Not Available Not Available Not Available Intrarosa 6.5 mg vaginal insert INSERT 1 VAGINAL INSERT EVERY DAY BY VAGINAL ROUTE 12/03 completed Not Available Not Available Not Available Vitals Date Recorded Body height Body mass index (BMI) Body weight Heart rate Systolic blood pressure Diastolic blood pressure Provider Name and Address Organization Details Last Updated DateTime 0 170.82 cm 31.2 kg/m2 47400.0 7 g 64 /min 120 mm[Hg] 70 mm[Hg] Su Hurley [facility] 0 09:07:11 Date Recorded Body height Body mass index (BMI) Body weight Body temperature Heart rate Oxygen saturation Oxygen saturation in Arterial blood by Pulse oximetry Systolic blood pressure Diastolic blood pressure Provider Name and Address Organization Details Last Updated DateTime 1 170.82 cm 31.7 kg/m2 24474.1 3 g 98 [degF] 69 /min 99 % 99 % 110 mm[Hg] 59 mm[Hg] Molly Benavidez [facility] 1 09:03:20 Date Recorded Body height Body mass index (BMI) Body weight Heart rate Oxygen saturation Oxygen saturation in Arterial blood by Pulse oximetry Systolic blood pressure Diastolic blood pressure Provider Name and Address Organization Details Last Updated DateTime 1 170.82 cm 31.1 kg/m2 23744.1 1 g 62 /min 98 % 98 % 130 mm[Hg] 83 mm[Hg] Mary Beth Rodriguez [facility] 1 11:51:13 Date Recorded Body height Body mass index (BMI) Body weight Heart rate Oxygen saturation Oxygen saturation in Arterial blood by Pulse oximetry Systolic blood pressure Diastolic blood pressure Provider Name and Address Organization Details Last Updated DateTime 2 170.82 cm 31.2 kg/m2 87202.3 5 g 63 /min 98 % 98 % 125 mm[Hg] 83 mm[Hg] Mary Beth Rodriguez [facility] 2 15:37:40 Date Recorded Body height Body mass index (BMI) Body weight Heart rate Oxygen saturation Oxygen saturation in Arterial blood by Pulse oximetry Systolic blood pressure Diastolic blood pressure Provider Name and Address Organization Details Last Updated DateTime 2 170.82 cm 31.2 kg/m2 89205.3 5 g 61 /min 96 % 96 % 115 mm[Hg] 67 mm[Hg] Mary Beth Rodriguez [facility] 2 08:36:12 Social History Question Answer Notes LastModified by Organizat ion Details LastModified Time Tobacco Smoking Status Former Smoker SOCIAL SMOKER Yanira lewis [facility] 10/21/2019 16:10:15 Do You Have An Advance Directive? Yes Has To Update Since Mother . [email or web address] Information not available 11/06/2021 What Is Your Level Of Alcohol Consumption? None Information not available 06/16/2014 Are You Blind Or Do You Have Difficulty Seeing? No [email or web address] Information not available 11/06/2021 Is Blood Transfusion Acceptable In An Emergency? Yes Information not available 10/07/2017 What Is Your Level Of Caffeine Consumption? None Allergic To Caffine [email or web address] Information not available 11/06/2021 How Much Tobacco Do You Chew? None Information not available 12/03/2018 In The 14 Days Before Symptom Onset, Have You Had Close Contact With A Laboratory-confi rmed COVID-19 While That Case Was Ill? No Information not available 07/03/2020 In The 14 Days Before Symptom Onset, Have You Had Close Contact With A Person Who Is Under Investigation For COVID-19 While That Person Was Ill? No Information not available 07/03/2020 Have You Been To An Area Known To Be High Risk For COVID-19? No Information not available 07/03/2020 Are You Currently Employed? No Information not available 11/06/2021 Are You Deaf Or Do You Have Serious Difficulty Hearing? No [email or web address] Information not available 11/06/2021 What Type Of Diet Are You Following? VEGETARIAN Information not available 07/03/2020 Which Illicit Or Recreational Drugs Have You Used? None Information not available 06/16/2014 Do You Or Have You Ever Used E-cigarettes Or Vape? Never Used Electronic Cigarettes Information not available 10/21/2019 Education Post Graduate Informatio n not available 07/03/2020 What Is The Highest Grade Or Level Of School You Have Completed Or The Highest Degree You Have Received? 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 No [email or web address] Information not available 11/06/2021 Live Alone Or With Others? With Others Information not available 12/03/2018 Tobacco (Snuff) No Informati on not available 12/03/2018 Are Your Immunizations Up To Date? Yes Information not available 10/07/2017 Marital Status Informatio n not available 12/03/2018 Do You Have A Medical Power Of Venetian Blind Tape Cutter? Yes Has To Update Since Mother . [email or web address] Information not available 11/06/2021 What Was The Date Of Your Most Recent Tobacco Screening? 07/03/2020 Information not available 07/03/2020 How Many Children Do You Have? 0 Information not available 12/03/2018 Performs Monthly Self-breast Exam? Yes Information not available 10/07/2017 What Is Your Relationship Status? Information not available 06/20/2014 Do You Use Your Seat Belt Or Car Seat Routinely? Yes [email or web address] Information not available 11/06/2021 Seat Belts Used Routinely Yes Information not available 10/07/2017 Are You Sexually Active? No 2 Months Ago Information not available 06/20/2014 Do You Have Smoke And Carbon Monoxide Detectors In Your Home? Yes [email or web address] Information not available 11/06/2021 At What Age Did You Start Smoking Tobacco? 21 [email or web address] Information not available 11/06/2021 Are You Passively Exposed To Smoke? No [email or web address] Information not available 11/06/2021 Do You Or Have You Ever Used Smokeless Tobacco? Never Used Smokeless Tobacco Information not available 10/21/2019 How Much Tobacco Do You Smoke? No Information not available 06/16/2014 General Stress Level High Information not available 07/03/2020 Do You Feel Stressed (tense, Restless, Nervous, Or Anxious, Or Unable To Sleep At Night)? SI61812-8 Sleep Pattern Has Changed, Going To Sleep Around 2am [email or web address] Information not available 11/06/2021 Do You Use Any Illicit Or Recreational Drugs? No [email or web address] Information not available 11/06/2021 Do You Use Sunscreen Routinely? Yes Information not available 10/07/2017 How Many Years Have You Smoked Tobacco? 1 Information not available 10/21/2019 Do You Or Have You Ever Used Any Other Forms Of Tobacco Or Nicotine? No [email or web address] Information not available 11/06/2021 Sex: Female Functional Status Question Answer Note LastModified by Organizat ion Details LastModified Time Do you have difficulty walking or climbing stairs? No Information not available 11/06/2021 Are you able to walk? [email or web address] Information not available 11/06/2021 Do you have difficulty doing errands alone? No [email or web address] Information not available 11/06/2021 Do you have difficulty dressing or bathing? No Information not available 11/06/2021 What is your exercise level? Moderate walks dog x2 daily [email or web address] Information not available 11/06/2021 Mental Status Question Answer Note LastModified by Organization D etails LastModified Time Do you have difficulty concentrating, remembering or making decisions? No Information no t available 11/06/2021 Family History Relationship Description Onset Age of this Age Resolved Age Notes LastModified by Organization Details LastModified Time Father 44 Lung cancer Not available 04/28/2015 08:44:00 Mother Hypertensive disorder [email or web address] Not available 2014 08:44:00 Paternal Grandfather 85 [email or web address] Not available 04/09 08:44:00 Paternal Grandmother 60 Stomac h fCance r Not available 10/20/2017 15:49:59 Maternal Grandfather 66 Pancre atic cancer Not available 04/28/2015 08:44:00 Maternal Grandmother 84 [email or web address] Not available 04/09 08:44:00 Brother No current problems or disability [email or web address] Not available 04/28 08:44:00 Notes:Maternal aunt of Ovarian Cancer 2 yrs. ago;paternal uncle with stomach cancer, completed hereditary cancer syndrome questionnaire-(not Ashkenazi Protestant decent) EMR updated - November/2012, information booklet given on BRCA testing. Medical History Condition Response Heart Disease Y Palpitations Y Hypertension Y High Cholesterol Y Gynecological History Statement/Question Response Abnormal Pap Y Are You Currently being treated N Date of Last Mammogram 09/08/2021 N Post Menopausal Bleeding N STIs/STDs N Current Control Method Menopause Age at Menarche 15 09/08/2021 0 If Post Menopausal, Age at Menopause 55 Date of Last Colonoscopy 05/09/2020 0 Most Recent Bone Density Sexually Active? N Menses Monthly N 0 Date of Last Pap Smear 11/06/2021 Sexual Problems? N 0 LMP Definite Hormone Replacement Therapy N Obstetrics History GPAL:G 0 P 0 0 0 0 Type Value Full Term 0 Living 0 Total 0 Immunizations Vaccine Type Date Status Note Provider Nam e and Address Organization Details Recorded Time SARS-COV-2 (COVID-19) vaccine, UNSPECIFIED 1 completed ROME Godoy [facility] 03/07/2021 11:54:30 SARS-COV-2 (COVID-19) vaccine, UNSPECIFIED 1 completed ROME Godoy [facility] 03/07/2021 11:54:40 COVID-19, mRNA, LNP-S, PF, 100 mcg/0.5mL dose or 50 mcg/0.25mL dose 0 completed ROME Godoy [facility] 11/06/2021 15:24:55 Pneumococcal conjugate PCV20, polysaccharide [id number] conjugate, adjuvant, PF 2 completed Not Available [facility] 12/13/2022 03:01:14 COVID-19, mRNA, LNP-S, PF, 100 mcg/0.5mL dose or 50 mcg/0.25mL dose 2 completed ROME Godoy [facility] 05/08/2022 08:31:50 Past Encounters Encounter ID Performer Location Encounter Start Date Encounter Closed Date Diagnosis/Indication Diagnosis SNOMED-CT Code Diagnosis ICD10 Code Diagnosis Note [id number] Jared Escam[facility]uy per[facility] [address] [facility] [place] [address] 06/20/2014 14:56:35 06/21/2014 15:12:51 Gynecologic examination 12186934 Atrophic vulvovaginitis 81891086 [id number] Jared Escamilla [facility] [address] [place] [address] 04/28/2015 08:24:44 04/28/2015 11:00:57 Atrophic vulvovaginitis 55437391 Urinary incontinence 627241441 Family his tory of malignant neoplasm of ovary 413306318 with breast and pancreatic cancer [id number] MD Osiel Holt[address] [place] [address] 10/07/2017 11:02:25 10/07/2017 12:49:03 Gynecologic examination 73756141 Z01.419 Atrophy of vagina 599175 009 N95.2 [id number] MD Osiel Holt [address] [place] [address] 10/20/2017 09:54:57 10/20/2017 12:01:02 Family history of malignant neoplasm of ovary 499933817 Z80.41 with pancreatic cancer [id number] MD Osiel Holt [address] [place] [address] 11/17/2017 13:53:36 11/17/2017 14:44:18 Family history of malignant neoplasm of ovary 674887410 Z80.41 with pancreatic cancer; her genetic testing no clinically significan t genetic mutations identified Seema risk 2.3 % 5 year and 10.8 % lifetime for breast cancer [id number] MD Osiel Holt [address] [place] [address] 03/18/2018 08:25:28 03/18/2018 14:29:59 Atrophy of vagina 413924550 N95.2 Left lower quadrant pain 153908372 R10.32 Postmenopa usal bleeding 19762609 N95.0 likely due to trauma from vaginal us probe [id number] MD Osiel Holt [address] [place] [address] 12/03/2018 09:18:52 12/03/2018 10:54:39 Gynecologic examination 41222199 Z01.419 [id number] MD Osiel Holt[address] [place] [address] 10/21/2019 15:52:05 10/21/2019 17:12:05 Atrophic vulva 829659194 N90.5 [id number] MD Osiel Holt [address] [place] [address] 07/03/2020 08:54:58 07/03/2020 10:38:43 Gynecologic examination 06123968 Z01.419 Atrophy of vagina 978937 009 N95.2 [id number] MD Osiel Holt [address] [place] [address] 11/13/2020 08:50:24 11/13/2020 10:11:34 Increased frequency of urination 953481387 R35.0 Urinary incontinence 165 501091 R32 Atrophic vulva 695861068 N90.5 [id number] MD Osiel Holt [address] [facility] [place] [address] 03/07/2021 10:48:17 03/07/2021 13:12:17 Atrophy of vagina 857480965 N95.2 Disorder o f endocrine system 573034722 E34.9 see will have drawn via her PCP to avoid duplicatio n Vulvitis 60739099 N76.2 [id number] MD Osiel Holt [address] [facility] [place] [address] 11/06/2021 14:45:54 11/06/2021 16:32:24 Postmenopausal state 54958504 Z78.0 needs to keep wellness care visits with her PCP; may return for any gynecologi c problems and for Medicare allowed care (as she desires) Vulvitis 23611712 N76.2 will treat LSA briefly with close fu Atrophic vulvovaginitis 74639335 N95.2 improved with the every other month topical estradiol cream Gynecologi c examination 78692127 Z01.419 [id number] MD Osiel Holt [address] [place] [address] 05/08/2022 08:18:14 05/08/2022 09:28:10 Chronic vulvitis 2509782 N76.3 not clinically now c/w with lichen sclerosis Atrophic vulvovaginitis 64181327 N95.2 improved with now with twice weekly estrogen cream Health Concerns Section Related Observation LastModified by Organization Detai ls LastModified Time None Recorded Concern Status LastModified by Organization Details LastModified Time None Recorded Advance Directives Directive Y: Has to update since ryne segovia . Payers Encounter Date Sequence Insurance Name Policy Number Policy [place] Covered Member ID [place] Member ID Guarantor Name 07/03/2020 1 [place] BEFORE 09/08/2024 - [facility] (PPO) [id number] Ivonne Jimenez [id number] Ivonne Jimenez 11/13/2020 1 [place] 09/08/2024 - [facility] (PP[place]) [id number] Ivonne Jimenez [id number] Ivonne Jimenez 03/07/2021 1 [place] BEFORE 09/08/2024 - [facility] (PP[place]) [id number] Ivonne Jimenez [id number] Ivonne Jimenez 05/08/2022 1 [employer] (MEDICARE REPLACEMENT/ ADVANTAGE - PPO) Ivonne Jimenez [id number] Ivonne Jimenez Notes Date Note Type Note Provider Name and Address Organization Details Recorded Time 07/03/2020 text/html Pt is present fo r annual exam. Pt has no concerns this time. Her mother 2 months ago- it is very sad. Isolating because of covid. Back and pelvic pain ? due to lifting her mother. Not sexually active but has restarted the estrogen cream Emilia Dodge MD [address], [place], [address], [facility] 07/03/2020 10:39:15 11/13/2020 text/html Pt here for foll ow up for postmenopausal atrophic vaginitis. She is having continuing problems urine loss. She has a new PCP in [place] and having some of her issues addressed. Ongoing back pain. She might be moving to [place]. Vaginal irritation is improved. No plan for sexually activity Emilia Dodge MD [address], [place], [address], [facility] 11/13/2020 13:26:38 03/07/2021 text/html 65yo female pres ent for f/u for incontinence, and dysuria. Pt stated she has irritation in rectal and vaginal area for about a week. Pt c/o of burning when urinating. Urine specimen collected Pt denied discharge/odor Pt stated she does experience incontinence after waiting too long to void. Pt stated she does wear panty liners due to leakage. (Ex laughing) Pt currently in therapy for issues w/her back, and her balance. Pt mentioned her back pain has been a [facility] issue chronic back pain). Pt stated denied [facility] PT. Pt stated she's enrolled in 2 different therapies at the moment, and can not tolerate another one. Pt open to other options Pt interested in BioTe HRT. Pt stated she completed the book. Pt mentioned she can not attend zoom meeting tonight at 6pm, due to music lessons. Emilia Dodge MD [address], [place], [address], [facility] 03/28/2021 06:46:09 11/06/2021 text/html 66YO F medicare examIs not moving to [facility] signed-tkg Pt stated she's currently using heart monitor for excessive palpitation. Pt monitored by Dr. Hitchcock at . Pt verbalized her monitor will be removed today 11/06/21, and 2 week f/u scheduled. She says that she is noticing improvement in her vaginal dryness. She is only able to use the hormone vaginal cream for about a month. At that time it causes irritation and she discontinues it for a month and is able to resume again. She is not currently sexually active and has no future plans of definitively returning to vaginal sexual activity. In review of the patient's records we had spoken in the past of various treatment modalities for some of her persisting vaginal atrophy but given the stress of her life,cost and her mother's she never pursued either the Intrarosa or the Votiva treatments. she does use some steroid cream perianally at times for her eczema. Emilia Dodge MD [address], [place], [address], [facility] 11/06/2021 17:53:54 05/08/2022 text/html 66YO F vaginal atrophy f/ubought house in [place] and will likely move in 1-2 years- very happy. Pt expressed relief from vaginal irritation. Pt stated she did use clobetasol for 30 days, but kept tube for future use. Pt states her itching has decreased tremendously, but slight itch remain, tolerable. must sign abn-tkg Emilia Dodge MD [address], [place], [address], [facility] 05/08/2022 09:25:56 OBGyn Episode No OBEpisode recorded.
--- OUTSIDE RECORDS SUMMARY | 2024-11-10 11:48 | XMS_ITS | Patient Health Record ---
Author Organization [facility] [address] Address [address] [place] [address] Care Team Providers Care Nurse Anesthesia Program Director Name Role Phone Gonzalez Nieves Primary Care Provider Unavailabl Jakub Quinn Unavailable [phone] [facility] Unavailable U navailable Allergies Allergen (clinical drug ingredient) Drug/Non Drug Allergy documented on EMR Reaction Allergy Type Onset Date Status caffeine Caffeine palpitations Drug Allergy Acti ve Flexeril hives Drug Allergy Active codeine Codeine stomach upset Drug Allergy Act ming Reason For Referral No Information Medications Medication SIG (Take, Route, Frequency, Duration) Notes Start Date End Date Status Estrace 0.1 MG/GM as directed Vaginal Active Naproxen 250 MG 1 tablet with food or milk Orally Twice a day for 90 days OTC Active Gabapentin 300 MG 1-2 capsules Orally once a day for 90 days Active Amitriptyline HCl 10 MG 1 tablet at bedtime Orally Once a day Active Rosuvastatin Calcium 20 MG 1 tablet Orally twice a week Active Atenolol 50 MG 1 tablet Orally twice a day Active amLODIPine Besylate 2.5 MG 1 tablet Orally Once a day Active Gabapentin 100 MG 1 capsule Orally QAM for 90 days patient to take 100 mg during daytime and continue 300 mg in evening 03/20/2022 Active SUMAtriptan Succinate 25 MG 1 tablet at least 2 hours between doses as needed Orally prn Active Restasis Multidose A ctive Triamcinolone & Emollient Active Social History Alcohol Screening Question Answer Notes Did you have a drink containing alcohol in the p ast year? No Points 0 Interpretation Negative Opioid Risk Tool Question Answer Notes Family history of substance abuse? No Age (kyle box if 16-45)? No History of preadolescent sexual abuse? No Psychological disease? No Problems Problem Type SNOMED Code ICD Code Onset Dates Problem Status W/U Status Risk Notes Problem Lumbosacral spondylosis without myelopathy (40905586) Other spondylosis, lumbar region (M47.896) Active confirmed Problem Low back pain (712873032) Low Back Pain (M54.5) Active confirmed Problem Lumbar radiculopathy (963659042) Radiculopathy, lumbar region (M54.16) Active confirmed Problem Long-term current use of drug therapy (725017140) Other long term care social worker (current) drug therapy (Z79.899) Active confirmed Problem Low back pain (278024463) Low back pain, unspecified (M54.50) Active confirmed Plan Of Treatment No Information Insurance Providers Payer Name Payer Address Payer Phone Subscriber Number Group Number Insured Name Patient Relationship to Insured Coverage Start Date Coverage End Date [employer] [address] [address] [place] [address] [id number] Ivonne Jimenez Self - patient is the insured 1 Medical (General) History Medical History History ICD Code Cardiovascular: High blood pressure,High cholesterol Musculoskeletal: Fibromyalgia,Vertebral compression fracture Neuro: Headache,Neuropathy Genitourinary: Kidney stones Gastrointestinal: Acid reflux/Ulcer Migraine headache Dizziness Fibromyalgia Surgical History Surgery Date(Month/Year) left breast bx and lumpectomy 09/1986 right breast lumpectomy 2000 Cholecystectomy 1999 fischuerectomy 2007 Hystrotomy 2009 Hospitalization History Reason Date(Month/Year) sepsis 2014
--- OUTSIDE RECORDS SUMMARY | 2024-11-10 11:48 | XMS_ITS | Data Portability ---
Author Organization [facility]/ sameera manzanares, HOME Address [address] [place] [address] Care Team Providers Care Marine Equipment Engineer Name Role Phone [facility] Lidding Machine Operator [phone] [facility] Harvest Manager [phone] [facility] Personnel Supervisor [facility] Mid Level Developer [phone] [facility] HEAD [facility] N[facility]K [facility] [place] ryngologist [facility] Neurologist [phone] Assessment Encounter Date Assessment Date Assessment LastModified by Organization Details LastModified Time 10/22/2021 10/22/2021 Patient advised to call if palpitations get worse or there are any associated chest pain, shortness of breath and/or dizziness. [email or web address] Not available 10/22/2021 15:07:02 10/24/2022 10/24/2022 Patient presente d to office today for their Medicare Annual Wellness Visit. Education was provided on healthy nutrition, including a diet rich in fruits and vegetables, minimizing simple carbohydrates, salt, and saturated fats. Encouraged regular cardiovascular exercise such as walking at least 30 minutes daily, 5 times per week. Emphasized preventive health measures and educated pt on fall prevention and community-based lifestyle interventions to help reduce health risks and promote healthy living. [email or web address] Not available 10/24/2022 11:50:11 Plan of Treatment Reminders Order Date Submit Date Provider Last Modified By Organization Details Last Modified Time Details Appointments None recorded. Lab None recorded. Referral None recorded. Procedures None recorded. Surgeries None recorded. Imaging electrocard iogram 2022 023 [email or web address] Gonzalez Nieves MD, [address], [place], [address], 3 13:31:27 US, duplex, carotid artery 2021 022 [email or web address] Not available 14:46:46 Medication Orders gabapentin 300 mg capsule 2022 023 [email or web address] [id number], [address], [address], 3 13:13:32 gabapentin 100 mg capsule 2022 023 [email or web address] [id number], [facility] [address], [address], 3 13:13:32 Patient TargetsNo targets recorded. Patient Instructions Encounter Date Encounter Id Patient Instructions Last Modified By Organization Details Last Modified Time 10/22/2021 [id number] premature heartb eat: care instructions [email or web address] Not available 10/22/2021 15:21:44 palpitations: ca re instructions [email or web address] Not available 10/22/2021 15:21:44 lightheadedness or faintness: care instructions Not available 10/22/2021 15:21:44 Phone call time 20 minutes 10 seconds. [email or web address] Not available 10/22/2021 15:20:55 04/18/2022 [id number] premature heartb eat: care instructions [email or web address] Not available 04/18/2022 13:55:29 When You Want to Lose Weight: Care Instructions Not available 04/18/2022 13:55:30 carotid stenosis : care instructions [email or web address] Not available 04/18/2022 13:55:29 high cholesterol : care instructions [email or web address] Not available 04/18/2022 13:55:29 high blood press ure: care instructions [email or web address] Not available 04/18/2022 13:55:29 learning about h igh blood pressure [email or web address] Not available 04/18/2022 13:55:30 skin lesions: ca re instructions [email or web address] Not available 04/18/2022 13:55:29 Call time 25 min utes Discussed each entity and management/treatment options. Pt questions answered, decision reflected above. Pt verbalizes understanding. [email or web address] Not available 04/18/2022 14:02:00 10/16/2022 [id number] Today's visit is Part 1 of 2 of the [facility] annual wellness exam encounter. Today's visit is the pre-physical testing which will be reviewed with patient in about 2 weeks as part of the MD encounter. [email or web address] Not available 10/16/2022 10:29:49 10/24/2022 [id number] back care and preventing injuries: care instructions [email or web address] Not available 10/24/2022 13:13:32 getting back to normal after low back pain: care instructions [email or web address] Not available 10/24/2022 13:13:32 learning about relief for back pain Not available 10/24/2022 13:13:32 premature heartb eat: care instructions [email or web address] Not available 10/24/2022 13:13:31 When You Want to Lose Weight: Care Instructions [email or web address] Not available 10/24/2022 13:13:32 carotid stenosis : care instructions [email or web address] Not available 10/24/2022 13:13:31 polycythemia: ca re instructions [email or web address] Not available 10/24/2022 13:13:31 high blood press ure: care instructions [email or web address] Not available 10/24/2022 13:13:31 learning about h igh blood pressure [email or web address] Not available 10/24/2022 13:13:31 Stress Incontine nce: Care Instructions [email or web address] Not available 10/26/2022 13:57:10 gastroesophageal reflux disease (GERD): care instructions [email or web address] Not available 10/24/2022 13:13:32 skin self examination [email or web address] Not available 10/24/2022 13:13:31 medicare prevent natalie services guide Not available 10/24/2022 13:13:31 advance care planning: care instructions [email or web address] Not available 10/24/2022 13:13:31 high cholesterol : care instructions [email or web address] Not available 10/24/2022 13:13:31 statins: care instructions Not available 10/24/2022 13:15:35 breast self-exam : care instructions [email or web address] Not available 10/24/2022 13:13:31 learning about al bennett cancer [email or web address] Not available 10/24/2022 13:13:31 Excerpt from Sharonda Nino's Undo It! book. In the spirit of keeping it simple, here is the way of eating that we have proven can reverse the progression of so many different chronic illnesses: *Consume mostly plants ( good carbs and good protein ): vegetables, fruits, whole grains, legumes, soy products, and small amounts of nuts and seeds in forms as close as posssible to their natural, unprocessed state. *What you INCLUDE in your diet is as important as what you EXCLUDE.. There are many thousands of protective factors in plant-based foods that have anti-cancer, anti-heart disease, and anti-aging properties as well as being very low in disease-promoting substances. *Minimize, or, even better, eliminate animal protein and replace it with plant-based protein. *Avoid sugar, white flour, white rice, and other bad carbs. *Consume 3 grams per day of good fats (omega-3 fatty acids). *Reduce intake of total fat, and especially bad fats such as trans fats, saturated fats, and partially hydrogenated fats. *Organic is optimal - foods taste much better, and they are much lower in pesticide residues, which can disrupt your hormones. Advised patient to schedule next annual wellness exam in one year. [email or web address] Not available 10/16/2022 16:13:40 Reason for Referral None Reported. Results Created Date Observation Date Name Description Value Unit Range Abnormal Flag Note LastModifiedBy Organization Detail LastModifiedTime 03/20/20 22 03/21/2022 LIPID PANEL , STAND DALILA cholesterol, total 164 mg/dL <200 normal Not Available [facility] [address] [place], [address], 03/21/2022 03:48:38 03/20/20 22 03/21/2022 LIPID PANEL , STAND DALILA HDL cholesterol 46 mg/dL > or = 50 low Not Available [facility] [address] [place], [address], 03/21/2022 03:48:38 03/20/20 22 03/21/2022 LIPID PANEL , STAND DALILA triglyceride s 107 mg/dL <150 normal Not Available [facility] [address] [place], [address], 03/21/2022 03:48:38 03/20/20 22 03/21/2022 LIPID PANEL , STAND DALILA LDL-choleste rol 98 mg/dL _(nikolai c) normal Refer ence range : <100 Marisela able range <100 mg/dL for prima ry preve ntion ; <70 mg/dL for patie nts with CHD or diabe tic patie nts with > or = 2 CHD risk facto rs. LDL-C is now calcu lated using the Jia n-Hop kins calcu latnilton n, which is a valid ated novel yvano balwinder pererai debora blaire r accur acy than the Fried bj equat ion in the estim ation of LDL-C . Jia montero SS et al. OLGA LIDIA. 2013; 310(1 9): 2061- 2068 (http ://ed ucati on.[employer]. Krauttools/f aq/FA Q164) Not Available [facility] [address] [place], [address], 03/21/2022 03:48:38 03/20/20 22 03/21/2022 LIPID PANEL , STAND DALILA chol/HDLC ratio 3.6 (calc ) <5.0 normal Not Available [facility] [address] [place], [address], 03/21/2022 03:48:38 03/20/20 22 03/21/2022 LIPID PANEL , STAND DALILA non HDL cholesterol 118 mg/dL _(nikolai c) <130 normal For patie nts with diabe ayo plus 1 major ASCVD risk facto r, treat ing to a non-H DL-C goal of <100 mg/dL (LDL- C of <70 mg/dL ) is consi dered a thera peuti c optio n. Not Available [facility] [address] [place], [address], 03/21/2022 03:48:38 03/20/20 22 03/21/2022 COMPR EHENS NATALIE METAB OLIC PANEL glucose 88 mg/dL 65-99 normal Fasti ng refer ence inter hayley Not Available [facility] [address] [place] [address], [address], 03/21/2022 03:48:39 03/20/20 22 03/21/2022 COMPR EHENS NATALIE METAB OLIC PANEL urea nitrogen (BUN) 22 mg/dL 7-25 normal Not Available [facility] [address] [place], [address], 03/21/2022 03:48:39 03/20/20 22 03/21/2022 COMPR EHENS NATALIE METAB OLIC PANEL creatinine 0.92 mg/dL 0.50-1 .05 normal Not Available [facility] [address] [place], [address], 03/21/2022 03:48:39 03/20/20 22 03/21/2022 COMPR EHENS NATALIE METAB OLIC PANEL eGFR 69 mL/mi n/1.7 3m2 > or = 60 normal The eGFR is based on the CKD-E PI 2020 equat ion. To calcu late the new eGFR from a previ ous Creat inine or Cysta tin C resul t, go to https ://joselyn bran.o kaylen/shireen marion s/ kdoqi /gfr% 5Fcal culat or Not Available [facility] [address] [place] [address], [address], 03/21/2022 03:48:39 03/20/20 22 03/21/2022 COMPR EHENS NATALIE METAB OLIC PANEL BUN/creatini ne ratio NOT APPLIC ABLE (calc ) 6-22 Not Available [facility] [address] [place] [address], [address], 03/21/2022 03:48:39 03/20/20 22 03/21/2022 COMPR EHENS NATALIE METAB OLIC PANEL sodium 141 mmol/ L 135-14 6 normal Not Available [facility] [address] [place], [address], 03/21/2022 03:48:39 03/20/20 22 03/21/2022 COMPR EHENS NATALIE METAB OLIC PANEL potassium 4.8 mmol/ L 3.5-5. 3 normal Not Available [facility] [address] [place] [address], [address], 03/21/2022 03:48:39 03/20/20 22 03/21/2022 COMPR EHENS NATALIE METAB OLIC PANEL chloride 104 mmol/ L 98-110 normal Not Available [facility] [address] [place] [address], [address], 03/21/2022 03:48:39 03/20/20 22 03/21/2022 COMPR EHENS NATALIE METAB OLIC PANEL carbon dioxide 30 mmol/ L 20-32 normal Not Available [facility] [address] [place] [address], [address], 03/21/2022 03:48:39 03/20/20 22 03/21/2022 COMPR EHENS NATALIE METAB OLIC PANEL calcium 9.8 mg/dL 8.6-10 .4 normal Not Available [facility] [address] [place] [address], [address], 03/21/2022 03:48:39 03/20/20 22 03/21/2022 COMPR EHENS NATALIE METAB OLIC PANEL protein, total 7.0 g/dL 6.1-8. 1 normal Not Available [facility] [address] [place] [address], [address], 03/21/2022 03:48:39 03/20/20 22 03/21/2022 COMPR EHENS NATALIE METAB OLIC PANEL albumin 4.2 g/dL 3.6-5. 1 normal Not Available [facility] [address] [place], [address], 03/21/2022 03:48:39 03/20/20 22 03/21/2022 COMPR EHENS NATALIE METAB OLIC PANEL globulin 2.8 g/dL_ (calc ) 1.9-3. 7 normal Not Available [facility] [address] [place], [address], 03/21/2022 03:48:39 03/20/20 22 03/21/2022 COMPR EHENS NATALIE METAB OLIC PANEL albumin/glob ulin ratio 1.5 (calc ) 1.0-2. 5 normal Not Available [facility] [address] [place], [address], 03/21/2022 03:48:39 03/20/20 22 03/21/2022 COMPR EHENS NATALIE METAB OLIC PANEL bilirubin, total 0.7 mg/dL 0.2-1. 2 normal Not Available [facility] [address] [place], [address], 03/21/2022 03:48:39 03/20/20 22 03/21/2022 COMPR EHENS NATALIE METAB OLIC PANEL alkaline phosphatase 78 U/L 37-153 normal Not Available [facility] [address] [place], [address], 03/21/2022 03:48:39 03/20/20 22 03/21/2022 COMPR EHENS NATALIE METAB OLIC PANEL AST 23 U/L 10-35 normal Not Available [facility] [address] [place], [address], 03/21/2022 03:48:39 03/20/20 22 03/21/2022 COMPR EHENS NATALIE METAB OLIC PANEL ALT 16 U/L 6-29 normal Not Available [facility] [address] [place], [address], 03/21/2022 03:48:39 10/16/19 23 10/16/2022 CBC WITH DIFFE RENTI AL WBC 5.4 K/uL 3.8-10 .8 Not Available [facility] - Manual Order Only [address], [place], [address], 10/21/2022 20:25:35 10/16/19 23 10/16/2022 CBC WITH DIFFE RENTI AL RBC 5.36 M/uL 3.80-5 .10 high Not Available [facility] - Manual Order Only [address], [place], [address], 10/21/2022 20:25:35 10/16/19 23 10/16/2022 CBC WITH DIFFE RENTI AL hemoglobin 16.2 g/dL 11.7-1 5.5 high Not Available [facility] - Manual Order Only [address], [place], [address], 10/21/2022 20:25:35 10/16/19 23 10/16/2022 CBC WITH DIFFE RENTI AL hematocrit 48.7 % 35.0-4 5.0 high Not Available [facility] - Manual Order Only [address], [place], [address], 10/21/2022 20:25:35 10/16/19 23 10/16/2022 CBC WITH DIFFE RENTI AL MCV 90.9 fL 80.0-1 00.0 Not Available [facility] - Manual Order Only [address], [place], [address], 10/21/2022 20:25:35 10/16/19 23 10/16/2022 CBC WITH DIFFE RENTI AL MCH 30.2 pg 27.0-3 3.0 Not Available [facility] - Manual Order Only [address], [place], [address], 10/21/2022 20:25:35 10/16/19 23 10/16/2022 CBC WITH DIFFE RENTI AL MCHC 33.3 g/dL 32.0-3 6.0 Not Available [facility] - Manual Order Only [address], [place], [address], 10/21/2022 20:25:35 10/16/19 23 10/16/2022 CBC WITH DIFFE RENTI AL red cell distribution width 12.6 % 11.0-1 5.0 Not Available [facility] - Manual Order Only [address], [place], [address], 10/21/2022 20:25:35 10/16/19 23 10/16/2022 CBC WITH DIFFE RENTI AL platelet count 230 K/uL 140-40 0 Not Available [facility] - Manual Order Only [address], [place], [address], 10/21/2022 20:25:35 10/16/19 23 10/16/2022 CBC WITH DIFFE RENTI AL mean platelet volume 11.4 fL 7.5-12 .5 Not Available [facility] - Manual Order Only [address], [place], [address], 10/21/2022 20:25:35 10/16/19 23 10/16/2022 CBC WITH DIFFE RENTI AL neutrophil % 50.3 % 38.0-8 0.0 Not Available [facility] - Manual Order Only [address], [place], [address], 10/21/2022 20:25:35 10/16/19 23 10/16/2022 CBC WITH DIFFE RENTI AL neutrophil absolute 2.71 K/uL 1.50-7 .80 Not Available [facility] - Manual Order Only [address], [place], [address], 10/21/2022 20:25:35 10/16/19 23 10/16/2022 CBC WITH DIFFE RENTI AL lymphocyte % 36.0 % 15.0-4 9.0 Not Available [facility] - Manual Order Only [address], [place], [address], 10/21/2022 20:25:35 10/16/19 23 10/16/2022 CBC WITH DIFFE RENTI AL lymphocyte absolute 1.94 K/uL 0.85-3 .90 Not Available [facility] - Manual Order Only [address], [place], [address], 10/21/2022 20:25:35 10/16/19 23 10/16/2022 CBC WITH DIFFE RENTI AL monocyte % 11.3 % 0.0-13 .0 Not Available [facility] - Manual Order Only [address], [place], [address], 10/21/2022 20:25:35 10/16/19 23 10/16/2022 CBC WITH DIFFE RENTI AL monocyte absolute 0.61 K/uL 0.20-0 .95 Not Available [facility] - Manual Order Only [address], [place], [address], 10/21/2022 20:25:35 10/16/19 23 10/16/2022 CBC WITH DIFFE RENTI AL eosinophil % 1.5 % 0.0-8. 0 Not Available [facility] - Manual Order Only [address], [place], [address], 10/21/2022 20:25:35 10/16/19 23 10/16/2022 CBC WITH DIFFE RENTI AL eosinophil absolute 0.08 K/uL 0.00-0 .50 Not Available [facility] - Manual Order Only [address], [place], [address], 10/21/2022 20:25:35 10/16/19 23 10/16/2022 CBC WITH DIFFE RENTI AL basophil % 0.9 % 0.0-2. 0 Not Available [facility] - Manual Order Only [address], [place], [address], 10/21/2022 20:25:35 10/16/19 23 10/16/2022 CBC WITH DIFFE EDWIN AL basophil absolute 0.05 K/uL 0.00-0 .20 Not Available [facility] - Manual Order Only [address], [place], [address], 10/21/2022 20:25:35 10/16/19 23 10/16/2022 COMPR EHENS NATALIE METAB OLIC PANEL glucose 88 mg/dL 65-99 Not Available [facility] - Manual Order Only [address], [place], [address], 10/21/2022 20:25:36 10/16/19 23 10/16/2022 COMPR EHENS NATALIE METAB OLIC PANEL calcium 9.7 mg/dL 8.5-10 .5 Not Available [facility] - Manual Order Only [address], [place], [address], 10/21/2022 20:25:36 10/16/19 23 10/16/2022 COMPR EHENS NATALIE METAB OLIC PANEL sodium 142 mmol/ L 136-14 5 Not Available [facility] - Manual Order Only [address], [place], [address], 10/21/2022 20:25:36 10/16/19 23 10/16/2022 COMPR EHENS NATALIE METAB OLIC PANEL potassium 4.5 mmol/ L 3.5-5. 1 Not Available [facility] - Manual Order Only [address], [place], [address], 10/21/2022 20:25:36 10/16/19 23 10/16/2022 COMPR EHENS NATALIE METAB OLIC PANEL chloride 105 mmol/ L 95-108 Not Available [facility] - Manual Order Only [address], [place], [address], 10/21/2022 20:25:36 10/16/19 23 10/16/2022 COMPR EHENS NATALIE METAB OLIC PANEL CO2 (carbon dioxide) 29 mmol/ L 21-33 Not Available [facility] - Manual Order Only [address], [place], [address], 10/21/2022 20:25:36 10/16/19 23 10/16/2022 COMPR EHENS NATALIE METAB OLIC PANEL BUN (blood urea nitrogen) 19 mg/dL 8-23 Not Available [facility] - Manual Order Only [address], [place], [address], 10/21/2022 20:25:36 10/16/19 23 10/16/2022 COMPR EHENS NATALIE METAB OLIC PANEL creatinine 0.88 mg/dL 0.50-1 .05 Not Available [facility] - Manual Order Only [address], [place], [address], 10/21/2022 20:25:36 10/16/19 23 10/16/2022 COMPR EHENS NATALIE METAB OLIC PANEL protein, total 7.1 g/dL 6.1-8. 0 Not Available [facility] - Manual Order Only [address], [place], [address], 10/21/2022 20:25:36 10/16/19 23 10/16/2022 COMPR EHENS NATALIE METAB OLIC PANEL albumin 4.4 g/dL 3.5-5. 5 Not Available [facility] - Manual Order Only [address], [place], [address], 10/21/2022 20:25:36 10/16/19 23 10/16/2022 COMPR EHENS NATALIE METAB OLIC PANEL globulin 2.7 g/dL_ (calc ) 1.8-3. 8 Not Available [facility] - Manual Order Only [address], [place], [address], 10/21/2022 20:25:36 10/16/19 23 10/16/2022 COMPR EHENS NATALIE METAB OLIC PANEL albumin/glob ulin ratio 1.6 calc 1.0-2. 5 Not Available [facility] - Manual Order Only [address], [place], [address], 10/21/2022 20:25:36 10/16/19 23 10/16/2022 COMPR EHENS NATALIE METAB OLIC PANEL alkaline phosphatase 91 U/L <150 Not Available [facility] - Manual Order Only [address], [place], [address], 10/21/2022 20:25:36 10/16/19 23 10/16/2022 COMPR EHENS NATALIE METAB OLIC PANEL alanine aminotransfe rase (ALT) 17 U/L 6-29 Not Available [facility] - Manual Order Only [address], [place], [address], 10/21/2022 20:25:36 10/16/19 23 10/16/2022 COMPR EHENS NATALIE METAB OLIC PANEL aspartate aminotransfe rase (AST) 27 U/L 10-35 Not Available [facility] - Manual Order Only [address], [place], [address], 10/21/2022 20:25:36 10/16/19 23 10/16/2022 COMPR EHENS NATALIE METAB OLIC PANEL bilirubin, total 0.5 mg/dL <1.3 Not Available [facility] - Manual Order Only [address], [place], [address], 10/21/2022 20:25:36 10/16/19 23 10/16/2022 COMPR EHENS NATALIE METAB OLIC PANEL BUN/creatini ne ratio NOT APPLIC ABLE calc 6-22 Not Available [facility] - Manual Order Only [address], [place], [address], 10/21/2022 20:25:36 10/16/19 23 10/16/2022 COMPR EHENS NATALIE METAB OLIC PANEL eGFR 72 mL/mi n/1.7 3m_sq uared >59 The eGFR is based on the CKD-E PI 2020 equat ion. To calcu late the new eGFR from a previ ous Creat inine or Cysta tin C resul t, go to https ://joselyn w.beckie shant.o rg/pr ofess ional s/kdo qi/gf r%5Fc alcul ator. Not Available [facility] - Manual Order Only [address], [place], [address], 10/21/2022 20:25:36 10/16/19 23 10/16/2022 THYRO ID STIMU LATIN G HORMO NE (TSH) thyroid stimulating hormone (TSH) 1.26 mlu/L 0.40-4 .50 For addit ional infor mariela mcnair e refer to http: //[facility] cody montero.Que stDia gnost ics.c om/fa q/FAQ 138 This test was perfo rmed using the Sieme ns TSH immun oassa y metho d. Value s obtai song with previ ous assay metho ds canno t be used inter kimble eably . Not Available [facility] - Manual Order Only [address], [place], [address], 10/21/2022 20:25:36 10/16/19 23 10/16/2022 HEMOG LOBIN A1C HbA1C 5.2 % <5.7 [...] of diabe ayo in child rosalba. Accor ding to Ameri can Diabe ayo Assoc iatio n (ADA) guide lines , hemog lobin A1c <7.0% repre sents optim al contr ol in non-p regna nt diabe tic patie nts. Diffe rent metri cs may apply to speci fic patie nt popul ation s. Stand ards of Medic al Care in Diabe ayo (ADA) . Not Available [facility] - Manual Order Only [address], [place], [address], 10/21/2022 20:25:37 10/16/19 23 10/16/2022 HEMOG LOBIN A1C estimated average glucose 103 mg/dL <117 The estim ated avera ge gluco se value is an adjun ct to the treat ment of both Type I and Type II Diabe ayo. It is not inten ded for the diagn osis or risk asses sment of patie nts witho ut diabe ayo. (Refe rence : Dillan montero DM et al. Diabe ayo Care 2008; 31:14 73-14 78). Not Available [facility] - Manual Order Only [address], [place], [address], 10/21/2022 20:25:37 10/16/19 23 10/16/2022 LIPID PANEL W/ TG/HD L-C (ORDE RED WITH LIPOP ROTEI N, NMR) cholesterol, total 152 mg/dL <200 Not Available [facility] - Manual Order Only [address], [place], [address], 10/21/2022 20:25:37 10/16/19 23 10/16/2022 LIPID PANEL W/ TG/HD L-C (ORDE RED WITH LIPOP ROTEI N, NMR) HDL cholesterol 47 mg/dL >49 low Not Available [facility] - Manual Order Only [address], [place], [address], 10/21/2022 20:25:37 10/16/19 23 10/16/2022 LIPID PANEL W/ TG/HD L-C (ORDE RED WITH LIPOP ROTEI N, NMR) triglyceride s 82 mg/dL <150 Not Available [facility] - Manual Order Only [address], [place], [address], 10/21/2022 20:25:37 10/16/19 23 10/16/2022 LIPID PANEL W/ TG/HD L-C (ORDE RED WITH LIPOP ROTEI N, NMR) LDL cholesterol, calculated 88 mg/dL _(nikolai c) <100 Marisela able range <100 mg/dL for prima ry preve ntion ; <70 mg/dL for patie nts with CHD or diabe tic patie nts with >= 2 CHD risk facto rs. LDL-C is now calcu lated using the Jia montero-Hop kins brooku vijay n, which is a valid ated novel metho d provdevika cazares blaire r accur acy than the Fried bj equat ion in the estim ation of LDL-C . Jia montero SS et al. OLGA LIDIA. 2013; 310(1 9): 2061- 2068 (http ://ed ucati on.Travee [email or web address]. Krauttools/f aq/FA Q164) Not Available [facility] - Manual Order Only [address], [place], [address], 10/21/2022 20:25:37 10/16/19 23 10/16/2022 LIPID PANEL W/ TG/HD L-C (ORDE RED WITH LIPOP ROTEI N, NMR) chol/HDL-C 3.2 calc <3.6 Not Available [facility] - Manual Order Only [address], [place], [address], 10/21/2022 20:25:37 10/16/19 23 10/16/2022 LIPID PANEL W/ TG/HD L-C (ORDE RED WITH LIPOP ROTEI N, NMR) non-HDL cholesterol 105 mg/dL _(nikolai c) <130 For patie nts with diabe ayo plus 1 major ASCVD risk facto r, treat ing to a non-H DL-C goal of <100 mg/dL (LDL- C of <70 mg/dL ) is consi martine melendez optio n. Not Available [facility] - Manual Order Only [address], [place], [address], 10/21/2022 20:25:37 10/16/19 23 10/16/2022 LIPID PANEL W/ TG/HD L-C (ORDE RED WITH LIPOP ROTEI N, NMR) TG/HDL-C 1.7 calc <2.0 Not Available [facility] - Manual Order Only [address], [place], [address], 10/21/2022 20:25:37 10/16/19 23 10/16/2022 MYELO PEROX IDASE myeloperoxid ase 322 pmol/ L <470 Based on a high risk sub-p opula tion (N=92 0) defin ed as ambul atory stabl e patie nts witho ut acute coron mingo syndr ome who under went elect natalie diagn ostic coron mingo angio graph y (1) and a refer ence range study of appar ently healt hy donor s, we have defin ed the follo wing cut-o ffs for MPO: A cut-o ff of <470 pmol/ L defin es an 'appa rentl y healt hy' popul ation at optim al relat natalie risk for a cardi ovasc ular event , 470-5 39 pmol/ L defin es a popul ation at moder ate relat natalie risk for a cardi ovasc ular event (2-fo ld incre ased risk of MACE at 3 years ), and > = 540 pmol/ L defin es a popul ation with a high relat natalie risk for a cardi ovasc ular event . (Refe rence : 1. Joce et al. Am J Cardi ol. 2013; 111:4 65-47 0 and perso nal commu nicat ion with Ohbson et al). This test was devel gerardo and its meena tical perfo rmanc e ella cteri stics have been deter mined by [facility] sotelo at [facility]. It has not been clear ed or appro syeda by the U.S. Food and Drug Admin istra tion. This assay has been valid ated pursu ant to the CLIA regul ation s and is used for clini nikolai purpo ses. Not Available [facility] - Manual Order Only [address], [place], [address], 10/21/2022 20:25:37 10/16/19 23 10/16/2022 VITAM IN D 25 HYDRO XY LC-MS /MS vitamin D 25 hydroxy by lc-MS/MS 46.2 NG/mL >29.9 Vitam in D, 25-Hy droxy [...] al level s are >=30 ng/mL . Vitam in-D is fat-s olubl e and there fore inadv erten t or inten taryn l inges tion of exces sivel y high amoun ts could be toxic . Studi es in child rosalba and adult s sugge st blood level s would need to excee d 150 ng/mL befor e there is any anuradha rn. Marcel RAMIREZ, Donna chacon [place], Hans off-f errdali i JOHN, et al. Evalu ation , treat ment, and preve ntion of vitam in D defic iency : an Endoc rine Socie ty clini nikolai pract ice guide line. J Clin Endoc rinol Metab . 2011; 96(7) :1911 -30. This test is perfo rmed by a Liqudevika britt Chrom atogr catherine Scruggs m Mass Spect romet ry (LC-M S/MS) kenya britt. This test was devel oped and its perfo rmanc e ella cteri stics deter mined by the [facility] It has not been clear ed or appro syeda by the U.S. FDA. The [facility] is regul ated under Clini nikolai Labor atory Impro vemen t Amend ments (CLIA ) as quali fied to perfo rm high- compl exity testi ng. This test is used for clini nikolai purpo ses. It shoul d not be regar ded as inves tigat ional or for resea rch. Not Available [facility] - Manual Order Only [address], [place], [address], 10/21/2022 20:25:38 10/16/19 23 10/16/2022 LIPOP ROTEI N FRACT IONAT ION, NMR W/LIP ID PANEL LDL-P 1456 nmol/ L <935 high Relat natalie risk: Optim al <935; Moder ate 935-1 816; High >1816 nmol/ L. Refer ence range is 592-2 404 nmol/ L. This test is perfo rmed by a Nucle ar Magne tic Reson ance kenya britt. This test was devel oped and its perfo rmanc e ella cteri stics deter mined by [employer] It has not been clear ed or appro syeda by the U.S. FDA. The [facility] is regul ated under Clini nikolai Labor atory Impro vemen t Amend ments (CLIA ) as quali fied to perfo rm high- compl exity testi ng. This test is used for clini nikolai purpo ses. It shoul d not be regar ded as inves tigat ional or for resea rch. Not Available [facility] - Manual Order Only [address], [place], [address], 10/21/2022 20:25:38 10/16/19 23 10/16/2022 LIPOP ROTEI N FRACT IONAT ION, NMR W/LIP ID PANEL small LDL-P 749 nmol/ L <467 high Relat natalie risk: Optim al <467; Moder ate 467-8 20; High >820 nmol/ L. Refer ence range is <1408 nmol/ L. Not Available [facility] - Manual Order Only [address], [place], [address], 10/21/2022 20:25:38 10/16/1910/16/2022 LIPOP ROTEI N FRACT IONAT ION, NMR W/LIP ID PANEL LDL size 20.6 nm >20.5 Relat natalie risk: Optim al >20.5 ; High <20.6 nm. Refer ence range is 20.0- 22.3 nm. Not Available [facility] - Manual Order Only [address], [place], [address], 10/21/2022 20:25:38 10/16/1910/16/2022 LIPOP ROTEI N FRACT IONAT ION, NMR W/LIP ID PANEL HDL-P 33.1 umol/ L >32.8 Relat natalie risk: Optim al >32.8 ; Moder ate 29.2- 32.8; High <29.2 umol/ L. Refer ence range is 21.1- 43.4 umol/ L. Not Available [facility] - Manual Order Only [address], [place], [address], 10/21/2022 20:25:38 10/16/1910/16/2022 LIPOP ROTEI N FRACT IONAT ION, NMR W/LIP ID PANEL large HDL-P 3.3 umol/ L >7.2 low Relat natalie risk: Optim al >7.2; Moder ate 5.3-7 .2; High <5.3 umol/ L. Refer ence range is >3.5 umol/ L. Not Available [facility] - Manual Order Only [address], [place], [address], 10/21/2022 20:25:38 10/16/19 23 10/16/2022 LIPOP ROTEI N FRACT IONAT ION, NMR W/LIP ID PANEL HDL size 8.6 nm >9.0 low Relat natalie risk: Optim al >9.0; Moder ate 8.7-9 .0; High <8.7 nm. Refer ence range is 8.3-1 0.5 nm. Not Available [facility] - Manual Order Only [address], [place], [address], 10/21/2022 20:25:38 10/16/1910/16/2022 LIPOP ROTEI N FRACT IONAT ION, NMR W/LIP ID PANEL large VLDL-P 2.1 nmol/ L <3.7 Relat natalie risk: Optim al <3.7; Moder ate 3.7-6 .1; High >6.1 nmol/ L. Refer ence range is <16.0 nmol/ L. Not Available [facility] - Manual Order Only [address], [place], [address], 10/21/2022 20:25:38 10/16/1910/16/2022 LIPOP ROTEI N FRACT IONAT ION, NMR W/LIP ID PANEL VLDL size 47.8 nm <47.1 high Relat natalie risk: Optim al <47.1 ; Moder ate 47.1- 49.0; High >49.0 nm. Refer ence range is 41.1- 61.7 nm. Not Available [facility] - Manual Order Only [address], [place], [address], 10/21/2022 20:25:38 10/16/1910/16/2022 URINA LYSIS , COMPL ETE color YELLOW yellow Not Available [facility] - Manual Order Only [address], [place], [address], 10/21/2022 20:25:39 10/16/19 23 10/16/2022 URINA LYSIS , COMPL ETE appearance CLEAR clear Not Available [facility] - Manual Order Only [address], [place], [address], 10/21/2022 20:25:39 10/16/19 23 10/16/2022 URINA LYSIS , COMPL ETE specific gravity 1.021 1.001- 1.035 Not Available [facility] - Manual Order Only [address], [place], [address], 10/21/2022 20:25:39 10/16/19 23 10/16/2022 URINA LYSIS , COMPL ETE pH 7.0 5.0-8. 0 Not Available [facility] - Manual Order Only [address], [place], [address], 10/21/2022 20:25:39 10/16/19 23 10/16/2022 URINA LYSIS , COMPL ETE glucose NEGATI VE negati ve Not Available [facility] - Manual Order Only [address], [place], [address], 10/21/2022 20:25:39 10/16/19 23 10/16/2022 URINA LYSIS , COMPL ETE bilirubin NEGATI VE negati ve Not Available [facility] - Manual Order Only [address], [place], [address], 10/21/2022 20:25:39 10/16/19 23 10/16/2022 URINA LYSIS , COMPL ETE ketones NEGATI VE negati ve Not Available [facility] - Manual Order Only [address], [place], [address], 10/21/2022 20:25:39 10/16/19 23 10/16/2022 URINA LYSIS , COMPL ETE occult blood NEGATI VE negati ve Not Available [facility] - Manual Order Only [address], [place], [address], 10/21/2022 20:25:39 10/16/19 23 10/16/2022 URINA LYSIS , COMPL ETE protein NEGATI VE negati ve Not Available [facility] - Manual Order Only [address], [place], [address], 10/21/2022 20:25:39 10/16/19 23 10/16/2022 URINA LYSIS , COMPL ETE nitrite NEGATI VE negati ve Not Available [facility] - Manual Order Only [address], [place], [address], 10/21/2022 20:25:39 10/16/19 23 10/16/2022 URINA LYSIS , COMPL ETE leukocyte esterase NEGATI VE negati ve Not Available [facility] - Manual Order Only [address], [place], [address], 10/21/2022 20:25:39 10/16/19 23 10/16/2022 URINA LYSIS , COMPL ETE WBC 0-5 /hpf <6 Not Available [facility] - Manual Order Only [address], [place], [address], 10/21/2022 20:25:39 10/16/19 23 10/16/2022 URINA LYSIS , COMPL ETE RBC 0-2 /hpf 0-3 Not Available [facility] - Manual Order Only [address], [place], [address], 10/21/2022 20:25:39 10/16/19 23 10/16/2022 URINA LYSIS , COMPL ETE squamous epithelial cells 0-5 /hpf 0-5 Not Available [facility] - Manual Order Only [address], [place], [address], 10/21/2022 20:25:39 10/16/19 23 10/16/2022 URINA LYSIS , COMPL ETE bacteria NONE SEEN /hpf none seen Not Available [facility] - Manual Order Only [address], [place], [address], 10/21/2022 20:25:39 10/16/19 23 10/16/2022 URINA LYSIS , COMPL ETE hyaline casts NONE SEEN /lpf none seen This urine was meena zed for the prese nce of WBC, RBC, bacte lorena, casts , and other forme d eleme nts. Only those eleme nts seen were repor ty. Not Available [facility] - Manual Order Only [address], [place], [address], 10/21/2022 20:25:39 10/02/19 22 09/04/2021 elect janine diogr am No observ ation record ed. [email or web address] Gonzalez Nieves MD [address] [facility] [address], [place], [address], 10/02/2021 11:41:06 10/02/19 22 09/04/2021 lakeisha metry testi ng* No observ ation record ed. [email or web address] Gonzalez Nieves MD [address] [facility] [address], [place], [address], 10/02/2021 11:41:48 10/02/19 22 09/04/2021 body compo sitio n meena sis (PROC ) No observ ation record ed. [email or web address] Not Available 2021 11:42:19 12/19/19 22 12/18/2021 DEXA, axial skele ton No observ ation record ed. [facility] [address] [place] [address] [address], [place], [address], 12/30/2021 12:29:46 04/03/20 22 03/20/2022 US, tee x, carot id arter y No observ ation record ed. [email or web address] Not Available 2021 13:41:32 10/16/19 elect janine rose am No observ ation record ed. [email or web address] Gonzalez Tavarez [address], [place], [address], 10/26/2022 13:39:53 11/14/19 23 10/16/2022 body compo sitio n meena sis (PROC ) No observ ation record ed. [email or web address] Not Available 2022 13:31:42 11/14/19 23 10/16/2022 elect janine rose am No observ ation record ed. [email or web address] [address], [place], [address], 11/13/2022 13:32:23 Result Notes None recorded. Problems Name Problem SNOMED Code Status Onset Date Resolution Date Notes Provider Name and Address Organization Details Recorded Time Obesity 300829422 Active 2019 Gonzalez Nieves MD [facility] [employer] PAMELA Moffett, [place], [place], [address] [place] [address] , [facility] - Nieves/ van Cleeff 3 20:24:13 Impairme nt of balance 106067574 Active 2019 Gonzalez Nieves MD [facility] [employer] PAMELA Moffett [facility], [place], [place], [address] [place] [address] , [facility] - Nieves/ van [place] 3 20:24:13 Fibromya lgia 416794391 Active 2019 Gonzalez Nieves MD [facility] [employer] PAMELA Moffett, [place], [place], [address] [place] [address] , [facility] - Nieves/ [place] 3 20:24:13 Low back pain 818386834 Active 2019 MD Corby [employer] PAMELA Moffett, [place], [place], [address] [place] [address] , [facility] - Eezquiel/ van [place] 3 20:24:13 Benign essentia l hyperten karo 3091515 Active 2019 MD Corby Pace [employer] PAMELA [place]off[place], [place], [place], [address] [place] [address] , [facility] - Ezequiel/ van [place] 3 20:24:13 Hyperlip idemia 59473695 Active 2019 Gonzalez Nieves MD [facility] [email or web address] [employer] [place], [place], [address] [place] [address] , [place] - Ezequiel/ van [place] 3 20:24:13 Gastroes ophageal reflux disease 488409708 Active 2019 Gonzalez Nieves MD [facility] [email or web address], [place], [place], [address] [place] [address] , [place] - Ezequiel/ [place] 3 20:24:13 Menopaus al symptom 68826988 Active 2019 Gonzalez Nieves MD [facility] [email or web address],[address] [employer] [place], [address] [place] [address] , [facility] - Ezequiel/ [place] 3 20:24:13 Eczema 81499856 Active 2019 Gonzalez Nieves MD [facility] [email or web address],[address] [employer] [place], [address] [place] [address] , [place] - Ezequiel/ [place] 3 20:24:13 Female stress incontin ence 25983487 Active 2019 Gonzalez Nieves MD [facility] [email or web address],[address] [employer] [place], [address] [place] [address] , [place] - Ezequiel/ [place] 3 20:24:13 Gynecolo gic examinat ion Active 2019 Not Available [facility] 1 08:52:02 Screenin g for malignan t neoplasm of breast Active 2019 Not Available [facility] 1 08:52:02 Screenin g for malignan t neoplasm of colon Active 0 Dr. Damon, normal, next 10 yrs. Gonzalez Nieves MD [facility] [email or web address],[address] [employer] [place], [place], [address] [place] [address] , [place] - Ezequiel/ [place] 3 11:55:45 Ventricu lar prematur e beats 56481012 Active 1980 = Gonzalez Nieves MD [facility] [email or web address],[address] [employer] [place], [place], [address] [place] [address] , [facility] - Nieves/ [place] 3 20:24:13 Calcific ation of coronary artery 657375422 Active 07/2019 LAD 39.1. Mild calcific ation of Ascendin g/descen ding thoracic aorta. Gonzalez Nieves MD [address] [facility],[address], [place], [place], [address] [place] [address] , [facility] - Ezequiel/ [place] 3 20:24:13 Arterios clerosis of thoracic aorta 46113478236 4106 Active 07/2019 CT chest 07/2019 LAD 39.1. Mild calcific ation of Ascendin g/descen ding thoracic aorta. Gonzalez Nieves MD [facility] [facility],[address], [place], [place], [address] [place] [address] , [facility] Ezequiel/ van [place] 3 20:24:13 Screenin g for cardiova scular system disease Active 08/2020 ApoE 3/4. Lp(a) 64 - normal <75. Not Available [facility] 1 08:52:02 Erythroc ytosis 839489650 Active 2019 Gonzalez Nieves MD [facility],[address] [facility], [place], [place], [address] [place] [address] , [facility] Ezequiel/ [place] 3 20:24:13 Numbness of tongue 01226080 Active 2019 Gonzalez Nieves MD [facility] [facility],[address], [place], [address] , [place] Ez[employer]iel/ [place] 3 20:24:13 Idiopath ic peripher al neuropat hy 38998667 Active 2019 Gonzalez Nieves MD [facility],[address], [place], [address] , [facility] Ezequiel/ van [place] 3 20:24:13 Carotid atherosc lerosis 691795432 Active 2020 Gonzalez Nieves MD [facility],[address], [place], [place], [address] [place] [address] , [facility] - Ezequiel/ van [place] 3 20:24:13 Screenin g for osteopor osis Active 2021 Gonzalez Nieves MD [address] [email or web address],[address], [place], [address] , [place] - Ezequiel/ [place] 2 07:30:59 Acute COVID-19 8878862089 Completed 202110/24/2022 Gonzalez Nieves MD [address] [email or web address],[address], [place], [address] , [place] - [employer]iel/ [employer] [place] 3 12:48:10 Problem Notes None recorded. Procedures Surgical History Date Name Laterality Status Provider Name and Address Organization Details Recorded Time 10/24/19 23 Female [facility] [id number] completed Jennifer Duran Nieves/ [place] 10/24/2022 09:15:00 06/08/20 22 Most Recent Mammogram completed Gonzalez Nieves MD [facility] [email or web address],[address], [place], [address], [place] - Ezequiel/ [place] 10/24/2022 11:53:25 09/04/20 21 Female [facility] Screenings and Procedures [id number] completed Gonzalez Nieves MD [facility] [email or web address],[address], [place], [address], [place] - Ezequiel/ [place] 09/23/2021 07:19:30 08/28/20 20 Female [facility] Screenings and Procedures [id number] completed Gonzalez Nieves MD [facility] [email or web address],[address], [place], [address], [place] - Ezequiel/ [place] 09/07/2020 16:27:19 06/08/20 20 Date of Last Pap Smear completed Gonzalez Nieves MD [facility] [email or web address],[address], [place], [address], [place] - Ezequiel/ [place] 08/28/2020 15:45:25 09/08/19 10 operation on female genital organs completed Gonzalez Nieves MD [facility] [email or web address],[address], [place], [address], [place] Nieves/ [place] 06/25/2020 15:48:02 09/08/19 05 External Grinder Tender Surgery completed Gonzalez Nieves MD [address], [place], [address], [place] - Nieves/ [place] 06/25/2020 15:49:56 09/08/19 00 biopsy of breast completed Gonzalez Nieves MD [address] [email or web address],[address], [place], [address], [place] - Ezequiel/ [place] 06/25/2020 15:44:54 09/08/18 99 cholecystectomy completed Gonzalez Nieves MD [address], [place], [address], [place] - Ezequiel/ [place] 06/25/2020 15:45:08 09/08/18 90 excisional biopsy of breast completed Gonzalez Nieves MD [address], [place], [address], [place] - Ezequiel/ [place] 06/25/2020 15:44:38 Imaging Results Imaging Date Name Status LastModified by Organization Details LastModified Time 09/04/2021 electrocardiogram completed [email or web address] Gonzalez Tavarez H[address], [place], [address], 10/02/2021 11:41:06 09/04/2021 spirometry testing* completed [email or web address] [address], [place], [address], 10/02/2021 11:41:48 09/04/2021 body composition analysis (PROC) completed Information not available 10/02/2021 11:42:19 12/18/2021 DEXA, axial skeleton completed [facility] [address], [place], [address], 12/30/2021 12:29:46 03/20/2022 US, duplex, carotid artery completed Information not available 04/18/2022 13:41:32 10/16/2022 electrocardiogram completed [email or web address] [address], [place], [address], 10/26/2022 13:39:53 10/16/2022 body composition analysis (PROC) completed Information not available 11/13/2022 13:31:42 10/16/2022 electrocardiogram completed Gonzalez Nieves MD [address] [place] [address] [address], [place], [address], 11/13/2022 13:32:23 Procedure Notes None recorded. Medical Equipment None Reported. Allergies No known drug allergies Medications Name Sig Start Date Stop Date Status Note LastModified by Organization Details LastModified Time azithromyci n 250 mg tablet TAKE 2 TABLETS BY MOUTH TODAY, THEN TAKE 1 TABLET DAILY FOR 4 DAYS 08/28 completed Not Available Not Available Not Available fluconazole 150 mg tablet TAKE 1 TAB BY MOUTH NOW 06/20 completed Not Available Not Available Not Available sumatriptan 100 mg tablet ONE TAB AT ONSET OF HEADACHE - DO NOT EXCEED 3 PER WEEK active Not Available Not Available No t Available prednisone 20 mg tablet 08/28 completed Not Available Not Available Not Available naproxen 250 mg tablet 1 TABLET WITH FOOD OR MILK ORALLY TWICE A DAY 90 DAYS active Not Available Not Available No t Available amlodipine 5 mg tablet TAKE 1 TABLET BY MOUTH EVERY DAY active Not Available Not Available No t Available aspirin 81 mg tablet,marilyn yed release Take 1 tablet every day by oral route. 2020 active Not Available Not Available Not Avai lable triamcinolo ne acetonide 0.1 % topical cream PLEASE SEE ATTACHED FOR DETAILED DIRECTION S active Not Available Not Available No t Available prednisolon e acetate 1 % eye drops,suspe nsion LOCATION: BOTH EYES. USE 1 DROP IN BOTH EYES 2-4 TIMES A DAY NEEDED active Not Available Not Available No t Available amitriptyli ne 10 mg tablet TAKE 1 OR 2 TABLETS BY MOUTH EVERY EVENING active Not Available Not Available No t Available flecainide 50 mg tablet TAKE 1 1/2 TABLETS BY MOUTH EVERY 12 HOURS 10/16 completed Not Available Not Available Not Available gabapentin 300 mg capsule TAKE 1 CAPSULE BY MOUTH EVERY DAY IN THE EVENING active Not Available Not Available No t Available montelukast 10 mg tablet TAKE 1 TABLET BY MOUTH EVERY DAY 06/20 completed Not Available Not Available Not Available gabapentin 100 mg capsule TAKE 1 CAPSULE BY MOUTH EVERY DAY IN THE MORNING active Not Available Not Available No t Available clobetasol 0.05 % topical ointment APPLY A THIN LAYER TO THE AFFECTED AREA(S) BY TOPICAL ROUTE 1 TIMES PER DAY 10/16 completed Not Available Not Available Not Available estradiol 0.01% (0.1 mg/gram) vaginal cream APPLY 1/4 APPLICATO R 3 TIMES PER WEEK active Not Available Not Available No t Available atenolol 50 mg tablet TAKE 1 TABLET BY MOUTH TWICE A DAY active Not Available Not Available No t Available diazepam 5 mg tablet TAKE 1 TABLET BY MOUTH SINGLE DOSE TAKE 30 MINS BEFORE MRI active Not Available Not Available No t Available Restasis 0.05 % eye drops in a dropperette LOCATION: BOTH EYES. INSTILL ONE DROP INTO BOTH EYES TWICE DAILY active Not Available Not Available No t Available Ciprodex 0.3 %-0.1 % ear drops,suspe nsion INSTILL 5 DROPS INTO RIGHT EAR 2 TIMES PER DAY FOR 5 DAYS. 08/28 completed Not Available Not Available Not Available rosuvastati n 20 mg tablet TAKE 1 TABLET BY MOUTH THREE TIMES A WEEK. active Not Available Not Available No t Available Suprep Bowel Prep Kit 17.5 gram-3.13 gram-1.6 gram oral solution USE DIRECTED 08/28 completed Not Available Not Available Not Available Xiidra 5 % eye drops in a dropperette PLACE 1 DROP INTO BOTH EYES TWICE DAILY 03/26 completed Not Available Not Available Not Available Vitals Date Recorded Body height Heart rate Systolic blood pressure Diastolic blood pressure Provider Name and Address Organization Details Last Updated DateTime 10/22/2021 168.88 cm 88 /min 110 mm[Hg] 51 mm[Hg] Gonzalez Nieves MD [facility],[address] [place] [address], [address] , ROME Nieves/ sameera Harper 10/22/2021 15:19:11 Date Recorded Body height Body mass index (BMI) Body weight Provider Name and Address Organization Details Last Updated DateTime 04/18/2022 168.88 cm 31.3 kg/m2 88539.7 g Gonzalez Nieves MD [facility],[address], [place], [address], ROME Nieves/ sameera Harper 04/18/2022 13:42:31 Date Recorded Body height Body mass index (BMI) Body weight Heart rate Systolic blood pressure Diastolic blood pressure Provider Name and Address Organization Details Last Updated DateTime 3 168.88 cm 31 kg/m2 59381.5 1 g 84 /min 110 mm[Hg] 80 mm[Hg] Cristiane Gonzalez ESCOBAR Nieves/ sameera Harper 3 10:34:05 Date Recorded Body height Body mass index (BMI) Body weight Heart rate Systolic blood pressure Diastolic blood pressure Provider Name and Address Organization Details Last Updated DateTime 3 168.88 cm 31 kg/m2 62174.5 1 g 82 /min 118 mm[Hg] 68 mm[Hg] Jennifer Garzon ROME Nieves/ sameera Harper 3 11:16:38 Social History Question Answer Notes LastModified by Organizat ion Details LastModified Time Tobacco Smoking Status Former Smoker Jennifer Garzon ROME lewis/ sameera Harper 10/16/2022 16:19:33 Do You Have An Advance Directive? No [email or web address] Information not available 10/16/2022 What Is Your Level Of Alcohol Consumption? None [id number] Information not available 07/11/2020 Are You Blind Or Do You Have Difficulty Seeing? No Information not available 10/16/2022 What Is Your Level Of Caffeine Consumption? None [id number] Information not available 07/11/2020 How Much Tobacco Do You Chew? None [id number] Information not available 07/11/2020 Are You Currently Employed? No Retired. [id number] Information not available 07/11/2020 Are You Deaf Or Do You Have Serious Difficulty Hearing? No [email or web address] Information not available 10/16/2022 What Type Of Diet Are You Following? VEGETARIAN 08/2021 - Some Fish And Eggs 06/2020 need To Get Sugar Out Of My Diet. Information not available 09/04/2021 Which Illicit Or Recreational Drugs Have You Used? None [id number] Information not available 07/11/2020 Do You Or Have You Ever Used E-cigarettes Or Vape? Never Used Electronic Cigarettes [id number] Information not available 07/11/2020 What Is Your Occupation? 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 [id number] Information not available 07/11/2020 Have There Been Any Changes To Your Family Or Social Situation? Yes Brother Lives In [facility] . Mother Lived With Her And 04/2020 At Age 96 (sepsis). [id number] Information not available 07/11/2020 Are There Any Guns Present In Your Home? No [email or web address] Information not available 08/28/2020 Hobbies/Activit ies Arts Engaged In Her Spiritism Sikh (reader, Choir, Handbells) [email or web address] Information not available 06/23/2020 Live Alone Or With Others? Alone Information not available 06/23/2020 Assessed Health Literacy Yes [email or web address] Information not available 06/25/2020 Barriers To Care No [email or web address] Information not available 06/25/2020 Seeking Employment? No Information not available 06/23/2020 Marital Status 03/2014 - Eh Passed. Caregiver For Year Prior To His Slowly Progressive Peripheral Neuropathy Unknown Etiology. Last 2.5 Months On Ventilator No Diaphragm Movement. Information not available 06/23/2020 Do You Have A Medical Power Of Casino Worker? No In Progress [email or web address] Information not available 10/16/2022 What Was The Date Of Your Most Recent Tobacco Screening? 10/16/2022 [email or web address] Information not available 10/16/2022 How Many Children Do You Have? 0 [id number] Information not available 07/11/2020 Performs Monthly Self-breast Exam? Yes [email or web address] Information not available 08/28/2020 What Is Your Relationship Status? 03/2014 - Eh Passed. Caregiver For Year Prior To His Slowly Progressive Peripheral Neuropathy Unknown Etiology. Last 2.5 Months On Ventilator No Diaphragm Movement. [email or web address] Information not available 10/16/2022 Seat Belts Used Routinely Yes [email or web address] Information not available 08/28/2020 Number Of Sexual Partners 0 [email or web address] Information not available 06/25/2020 Smoke Alarm In Home Yes [email or web address] Information not available 08/28/2020 At What Age Did You Start Smoking Tobacco? 21 [email or web address] Information not available 10/16/2022 Do You Or Have You Ever Used Smokeless Tobacco? Never Used Smokeless Tobacco [id number] Information not available 07/11/2020 How Much Tobacco Do You Smoke? No Smoked 3 Cigarettes A Day X 2 Years, Quite In 1977. Medically Speaking Same Risk As Never Smoker. [id number] Information not available 07/11/2020 General Stress Level High Covid And Mourning Information not available 06/23/2020 Do You Use Any Illicit Or Recreational Drugs? No [email or web address] Information not available 10/16/2022 Do You Use Sunscreen Routinely? Yes Information not available 08/28/2020 Has Tobacco Cessation Counseling Been Provided? No [email or web address] Information not available 10/16/2022 How Many Years Have You Smoked Tobacco? 0 [id number] Information not available 07/11/2020 Do You Or Have You Ever Used Any Other Forms Of Tobacco Or Nicotine? No Information not available 10/16/2022 Sex: Female Functional Status Question Answer Note LastModified by Organizat ion Details LastModified Time Do you have difficulty walking or climbing stairs? No [email or web address] Information not available 10/16/2022 Do you have transportation difficulties? No [email or web address] Information not available 10/16/2022 Do you have difficulty doing errands alone? No [email or web address] Information not available 10/16/2022 Are you able to care for yourself? Yes [email or web address] Information n ot available 10/16/2022 Do you have difficulty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 was provided via telemedicine through synchronous live video chat using www.[employer], a secure interactive telecommunication system. Both the physician and the patient are located within [place]. Televisit consent was provided verbally by patient who initiated visit. Pt is adherent to current medicine regimen and we have looked for and assessed for adverse clinical effects (side effects) and he/she is tolerating well.She ate Indian food and felt sick, can't come in. She is doing better.Lipids. Optimal.Medication monitoring. Normal kidney and liver fxn.CAD/PVCs. She had f/u with cardiology and EP. During a week PVC's acted up they discussed flecainide and in fact EP doc wrote Rx but she didn't start. He advised that if she started med to let him know to monitor EKG. She has [employer] mobile at home to monitor. I am not getting reports from her front edger and she will contact them to request records to us. No angina.HTN. Controlled.Obesity. Wt now <196. She has good momentum. Goal 170s.Reviewed carotid scan. Stable and improved. Nothing worse. Gonzalez Nieves MD [email or web address], [place], [address], ROME Nieves/ sameera Harper 04/18/2022 14:02:36 10/24/2022 text/html Patient is here for the [facility] Wellness Program and Subsequent Annual Wellness. During this visit we will review and discuss their Health Risk Assessment and review the various tests and procedures performed as part of the [facility] Annual Wellness Program. The patient has no recent hospitalizations. Discussion Points for Review during Visit: -Review current medical conditions and specialists' consultations in detail. Updated details in the problem list above and the items listed in the Assessment/Plan section. -Labs and testing review in detail. -Review risks associated w/pain, nutrition, hydration, sleep, stress, activity and sexual health. -Reviewed and assessed urinary function, frequency/nocturia and continence. -Review risks of alcohol, caffeine, and tobacco. -Preventative services discussed and offered including available/recommended vaccinations, colon cancer screening, breast cancer screening, cervical cancer screening and osteoporosis screening inclusive of current issues related to false positives, false negatives, various screening options and factors that determine appropriate intervals of screening and when screening is no longer beneficial. -Review personal, home and driving safety -Reviewed and addressed barriers and potential barriers to care related to individual's health maintenance and chronic disease management inclusive of health knowledge/educational deficits and other factors that affect maintaining healthy diet, exercise routines, sleep hygiene, medication adherence and maintaining appropriate regular care with dentist, eye doctor, and other specialists as appropriate for his/her care. Patient's interests and lifestyle preferences were taken into account in addressing issues. -Patient's health management/weight management goals and plans were reviewed as listed in the pre-physical questionnaire. Gonzalez Nieves MD [email or web address], [place], [address], ROME Nieves/ sameera Harper 10/26/2022 14:00:33 OBGyn Episode No OBEpisode recorded.
--- OUTSIDE RECORDS SUMMARY | 2024-11-10 11:48 | XMS_ITS | Data Portability ---
Author Organization [place] - Cecilio Mcnulty, Inactive Address [address] [place] [id number] Care Team Providers Care Claims Sorter Name Role Phone BRIDGET HERRING Head Operator SOLEDAD JONAS Neurologist DANO ALAS [employer] [phone] Assessment Encounter Date Assessment Date Assessment LastModified by Organization Details LastModified Time 10/06/2024 10/06/2024 Duration of visit: 40 minutes phong Not available 10/06/2024 13:02:28 Plan of Treatment Reminders Order Date Submit Date Provider Last Modified By Organization Details Last Modified Time Details Appointments [facility] Kishore rojas s 2024 08:00A M Appeals Nurse Not available Not available Not available [facility] SAWE 2024 02:30P M Cecilio Mcnulty M.D. Not available Not available Not available Lab insul in, serum 2024 025 [facility], [address] [place] [address], [phone], 10/06/2024 12:09:24 gluco se zenaida ance test, post- 75G, 3 speci mens 2024 025 [facility], [address] [place] [address], [phone], 10/06/2024 12:03:21 unlis ty lab - LP pla2 activ ity 2024 025 [facility], [address] [place] [address], [phone], 10/06/2024 12:03:19 hsv (1+2) igm Ab, serum 2023 [place] [facility], [address] [place] [address], [address], 10/21/2024 13:45:40 BMP, serum or plasm a 2023 [email or web address], [address] [place] [address], [phone], 05/15/2024 15:00:17 TSH, serum or plasm a 2023 [place] [facility], [address] [place] [address], [phone], 05/15/2024 15:00:20 lipid panel , serum 2023 [email or web address], [address] [place] [address], [phone], 05/15/2024 15:00:15 apoli popro tein B (apo B), serum 2023 [place] [facility], [address] [place] [address], [phone], 05/15/2024 15:00:21 hepat ic funct ion panel , serum 2023 [place] [facility], [address] [place] [address], [phone], 05/15/2024 15:00:17 PERFECTO (anti nucle ar antib odies ) scree n, ifa, serum 2023 [place] [facility] [address], [phone], 05/15/2024 15:00:18 eryth rocyt e sedim entat ion rate by kathryn britt 2023 024 [email or web address], [address] [place], [address], 05/15/2024 15:00:18 ccp (cycl ic citru llina ty pepti de) igg, serum 2023 024 [facility], [address] [place], [address], 05/15/2024 15:00:19 C3 + C4 (comp lemen t), serum 2023 024 [place] [facility], [address] [place], [address], 05/15/2024 15:00:16 sjogr en antib sofie panel , serum 2023 024 [facility], [address] [place] [address], [phone], 05/15/2024 15:00:19 Referral None recor ded. Procedures None recor ded. Surgeries None recor ded. Imaging None recor ded. Medication Orders [place] -V Benef its 1,220 mg-33 0 mg-67 0 mg/5 mL oral liqui d [facility]24 [id number] [address] [place], [address], 10/06/2024 12:11:01 rosuv astat in 20 mg table t 2024 025 [facility] #[id number], [address] [facility], [place], [address], 10/06/2024 12:11:04 Patient TargetsNo targets recorded. Patient InstructionsNo instructions recorded. Reason for Referral None Reported. Results Created Date Observation Date Name Description Value Unit Range Abnormal Flag Note LastModifiedBy Organization Detail LastModifiedTime 01/19/20 24 01/26/2024 LIPID PANEL , STAND DALILA cholesterol, total 146 mg/dL <200 normal Not Available [facility] - Manual Order Only [address], [place], [address], 01/26/2024 22:24:26 01/19/20 24 01/26/2024 LIPID PANEL , STAND DALILA HDL cholesterol 48 mg/dL > or = 50 low Not Available [facility] - Manual Order Only [address], [place], [address], 01/26/2024 22:24:26 01/19/20 24 01/26/2024 LIPID PANEL , STAND DALILA triglyceride s 85 mg/dL <150 normal Not Available [facility] - Manual Order Only [address], [place], [address], 01/26/2024 22:24:26 01/19/20 24 01/26/2024 LIPID PANEL [...] is a valid ated novel metho d provi ding blaire r accur acy than the Fried bj equat ion in the estim ation of LDL-C . Jia montero SS et al. OLGA LIDIA. 2013; 310(1 9): 2061- 2068 (http ://ed ucati on.Qu Zafar Talaentia. com/f aq/FA Q164) Not Available [facility] - Manual Order Only [address], [place], [address], 01/26/2024 22:24:26 01/19/20 24 01/26/2024 LIPID PANEL , STAND DALILA chol/HDLC ratio 3.0 (calc ) <5.0 normal Not Available [facility] - Manual Order Only [address], [place], [address], 01/26/2024 22:24:26 01/19/20 24 01/26/2024 LIPID PANEL , STAND DALILA non HDL cholesterol 98 mg/dL _(nikolai c) <130 normal For patie nts with diabe ayo plus 1 major ASCVD risk facto r, treat ing to a non-H DL-C goal of <100 mg/dL (LDL- C of <70 mg/dL ) is consi dered a thera peuti c optio n. Not Available [facility] - Manual Order Only [address], [place], [address], 01/26/2024 22:24:26 01/19/20 24 01/26/2024 HEPAT IC FUNCT ION PANEL protein, total 6.8 g/dL 6.1-8. 1 normal Not Available [facility] - Manual Order Only [address], [place], [address], 01/26/2024 22:24:26 01/19/20 24 01/26/2024 HEPAT IC FUNCT ION PANEL albumin 4.1 g/dL 3.6-5. 1 normal Not Available [facility] - Manual Order Only [address], [place], [address], 01/26/2024 22:24:26 01/19/20 24 01/26/2024 HEPAT IC FUNCT ION PANEL globulin 2.7 g/dL_ (calc ) 1.9-3. 7 normal Not Available [facility] - Manual Order Only [address], [place], [address], 01/26/2024 22:24:26 01/19/20 24 01/26/2024 HEPAT IC FUNCT ION PANEL albumin/glob ulin ratio 1.5 (calc ) 1.0-2. 5 normal Not Available [facility] - Manual Order Only [address], [place], [address], 01/26/2024 22:24:26 01/19/20 24 01/26/2024 HEPAT IC FUNCT ION PANEL bilirubin, total 0.5 mg/dL 0.2-1. 2 normal Not Available [facility] - Manual Order Only [address], [place], [address], 01/26/2024 22:24:26 01/19/20 24 01/26/2024 HEPAT IC FUNCT ION PANEL bilirubin, direct 0.1 mg/dL < or = 0.2 normal Not Available [facility] - Manual Order Only [address], [place], [address], 01/26/2024 22:24:26 01/19/20 24 01/26/2024 HEPAT IC FUNCT ION PANEL bilirubin, indirect 0.4 mg/dL _(nikolai c) 0.2-1. 2 normal Not Available [facility] - Manual Order Only [address], [place], [address], 01/26/2024 22:24:26 01/19/20 24 01/26/2024 HEPAT IC FUNCT ION PANEL alkaline phosphatase 84 U/L 37-153 normal Not Available [facility] - Manual Order Only [address], [place], [address], 01/26/2024 22:24:26 01/19/20 24 01/26/2024 HEPAT IC FUNCT ION PANEL AST 23 U/L 10-35 normal Not Available [facility] - Manual Order Only [address], [place], [address], 01/26/2024 22:24:26 01/19/20 24 01/26/2024 HEPAT IC FUNCT ION PANEL ALT 18 U/L 6-29 normal Not Available [facility] - Manual Order Only [address], [place], [address], 01/26/2024 22:24:26 01/19/20 24 01/26/2024 APOLI POPRO [...] Lipid Assoc iatio n recom menda tions -Pablo bson TA et al. J Clin Lipid . 2015; 9:129 -169 and Guillermo SALDAÑA et al. Endoc r Pract . 2017; 23(Sterling ppl 2):1- 87. Not Available [facility] - Manual Order Only [address], [place], [address], 01/26/2024 22:24:27 01/19/20 24 01/26/2024 CARDI O IQ(R) HOMOC YSTEI NE homocysteine 9.3 umol/ L <10.4 Homoc ystei ne is incre ased by funct ional defic iency of folat e or vitam in B12. Testi ng for methy lmalo rie acid diffe renti ates betwe en these defic ienci es. Other cause s of incre ased homoc ystei ne inclu de renal failu re, folat e antag onist s such as metho trexa te and pheny toin, and expos ure to nitro us oxide . Selsosa Murray, et al. Shruti Inter n Med. 1999; [...] expos ure to nitro us oxide . Lisa Murray, et al., Shruti Inter n Med. 1999; 131(5 ):331 -9. Not Available [facility] - Manual Order Only [address], [place], [address], 01/26/2024 22:24:27 05/06/2005/15/2024 LIPID PANEL , STAND DALILA cholesterol, total 152 mg/dL <200 normal Not Available [facility] [place] [facility] [address], [place], [address], 05/15/2024 15:00:12 05/06/20 24 05/15/2024 LIPID PANEL , STAND DALILA HDL cholesterol 47 mg/dL > or = 50 low Not Available [facility] [place] [facility] [address], [place], [address], 05/15/2024 15:00:12 05/06/2005/15/2024 LIPID PANEL , STAND DALILA triglyceride s 87 mg/dL <150 normal Not Available [facility] [place] [facility] [address], [place], [address], 05/15/2024 15:00:12 05/06/20 24 05/15/2024 LIPID PANEL [...] calcu lated using the Jia n-Hop kins brooku vijay n, which is a valid ated novel yvano d josette rudd r accur acy than the Fried bj equat ion in the estim ation of LDL-C . Jia montero SS et al. OLGA LIDIA. 2013; 310(1 9): 2061- 2068 (http ://ed sherrieati on.Qu Zafar artis tics. com/f aq/FA Q164) Not Available [facility] [place] [facility] [address], [place], [address], 05/15/2024 15:00:12 05/06/20 24 05/15/2024 LIPID PANEL , STAND DALILA chol/HDLC ratio 3.2 (calc ) <5.0 normal Not Available [facility] [address], [place], [address], 05/15/2024 15:00:12 05/06/20 24 05/15/2024 LIPID PANEL , STAND DALILA non HDL cholesterol 105 mg/dL _(nikolai c) <130 normal For patie nts with diabe ayo plus 1 major ASCVD risk facto r, treat ing to a non-H DL-C goal of <100 mg/dL (LDL- C of <70 mg/dL ) is consi martine a vincent melendez optio n. Not Available [facility] [address], [place], [address], 05/15/2024 15:00:12 05/06/20 24 05/15/2024 COMPL EMENT COMP C3 + C4 complement component C3C 137 mg/dL 83-193 normal Not Available [facility] [address], [place], [address], 05/15/2024 15:00:16 05/06/20 24 05/15/2024 COMPL EMENT COMP C3 + C4 complement component C4C 39 mg/dL 15-57 normal Not Available [facility] [address], [place], [address], 05/15/2024 15:00:16 05/06/20 24 05/15/2024 BASIC METAB OLIC PANEL glucose 90 mg/dL 65-99 normal Fasti ng refer ence inter hayley Not Available [facility] [address], [place], [address], 05/15/2024 15:00:17 05/06/20 24 05/15/2024 BASIC METAB OLIC PANEL urea nitrogen (BUN) 17 mg/dL 7-25 normal Not Available [facility] [address] [place], [place], [address], 05/15/2024 15:00:17 05/06/20 24 05/15/2024 BASIC METAB OLIC PANEL creatinine 0.90 mg/dL 0.50-1 .05 normal Not Available [facility] [place] [facility] [address] [place], [place], [address], 05/15/2024 15:00:17 05/06/20 24 05/15/2024 BASIC METAB OLIC PANEL eGFR 70 mL/mi n/1.7 3m2 > or = 60 normal Not Available [facility] [address] [place], [place], [address], 05/15/2024 15:00:17 05/06/20 24 05/15/2024 BASIC METAB OLIC PANEL BUN/creatini ne ratio SEE NOTE: (calc ) 6-22 Not Repor ty: BUN and Creat inine are withi n refer ence range . Not Available [facility] [address] [place], [place], [address], 05/15/2024 15:00:17 05/06/20 24 05/15/2024 BASIC METAB OLIC PANEL sodium 142 mmol/ L 135-14 6 normal Not Available [facility] [address] [place], [place], [address], 05/15/2024 15:00:17 05/06/20 24 05/15/2024 BASIC METAB OLIC PANEL potassium 4.6 mmol/ L 3.5-5. 3 normal Not Available [facility] [address] [place], [place], [address], 05/15/2024 15:00:17 05/06/20 24 05/15/2024 BASIC METAB OLIC PANEL chloride 104 mmol/ L 98-110 normal Not Available [facility] [address], [place], [address], 05/15/2024 15:00:17 05/06/20 24 05/15/2024 BASIC METAB OLIC PANEL carbon dioxide 27 mmol/ L 20-32 normal Not Available [facility] [address], [place], [address], 05/15/2024 15:00:17 05/06/20 24 05/15/2024 BASIC METAB OLIC PANEL calcium 9.5 mg/dL 8.6-10 .4 normal Not Available [facility] [address], [place], [address], 05/15/2024 15:00:17 05/06/20 24 05/15/2024 HEPAT IC FUNCT ION PANEL protein, total 6.8 g/dL 6.1-8. 1 normal Not Available [facility] [address], [place], [address], 05/15/2024 15:00:17 05/06/20 24 05/15/2024 HEPAT IC FUNCT ION PANEL albumin 4.1 g/dL 3.6-5. 1 normal Not Available [facility] [address], [place], [address], 05/15/2024 15:00:17 05/06/20 24 05/15/2024 HEPAT IC FUNCT ION PANEL globulin 2.7 g/dL_ (calc ) 1.9-3. 7 normal Not Available [facility] [address], [place], [address], 05/15/2024 15:00:17 05/06/20 24 05/15/2024 HEPAT IC FUNCT ION PANEL albumin/glob ulin ratio 1.5 (calc ) 1.0-2. 5 normal Not Available [facility] [address], [place], [address], 05/15/2024 15:00:17 05/06/20 24 05/15/2024 HEPAT IC FUNCT ION PANEL bilirubin, total 0.5 mg/dL 0.2-1. 2 normal Not Available [facility] [address], [place], [address], 05/15/2024 15:00:17 05/06/20 24 05/15/2024 HEPAT IC FUNCT ION PANEL bilirubin, direct 0.1 mg/dL < or = 0.2 normal Not Available [facility] [address], [place], [address], 05/15/2024 15:00:17 05/06/20 24 05/15/2024 HEPAT IC FUNCT ION PANEL bilirubin, indirect 0.4 mg/dL _(nikolai c) 0.2-1. 2 normal Not Available [facility] [address], [place], [address], 05/15/2024 15:00:17 05/06/20 24 05/15/2024 HEPAT IC FUNCT ION PANEL alkaline phosphatase 88 U/L 37-153 normal Not Available [facility] [address], [place], [address], 05/15/2024 15:00:17 05/06/20 24 05/15/2024 HEPAT IC FUNCT ION PANEL AST 22 U/L 10-35 normal Not Available [facility] [address], [place], [address], 05/15/2024 15:00:17 05/06/20 24 05/15/2024 HEPAT IC FUNCT ION PANEL ALT 16 U/L 6-29 normal Not Available [facility] [address], [place], [address], 05/15/2024 15:00:17 05/06/20 24 05/15/2024 SED RATE BY MODIF IED WESTE RGREN sed rate by modified westergren 2 mm/h < or = 30 normal Not Available [facility] [address], [place], [address], 05/15/2024 15:00:18 05/06/20 24 05/15/2024 PERFECTO SCREE [...] se and refle xes to titer and patte rn. Furth er labor atory testi ng may be consi dered if clini sherry indic ated. For addit ional infor mariela mcnair e refer to http: //[facility] cody montero.Que stDia gnost ics.c om/fa q/FAQ 177 (This link is being provi ded for infor liliana fernandes/ educa taryn l purpo ses only. ) Not Available [facility] [address], [place], [address], 05/15/2024 15:00:18 05/06/20 24 05/15/2024 PERFECTO SCREE N, IFA, W/REF L TITER AND PATTE RN PERFECTO titer 1:40 titer high A low level PERFECTO titer may be prese nt in pre-c linic al autoi mmune disea ses and jase l indiv idual s. Refer ence Range <1:40 Negat ming 1:40- 1:80 Low Antib sofie Level >1:80 [place] ty Antib sofie Level Not Available [facility] [address], [place], [address], 05/15/2024 15:00:18 05/06/20 24 05/15/2024 PERFECTO SCREE [...] Patte rns (http [email or web address] [email or web address] [email or web address]/ [email or web address]- 2017- 0052) Not Available [facility] [place] [facility] [address], [address], 05/15/2024 15:00:18 05/06/20 24 05/15/2024 SJOGR EN'S ANTIB ODIES (SS-A ,SS-B ) sjogren's antibody (ss-A) <1.0 NEG ai <1.0 neg normal Not Available [facility] [place] [facility] [address], [place], [address], 05/15/2024 15:00:19 05/06/20 24 05/15/2024 SJOGR EN'S ANTIB ODIES (SS-A ,SS-B ) sjogren's antibody (ss-B) <1.0 NEG ai <1.0 neg normal Not Available [facility] [place] [facility] [address], [address], 05/15/2024 15:00:19 05/06/20 24 05/15/2024 CYCLI C CITRU LLINA TY PEPTI DE (CCP) AB (IGG) cyclic citrullinate d peptide (ccp) Ab (IgG) <16 units normal Refer ence Range Negat ming: <20 Weak Posit ming: 20-39 Moder ate Posit ming: 40-59 Stron g Posit ming: >59 Not Available [facility] [place] [facility] [address], [address], 05/15/2024 15:00:19 05/06/20 24 05/15/2024 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 For addit ional infor mariela mcnair e refer to http: //dyan montero.Que stDia gnost ics.c om/fa q/FAQ 118 (This link is being provi ded for infor liliana fernandes/ denise ho purpo ses only. ) Not Available [facility] [place] [facility] [address], [place], [address], 05/15/2024 15:00:20 05/06/20 24 05/15/2024 TSH TSH 2.57 mIU/L 0.40-4 .50 normal Not Available [facility] [address] [place], [address], 05/15/2024 15:00:20 05/06/20 24 05/15/2024 APOLI POPRO [...] Assoc iatio n recom menda tiliseth -Pablo bssveta TA et al. J Clin Lipid . 2015; 9:129 -169 and Guillermo SALDAÑA et al. Endoc r Pract . 2017; 23(Sterling ppl 2):1- 87. Not Available [facility] [address], [address], 05/15/2024 15:00:20 09/15/19 25 08/26/2024 US, carot id arter y No observ ation record ed. [facility] Not Available 2024 12:44:03 10/15/19 25 10/14/2024 stere otact ic breas t biops y (PROC ) No observ ation record ed. [facility] [address] [place], [address], 10/28/2024 19:33:36 Result Notes None recorded. Problems Name Problem SNOMED Code Status Onset Date Resolution Date Notes Provider Name and Address Organization Details Recorded Time Palpitat ions 59911124 Active PVCs Cecilio Mcnulty MD [address] [place], [address], [place] Cecilio Moore 3 11:19:24 Migraine 05859576 Active with aura, left sided pain Cecilio Mcnulty MD [address] [place] [address], [address], [place] Cecilio Moore 3 10:17:28 Hyperten sive disorder 79273034 Active Cecilio Mcnulty MD [address] [place] [address], [place], [address], [place] - Cecilio Mcnulty. 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 3 10:19:11 Low back pain 026182923 Active Cecilio Mcnulty MD [address] [place] [address], [place], [address], [place] - Cecilio Mcnulty. 3 10:20:07 Eczema 67752567 Active Cecilio Mcnulty MD [address] [place] [address], [place], [address], [place] - Cecilio Mcnulty. 3 10:20:41 Hemorrho ids 51607848 Active Cecilio Mcnulty MD [address] [place] [address], [place], [address], [place] - Cecilio Mcnulty 3 10:20:57 Kidney stone 47089672 Completed 02/20/2023 Cecilio Mcnulty MD [address] [place], [place] [address], [place], [address], [place] - Cecilio Mcnulty 3 10:25:36 Peripher al vestibul ar disease 08649707 Active Cecilio Mcnulty MD [address] [place] [address], [place], [address], [place] - Yahir Mcnultyn DSriram 3 11:19:36 Hyperlip idemia 49110753 Active Cecilio Mcnulty MD [address] [place] [address], [place], [address], [place] - Yahir Mcnultyn Charlene. 4 18:12:16 Fibromya lgia 144755645 Active Cecilio Mcnulty MD [address] [place] [address], [place], [address], [place] - [place], Cecilio D. 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 Patient will use triamcin olone cream she has at home however it causes irritati on due to skin cracking and patient will call the office and we will prescrib e triamcin olone ointment . Patient will wear socks on her hands at night to hold in the moisture . 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 Right breast biopsy schedule d for 10/14/2024 . Cecilio Mcnulty MD [address] [place], [address], [place] Cecilio Moore 13:08:06 Problem Notes None recorded. Procedures Surgical History Date Name Laterality Status Provider Name and Address Organization Details Recorded Time 10/14/19 25 stereotactically guided core needle biopsy completed Cecilio Mcnulty MD [address] [place], [address], Cecilio Moore 10/28/2024 19:33:22 10/30/19 24 JULITO CORTES completed Cecilio Mcnulty MD [address] [place], [address], Cecilio Moore 10/29/2023 18:49:30 08/08/20 23 comprehensive eye examination completed Cecilio Martinez 10/17/2023 12:51:20 01/07/20 23 Dental prophylaxis adult completed Cecilio Martinez 10/17/2023 12:51:47 11/07/19 23 Most Recent Mammogram completed Cecilio Coronado 02/20/2023 10:07:11 05/09/20 22 Date of Last Pap Smear completed Cecilio Coronado 02/20/2023 10:07:45 12/19/19 22 Dxa bone density yasir vrt fx completed Cecilio Coronado 10/31/2023 09:53:28 09/08/[address] Flusher Driver Surgery completed Cecilio Coronado 02/20/2023 08:59:01 09/08/19 00 Breast Biopsy completed Cecilio Coronado 02/20/2023 08:57:33 09/08/18 99 cholecystectomy completed Cecilio Okeefe 02/20/2023 08:58:22 Imaging Results Imaging Date Name Status LastModified by Organization Details LastModified Time 08/26/2024 US, carotid artery completed phong Information not available 10/06/2024 12:44:03 10/14/2024 stereotactic breast biopsy (PROC) completed [facility] [address] [facility], [place], [address], 10/28/2024 19:33:36 Procedure Notes None recorded. Medical Equipment None Reported. Allergies Allergen ID Allergen Name Allergen Category Reaction Reaction Severity Criticality Documentation Date Start Date Code Code System Note Provider Name and Address Organization Details Recorded Time 365 caffeine food,medi cation Not available Not available Not available 02/20/2023 1886 RxNorm DEN Fu Ian D. 3 08:59:50 3653 codeine medicatio n vomiting Not available low 02/20/2023 2670 RxNorm Cecilio Mcnulty MD [address] [place] [address], [address], [place] Cecilio Moore 3 10:36:38 3654 cyclobenz aprine hydrochlo ride medicatio n hives Not available low 02/20/2023 41244 RxNorm Cecilio Mcnulty MD [address] [place] [address], [address], [place] Cecilio Moore 3 10:36:45 3655 hydrochlo rothiazid e medicatio n vomiting Not available low 02/20/2023 5487 RxNorm Cecilio Mcnulty MD [address] [place] [address], [id number], Cecilio Moore 3 10:37:08 5070 iodine medicatio n Not available Not available Not available 10/06/2024 5933 RxNorm DEN Foreman Ian D. 5 11:14:20 Medications Name Sig Start Date Stop Date [...] Available Not Available No t Available acyclovir 400 mg tablet TAKE 1 TABLET BY MOUTH 3 TIMES A DAY FOR 5 DAYS 10/06 completed Not Available Not Available Not Available triamcino lone acetonide 0.1 % topical [...] Not Available Not Available No t Available cephalexi n 500 mg capsule TAKE 1 CAPSULE BY MOUTH THREE TIMES A DAY 10/06 completed Not Available Not Available Not Available fluoromet holone 0.1 % eye drops,ivonne pension INSTILL 1 DROP INTO BOTH EYES 4 TIMES A DAY FOR 5 DAYS THEN STOP active Not Available Not Available No t Available gabapenti n 300 mg capsule 1 freight rate clerk qpm 02/20 completed Not Available Not Available Not Available mupirocin 2 % topical ointment APPLY TO AFFECTED AREA TWICE A DAY FOR 10 DAYS 05/19 completed Not Available Not Available Not Available gabapenti n 100 mg capsule 1 freight rate clerk qam 02/20 completed Not Available Not Available Not Available clobetaso l 0.05 % topical ointment 02/20 completed Not Available Not Available Not Available estradiol 0.01% (0.1 mg/gram) vaginal cream PLACE 0.5 GRAMS INTO THE VAGINA AT BEDTIME TWICE WEEKLY active Not Available Not Available No t [...] Not Available rosuvasta tin 20 mg tablet Take 1 tablet every day by oral route at dinner. 2024 active Not Available Not Available Not [...] Available Eysuvis 0.25 % eye drops,[facility] LOCATION : BOTH EYES. ONE DROP FOUR TIMES DAILY FOR 2 WEEKS THEN TWICE DAILY FOR 2 WEEKS THEN STOP 02/15 completed Not Available Not Available Not Available [place]-V Benefits 1,220 mg-330 mg-670 mg/5 mL oral liquid Take 5 mL every day by oral route. 2024 active Not Available Not Available Not Avai lable Miebo (PF) 100 % eye drops INSTILL [...] Updated DateTime 4 170.18 cm 32.4 kg/m2 73885.6 2 g 98.7 [degF] 68 /min 97 % 97 % Cecilio Martinez 4 14:27:41 Date Recorded Systolic blood pressure Diastolic blood pressure Provider Name and Address Organization Details Last Updated DateTime 02/16/2024 135 mm[Hg] 76 mm[Hg] Cecilio Mcnulty MD [address] [place] [address], [phone], Cecilio Moore 02/16/2024 15:01:14 Date Recorded Body height Body mass index (BMI) Body weight Body temperature Heart rate Oxygen saturation Oxygen saturation in Arterial blood by Pulse oximetry Respiratory rate Provider Name and Address Organization Details Last Updated DateTime 4 170.18 cm 32.7 kg/m2 78866.8 1 g 98.1 [degF] 63 /min 98 % 98 % 16 /min Thiernosabrina Lupis Cecilio Moore 4 08:45:19 Date Recorded Systolic blood pressure Diastolic blood pressure Provider Name and Address Organization Details Last Updated DateTime 04/30/2024 128 mm[Hg] 80 mm[Hg]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
== END 2024-11-10 10:25 | disposition home or self-care (01) ==
PROVIDERS: PCP Internal Medicine; Visit Provider Surgery
DX: R92.1 Mammographic calcification found on diagnostic imaging of breast (principal)
CPT/HCPCS: 99213

== ENCOUNTER 2024-11-16 10:02 | Outpatient (AMB) | payer OTHER, SELFPAY ==
[2024-11-16 10:46] VITALS: BP 136/76; PULSE 60; RESP 17; TEMP 36.7; O2SAT 98; BMI 31.6
--- NOTE | 2024-11-16 10:46 | A.OFFPC_ITS ---
Vital Signs 11/16/24 10:46 Height 5 ft 7.5 in Weight 205 lb BMI 31.6 BP 136/76 Blood Pressure Location Rt brachial Position Sitting Respiration 17 Pulse 60 Pulse Source Pulse Oximeter Temp 98.0 F Temp Source Oral Pulse Oximetry (%) 98 Oxygen Delivery Method Room Air Intake Visit Reasons: Transfer of Care from [facility] Intake Note: Pt is here today transfer from [facility] to [facility]/ c/o dry eye Allergies caffeine Allergy (Severe, Verified 11/16/24 11:15) Palpitations cyclobenzaprine [From Flexeril] Allergy (Severe, Verified 11/16/24 11:15) Hives iodine Allergy (Severe, Verified 11/16/24 11:15) Hives Beef Containing Products Allergy (Intermediate, Verified 11/16/24 11:15) Itching, wheezing iodine Allergy (Severe, Uncoded 11/16/24 11:15) hives codone Allergy (Intermediate, Uncoded 11/16/24 11:15) Stomach Upset Medication List - Last Reconciled 11/16/24 by Nasreen Luis MD acetaminophen (Tylenol Extra Strength) 1,000 mg PO Q6H PRN amitriptyline 10 mg PO amlodipine 5 mg PO DAILY aspirin (Adult Aspirin Regimen) 81 mg PO DAILY atenolol 50 mg PO BID biotin 1,000 mcg PO DAILY cholecalciferol (vitamin D3) 25 mcg PO DAILY coQ10 (ubiquinol) 200 mg PO DAILY estradiol 0.01%(0.1mg/gram) vaginal flaxseed oil 1,000 mg PO DAILY fluorometholone 0.1% drps ophthalmic (eye) lifitegrast 5% (Xiidra) drps ophthalmic (eye) magnesium citrate,mag oxide mg PO to-qz-qk4-qlr-stk-wvan-lut-titi 250 mg (90 mg-160 mg) (Ocuvite Adult 50 Plus) 1 cap PO DAILY naproxen sodium (Aleve) 220 mg PO BID PRN swdkn-9n-knb-epa-fish oil-D3 667 mg (280 mg- 280 mg-107 mg) (Cardio [employer] Benefits) caps PO omeprazole magnesium (Prilosec OTC) 20 mg PO DAILY PRN [PRNFish oil 5 mL PO DAILY] pseudoephedrine HCl ER (Sudafed 12 Hour) 120 mg PO Q12H rosuvastatin 20 mg PO ONCE triamcinolone acetonide 0.1% 1 appl topical BID-TID vitamin B complex (B Complex-Vitamin B12 tablet) 1 tab PO DAILY Tobacco use date assessed: 11/16/24 Fall risk assessment: No Falls in past year Last assessed Fall Risk: 11/16/24 Dental Screening Dental Screen Date: 11/16/24 Did you have a dental visit in the last 12 months?: Yes Did you have a dental problem in the last 6 months where you did not have access to dental care?: Yes Was dental information given to patient?: Patient has dentist [facility] Transfer of Care from [facility] Details 69-year-old lady,here to day to [facility] care with a new PCP. She has history of hyperlipidemia, hypertension, has known atherosclerotic cardiovascular disease with a calcium scoring CT scan from June 2023, total score was 90. All of it is in the LAD., currently, she is taking rosuvastatin 20 mg daily . together with CoQ10 100 mg , with last LDL cholesterol done 10/2023 at 83 mg/dL. She is currently being followed by [facility] She was seen by Cardiology last year for evaluation of PVCs and PACs, EKG ordered by Cardiology showed sinus bradycardia at 59/Min; possible left atrial enlargement and otherwise unremarkable. Normal RI and corrected QT. Echocardiogram with LVEF of 55-60%; no significant valvular findings. Holter monitor showed, underlying rhythm is sinus with an average rate of 67/Min. Rare supraventricular and ventricular ectopy with minimal burden. Overall, very low burden and with normal LVEF no specific management. She is already on beta- blockers , advised to continue taking.. History of COVID injection in 2022, and already received her new COVID booster and flu shot for this year given at [facility], received her Prevnar 20 in [place] at [facility]. She is scheduled to have another physical exam with [facility] [place], requested copy of PE and any labs done. [facility] Medical History (Updated 11/22/24 @ 00:36 by Nasreen Luis MD) Calcification of right breast Atherosclerotic cardiovascular disease Lower back pain Migraine Hyperlipidemia Hypertension Surgical History (Updated 11/16/24 @ 11:25 by Nasreen Luis MD) History of colonoscopy with polypectomy Hx of surgical procedure S/P anal fissurectomy Hx of cholecystectomy History of breast biopsy Family History Family/Other Substance use disorder Maternal Aunt Ovarian cancer Other Lung cancer Stomach cancer Social History Housing: House Patient Tobacco Use Status: Former Tobacco user e-Cigarette/Vaping Use: Never Used Second Hand Smoke Exposure: No service: No Current occupational status: retired Cognitive needs: No Hearing needs: No Vision needs: Yes Female Reproductive History Menstrual Age of Menarche: 14 Other: sees OBGYN in [facility] , DR Denice Walton who does her pap Questionnaire PHQ-9 Over the last 2 weeks, how often have you been bothered by any of the following problems? 1. Little interest or pleasure in doing things: not at all 2. Feeling down, depressed, or hopeless: not at all 3. Trouble falling or staying asleep, or sleeping too much: not at all 4. Feeling tired or having little energy: not at all 5. Poor appetite or overeating: not at all 6. Feeling bad about yourself - or that you are a failure or have let yourself or your family down: not at all 7. Trouble concentrating on things, such as reading the newspaper or watching television: not at all 8. Moving or speaking so slowly that other people could have noticed. Or the opposite - being so fidgety or restless that you have been moving around a lot more than usual: not at all 9. Thoughts that you would be better off or of hurting yourself in some way: not at all Total score: 0 Depression Screening Interpretation: Negative Depression Screening Done: Yes 34303 - PHQ-9 Billing: Yes Source: Developed by Drs. Lauro Henry, Dyana Adam, Juan C Roland and colleagues, with an educational torey from [employer]. Thrive Questionnaire Date Thrive assessed: 11/16/24 I am a: Patient What is your living situation today?: I have a steady place to live Within the past 12 months, did the food you bought not last and you didn't have the money to get more?: Never true Within the past 12 months, did you worry whether your food would run out before you got money to buy more?: Never true Do you have trouble paying for medicines?: No Do you have trouble getting transportation to medical appointments?: No Do you have trouble paying your heating and electricity bill?: No Do you have trouble taking care of your child, family member or friend?: No Do you have trouble with day-to-day activities such as bathing, preparing meals, shopping, managing finances, etc.?: No Are you currently unemployed and looking for a job?: No Are you interested in more education?: No Please select the resources that you would like help with: None Currently or been in a relationship where the following occur: No concerns reported THRIVE Score: 0 AUDIT C Alcohol Use Questionnaire (AUDIT-C) 1. How often do you have a drink containing alcohol?: Never 3. How often do you have six or more drinks on one occasion?: Never Total Score: 0 RADHA-7 AMB Questionnaire RADHA-7 Date RADHA - 7 assessed: 11/16/24 Feeling nervous, anxious, or on edge: 0 = Not at all Not being able to stop or control worryin = Not at all Worrying too much about different things: 0 = Not at all Trouble relaxin = Not at all Being so restless that it is hard to sit still: 0 = Not at all Becoming easily annoyed or irritable: 0 = Not at all Feeling afraid as if something awful might happen: 0 = Not at all Total RADHA-7 score (0-4 normal; 5-9 mild; 10-14 moderate; 15-21 severe): 0 Source: Developed by Drs. Lauro Henry, Dyana Adam, Juan C Roland and colleagues, with an educational torey from [employer]. RADHA-7 Assessment Billing RADHA-7 Assessment Tool: RADHA-7 Assessment 95174 Review of Systems Const Reports no additional complaints Eyes Details: sees [facility] in [place], [place] on Mybo eye drops, can not take Restasis or Xiidra due to burning sensation in eyes ENT Reports no additional complaints Card Reports no additional complaints and Denies dyspnea Resp Denies cough and Denies dyspnea GI Reports no additional complaints Details: she sees OBGYN in [facility] , DR Denice Walton who does her pap Reports no additional complaints and Denies nipple discharge Musc Reports no additional complaints Skin/Breast Denies breast skin changes, Denies breast pain, Denies breast mass, Denies nipple discharge and Denies rash Neuro Reports no additional complaints Psych Reports no additional complaints Endo Reports no additional complaints Deuce/Lymph Reports no additional complaints Aller/Immun Reports no additional complaints Physical exam (Primary Care) Vital Signs: Last Vital Signs Temp 98.0 F 11/16/24 10:46 Pulse 60 11/16/24 10:46 Resp 17 11/16/24 10:46 BP 136/76 11/16/24 10:46 Pulse Ox 98 11/16/24 10:46 Oxygen Delivery Method Room Air 11/16/24 10:46 BMI result Body Mass Index 31.6 Tobacco/Smoking Status: Tobacco use Status Tobacco use date assessed 11/16/24 11/16/24 10:54 Patient Tobacco Use Status Former Tobacco user 11/16/24 10:54 e-Cigarette/Vaping Use Never Used 11/16/24 10:54 PHQ-9: PHQ-9 Score PHQ-9: Total score 0 11/16/24 11:32 Depression Screening Interpretation: Negative Thrive Assessment: Date of Thrive Assessment Date Thrive assessed 11/16/24 11/16/24 10:54 Currently or been in a relationship where the following occur: No concerns reported Const General: no acute distress and alert Orientation/consciousness: patient oriented x3 HENMT Ears: external ears normal, TM's normal bilaterally and EAC's normal General nose exam: Normal external nose present and No nasal discharge present Mouth: oropharynx normal and moist mucous membranes Eyes General: appearance normal, both eyes and all related structures Conjunctivae: conjunctivae normal Sclerae: sclerae normal Pupils: Equal, round and reactive pupils present EOM: EOMs intact bilaterally Neck Neck: Yes full ROM, Yes no lymphadenopathy and Yes supple Resp Effort & Inspection: normal respiratory effort and able to speak in complete sentences Auscultation: clear to auscultation bilaterally Cardio Rate: regular rate Rhythm: regular rhythm Heart sounds: S1 normal heart sound present and S2 normal heart sound present GI Palpation (GI): Soft to palpation, nontender and no masses Auscultation: normal bowel sounds Back/Spine/Pelvis Back: No back tenderness Skin General skin exam: no rashes or lesions noted Neuro General: patient oriented x3, gait normal, tone normal, moves all extremities, Normal light touch and pain sensation and no focal motor deficits Cranial nerves: Yes CN's II-XII intact bilaterally and Yes Equal, round and reactive pupils present Cognition (Neuro): normal cognition Extrem General: Yes full ROM, Yes no joint enlargement, Yes no clubbing, cyanosis or edema and Yes no calf tenderness Psych Appearance: grossly normal and well kempt Mental Status: mental status grossly normal Speech and movement: Normal speech and movement present Affect: normal affect Attitude: cooperative Thought process: Normal thought process present Thought content: Normal thought content present Coding Level of Care Code New Pt Level 4 (86928) Complex EM visit Add On G2211 Diagnoses Atherosclerotic cardiovascular disease I25.10 Hyperlipidemia E78.5 Hypertension I10 Migraine G43.909 Additional Codes RADHA-7 Assessment Billing - RADHA-7 Assessment Tool: RADHA-7 Assessment 71686 ([id number]) PHQ-9 - 39476 - PHQ-9 Billing: Yes ([id number]) Assessment & Plan Assessment & Plan (1) Atherosclerotic cardiovascular disease: Code(s): I25.10 - Atherosclerotic heart disease of [place] coronary artery without angina pectoris Category: Medical Plan: Currently followed by Cardiology. Currently on aspirin 81 mg daily (2) Hyperlipidemia: Code(s): E78.5 - Hyperlipidemia, unspecified Category: Medical Plan: Currently on rosuvastatin 20 mg daily plus fish oil supplements. Patient states that she will be having her labs drawn at [facility] soon, will forward us a copy of results (3) Hypertension: Code(s): I10 - Essential (primary) hypertension Category: Medical Plan: She is currently followed by her own private physician at [facility]. Currently taking amlodipine 5 mg daily, atenolol 50 mg 1 tablet twice a day (4) Migraine: Code(s): G43.909 - Migraine, unspecified, not intractable, without status migrainosus Category: Medical Plan: Takes a leave as needed and amitriptyline 10 mg at night
--- OUTSIDE RECORDS SUMMARY | 2024-11-16 11:46 | XMS_ITS | Clinical Summary ---
Author Organization [facility]ly [facility] Address [address] [place] [address] Care Team Providers Care Soap Tender Name Role Phone Unavailable Primary Care Provider [...] times a day. 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 Pap done - every 3-4 years Mammo and colonoscopy current Bone density was perfect a few years ago Mild urge incontinence - declines meds Vaginal estrogen reinitiated Encounters Date Type Department Care Team Description 09/03/2024 Orders Only [facility] [employer] [facility] [employer] [address] [place] [address] Denice Walton MD Acute vaginitis (Primary Dx) 08/26/2024 2:00 PM EST Office Visit [facility] [employer] [address] [address] Denice Walton MD Atrophic vaginitis (Primary Dx); Vaginal discharge; Urinary tract infection symptoms 08/26/2024 Orders Only [facility] [employer] [address] [address] Denice Walton MD from Last 3 Months [...] EDT Office Visit [facility] [employer] [address] [place] [phone] Denice Walton MD [address] [place] [address] Health Maintenance Due Date Last [...] PM EST Performed at: ??01 - [facility] [address] ??[id number] Jacquard Twine Polisher Operator: Harriett Shelton MD, Phone: ??[phone] Specimen Comment: A duplicate report has been [...] Esterase, UA Negative Negative Lot Number na Billet Recorder Pass Pass Urine 08/26/2024 2:58 PM EST Denice Walton MD POINT OF CARE TEST O RDERABLES * CV/TV, STEPHANIE (08/26/2024 2:54 PM EST) Trichomonas Vaginalis TMA NEGATIVE NEGATIVE [facility] Wendy Species NEGATIVE NEGATIVE [facility] Wendy Glabrata NEGATIVE NEGATIVE [facility] Microbiology 08/26/2024 2:54 PM EST 08/26/2024 8:37 PM EST Denice Walton MD LAB AMB MICRO ORDERA BLES [facility] [address] * Bacterial Vaginosis, STEPHANIE (08/26/2024 2:54 PM EST) Bacterial Vaginosis, PCR NEGATIVE Negative [facility] Micro[facility] Artery specimen / Unknown 08/26/2024 2:54 PM EST 08/26/2024 8:37 PM EST Denice Walton MD LAB AMB MICRO ORDERA BLES [facility] [address] [place] [address] from Last 3 Months
--- OUTSIDE RECORDS SUMMARY | 2024-11-16 11:46 | XMS_ITS | Data Portability ---
Author Organization [facility] Address [address] , [place] [address] Care Team Providers Care Weight Inspector Name Role Phone [facility] OTHER Assessment No assessment recorded. Plan of [...] [facility], [address] [facility], [place], [address], 3 03:54:04 x-ray, shoulder 2012 013 SIMRAN [facility], [address] [facility], [place], [address], 3 03:54:04 Medication Orders prednisone 10 mg tablet 2012 013 SIMRAN [facility][id number], [address], [address], 3 03:53:59 Patient TargetsNo targets recorded. 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 Procedures Surgical History Date Name Laterality Status Provider Name and Address Organization Details Recorded Time General Surgery completed Vida Couch MD [address], [address], [place], [address], [facility] 02/10/2013 13:34:07 General Surgery completed Hemal [facility] 02/10/2013 13:26:51 General Surgery completed Vida Couch MD [address], [address], [place], [address], [facility] [place] 02/10/2013 13:34:07 General Surgery completed MD Justa Hendricks[address], [address], [place], [address], [facility] [place] 02/10/2013 13:34:07 Hysteroscopy ablation completed Vida Couch MD [address], [address], [place], [address], [facility] [place] 02/10/2013 13:34:07 Imaging Results None recorded. Procedure Notes None recorded. Medical Equipment None Reported. Allergies Allergen ID Allergen Name Allergen Category Reaction Reaction Severity Criticality Documentation Date Start Date Code Code System Note Provider Name and Address Organization Details Recorded Time 42459 codeine medicatio n nausea Not available Not available 02/10/2013 2670 RxNorm Quashima Booker lewis [facility] [place] 3 13:26:51 78992 cyclobenz aprine hydrochlo ride medicatio n angioedem a hives Not available Not available Not available 02/10/2013 38433 RxNorm Yassinema Booker lewis [facility], [place] 3 13:26:51 05852 caffeine food,medi cation other severe Not available 02/10/2013 1886 RxNorm nervo , khoa Couch MD [address], [address], [place], [address], [facility] [place] 3 13:32:54 41610 cortisone medicatio n other severe Not available 02/10/2013 2878 RxNorm invol untar y muscl e spasm Vida Couch MD [address], [address], [place], [address], [facility] [place] 3 13:41:15 Medications Name Sig Start Date [...] Not Available Not Amanda ilable Not Available [place] 3 Fish Oil active Not Available Not [...] Address Organization Details Last Updated DateTime 02/10/2013 32039 g 170 cm 27.5 kg/m2 Hemal PETER [facility] 02/10/2013 13:26:51 Social History Question Answer Notes LastModified by Organizat ion Details LastModified Time What Is Your Level Of Alcohol Consumption? None [id number] Information not available 06/23/2020 How Much Tobacco Do You Chew? None [id number] Information not available 06/23/2020 Are You Currently Employed? Yes [id number] Information not available 06/23/2020 Which Illicit Or Recreational Drugs Have You Used? None [id number] Information not available 06/23/2020 Who Is Your Employer? 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 With Others Information not available 02/10/2013 Marital Status Informatio n not available 02/10/2013 How Much Tobacco Do You Smoke? No [id number] Information not available 06/23/2020 Sex: Unknown Functional Status None recorded. Mental Status None recorded. Family History Relationship Description Onset Age of this Age Resolved Age Notes LastModified by Organization Details LastModified Time Unspecified Relation Malignant neoplastic disease previo usly record ed as Cancer [id number] Not available 02/24/2013 03:00:28 Medical History Condition Response Coronary Artery Disease N Gout N Dental Cavities N Kidney Stones N Hyperthyroidism N Heart Arrhythmia N A: No Past Medical Problems Reported N Connective Tissue Disease (RA, Lupus) N Reflux Disease N Poliomyelitis N Depression N Hiatal Hernia/Reflux Disease N Pacemaker N Has Pacemaker N Anesthesia Complications N Arthritis N COPD/Lung Disease N Blood Clots (Deep Venous Thrombosis) N Infections N Cancer N Stroke/TIA N Hypercholesterolemia N Liver Disease N GI Disease/Reflux N Organ Transplant N Alcohol Abuse N Fibromyalgia Y Dialysis N Leg/Foot Ulcers N Kidney Disease N Defibrillator N Anemia N Implants N Heart Attack ([place]) N Ulcers N Peripheral Vascular Problem N Diabetes N [...] SNOMED-CT Code Diagnosis ICD10 Code Diagnosis Note [id number] [facility] [address] [facility], [address] [facility] [place] [address] 02/10/2013 13:13:44 02/10/2013 14:51:55 Health Concerns [...] - DOS ON OR BEFORE 09/08/2024 - REPLACED BY [facility] (PP[facility]) [id number] Ivonne Jimenez [id number] Ivonne Jimenez Notes Date Note Type Note Provider Name a nd Address Organization Details Recorded Time 3 text/html 57 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 Had frozen left shoulder years ago, never got all range of motion back, now right side starting to hurt and losing some motion. Had evaluation at [facility] where she was given Aleve and therapy. Now still hurting with overhead and adduction. MRI showed bursitis. Patient not enthusiastic about injection of steroid. States previous injecitons caused her a systemic reaction with muscle spasm. Now having neck and sternoclavicular pain. Other problem is her right knee, notes pain wtih wrong step, no specific injury, here for recommendations. Vida Couch MD [address] [facility] [address], [address], [place], [address], [facility] [place] 02/10/2013 21:29:20 OBGyn Episode No OBEpisode recorded.
--- OUTSIDE RECORDS SUMMARY | 2024-11-16 11:46 | XMS_ITS | Data Portability ---
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 Plan of Treatment Reminders Order Date Submit Date Provider Last Modified By Organization Details Last Modified Time Details Appointments None recorded. Lab HPV DNA, high-risk + low-risk 2021 022 [facility], [address], [place], [address], 07:57:25 CMP, serum or plasma 2020 021 [email or web address] [place], [address], [place] [address] [place] [address], [address], 14:08:27 vitamin B12, serum 2020 021 [email or web address] [place], [address], [place] [address] [place], [address], 14:08:27 CBC w/ auto diff 2020 021 [facility] [place], [address], [place] [address] [place], [address], 14:08:28 estradiol, serum 2020 021 [email or web address] [place], [address], [address], [place], [address], 14:08:28 FSH (follicle- stimulatin g hormone), serum 2020 021 [email or web address] [facility] [place], [address], [address], [place], [address], 14:08:28 T3, free, serum or plasma 2020 021 [email or web address] [facility] [place], [address], [address], [place], [address], 14:08:28 TSH, serum or plasma 2020 021 [email or web address] [facility] [place], [address], [facility] [address], [place], [address], 14:08:28 thyroid peroxidase (tpo) Ab, serum 2020 021 [email or web address] [facility] [place], [address], [address], [place], [address], 14:08:28 vitamin D, 25-hydroxy , total, serum 2020 021 [email or web address] [facility] [place], [address], [address], [place], [address], 14:08:28 testostero ne, total, serum 2020 021 [email or web address] [place], [address], [address], [place], [address], 14:08:29 T4, free, serum 2020 021 [email or web address] [facility], [address] [facility], [place], [address], 14:08:29 urinalysis , dipstick 2020 021 [email or web address] In-Office Order, Internal Use Only DO Not Attach Compendium DO Not Attach Compendium, Do Not Delete/merge, [id number] 10:51:11 culture, urine 2020 021 [place] [facility] [place], [address], [facility] [address], [place], [address], 23:18:10 Referral [email or web address] ogy physical therapy referral [address] [facility], [address] [place] [address], [address], 09:44:46 Procedures None recorded. Surgeries None recorded. Imaging None recorded. Medication Orders clobetasol 0.05 % topical ointment 2021 022 [facility]/Pharmacy #[id number], [address] [place] [address], [address], 2 16:31:07 estradiol 0.01% (0.1 mg/gram) vaginal cream 2020 021 [id number] [address] [place] [address], [address], 1 12:39:34 Diflucan 150 mg tablet 2020 021 [id number] [address] [place] [address], [address], 2 15:20:36 estradiol 0.01% (0.1 mg/gram) vaginal cream 2019 020 [facility]/Pharmacy #[id number], [address] [place] [address], [address], 0 10:39:13 Patient TargetsNo targets recorded. Patient Instructions Encounter Date Encounter Id Patient Instructions Last Modified By Organization Details Last Modified Time 07/03/2020 [id number] Discussed very briefly the use of oral [...] options [email or web address] Not available 07/03/2020 10:37:46 11/13/2020 [id number] fu prn - will report results to her via patient portal [email or web address] Not available 11/13/2020 13:26:28 03/07/2021 [id number] discussed biote and decided to proceed with labs and further discussion about hormone pellets. Increase cream to qd [email or web address] Not available 03/28/2021 06:45:52 11/06/2021 [id number] I discussed the patient various age-appropriate wellness [...] needed [email or web address] Not available 11/06/2021 16:30:58 05/08/2022 [id number] remain off clobetasol; use estrogen cream twice [...] URINE , ROUTI NE Micro Numbe r: [id number] Test Statu s: Final Speci men Sourc e: URINE Speci men Quali ty: Adequ ate Resul t: No Growt h Not Available [email or web address] [facility] [address] [place], [address], 11/14/2020 23:18:10 11/14/19 21 11/13/2020 urina lysis [...] 11/13/2020 urina lysis , dipst ick Specific Jerome 1.025 Not Available In-Off ice Order Internal Use Only DO Not Attach Compendium DO Not Attach Compendium, Do Not Delete/merge, 11/13/2020 09:40:02 11/14/19 21 11/13/2020 urina lysis , dipst ick Ketone Negati ve Not Available In-Office Order Internal Use Only DO Not Attach Compendium DO Not Attach Compendium, Do Not Delete/merge, [id number] 11/13/2020 09:40:02 11/14/19 21 11/13/2020 urina lysis , dipst ick Bilirubin Negati ve Not Available In-Office Order Internal Use Only DO Not Attach Compendium DO Not Attach Compendium, Do Not Delete/merge, [id number] 11/13/2020 09:40:02 11/14/19 21 11/13/2020 urina lysis , dipst ick Glucose Negati ve Not Available In-Office Order Internal Use Only DO Not Attach Compendium DO Not Attach Compendium, Do Not Delete/merge, [id number] 11/13/2020 09:40:02 11/14/19 21 11/13/2020 urina lysis , dipst ick Appearance Slight ly Cloudy Not Available In-Office Order Internal Use Only DO Not Attach Compendium DO Not Attach Compendium, Do Not Delete/merge, [id number] 11/13/2020 09:40:02 11/14/19 21 11/13/2020 urina lysis , dipst ick Color Pale Yellow Not Available In-Office Order Internal Use Only DO Not Attach Compendium DO Not Attach Compendium, Do Not Delete/merge, [id number] 11/13/2020 09:40:02 11/07/19 22 11/06/2021 CYTOL OGY - FINANCIAL AGENT Unknown Analyte normal Copy To: Sourc e [...] inten ded to preve nt women from [facility] to colpo scopy . 2) In women [...] WNL & Negat natalie HPV Not Available [facility] [address], [place], [address], 11/08/2021 16:45:27 Result Notes None recorded. Problems Name Problem SNOMED Code Status Onset Date Resolution Date Notes Provider Name and Address Organization Details Recorded Time Palpitations [id number] Marion lewis [place] - [facility] 4 09:30:30 Mitral valve prolapse 714170516 Active Maria A lewis [place] - [facility] 4 09:30:30 Stress [id number] ROME [facility] - [facility] 4 09:30:30 Hypertensive disorder 28601582 Active Maria A Rangel null, [place] - [facility] 4 09:30:30 Polyp of colon 83441500 Active Maria A Rangel [place] - [facility] 4 09:30:30 Hypercholester olemia 34330877 Active Maria A Rangel [place] [facility] 4 09:30:30 Atrophic vulvovaginitis 47750200 Active Jared Escamilla null[place] - [facility] 5 11:21:49 Urinary incontinence 425687216 Active Jared Escamilla null[place] [facility] 5 11:21:49 Vertigo 345701981 Active 2021 Mary Beth Rodriguez null[place] - [facility] 2 15:32:50 Low back pain 030502675 Active 2021 Mary Beth Rodriguez null[place] - [facility] 2 15:32:57 Problem Notes None recorded. Procedures Surgical History Date Name Laterality Status Provider Name and Address Organization Details Recorded Time 022 Date of Last Pap Smear completed Mary Beth Rodriguez [facility] 05/08/2022 08:32:08 022 microscopic examination of cervical Papanicolaou smear and Human papillomavirus deoxyribonucleic acid detection cotesting completed Julee Nj [facility] 05/14/2023 15:15:35 022 Date of Last Mammogram completed Mary Beth Rodriguez [facility] 11/06/2021 15:33:16 022 completed Mary Beth Rodriguez [facility] 11/06/2021 15:33:55 020 Date of Last Colonoscopy completed Su Hurley [facility] 07/03/2020 09:11:18 012 Colonoscopy completed Maria A Rangel [facility] 06/16/2014 09:30:30 009 Operative Hysteroscopy completed Maria A Rangel [facility] 06/16/2014 09:30:30 007 Colonoscopy completed Maria A Rangel [facility] 06/16/2014 09:30:30 004 Breast Surgery completed Maria A Rangel [facility] 06/16/2014 09:30:30 004 Cholecystectomy completed Maria A Rangel [facility] 06/16/2014 09:30:30 980 Breast Surgery completed Maria A Rangel [facility] 06/16/2014 09:30:30 Imaging Results None recorded. Procedure Notes None recorded. Medical Equipment None Reported. Allergies Allergen ID Allergen Name Allergen Category Reaction Reaction Severity Criticality Documentation Date Start Date Code Code System Note Provider Name and Address Organization Details Recorded Time 5962 codeine medicatio n nausea Not available Not available 06/16/2014 2670 RxNorm Maria A lewis [facility] 4 09:43:29 5963 caffeine food,medi cation irregular heart rate Not available Not available 06/16/2014 1886 RxNorm shake s Maria A lewis [facility] 4 09:43:29 5964 hydrocodo ne Not available dizziness Not available Not available 06/16/2014 5489 RxNorm GI upset Maria A lewis [facility] 4 09:43:29 5965 cyclobenz aprine hydrochlo ride medicatio n hives Not available Not available 06/16/2014 08080 RxNorm Maria A lewis [facility] 4 09:43:29 Medications Name Sig Start Date [...] Updated DateTime 0 170.82 cm 31.2 kg/m2 04678.0 7 g 64 /min 120 mm[Hg] 70 mm[Hg] Su Hurley [facility] 0 09:07:11 Date Recorded Body height Body mass index (BMI) Body weight Body temperature Heart rate Oxygen saturation Oxygen saturation in Arterial blood by Pulse oximetry Systolic blood pressure Diastolic blood pressure Provider Name and Address Organization Details Last Updated DateTime 1 170.82 cm 31.7 kg/m2 03099.1 3 g 98 [degF] 69 /min 99 % 99 % 110 mm[Hg] 59 mm[Hg] Molly Benavidez [facility] 1 09:03:20 Date Recorded Body height Body mass index (BMI) Body weight Heart rate Oxygen saturation Oxygen saturation in Arterial blood by Pulse oximetry Systolic blood pressure Diastolic blood pressure Provider Name and Address Organization Details Last Updated DateTime 1 170.82 cm 31.1 kg/m2 04316.1 1 g 62 /min 98 % 98 % 130 mm[Hg] 83 mm[Hg] Mary Beth Rodriguez [facility] 1 11:51:13 Date Recorded Body height Body mass index (BMI) Body weight Heart rate Oxygen saturation Oxygen saturation in Arterial blood by Pulse oximetry Systolic blood pressure Diastolic blood pressure Provider Name and Address Organization Details Last Updated DateTime 2 170.82 cm 31.2 kg/m2 45587.3 5 g 63 /min 98 % 98 % 125 mm[Hg] 83 mm[Hg] Mary Beth Rodriguez [facility] 2 15:37:40 Date Recorded Body height Body mass index (BMI) Body weight Heart rate Oxygen saturation Oxygen saturation in Arterial blood by Pulse oximetry Systolic blood pressure Diastolic blood pressure Provider Name and Address Organization Details Last Updated DateTime 2 170.82 cm 31.2 kg/m2 70926.3 5 g 61 /min 96 % 96 % 115 mm[Hg] 67 mm[Hg] Mary Beth Rodriguez [facility] 2 08:36:12 Social History Question Answer Notes LastModified by Organizat ion Details LastModified Time Tobacco Smoking Status Former Smoker SOCIAL SMOKER Yanira lewis [facility] 10/21/2019 16:10:15 Do You Have An Advance Directive? Yes Has To Update Since Mother . [email or web address] Information not available 11/06/2021 What Is Your Level Of Alcohol Consumption? None Information not available 06/16/2014 Are You Blind Or Do You Have Difficulty Seeing? No [email or web address] Information not available 11/06/2021 Is Blood Transfusion Acceptable In An Emergency? Yes Information not available 10/07/2017 What Is Your Level Of Caffeine Consumption? None Allergic To Caffine Information not available 11/06/2021 How Much Tobacco [...] available 07/03/2020 Are You Currently Employed? No [email or web address] Information not available 11/06/2021 Are You Deaf Or Do You Have Serious Difficulty Hearing? No [email or web address] Information not available 11/06/2021 What Type Of [...] Or The Highest Degree You Have Received? KN30120-4 [email or web address] Information not available 11/06/2021 What Is Your Occupation? 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 No [email or web address] Information not available 11/06/2021 Live Alone Or With Others? With Others Information not available 12/03/2018 Tobacco (Snuff) No Informati on not available 12/03/2018 Are Your Immunizations Up To Date? 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 Yes Has To Update Since Mother . [email or web address] Information not available 11/06/2021 What Was The Date Of Your Most Recent Tobacco Screening? 07/03/2020 Information not available 07/03/2020 How Many Children Do You Have? 0 Information not available 12/03/2018 Performs Monthly Self-breast Exam? Yes Information not available 10/07/2017 What Is Your Relationship Status? Information not available 06/20/2014 Do You Use Your Seat Belt Or Car Seat Routinely? Yes Information not available 11/06/2021 Seat Belts Used Routinely Yes Information not available 10/07/2017 Are You Sexually Active? No 2 Months Ago Information not available 06/20/2014 Do You Have Smoke And Carbon Monoxide Detectors In Your Home? Yes [email or web address] Information not available 11/06/2021 At What Age Did You Start Smoking Tobacco? 21 [email or web address] Information not available 11/06/2021 Are You Passively Exposed To Smoke? No [email or web address] Information not available 11/06/2021 Do You Or Have You Ever Used Smokeless Tobacco? Never Used Smokeless Tobacco Information not available 10/21/2019 How Much Tobacco Do You Smoke? No Information not available 06/16/2014 General Stress Level High Information not available 07/03/2020 Do You Feel Stressed (tense, Restless, Nervous, Or Anxious, Or Unable To Sleep At Night)? [id number] Sleep Pattern Has Changed, Going To Sleep Around 2am [email or web address] Information not available 11/06/2021 Do You Use Any Illicit Or Recreational Drugs? No [email or web address] Information not available 11/06/2021 Do You Use Sunscreen Routinely? Yes Information not available 10/07/2017 How Many Years Have You Smoked Tobacco? 1 Information not available 10/21/2019 Do You Or Have You Ever Used Any Other Forms Of Tobacco Or Nicotine? No [email or web address] Information not available 11/06/2021 Sex: Female Functional Status Question Answer Note LastModified by Organizat ion Details LastModified Time Do you have difficulty walking or climbing stairs? No [email or web address] Information not available 11/06/2021 Are you able to walk? [email or web address] Information not available 11/06/2021 Do you have difficulty doing errands alone? No [email or web address] Information not available 11/06/2021 Do you have difficulty dressing or bathing? No [email or web address] Information not available 11/06/2021 What is your exercise level? Moderate walks dog x2 daily [email or web address] Information not available 11/06/2021 Mental Status Question Answer Note LastModified by Organization D etails LastModified Time Do you have difficulty concentrating, remembering or making decisions? No [email or web address] Information no t available 11/06/2021 Family History [...] cancer, completed hereditary cancer syndrome questionnaire-(not Ashkenazi Oriental Orthodox decent) EMR updated - November/2012, information booklet given on BRCA testing. Medical History Condition Response High Cholesterol Y Palpitations Y Heart Disease Y Hypertension Y Gynecological History Statement/Question Response Abnormal Pap [...] (COVID-19) vaccine, UNSPECIFIED 1 completed ROME Godoy [facility] 03/07/2021 11:54:30 SARS-COV-2 (COVID-19) vaccine, UNSPECIFIED 1 completed ROME Godoy [facility] 03/07/2021 11:54:40 COVID-19, mRNA, LNP-S, PF, 100 mcg/0.5mL dose or 50 mcg/0.25mL dose 0 completed ROME Godoy [facility] 11/06/2021 15:24:55 Pneumococcal conjugate PCV20, polysaccharide INB708 conjugate, adjuvant, PF 2 completed Not Available [facility] 12/13/2022 03:01:14 COVID-19, mRNA, LNP-S, PF, 100 mcg/0.5mL dose or 50 mcg/0.25mL dose 2 completed ROME Godoy [facility] 05/08/2022 08:31:50 Past Encounters Encounter ID Performer Location Encounter Start Date Encounter Closed Date Diagnosis/Indication Diagnosis SNOMED-CT Code Diagnosis ICD10 Code Diagnosis Note [id number] Jared Escam[facility] [address] [facility] [place] [address] 06/20/2014 14:56:35 06/21/2014 15:12:51 Gynecologic examination 00571254 Atrophic vulvovaginitis 13960019 [id number] Jared Escamilla [facility] [address] [place] [address] 04/28/2015 08:24:44 04/28/2015 11:00:57 Atrophic vulvovaginitis 82211078 Urinary incontinence 267376628 Family his tory of malignant neoplasm of ovary 757308830 with breast and pancreatic cancer [id number] MD Osiel [address] [place] [address] 10/07/2017 11:02:25 10/07/2017 12:49:03 Gynecologic examination 16112756 Z01.419 Atrophy of vagina 469043 009 N95.2 [id number] MD Osiel Holt [address] [place] [address] 10/20/2017 09:54:57 10/20/2017 12:01:02 Family history of malignant neoplasm of ovary 866360216 Z80.41 with pancreatic cancer [id number] MD Osiel Holt [address] [place] [address] 11/17/2017 13:53:36 11/17/2017 14:44:18 Family history of malignant neoplasm of ovary 158771628 Z80.41 with pancreatic cancer; her genetic testing no clinically significan t genetic mutations identified Seema risk 2.3 % 5 year and 10.8 % lifetime for breast cancer [id number] MD Osiel Holt [address] [place] [address] 03/18/2018 08:25:28 03/18/2018 14:29:59 Atrophy of vagina 070045701 N95.2 Left lower quadrant pain 008614165 R10.32 Postmenopa usal bleeding 39593320 N95.0 likely due to trauma from vaginal us probe [id number] MD Osiel Holt [address] [place] [address] 12/03/2018 09:18:52 12/03/2018 10:54:39 Gynecologic examination 54839351 Z01.419 [id number] MD Osiel Holt[address] [place] [address] 10/21/2019 15:52:05 10/21/2019 17:12:05 Atrophic vulva 353864418 N90.5 [id number] MD Osiel Holt [address] [place] [address] 07/03/2020 08:54:58 07/03/2020 10:38:43 Gynecologic examination 29661732 Z01.419 Atrophy of vagina 465698 009 N95.2 [id number] MD Osiel Holt [address] [facility] [place] [address] 11/13/2020 08:50:24 11/13/2020 10:11:34 Increased frequency of urination 815658351 R35.0 Urinary incontinence 165 632006 R32 Atrophic vulva 093331279 N90.5 [id number] MD Osiel Holt [address] [facility] [place] [place] [address] 03/07/2021 10:48:17 03/07/2021 13:12:17 Atrophy of vagina 847061642 N95.2 Disorder o f endocrine system 675264120 E34.9 see will have drawn via her PCP to avoid duplicatio n Vulvitis 00171156 N76.2 [id number] MD Osiel Holt [address] [facility] [place] [address] 11/06/2021 14:45:54 11/06/2021 16:32:24 Postmenopausal state 26079696 Z78.0 needs to keep wellness care visits with her PCP; may return for any gynecologi c problems and for Medicare allowed care (as she desires) Vulvitis 30313277 N76.2 will treat LSA briefly with close fu Atrophic vulvovaginitis 73832075 N95.2 improved with the every other month topical estradiol cream Gynecologi c examination 39808119 Z01.419 [id number] MD Osiel Holt [address] [place] [address] 05/08/2022 08:18:14 05/08/2022 09:28:10 Chronic vulvitis 8597777 N76.3 not clinically now c/w with lichen sclerosis Atrophic vulvovaginitis 89953519 N95.2 improved with now with twice weekly [...] - DOS ON OR BEFORE 09/08/2024 - [employer] PLAN (PPO) [id number] Ivonne Jimenez [id number] Ivonne Jimenez 11/13/2020 1 [place] BEFORE 09/08/2024 - [employer] PLAN ([place]) [id number] Ivonne Jimenez [id number] Ivonne Jimenez 03/07/2021 1 [place] BE[place] 09/08/2024 - [employer] PLAN ([place]) [id number] Ivonne Jimenez [id number] Ivonne Jimenez 05/08/2022 1 [employer] (MEDICARE REPLACEMENT/ ADVANTAGE - PPO) Ivonne Jimenez [id number] Ivonne Jimenez Notes Date Note Type Note [...] restarted the estrogen cream Emilia Dodge MD [address], [place], [address], [facility] 07/03/2020 10:39:15 11/13/2020 text/html Pt here for foll ow up for postmenopausal atrophic vaginitis. She is having continuing problems urine loss. She has a new PCP in [place] and having some of her issues addressed. Ongoing back pain. She might be moving to [place]. Vaginal irritation is improved. No plan for sexually activity Emilia Dodge MD [address], [place], [address], [facility] 11/13/2020 13:26:38 03/07/2021 text/html 65yo female pres [...] mentioned her back pain has been a prison issue chronic back pain). Pt stated denied [facility]. Pt stated she's enrolled in 2 different therapies at the moment, and can not tolerate another one. Pt open to other options Pt interested in [employer] HRT. Pt stated she completed the book. Pt mentioned she can not attend zoom meeting tonight at 6pm, due to music lessons. Emilia Dodge MD [address], [place], [address], [facility] [place] [facility] 03/28/2021 06:46:09 11/06/2021 text/html 66YO F medicare examIs not moving to [facility] signed-tkg Pt stated she's currently [...] times for her eczema. Emilia Dodge MD [address] [facility], [place], [address], [facility] [place] [facility] 11/06/2021 17:53:54 05/08/2022 text/html 66YO F vaginal atrophy f/ubought house in [place] and will likely move in 1-2 years- very happy. Pt expressed relief from vaginal irritation. Pt stated she did use clobetasol for 30 days, but kept tube for future use. Pt states her itching has decreased tremendously, but slight itch remain, tolerable. must sign abn-tkg Emilia Dodge MD [address] [address], [place], [address], [facility] [place] [facility] 05/08/2022 09:25:56 OBGyn Episode No OBEpisode recorded.
--- OUTSIDE RECORDS SUMMARY | 2024-11-16 11:46 | XMS_ITS | Clinical Summary ---
Author Organization [facility] Address [address] [place] [address] Phone Care Team Providers Care Groover And Turner Name Role Phone Cecilio Mcnulty MD Primary Care Provider [phone] Allergies No known active allergies Medications No known medications Encounters Date Type Department Care Team Description 10/14/2024 8:30 AM EST - 10/14/2024 11:59 PM EST Hospital Encounter [facility] at [address] [phone] 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 Discharge Disposition: Home or Self Care 10/14/2024 7:18 AM EST - 10/14/2024 11:59 PM EST Hospital Encounter [facility] at [address] [phone] Mammographic calcification found on diagnostic imaging of [...] this topic Medical Devices Implanted Type Area Battery Recharger Device Identifier Shelf Expiration Date Model / Serial / Lot Marker Biopsy [employer] Radiological Implant Strl Breast Bx - [id number] Implanted:Qty: 1 on 10/14/2024 by Anneliese Ponce MD at [facility] Imaging Implants Right: Breast [employer] [id number] 03/11/2027 4010-05- 10-T3 / / [id number] Procedures Procedure Name Priority Date/Time Associated [...] Signed Date: 10/15/2024 13:53 ET Workstation ID: [id number] Transcribed By: Self Edit Transcribed Date: 10/15/2024 [...] Signed Date: 10/15/2024 13:53 ET Workstation ID: [id number] Transcribed By: Self Edit Transcribed Date: 10/15/2024 [...] Signed Date: 10/15/2024 13:53 ET Workstation ID: [id number] Transcribed By: Self Edit Transcribed Date: 10/15/2024 [...] Signed Date: 10/15/2024 13:53 ET Workstation ID: [id number] Transcribed By: Self Edit Transcribed Date: 10/15/2024 [...] atypia or neoplasm identified 10/15/2024 10:[address] [facility] [address] Dr. Ponce notified via secure chat on 10/15/24. 10/15/2024 10:[address] [facility] Clinical Information Mammographic calcification found [...] of radiation/chemothe rapy: No 10/15/2024 10:[address] [facility] Gross Description A. Breast, Right, [...] 12.75 hours dvb/AL 10/15/2024 10:[address] [facility] Disclaimer Unless otherwise specified, all tissue is 10% NB formalin fixed and paraffin embedded. 10/15/2024 10:[address] [facility] Tissue Right breast structure / Unknown 10/14/2024 8:12 AM EST 10/14/2024 9:38 AM EST Tissue specimen (specimen) Right breast structure / Unknown 10/14/2024 8:22 AM EST 10/14/2024 9:38 AM EST us Anneliese Ponce MD LAB PATHOLOGY ORDERABLES Final R esult [facility] [address] [place] [address], from Last 3 Months Insurance [facility] MEDICARE ADVANTAGE on file Care Teams [employer] Relationship Specialty Start Date End Date Cecilio Mcnulty MD [address] [place] [phone] PCP - General Internal Medicine 10/08/24
--- OUTSIDE RECORDS SUMMARY | 2024-11-16 11:47 | XMS_ITS | Patient Health Record ---
Author Organization [facility] [address] Address [address] [place] [address] Care Team Providers Care Repair Order Clerk Name Role Phone Gonzalez Nieves Primary Care Provider Unavailabl Jakub Quinn Unavailable [phone] [facility] Unavailable U navailable Allergies Allergen (clinical drug [...] Risk Notes Problem Lumbosacral spondylosis without myelopathy (30101954) Other spondylosis, lumbar region (M47.896) Active confirmed Problem Low back pain (705009520) Low Back Pain (M54.5) Active confirmed Problem Lumbar radiculopathy (015181682) Radiculopathy, lumbar region (M54.16) Active confirmed Problem Long-term current use of drug therapy (937152389) Other senior care (current) drug therapy (Z79.899) Active confirmed Problem Low back pain (443721246) Low back pain, unspecified (M54.50) Active confirmed Plan Of Treatment No Information Insurance Providers Payer Name Payer Address Payer Phone Subscriber Number Group Number Insured Name Patient Relationship to Insured Coverage Start Date Coverage End Date [employer] [address] [address] [place] [address] [id number] Ivonne Jimenez Self - patient is [...]
--- OUTSIDE RECORDS SUMMARY | 2024-11-16 11:47 | XMS_ITS | Data Portability ---
Author Organization [facility] Nieves/ sameera manzanares, HOME Address [address] [place] [address] Care Team Providers Care Distributor Cleaner Name Role Phone [facility] Coach Builder [facility] Network Architect Manager [phone] [facility] Banquet Server On Call [facility] Sld Educational Aide [facility] HEAD [facility] NECK SURG[facility] [place] ryngologist [facility] Neurologist Assessment Encounter Date Assessment Date Assessment LastModified by Organization Details LastModified Time 10/22/2021 10/22/2021 Patient advised to call if palpitations get worse or there are any associated chest pain, shortness of breath and/or dizziness. [email or web address] Not available 10/22/2021 15:07:02 10/24/2022 10/24/2022 Patient [...] reduce health risks and promote healthy living. [email or web address] Not available 10/24/2022 11:50:11 Plan of Treatment Reminders Order Date Submit Date Provider Last Modified By Organization Details Last Modified Time Details Appointments None recorded. Lab None recorded. Referral None recorded. Procedures None recorded. Surgeries None recorded. Imaging electrocard iogram 2022 023 [email or web address] Gonzalez Nieves MD, [address], [address], [place], [address], 3 13:31:27 US, duplex, carotid artery 2021 022 [email or web address] Not available 14:46:46 Medication Orders gabapentin 300 mg capsule 2022 023 [email or web address] [id number], [address], [address], 3 13:13:32 gabapentin 100 mg capsule 2022 023 [email or web address] [id number], [facility], [address], 3 13:13:32 Patient TargetsNo targets recorded. Patient Instructions Encounter Date Encounter Id Patient Instructions Last Modified By Organization Details Last Modified Time 10/22/2021 [id number] premature heartb eat: care instructions Not available 10/22/2021 15:21:44 palpitations: ca re instructions [email or web address] Not available 10/22/2021 15:21:44 lightheadedness or faintness: care instructions Not available 10/22/2021 15:21:44 Phone call time 20 minutes 10 seconds. Not available 10/22/2021 15:20:55 04/18/2022 [id number] premature heartb eat: care instructions [email or web address] Not available 04/18/2022 13:55:29 When You Want to Lose Weight: Care Instructions [email or web address] Not available 04/18/2022 13:55:30 carotid stenosis : care instructions Not available 04/18/2022 13:55:29 high cholesterol : care instructions Not available 04/18/2022 13:55:29 high blood press ure: care instructions [email or web address] Not available 04/18/2022 13:55:29 learning about h igh blood pressure [email or web address] Not available 04/18/2022 13:55:30 skin lesions: ca re instructions [email or web address] Not available 04/18/2022 13:55:29 Call time 25 min utes Discussed each entity and management/treatment options. Pt questions answered, decision reflected above. Pt verbalizes understanding. [email or web address] Not available 04/18/2022 14:02:00 10/16/2022 [id number] Today's visit is Part 1 of 2 of the [facility] annual wellness exam encounter. Today's visit is the pre-physical testing which will be reviewed with patient in about 2 weeks as part of the MD encounter. [email or web address] Not available 10/16/2022 10:29:49 10/24/2022 [id number] back care and preventing injuries: care instructions [email or web address] Not available 10/24/2022 13:13:32 getting back to normal after low back pain: care instructions [email or web address] Not available 10/24/2022 13:13:32 learning about relief for back pain [email or web address] Not available 10/24/2022 13:13:32 premature heartb eat: care instructions [email or web address] Not available 10/24/2022 13:13:31 When You Want to Lose Weight: Care Instructions [email or web address] Not available 10/24/2022 13:13:32 carotid stenosis : care instructions Not available 10/24/2022 13:13:31 polycythemia: ca re instructions Not available 10/24/2022 13:13:31 high blood press ure: care instructions [email or web address] Not available 10/24/2022 13:13:31 learning about h igh blood pressure [email or web address] Not available 10/24/2022 13:13:31 Stress Incontine nce: Care Instructions [email or web address] Not available 10/26/2022 13:57:10 gastroesophageal reflux disease (GERD): care instructions [email or web address] Not available 10/24/2022 13:13:32 skin self examination [email or web address] Not available 10/24/2022 13:13:31 medicare prevent natalie services guide [email or web address] Not available 10/24/2022 13:13:31 advance care planning: care instructions [email or web address] Not available 10/24/2022 13:13:31 high cholesterol : care instructions [email or web address] Not available 10/24/2022 13:13:31 statins: care instructions [email or web address] Not available 10/24/2022 13:15:35 breast self-exam : care instructions [email or web address] Not available 10/24/2022 13:13:31 learning about al bennett cancer [email or web address] Not available 10/24/2022 13:13:31 Excerpt from Sharonda [...] next annual wellness exam in one year. [email or web address] Not available 10/16/2022 16:13:40 Reason for Referral None Reported. Results Created Date Observation Date Name Description Value Unit Range Abnormal Flag Note LastModifiedBy Organization Detail LastModifiedTime 03/20/20 22 03/21/2022 LIPID PANEL , STAND DALILA cholesterol, total 164 mg/dL <200 normal Not Available [facility] [address] [place], [address], 03/21/2022 03:48:38 03/20/20 22 03/21/2022 LIPID PANEL , STAND DALILA HDL cholesterol 46 mg/dL > or = 50 low Not Available [facility] [address] [place], [address], 03/21/2022 03:48:38 03/20/20 22 03/21/2022 LIPID PANEL , STAND DALILA triglyceride s 107 mg/dL <150 normal Not Available [facility] [address] [place], [address], 03/21/2022 03:48:38 03/20/20 22 03/21/2022 LIPID PANEL [...] 310(1 9): 2061- 2068 (http ://ed ucati on.[employer]. Cegal/f aq/FA Q164) Not Available [facility] [address] [place], [address], 03/21/2022 03:48:38 03/20/20 22 03/21/2022 LIPID PANEL , STAND DALILA chol/HDLC ratio 3.6 (calc ) <5.0 normal Not Available [facility] [address] [place], [address], 03/21/2022 03:48:38 03/20/20 22 03/21/2022 LIPID PANEL , STAND DALILA non HDL cholesterol 118 mg/dL _(nikolai c) <130 normal For patie nts with diabe ayo plus 1 major ASCVD risk facto r, treat ing to a non-H DL-C goal of <100 mg/dL (LDL- C of <70 mg/dL ) is consi dered a thera peuti c optio n. Not Available [facility] [address] [place], [address], 03/21/2022 03:48:38 03/20/20 22 03/21/2022 COMPR EHENS NATALIE METAB OLIC PANEL glucose 88 mg/dL 65-99 normal Fasti ng refer ence inter hayley Not Available [facility] [address] [place] [address], [address], 03/21/2022 03:48:39 03/20/20 22 03/21/2022 COMPR EHENS NATALIE METAB OLIC PANEL urea nitrogen (BUN) 22 mg/dL 7-25 normal Not Available [facility] [address] [place], [address], 03/21/2022 03:48:39 03/20/20 22 03/21/2022 COMPR EHENS NATALIE METAB OLIC PANEL creatinine 0.92 mg/dL 0.50-1 .05 normal Not Available [facility] [address] [place], [address], 03/21/2022 03:48:39 03/20/20 22 03/21/2022 COMPR EHENS [...] 5Fcal culat or Not Available [facility] [address] [place] [address], [address], 03/21/2022 03:48:39 03/20/20 22 03/21/2022 COMPR EHENS NATALIE METAB OLIC PANEL BUN/creatini ne ratio NOT APPLIC ABLE (calc ) 6-22 Not Available [facility] [address] [place] [address], [address], 03/21/2022 03:48:39 03/20/20 22 03/21/2022 COMPR EHENS NATALIE METAB OLIC PANEL sodium 141 mmol/ L 135-14 6 normal Not Available [facility] [address] [place], [address], 03/21/2022 03:48:39 03/20/20 22 03/21/2022 COMPR EHENS NATALIE METAB OLIC PANEL potassium 4.8 mmol/ L 3.5-5. 3 normal Not Available [facility] [address] [place] [address], [address], 03/21/2022 03:48:39 03/20/20 22 03/21/2022 COMPR EHENS NATALIE METAB OLIC PANEL chloride 104 mmol/ L 98-110 normal Not Available [facility] [address] [place] [address], [address], 03/21/2022 03:48:39 03/20/20 22 03/21/2022 COMPR EHENS NATALIE METAB OLIC PANEL carbon dioxide 30 mmol/ L 20-32 normal Not Available [facility] [address] [place] [address], [address], 03/21/2022 03:48:39 03/20/20 22 03/21/2022 COMPR EHENS NATALIE METAB OLIC PANEL calcium 9.8 mg/dL 8.6-10 .4 normal Not Available [facility] [address] [place] [address], [address], 03/21/2022 03:48:39 03/20/20 22 03/21/2022 COMPR EHENS NATALIE METAB OLIC PANEL protein, total 7.0 g/dL 6.1-8. 1 normal Not Available [facility] [address] [place] [address], [address], 03/21/2022 03:48:39 03/20/20 22 03/21/2022 COMPR EHENS NATALIE METAB OLIC PANEL albumin 4.2 g/dL 3.6-5. 1 normal Not Available [facility] [address] [place], [address], 03/21/2022 03:48:39 03/20/20 22 03/21/2022 COMPR EHENS NATALIE METAB OLIC PANEL globulin 2.8 g/dL_ (calc ) 1.9-3. 7 normal Not Available [facility] [address] [place], [address], 03/21/2022 03:48:39 03/20/20 22 03/21/2022 COMPR EHENS NATALIE METAB OLIC PANEL albumin/glob ulin ratio 1.5 (calc ) 1.0-2. 5 normal Not Available [facility] [address] [place], [address], 03/21/2022 03:48:39 03/20/20 22 03/21/2022 COMPR EHENS NATALIE METAB OLIC PANEL bilirubin, total 0.7 mg/dL 0.2-1. 2 normal Not Available [facility] [address] [place], [address], 03/21/2022 03:48:39 03/20/20 22 03/21/2022 COMPR EHENS NATALIE METAB OLIC PANEL alkaline phosphatase 78 U/L 37-153 normal Not Available [facility] [address] [place], [address], 03/21/2022 03:48:39 03/20/20 22 03/21/2022 COMPR EHENS NATALIE METAB OLIC PANEL AST 23 U/L 10-35 normal Not Available [facility] [address] [place], [address], 03/21/2022 03:48:39 03/20/20 22 03/21/2022 COMPR EHENS NATALIE METAB OLIC PANEL ALT 16 U/L 6-29 normal Not Available [facility] [address] [place], [address], 03/21/2022 03:48:39 10/16/19 23 10/16/2022 CBC WITH DIFFE RENTI AL WBC 5.4 K/uL 3.8-10 .8 Not Available [facility] - Manual Order Only [address], [place], [address], 10/21/2022 20:25:35 10/16/19 23 10/16/2022 CBC WITH DIFFE RENTI AL RBC 5.36 M/uL 3.80-5 .10 high Not Available [facility] - Manual Order Only [address], [place], [address], 10/21/2022 20:25:35 10/16/19 23 10/16/2022 CBC WITH DIFFE RENTI AL hemoglobin 16.2 g/dL 11.7-1 5.5 high Not Available [facility] - Manual Order Only [address], [place], [address], 10/21/2022 20:25:35 10/16/19 23 10/16/2022 CBC WITH DIFFE RENTI AL hematocrit 48.7 % 35.0-4 5.0 high Not Available [facility] - Manual Order Only [address], [place], [address], 10/21/2022 20:25:35 10/16/19 23 10/16/2022 CBC WITH DIFFE RENTI AL MCV 90.9 fL 80.0-1 00.0 Not Available [facility] - Manual Order Only [address], [place], [address], 10/21/2022 20:25:35 10/16/19 23 10/16/2022 CBC WITH DIFFE RENTI AL MCH 30.2 pg 27.0-3 3.0 Not Available [facility] - Manual Order Only [address], [place], [address], 10/21/2022 20:25:35 10/16/19 23 10/16/2022 CBC WITH DIFFE RENTI AL MCHC 33.3 g/dL 32.0-3 6.0 Not Available [facility] - Manual Order Only [address], [place], [address], 10/21/2022 20:25:35 10/16/19 23 10/16/2022 CBC WITH DIFFE RENTI AL red cell distribution width 12.6 % 11.0-1 5.0 Not Available [facility] - Manual Order Only [address], [place], [address], 10/21/2022 20:25:35 10/16/19 23 10/16/2022 CBC WITH DIFFE RENTI AL platelet count 230 K/uL 140-40 0 Not Available [facility] - Manual Order Only [address], [place], [address], 10/21/2022 20:25:35 10/16/19 23 10/16/2022 CBC WITH DIFFE RENTI AL mean platelet volume 11.4 fL 7.5-12 .5 Not Available [facility] - Manual Order Only [address], [place], [address], 10/21/2022 20:25:35 10/16/19 23 10/16/2022 CBC WITH DIFFE RENTI AL neutrophil % 50.3 % 38.0-8 0.0 Not Available [facility] - Manual Order Only [address], [place], [address], 10/21/2022 20:25:35 10/16/19 23 10/16/2022 CBC WITH DIFFE RENTI AL neutrophil absolute 2.71 K/uL 1.50-7 .80 Not Available [facility] - Manual Order Only [address], [place], [address], 10/21/2022 20:25:35 10/16/19 23 10/16/2022 CBC WITH DIFFE RENTI AL lymphocyte % 36.0 % 15.0-4 9.0 Not Available [facility] - Manual Order Only [address], [place], [address], 10/21/2022 20:25:35 10/16/19 23 10/16/2022 CBC WITH DIFFE RENTI AL lymphocyte absolute 1.94 K/uL 0.85-3 .90 Not Available [facility] - Manual Order Only [address], [place], [address], 10/21/2022 20:25:35 10/16/19 23 10/16/2022 CBC WITH DIFFE RENTI AL monocyte % 11.3 % 0.0-13 .0 Not Available [facility] - Manual Order Only [address], [place], [address], 10/21/2022 20:25:35 10/16/19 23 10/16/2022 CBC WITH DIFFE RENTI AL monocyte absolute 0.61 K/uL 0.20-0 .95 Not Available [facility] - Manual Order Only [address], [place], [address], 10/21/2022 20:25:35 10/16/19 23 10/16/2022 CBC WITH DIFFE RENTI AL eosinophil % 1.5 % 0.0-8. 0 Not Available [facility] - Manual Order Only [address], [place], [address], 10/21/2022 20:25:35 10/16/19 23 10/16/2022 CBC WITH DIFFE RENTI AL eosinophil absolute 0.08 K/uL 0.00-0 .50 Not Available [facility] - Manual Order Only [address], [place], [address], 10/21/2022 20:25:35 10/16/19 23 10/16/2022 CBC WITH DIFFE RENTI AL basophil % 0.9 % 0.0-2. 0 Not Available [facility] - Manual Order Only [address], [place], [address], 10/21/2022 20:25:35 10/16/19 23 10/16/2022 CBC WITH DIFFE EDWIN AL basophil absolute 0.05 K/uL 0.00-0 .20 Not Available [facility] - Manual Order Only [address], [place], [address], 10/21/2022 20:25:35 10/16/19 23 10/16/2022 COMPR EHENS NATALIE METAB OLIC PANEL glucose 88 mg/dL 65-99 Not Available [facility] - Manual Order Only [address], [place], [address], 10/21/2022 20:25:36 10/16/19 23 10/16/2022 COMPR EHENS NATALIE METAB OLIC PANEL calcium 9.7 mg/dL 8.5-10 .5 Not Available [facility] - Manual Order Only [address], [place], [address], 10/21/2022 20:25:36 10/16/19 23 10/16/2022 COMPR EHENS NATALIE METAB OLIC PANEL sodium 142 mmol/ L 136-14 5 Not Available [facility] - Manual Order Only [address], [place], [address], 10/21/2022 20:25:36 10/16/19 23 10/16/2022 COMPR EHENS NATALIE METAB OLIC PANEL potassium 4.5 mmol/ L 3.5-5. 1 Not Available [facility] - Manual Order Only [address], [place], [address], 10/21/2022 20:25:36 10/16/19 23 10/16/2022 COMPR EHENS NATALIE METAB OLIC PANEL chloride 105 mmol/ L 95-108 Not Available [facility] - Manual Order Only [address], [place], [address], 10/21/2022 20:25:36 10/16/19 23 10/16/2022 COMPR EHENS NATALIE METAB OLIC PANEL CO2 (carbon dioxide) 29 mmol/ L 21-33 Not Available [facility] - Manual Order Only [address], [place], [address], 10/21/2022 20:25:36 10/16/19 23 10/16/2022 COMPR EHENS NATALIE METAB OLIC PANEL BUN (blood urea nitrogen) 19 mg/dL 8-23 Not Available [facility] - Manual Order Only [address], [place], [address], 10/21/2022 20:25:36 10/16/19 23 10/16/2022 COMPR EHENS NATALIE METAB OLIC PANEL creatinine 0.88 mg/dL 0.50-1 .05 Not Available [facility] - Manual Order Only [address], [place], [address], 10/21/2022 20:25:36 10/16/19 23 10/16/2022 COMPR EHENS NATALIE METAB OLIC PANEL protein, total 7.1 g/dL 6.1-8. 0 Not Available [facility] - Manual Order Only [address], [place], [address], 10/21/2022 20:25:36 10/16/19 23 10/16/2022 COMPR EHENS NATALIE METAB OLIC PANEL albumin 4.4 g/dL 3.5-5. 5 Not Available [facility] - Manual Order Only [address], [place], [address], 10/21/2022 20:25:36 10/16/19 23 10/16/2022 COMPR EHENS NATALIE METAB OLIC PANEL globulin 2.7 g/dL_ (calc ) 1.8-3. 8 Not Available [facility] - Manual Order Only [address], [place], [address], 10/21/2022 20:25:36 10/16/19 23 10/16/2022 COMPR EHENS NATALIE METAB OLIC PANEL albumin/glob ulin ratio 1.6 calc 1.0-2. 5 Not Available [facility] - Manual Order Only [address], [place], [address], 10/21/2022 20:25:36 10/16/19 23 10/16/2022 COMPR EHENS NATALIE METAB OLIC PANEL alkaline phosphatase 91 U/L <150 Not Available [facility] - Manual Order Only [address], [place], [address], 10/21/2022 20:25:36 10/16/19 23 10/16/2022 COMPR EHENS NATALIE METAB OLIC PANEL alanine aminotransfe rase (ALT) 17 U/L 6-29 Not Available [facility] - Manual Order Only [address], [place], [address], 10/21/2022 20:25:36 10/16/19 23 10/16/2022 COMPR EHENS NATALIE METAB OLIC PANEL aspartate aminotransfe rase (AST) 27 U/L 10-35 Not Available [facility] [address], [place], [address], 10/21/2022 20:25:36 10/16/19 23 10/16/2022 COMPR EHENS NATALIE METAB OLIC PANEL bilirubin, total 0.5 mg/dL <1.3 Not Available [facility] - Manual Order Only [address], [place], [address], 10/21/2022 20:25:36 10/16/19 23 10/16/2022 COMPR EHENS NATALIE METAB OLIC PANEL BUN/creatini ne ratio NOT APPLIC ABLE calc 6-22 Not Available [facility] - Manual Order Only [address], [place], [address], 10/21/2022 20:25:36 10/16/19 23 10/16/2022 COMPR EHENS NATALIE METAB OLIC PANEL eGFR 72 mL/mi n/1.7 3m_sq uared >59 The eGFR is based on the CKD-E PI 2020 equat ion. To calcu late the new eGFR from a previ ous Creat inine or Cysta tin C resul t, go to https ://joselyn w.beckie shant.o rg/pr ofess ional s/kdo qi/gf r%5Fc alcul ator. Not Available [facility] - Manual Order Only [address], [place], [address], 10/21/2022 20:25:36 10/16/19 23 10/16/2022 THYRO ID STIMU LATIN G HORMO NE (TSH) thyroid stimulating hormone (TSH) 1.26 mlu/L 0.40-4 .50 For addit ional infor mariela mcnair e refer to http: //[facility] cody montero.Que stDia gnost ics.c om/fa q/FAQ 138 This test was perfo rmed using the Sieme ns TSH immun oassa y metho d. Value s obtai song with previ ous assay metho ds canno t be used inter kimble eably . Not Available [facility] [address], [place], [address], 10/21/2022 20:25:36 10/16/19 23 10/16/2022 HEMOG LOBIN A1C HbA1C 5.2 % <5.7 For the purpo se of cesario irizarry for the prese nce of diabe ayo: <5.7% is consi stent with the absen ce of diabe yao; 5.7-6 .4% is consi stent with incre [...] in Diabe ayo (ADA) . Not Available [facility] - Manual Order Only [address], [place], [address], 10/21/2022 20:25:37 10/16/19 23 10/16/2022 HEMOG LOBIN [...] Care 2008; 31:14 73-14 78). Not Available [facility] - Manual Order Only [address], [place], [address], 10/21/2022 20:25:37 10/16/19 23 10/16/2022 LIPID PANEL W/ TG/HD L-C (ORDE RED WITH LIPOP ROTEI N, NMR) cholesterol, total 152 mg/dL <200 Not Available [facility] - Manual Order Only [address], [place], [address], 10/21/2022 20:25:37 10/16/19 23 10/16/2022 LIPID PANEL W/ TG/HD L-C (ORDE RED WITH LIPOP ROTEI N, NMR) HDL cholesterol 47 mg/dL >49 low Not Available [facility] - Manual Order Only [address], [place], [address], 10/21/2022 20:25:37 10/16/19 23 10/16/2022 LIPID PANEL W/ TG/HD L-C (ORDE RED WITH LIPOP ROTEI N, NMR) triglyceride s 82 mg/dL <150 Not Available [facility] - Manual Order Only [address], [place], [address], 10/21/2022 20:25:37 10/16/19 23 10/16/2022 LIPID PANEL [...] 310(1 9): 2061- 2068 (http ://ed ucati on.[facility] bradfordPlacester. Cegal/f aq/FA Q164) Not Available [facility] - Manual Order Only [address], [place], [address], 10/21/2022 20:25:37 10/16/19 23 10/16/2022 LIPID PANEL W/ TG/HD L-C (ORDE RED WITH LIPOP ROTEI N, NMR) chol/HDL-C 3.2 calc <3.6 Not Available [facility] - Manual Order Only [address], [place], [address], 10/21/2022 20:25:37 10/16/19 23 10/16/2022 LIPID PANEL W/ TG/HD L-C (ORDE RED WITH LIPOP ROTEI N, NMR) non-HDL cholesterol 105 mg/dL _(nikolai c) <130 For patie nts with diabe ayo plus 1 major ASCVD risk facto r, treat ing to a non-H DL-C goal of <100 mg/dL (LDL- C of <70 mg/dL ) is consi martine melendez optio n. Not Available [facility] - Manual Order Only [address], [place], [address], 10/21/2022 20:25:37 10/16/19 23 10/16/2022 LIPID PANEL W/ TG/HD L-C (ORDE RED WITH LIPOP ROTEI N, NMR) TG/HDL-C 1.7 calc <2.0 Not Available [facility] [address], [place], [address], 10/21/2022 20:25:37 10/16/19 23 10/16/2022 MYELO PEROX [...] and perso nal commu nicat ion with Hobson et al). This test was devel gerardo and its meena tical perfo rmanc e ella cteri stics have been deter mined by [facility] sotelo at [facility]. It has not been clear ed or appro syeda by the U.S. Food and Drug Admin istra tion. This assay has been valid ated pursu ant to the CLIA regul ation s and is used for clini nikolai purpo ses. Not Available [facility] - Manual Order Only [address], [place], [address], 10/21/2022 20:25:37 10/16/19 23 10/16/2022 VITAM IN [...] ella cteri stics deter mined by the [facility] It has not been clear ed or appro syeda by the U.S. FDA. The [facility] is regul ated under Clini nikolai Labor atory Impro vemen t Amend ments (CLIA ) as quali fied to perfo rm high- compl exity testi ng. This test is used for clini nikolai purpo ses. It shoul d not be regar ded as inves tigat ional or for resea rch. Not Available [facility] - Manual Order Only [address], [place], [address], 10/21/2022 20:25:38 10/16/19 23 10/16/2022 LIPOP ROTEI [...] ella cteri stics deter mined by [facility] [employer] It has not been clear ed or appro syeda by the U.S. FDA. The [facility] is regul ated under Clini nikolai Labor atory Impro vemen t Amend ments (CLIA ) as quali fied to perfo rm high- compl exity testi ng. This test is used for clini nikolai purpo ses. It shoul d not be regar ded as inves tigat ional or for resea rch. Not Available [facility] - Manual Order Only [address], [place], [address], 10/21/2022 20:25:38 10/16/19 23 10/16/2022 LIPOP ROTEI N FRACT IONAT ION, NMR W/LIP ID PANEL small LDL-P 749 nmol/ L <467 high Relat natalie risk: Optim al <467; Moder ate 467-8 20; High >820 nmol/ L. Refer ence range is <1408 nmol/ L. Not Available [facility] - Manual Order Only [address], [place], [address], 10/21/2022 20:25:38 10/16/1910/16/2022 LIPOP ROTEI N FRACT IONAT ION, NMR W/LIP ID PANEL LDL size 20.6 nm >20.5 Relat natalie risk: Optim al >20.5 ; High <20.6 nm. Refer ence range is 20.0- 22.3 nm. Not Available [facility] - Manual Order Only [address], [place], [address], 10/21/2022 20:25:38 10/16/1910/16/2022 LIPOP ROTEI N FRACT IONAT ION, NMR W/LIP ID PANEL HDL-P 33.1 umol/ L >32.8 Relat natalie risk: Optim al >32.8 ; Moder ate 29.2- 32.8; High <29.2 umol/ L. Refer ence range is 21.1- 43.4 umol/ L. Not Available [facility] - Manual Order Only [address], [place], [address], 10/21/2022 20:25:38 10/16/1910/16/2022 LIPOP ROTEI N FRACT IONAT ION, NMR W/LIP ID PANEL large HDL-P 3.3 umol/ L >7.2 low Relat natalie risk: Optim al >7.2; Moder ate 5.3-7 .2; High <5.3 umol/ L. Refer ence range is >3.5 umol/ L. Not Available [facility] - Manual Order Only [address], [place], [address], 10/21/2022 20:25:38 10/16/19 23 10/16/2022 LIPOP ROTEI N FRACT IONAT ION, NMR W/LIP ID PANEL HDL size 8.6 nm >9.0 low Relat natalie risk: Optim al >9.0; Moder ate 8.7-9 .0; High <8.7 nm. Refer ence range is 8.3-1 0.5 nm. Not Available [facility] - Manual Order Only [address], [place], [address], 10/21/2022 20:25:38 10/16/1910/16/2022 LIPOP ROTEI N FRACT IONAT ION, NMR W/LIP ID PANEL large VLDL-P 2.1 nmol/ L <3.7 Relat natalie risk: Optim al <3.7; Moder ate 3.7-6 .1; High >6.1 nmol/ L. Refer ence range is <16.0 nmol/ L. Not Available [facility] - Manual Order Only [address], [place], [address], 10/21/2022 20:25:38 10/16/1910/16/2022 LIPOP ROTEI N FRACT IONAT ION, NMR W/LIP ID PANEL VLDL size 47.8 nm <47.1 high Relat natalie risk: Optim al <47.1 ; Moder ate 47.1- 49.0; High >49.0 nm. Refer ence range is 41.1- 61.7 nm. Not Available [facility] - Manual Order Only [address], [place], [address], 10/21/2022 20:25:38 10/16/1910/16/2022 URINA LYSIS , COMPL ETE color YELLOW yellow Not Available [facility] - Manual Order Only [address], [place], [address], 10/21/2022 20:25:39 10/16/19 23 10/16/2022 URINA LYSIS , COMPL ETE appearance CLEAR clear Not Available [facility] - Manual Order Only [address], [place], [address], 10/21/2022 20:25:39 10/16/19 23 10/16/2022 URINA LYSIS , COMPL ETE specific gravity 1.021 1.001- 1.035 Not Available [facility] - Manual Order Only [address], [place], [address], 10/21/2022 20:25:39 10/16/19 23 10/16/2022 URINA LYSIS , COMPL ETE pH 7.0 5.0-8. 0 Not Available [facility] - Manual Order Only [address], [place], [address], 10/21/2022 20:25:39 10/16/19 23 10/16/2022 URINA LYSIS , COMPL ETE glucose NEGATI VE negati ve Not Available [facility] - Manual Order Only [address], [place], [address], 10/21/2022 20:25:39 10/16/19 23 10/16/2022 URINA LYSIS , COMPL ETE bilirubin NEGATI VE negati ve Not Available [facility] - Manual Order Only [address], [place], [address], 10/21/2022 20:25:39 10/16/19 23 10/16/2022 URINA LYSIS , COMPL ETE ketones NEGATI VE negati ve Not Available [facility] - Manual Order Only [address], [place], [address], 10/21/2022 20:25:39 10/16/19 23 10/16/2022 URINA LYSIS , COMPL ETE occult blood NEGATI VE negati ve Not Available [facility] - Manual Order Only [address], [place], [address], 10/21/2022 20:25:39 10/16/19 23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 they discussed flecainide and in fact EP doc wrote Rx but she didn't start. He advised that if she started med to let him know to monitor EKG. She has [employer] mobile at home to monitor. 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 No angina.HTN. Controlled.Obesity. Wt now <196. She has good momentum. Goal 170s.Reviewed carotid scan. Stable and improved. Nothing worse. Gonzalez Nieves MD [address], [place], [address], [place] Nieves/ sameera Harper 04/18/2022 14:02:36 10/24/2022 text/html Patient is here for the [facility] Wellness Program and Subsequent Annual Wellness. During this visit we will review and discuss their Health Risk Assessment and review the various tests and procedures performed as part of the [facility] Annual Wellness Program. The patient [...] the pre-physical questionnaire. Gonzalez Nieves MD [address], [place], [address], R[place] Nieves/ sameera Harper 10/26/2022 14:00:33 OBGyn Episode No OBEpisode recorded.
--- OUTSIDE RECORDS SUMMARY | 2024-11-16 11:47 | XMS_ITS | Data Portability ---
Author Organization [place] - Cecilio Mcnulty, Inactive Address [address] [place] [address] Care Team Providers Care Rn Labor And Delivery Name Role Phone BRIDGET HERRING Supervising Law Enforcement Analyst SOLEDAD JONAS Neurologist DANO ALAS Cephalometric Technician Assessment Encounter Date Assessment Date Assessment LastModified by Organization Details LastModified Time 10/06/2024 10/06/2024 Duration of visit: 40 minutes phong Not available 10/06/2024 13:02:28 Plan of Treatment Reminders Order Date Submit Date Provider Last Modified By Organization Details Last Modified Time Details Appointments [facility] Kishore rojas s 2024 08:00A M Balance Clerk Not available Not available Not available [facility] SAWE 2024 02:30P M Cecilio Mcnulty M.D. Not available Not available Not available Lab insul in, serum 2024 025 [facility], [address] [place] [address], [address], 10/06/2024 12:09:24 gluco se zenaida ance test, post- 75G, 3 speci mens 2024 025 [employer] [employer] [facility], [address] [place] [address], [address], 10/06/2024 12:03:21 unlis ty lab - LP pla2 activ ity 2024 025 [employer] [employer] [facility], [address] [place] [address], [address], 10/06/2024 12:03:19 hsv (1+2) igm Ab, serum 2023 alexandria Urjan[facility], [address] [place] [address], [address], 10/21/2024 13:45:40 BMP, serum or plasm a 2023 [facility], [address] [place] [address], [address], 05/15/2024 15:00:17 TSH, serum or plasm a 2023 [place] [facility], [address] [place] [address], [address], 05/15/2024 15:00:20 lipid panel , serum 2023 [facility]Lob[facility], [address] [place] [address], [address], 05/15/2024 15:00:15 apoli popro tein B (apo B), serum 2023 [place] [facility], [address] [place] [address], [address], 05/15/2024 15:00:21 hepat ic funct ion panel , serum 2023 [place] [facility], [address] [place] [address], [address], 05/15/2024 15:00:17 PERFECTO (anti nucle ar antib odies ) scree n, ifa, serum 2023 [place] Urjanet [address], [address], 05/15/2024 15:00:18 eryth rocyt e sedim entat ion rate by kathryn britt 2023 024 [facility], [address] [place], [address], 05/15/2024 15:00:18 ccp (cycl ic citru llina ty pepti de) igg, serum 2023 024 SIMRAN [facility], [address] [place], [address], 05/15/2024 15:00:19 C3 + C4 (comp lemen t), serum 2023 024 [place] [facility], [address] [place], [address], 05/15/2024 15:00:16 sjogr en antib sofie panel , serum 2023 024 SIMRAN [facility], [address] [place] [address], [address], 05/15/2024 15:00:19 Referral None recor ded. Procedures None recor ded. Surgeries None recor ded. Imaging None recor ded. Medication Orders Dickson -V Benef its 1,220 mg-33 0 mg-67 0 mg/5 mL oral liqui d 2024 [id number] [address] [place], [address], 10/06/2024 12:11:01 rosuv astat in 20 mg table t 2024 025 [facility] #[id number], [address] [facility], [place], [address], 10/06/2024 12:11:04 Patient TargetsNo targets recorded. Patient InstructionsNo instructions recorded. Reason for Referral None Reported. Results Created Date Observation Date Name Description Value Unit Range Abnormal Flag Note LastModifiedBy Organization Detail LastModifiedTime 01/19/20 24 01/26/2024 LIPID PANEL , STAND DALILA cholesterol, total 146 mg/dL <200 normal Not Available [facility] - Manual Order Only [address], [place], [address], 01/26/2024 22:24:26 01/19/20 24 01/26/2024 LIPID PANEL , STAND DALLIA HDL cholesterol 48 mg/dL > or = 50 low Not Available [facility] - Manual Order Only [address], [place], [address], 01/26/2024 22:24:26 01/19/20 24 01/26/2024 LIPID PANEL , STAND DALILA triglyceride s 85 mg/dL <150 normal Not Available [facility] - Manual Order Only [address], [place], [address], 01/26/2024 22:24:26 01/19/20 24 01/26/2024 LIPID PANEL [...] 2061- 2068 (http ://ed ucati on.Qu Zafar [employer]. com/f aq/FA Q164) Not Available [facility] - Manual Order Only [address], [place], [address], 01/26/2024 22:24:26 01/19/20 24 01/26/2024 LIPID PANEL , STAND DALILA chol/HDLC ratio 3.0 (calc ) <5.0 normal Not Available [facility] - Manual Order Only [address], [place], [address], 01/26/2024 22:24:26 01/19/20 24 01/26/2024 LIPID PANEL , STAND DALILA non HDL cholesterol 98 mg/dL _(nikolai c) <130 normal For patie nts with diabe ayo plus 1 major ASCVD risk facto r, treat ing to a non-H DL-C goal of <100 mg/dL (LDL- C of <70 mg/dL ) is consi dered a thera peuti c optio n. Not Available [facility] - Manual Order Only [address], [place], [address], 01/26/2024 22:24:26 01/19/20 24 01/26/2024 HEPAT IC FUNCT ION PANEL protein, total 6.8 g/dL 6.1-8. 1 normal Not Available [facility] - Manual Order Only [address], [place], [address], 01/26/2024 22:24:26 01/19/20 24 01/26/2024 HEPAT IC FUNCT ION PANEL albumin 4.1 g/dL 3.6-5. 1 normal Not Available [facility] - Manual Order Only [address], [place], [address], 01/26/2024 22:24:26 01/19/20 24 01/26/2024 HEPAT IC FUNCT ION PANEL globulin 2.7 g/dL_ (calc ) 1.9-3. 7 normal Not Available [facility] - Manual Order Only [address], [place], [address], 01/26/2024 22:24:26 01/19/20 24 01/26/2024 HEPAT IC FUNCT ION PANEL albumin/glob ulin ratio 1.5 (calc ) 1.0-2. 5 normal Not Available [facility] - Manual Order Only [address], [place], [address], 01/26/2024 22:24:26 01/19/20 24 01/26/2024 HEPAT IC FUNCT ION PANEL bilirubin, total 0.5 mg/dL 0.2-1. 2 normal Not Available [facility] - Manual Order Only [address], [place], [address], 01/26/2024 22:24:26 01/19/20 24 01/26/2024 HEPAT IC FUNCT ION PANEL bilirubin, direct 0.1 mg/dL < or = 0.2 normal Not Available [facility] - Manual Order Only [address], [place], [address], 01/26/2024 22:24:26 01/19/20 24 01/26/2024 HEPAT IC FUNCT ION PANEL bilirubin, indirect 0.4 mg/dL _(nikolai c) 0.2-1. 2 normal Not Available [facility] - Manual Order Only [address], [place], [address], 01/26/2024 22:24:26 01/19/20 24 01/26/2024 HEPAT IC FUNCT ION PANEL alkaline phosphatase 84 U/L 37-153 normal Not Available [facility] - Manual Order Only [address], [place], [address], 01/26/2024 22:24:26 01/19/20 24 01/26/2024 HEPAT IC FUNCT ION PANEL AST 23 U/L 10-35 normal Not Available [facility] - Manual Order Only [address], [place], [address], 01/26/2024 22:24:26 01/19/20 24 01/26/2024 HEPAT IC FUNCT ION PANEL ALT 18 U/L 6-29 normal Not Available [facility] - Manual Order Only [address], [place], [address], 01/26/2024 22:24:26 01/19/20 24 01/26/2024 APOLI POPRO [...] Lipid . 2015; 9:129 -169 and Guillermo ASLDAÑA et al. Endoc r Pract . 2017; 23(Sterling ppl 2):1- 87. Not Available [facility] - Manual Order Only [address], [place], [address], 01/26/2024 22:24:27 01/19/20 24 01/26/2024 CARDI O [...] Med. 1999; 131(5 ):331 -9. Not Available [facility] - Manual Order Only [address], [place], [address], 01/26/2024 22:24:27 05/06/2005/15/2024 LIPID PANEL , STAND DALILA cholesterol, total 152 mg/dL <200 normal Not Available [facility] [place] [facility] [address], [place], [address], 05/15/2024 15:00:12 05/06/20 24 05/15/2024 LIPID PANEL , STAND DALILA HDL cholesterol 47 mg/dL > or = 50 low Not Available [facility] [place] [facility] [address], [place], [address], 05/15/2024 15:00:12 05/06/2005/15/2024 LIPID PANEL , STAND DALILA triglyceride s 87 mg/dL <150 normal Not Available [facility] [place] [facility] [address], [place], [address], 05/15/2024 15:00:12 05/06/20 24 05/15/2024 LIPID PANEL [...] com/f aq/FA Q164) Not Available [facility] [place] [facility] [address], [place], [address], 05/15/2024 15:00:12 05/06/20 24 05/15/2024 LIPID PANEL , STAND DALILA chol/HDLC ratio 3.2 (calc ) <5.0 normal Not Available [facility] [address], [place], [address], 05/15/2024 15:00:12 05/06/20 24 05/15/2024 LIPID PANEL , STAND DALILA non HDL cholesterol 105 mg/dL _(nikolai c) <130 normal For patie nts with diabe ayo plus 1 major ASCVD risk facto r, treat ing to a non-H DL-C goal of <100 mg/dL (LDL- C of <70 mg/dL ) is consi martine a vincent melendez optio n. Not Available [facility] [address], [place], [address], 05/15/2024 15:00:12 05/06/20 24 05/15/2024 COMPL EMENT COMP C3 + C4 complement component C3C 137 mg/dL 83-193 normal Not Available [facility] [address], [place], [address], 05/15/2024 15:00:16 05/06/20 24 05/15/2024 COMPL EMENT COMP C3 + C4 complement component C4C 39 mg/dL 15-57 normal Not Available [facility] [address], [place], [address], 05/15/2024 15:00:16 05/06/20 24 05/15/2024 BASIC METAB OLIC PANEL glucose 90 mg/dL 65-99 normal Fasti ng refer ence inter hayley Not Available [facility] [address], [place], [address], 05/15/2024 15:00:17 05/06/20 24 05/15/2024 BASIC METAB OLIC PANEL urea nitrogen (BUN) 17 mg/dL 7-25 normal Not Available [facility] [address] [place], [place], [address], 05/15/2024 15:00:17 05/06/20 24 05/15/2024 BASIC METAB OLIC PANEL creatinine 0.90 mg/dL 0.50-1 .05 normal Not Available [facility] [place] [facility] [address] [place], [place], [address], 05/15/2024 15:00:17 05/06/20 24 05/15/2024 BASIC METAB OLIC PANEL eGFR 70 mL/mi n/1.7 3m2 > or = 60 normal Not Available [facility] [address] [place], [place], [address], 05/15/2024 15:00:17 05/06/20 24 05/15/2024 BASIC METAB OLIC PANEL BUN/creatini ne ratio SEE NOTE: (calc ) 6-22 Not Repor ty: BUN and Creat inine are withi n refer ence range . Not Available [facility] [address] [place], [place], [address], 05/15/2024 15:00:17 05/06/20 24 05/15/2024 BASIC METAB OLIC PANEL sodium 142 mmol/ L 135-14 6 normal Not Available [facility] [address] [place], [place], [address], 05/15/2024 15:00:17 05/06/20 24 05/15/2024 BASIC METAB OLIC PANEL potassium 4.6 mmol/ L 3.5-5. 3 normal Not Available [facility] [address] [place], [place], [address], 05/15/2024 15:00:17 05/06/20 24 05/15/2024 BASIC METAB OLIC PANEL chloride 104 mmol/ L 98-110 normal Not Available [facility] [address], [place], [address], 05/15/2024 15:00:17 05/06/20 24 05/15/2024 BASIC METAB OLIC PANEL carbon dioxide 27 mmol/ L 20-32 normal Not Available [facility] [address], [place], [address], 05/15/2024 15:00:17 05/06/20 24 05/15/2024 BASIC METAB OLIC PANEL calcium 9.5 mg/dL 8.6-10 .4 normal Not Available [facility] [address], [place], [address], 05/15/2024 15:00:17 05/06/20 24 05/15/2024 HEPAT IC FUNCT ION PANEL protein, total 6.8 g/dL 6.1-8. 1 normal Not Available [facility] [address], [place], [address], 05/15/2024 15:00:17 05/06/20 24 05/15/2024 HEPAT IC FUNCT ION PANEL albumin 4.1 g/dL 3.6-5. 1 normal Not Available [facility] [address], [place], [address], 05/15/2024 15:00:17 05/06/20 24 05/15/2024 HEPAT IC FUNCT ION PANEL globulin 2.7 g/dL_ (calc ) 1.9-3. 7 normal Not Available [facility] [address], [place], [address], 05/15/2024 15:00:17 05/06/20 24 05/15/2024 HEPAT IC FUNCT ION PANEL albumin/glob ulin ratio 1.5 (calc ) 1.0-2. 5 normal Not Available [facility] [address], [place], [address], 05/15/2024 15:00:17 05/06/20 24 05/15/2024 HEPAT IC FUNCT ION PANEL bilirubin, total 0.5 mg/dL 0.2-1. 2 normal Not Available [facility] [address], [place], [address], 05/15/2024 15:00:17 05/06/20 24 05/15/2024 HEPAT IC FUNCT ION PANEL bilirubin, direct 0.1 mg/dL < or = 0.2 normal Not Available [facility] [address], [place], [address], 05/15/2024 15:00:17 05/06/20 24 05/15/2024 HEPAT IC FUNCT ION PANEL bilirubin, indirect 0.4 mg/dL _(nikolai c) 0.2-1. 2 normal Not Available [facility] [address], [place], [address], 05/15/2024 15:00:17 05/06/20 24 05/15/2024 HEPAT IC FUNCT ION PANEL alkaline phosphatase 88 U/L 37-153 normal Not Available [facility] [employer] [facility] [address], [place], [address], 05/15/2024 15:00:17 05/06/20 24 05/15/2024 HEPAT IC FUNCT ION PANEL AST 22 U/L 10-35 normal Not Available [facility] [address], [place], [address], 05/15/2024 15:00:17 05/06/20 24 05/15/2024 HEPAT IC FUNCT ION PANEL ALT 16 U/L 6-29 normal Not Available [facility] [address], [place], [address], 05/15/2024 15:00:17 05/06/20 24 05/15/2024 SED RATE BY MODIF IED WESTE RGREN sed rate by modified westergren 2 mm/h < or = 30 normal Not Available [facility] [address], [place], [address], 05/15/2024 15:00:18 05/06/20 24 05/15/2024 PERFECTO SCREE [...] infor mariela mcnair e refer to http: //[facility] cody montero.Que stDia gnost ics.c om/fa q/FAQ 177 (This link is being provi ded for infor liliana fernandes/ educa taryn l purpo ses only. ) Not Available [facility] [address], [place], [address], 05/15/2024 15:00:18 05/06/20 24 05/15/2024 PERFECTO SCREE N, IFA, W/REF L TITER AND PATTE RN PERFECTO titer 1:40 titer high A low level PERFECTO titer may be prese nt in pre-c linic al autoi mmune disea ses and jase l indiv idual s. Refer ence Range <1:40 Negat ming 1:40- 1:80 Low Antib sofie Level >1:80 [place] ty Antib sofie Level Not Available [facility] [address], [place], [address], 05/15/2024 15:00:18 05/06/20 24 05/15/2024 PERFECTO SCREE [...] Patte rns (http s://d oi.or g/10. 1515/ [facility]- 2017- 0052) Not Available [facility] [place] [facility] [address], [address], 05/15/2024 15:00:18 05/06/20 24 05/15/2024 SJOGR EN'S ANTIB ODIES (SS-A ,SS-B ) sjogren's antibody (ss-A) <1.0 NEG ai <1.0 neg normal Not Available [facility] [place] [facility] [address], [place], [address], 05/15/2024 15:00:19 05/06/20 24 05/15/2024 SJOGR EN'S ANTIB ODIES (SS-A ,SS-B ) sjogren's antibody (ss-B) <1.0 NEG ai <1.0 neg normal Not Available [facility] [place] [facility] [address], [address], 05/15/2024 15:00:19 05/06/20 24 05/15/2024 CYCLI C CITRU LLINA TY PEPTI DE (CCP) AB (IGG) cyclic citrullinate d peptide (ccp) Ab (IgG) <16 units normal Refer ence Range Negat ming: <20 Weak Posit ming: 20-39 Moder ate Posit ming: 40-59 Stron g Posit ming: >59 Not Available [facility] [place] [facility] [address], [address], 05/15/2024 15:00:19 05/06/20 24 05/15/2024 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 ) Not Available [facility] [place] [facility] [address], [place], [address], 05/15/2024 15:00:20 05/06/20 24 05/15/2024 TSH TSH 2.57 mIU/L 0.40-4 .50 normal Not Available [facility] [address] [place], [address], 05/15/2024 15:00:20 05/06/20 24 05/15/2024 APOLI POPRO [...] 2):1- 87. Not Available [facility] [address], [address], 05/15/2024 15:00:20 09/15/19 25 08/26/2024 US, carot id arter y No observ ation record ed. [facility] Not Available 2024 12:44:03 10/15/19 25 10/14/2024 stere otact ic breas t biops y (PROC ) No observ ation record ed. [facility] [address] [place], [address], 10/28/2024 19:33:36 Result Notes None recorded. Problems Name Problem SNOMED Code Status Onset Date Resolution Date Notes Provider Name and Address Organization Details Recorded Time Palpitat ions 72639672 Active PVCs Cecilio Mcnulty MD [address] [place], [address], [place] Cecilio Moore 3 11:19:24 Migraine 43824414 Active with aura, left sided pain Cecilio Mcnulty MD [address] [place] [address], [address], [place] Cecilio Moore 3 10:17:28 Hyperten sive disorder 38686371 Active Cecilio Mcnulty MD [address] [place] [address], [place], [address], [place] - Cecilio Mcnulty. 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 3 10:19:11 Low back pain 771774204 Active Cecilio Mcnulty MD [address] [place] [address], [place], [address], [place] - Cecilio Mcnulty. 3 10:20:07 Eczema 36106764 Active Cecilio Mcnulty MD [address] [place] [address], [place], [address], [place] - Cecilio Mcnulty. 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 4 18:12:16 Fibromya lgia 320974684 Active Cecilio Mcnulty MD [address] [place] [address], [place], [address], [place] - [place], Cecilio D. 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 Right breast biopsy schedule d for 10/14/2024 . Cecilio Mcnulty MD [address] [place], [address], [place] Cecilio Moore 13:08:06 Problem Notes None recorded. Procedures Surgical History Date Name Laterality Status Provider Name and Address Organization Details Recorded Time 10/14/19 25 stereotactically guided core needle biopsy completed Cecilio Mcnulty MD [address] [place], [address], Cecilio Moore 10/28/2024 19:33:22 10/30/19 24 JULITO CORTES completed Cecilio Mcnulty MD [address] [place], [address], Cecilio Moore 10/29/2023 18:49:30 08/08/20 23 comprehensive eye examination completed Cecilio Martinez 10/17/2023 12:51:20 01/07/20 23 Dental prophylaxis adult completed Cecilio Martinez 10/17/2023 12:51:47 11/07/19 23 Most Recent Mammogram completed Cecilio Coronado 02/20/2023 10:07:11 05/09/20 22 Date of Last Pap Smear completed Cecilio Coronado 02/20/2023 10:07:45 12/19/19 22 Dxa bone density yasir vrt fx completed Cecilio Coronado 10/31/2023 09:53:28 09/08/19 05 Pipe Fitter Maintenance Surgery completed Cecilio Coronado 02/20/2023 08:59:01 09/08/19 00 Breast Biopsy completed Cecilio Coronado 02/20/2023 08:57:33 09/08/18 99 cholecystectomy completed Cecilio Okeefe 02/20/2023 08:58:22 Imaging Results Imaging Date Name Status LastModified by Organization Details LastModified Time 08/26/2024 US, carotid artery completed phong Information not available 10/06/2024 12:44:03 10/14/2024 stereotactic breast biopsy (PROC) completed [facility] [address] [facility], [place], [address], 10/28/2024 19:33:36 Procedure Notes None recorded. Medical [...] low 02/20/2023 2670 RxNorm Cecilio Mcnulty MD [address] [place] [address], [address], [place] Cecilio Moore 3 10:36:38 3654 cyclobenz aprine hydrochlo ride medicatio n hives Not available low 02/20/2023 73708 RxNorm Cecilio Mcnulty MD [address] [place] [address], [address], [place] Cecilio Moore 3 10:36:45 3655 hydrochlo rothiazid e medicatio n vomiting Not available low 02/20/2023 5487 RxNorm Cecilio Mcnulty MD [address] [place] [address], [address], Cecilio Moore 3 10:37:08 5070 iodine [...] Not Available amlodipin e 5 mg tablet Take 1 tablet every day by oral route. 2024 active Not Available Not Available Not Avai lable acyclovir 400 mg tablet TAKE 1 TABLET [...] Available triamcino lone acetonide 0.1 % topical ointment APPLY A THIN LAYER TO THE AFFECTED AREA(S) BY TOPICAL ROUTE 2 TIMES PER DAY NEEDED 2024 active Not Available Not Available Not Avai lable fluoromet holone 0.1 % eye drops,ivonne pension INSTILL 1 DROP INTO BOTH EYES 4 TIMES A DAY FOR 5 DAYS THEN STOP active Not Available Not Available No t Available gabapenti n 300 mg capsule 1 environmental maintenance worker qpm 02/20 completed Not Available Not Available Not Available mupirocin 2 % topical ointment APPLY TO AFFECTED AREA TWICE A DAY FOR 10 DAYS 05/19 completed Not Available Not Available Not Available gabapenti n 100 mg capsule 1 environmental maintenance worker qam 02/20 completed Not Available Not Available Not Available clobetaso l 0.05 % topical ointment 02/20 completed Not Available Not Available Not Available estradiol 0.01% (0.1 mg/gram) vaginal cream PLACE 0.5 GRAMS INTO THE VAGINA AT BEDTIME TWICE WEEKLY active Not Available Not Available No t Available atenolol 50 mg tablet Take 1 tablet twice a day by oral route. 2024 active Not Available Not Available Not Avai lable azithromy ashli 500 mg tablet 02/15 completed [...] Available Not Available Eysuvis 0.25 % eye drops,[facility] LOCATION : BOTH EYES. ONE DROP FOUR TIMES DAILY FOR 2 WEEKS THEN TWICE DAILY FOR 2 WEEKS THEN STOP 02/15 completed Not Available Not Available Not Available Dickson-V Benefits 1,220 mg-330 mg-670 mg/5 mL oral [...] Updated DateTime 4 170.18 cm 32.4 kg/m2 98176.6 2 g 98.7 [degF] 68 /min 97 % 97 % Cecilio Martinez 4 14:27:41 Date Recorded Systolic blood pressure Diastolic blood pressure Provider Name and Address Organization Details Last Updated DateTime 02/16/2024 135 mm[Hg] 76 mm[Hg] Cecilio Mcnulty MD [address] [place], [address], Cecilio Moore 02/16/2024 15:01:14 Date Recorded Body height Body mass index (BMI) Body weight Body temperature Heart rate Oxygen saturation Oxygen saturation in Arterial blood by Pulse oximetry Respiratory rate Provider Name and Address Organization Details Last Updated DateTime 4 170.18 cm 32.7 kg/m2 71874.8 1 g 98.1 [degF] 63 /min 98 % 98 % 16 /min Nasreen Baugh Cecilio Moore 4 08:45:19 Date Recorded Systolic blood pressure Diastolic blood pressure Provider Name and Address Organization Details Last Updated DateTime 04/30/2024 128 mm[Hg] 80 mm[Hg] Cecilio Mcnulty MD [address] [place] [address], [phone], Cecilio Moore 04/30/2024 16:53:33 Date Recorded Body height Body mass index (BMI) Body weight Body temperature Heart rate Oxygen saturation Oxygen saturation in Arterial blood by Pulse oximetry Provider Name and Address Organization Details Last Updated DateTime 4 170.18 cm 32.9 kg/m2 91709.4 g 97.4 [degF] 64 /min 99 % 99 % Cecilio Martinez 4 14:04:09 Date Recorded Systolic blood pressure Diastolic blood pressure Provider Name and Address Organization Details Last Updated DateTime 05/19/2024 136 mm[Hg] 80 mm[Hg] Cecilio Mcnulty MD [address] [place] [address], [phone], Cecilio Moore 05/19/2024 14:35:08 Date Recorded Body height Body mass index (BMI) Body weight Body temperature Heart rate Oxygen saturation Oxygen saturation in Arterial blood by Pulse oximetry Respiratory rate Provider Name and Address Organization Details Last Updated DateTime 5 170.18 cm 32.4 kg/m2 07542.6 2 g 98.5 [degF] 64 /min 98 % 98 % 14 /min Cecilio Martinez 11:13:51 Social History Question Answer Notes LastModified by [employer] Details LastModified Time Tobacco Smoking Status Never Smoker DEN Fu Ian D. 02/20/2023 08:52:45 What Is Your Level Of Alcohol Consumption? None [email or web address] Information not available 02/20/2023 What Is Your Level Of Caffeine Consumption? None Information not available 02/20/2023 What Type Of Diet Are You Following? REGULAR [email or web address] Information not available 02/20/2023 What Was The Date Of Your Most Recent Tobacco Screening? 10/06/2024 [email or web address] Information not available 10/06/2024 Do You Use Any Illicit Or Recreational Drugs? No [email or web address] Information not available 02/20/2023 Has Tobacco Cessation Counseling Been Provided? No Information not available 02/20/2023 Do You Or Have You Ever Used Any Other Forms Of Tobacco Or Nicotine? No [email or web address] Information not available 02/20/2023 Sex: Unknown Functional Status Question Answer Note LastModified by [employer] Details LastModified Time What is your exercise level? Occasional Walks twice a week [email or web address] Information not available 02/20/2023 Mental Status None [...] Unspecified Relation Family history of headache disorder Not available 2022 08:13:42 Maternal Uncle Family history of Glaucoma [email or web address] available 2022 10:35:20 Father Malignant tumor of lung phong Not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
== END 2024-11-16 11:34 | disposition home or self-care (01) ==
LOC: HO.HMCC 10:03
PROVIDERS: PCP Internal Medicine; Visit Provider Internal Medicine
DX: I25.10 Atherosclerotic heart disease of native coronary artery without angina pectoris (principal); E78.5 Hyperlipidemia, unspecified; I10 Essential (primary) hypertension; G43.909 Migraine, unspecified, not intractable, without status migrainosus

== ENCOUNTER → 2024-11-16 10:02 | Outpatient (BNVA) | payer OTHER, SELFPAY | PROVIDERS: PCP Internal Medicine; Visit Provider Internal Medicine | DX: I25.10 Atherosclerotic heart disease of native coronary artery without angina pectoris (principal); E78.5 Hyperlipidemia, unspecified; I10 Essential (primary) hypertension; G43.909 Migraine, unspecified, not intractable, without status migrainosus; Z79.82 Long term (current) use of aspirin; Z79.899 Other long term (current) drug therapy | CPT/HCPCS: 96127 ==

== ENCOUNTER 2025-04-06 12:17 | Outpatient (AMB) | payer OTHER, SELFPAY ==
[2025-04-06 12:43] VITALS: BP 122/62; PULSE 59; BMI 31.4
--- NOTE | 2025-04-06 12:43 | MHC.OFFVIS ---
Vital Signs 04/06/25 12:43 Height 5 ft 7 in Weight 200 lb 9.93 oz BMI 31.4 BP 122/62 Blood Pressure Location Lt brachial Position Sitting Pulse 59 Pulse Source Monitor Intake Visit Reasons: 1 yr f/up Allergies caffeine Allergy (Severe, Verified 11/16/24 11:15) Palpitations cyclobenzaprine (From Flexeril) Allergy (Severe, Verified 11/16/24 11:15) Hives iodine Allergy (Severe, Verified 11/16/24 11:15) Hives Beef Containing Products Allergy (Intermediate, Verified 11/16/24 11:15) Itching, wheezing iodine Allergy (Severe, Uncoded 11/16/24 11:15) hives codone Allergy (Intermediate, Uncoded 11/16/24 11:15) Stomach Upset Medication List - Last Reconciled 04/06/25 by Ajit Singh MD acetaminophen (Tylenol Extra Strength) 1,000 mg PO Q6H PRN amlodipine 5 mg PO DAILY aspirin (Adult Aspirin Regimen) 81 mg PO DAILY atenolol 50 mg PO BID biotin 1,000 mcg PO DAILY cholecalciferol (vitamin D3) 25 mcg PO DAILY coQ10 (ubiquinol) 200 mg PO DAILY estradiol 0.01%(0.1mg/gram) vaginal flaxseed oil 1,000 mg PO DAILY fluorometholone 0.1% drps ophthalmic (eye) lifitegrast 5% (Xiidra) drps ophthalmic (eye) magnesium citrate,mag oxide mg PO ln-vq-tl2-aez-hnk-jtft-lut-titi 250 mg (90 mg-160 mg) (Ocuvite Adult 50 Plus) 1 cap PO DAILY naproxen sodium (Aleve) 220 mg PO BID PRN vcliu-5a-lfp-epa-fish oil-D3 667 mg (280 mg- 280 mg-107 mg) (Cardio [place] Benefits) caps PO omeprazole magnesium (Prilosec OTC) 20 mg PO DAILY PRN [PRNFish oil 5 mL PO DAILY] pseudoephedrine HCl ER (Sudafed 12 Hour) 120 mg PO Q12H PRN rosuvastatin 20 mg PO ONCE triamcinolone acetonide 0.1% 1 appl topical BID-TID vitamin B complex (B Complex-Vitamin B12 tablet) 1 tab PO DAILY HPI Comments Details: Ivonne returns for follow-up. In the past, she was seen in consultation regarding palpitations and PVCs. She states that she was living in [place] and saw cardiology as well as EP there. As her family is from this area, she has moved locally. She states she saw somebody in [facility] once and had a calcium scoring CT scan but did not follow-up. She would like to switch her care to [facility] for convenience. She states that she is doing well. No cardiac symptoms. According to her, he has had PVCs for a long time going back several decades. For that, she takes beta-blockers. [facility] Medical History (Updated 11/22/24 @ 00:36 by aNsreen Luis MD) Calcification of right breast Atherosclerotic cardiovascular disease Lower back pain Migraine Hyperlipidemia Hypertension Surgical History (Updated 11/16/24 @ 11:25 by Nasreen Luis MD) History of colonoscopy with polypectomy Hx of surgical procedure S/P anal fissurectomy Hx of cholecystectomy History of breast biopsy Family History Family/Other Substance use disorder Maternal Aunt Ovarian cancer Other Lung cancer Stomach cancer Social History Housing: House Patient Tobacco Use Status: Former Tobacco user e-Cigarette/Vaping Use: Never Used Second Hand Smoke Exposure: No service: No Current occupational status: retired Cognitive needs: No Hearing needs: No Vision needs: Yes Female Reproductive History Menstrual Age of Menarche: 14 Review of Systems Const Denies weakness ENT Denies dizziness Card Denies chest pain, Denies chest pain with activity, Denies syncope, Denies rapid heart rate, Denies pedal edema, Denies edema, Denies leg edema, Denies lightheadedness, Denies palpitations, Denies dyspnea, Denies dyspnea on exertion and Denies orthopnea Resp Denies cough, Denies dyspnea and Denies dyspnea on exertion GI Denies hematochezia and Denies change in stool character Musc Denies abnormal gait, Denies muscle cramps, Denies muscle weakness, Denies numbness, Denies radiating pain into limb and Denies tingling Neuro Denies abnormal gait, Denies dizziness, Denies syncope, Denies numbness, Denies tingling and Denies weakness Endo Denies palpitations Physical Exam Vital Signs: Last Vital Signs Pulse 59 04/06/25 12:43 BP 122/62 04/06/25 12:43 BMI result Body Mass Index 31.4 Const General: comfortable and no acute distress Orientation/consciousness: patient oriented x3 HEENT Other: Unremarkable Head: Yes normal to inspection Neck Neck: Yes normal visual inspection Chest Chest palpation & inspection: normal inspection of the chest Resp Auscultation: clear to auscultation bilaterally Cardio Palpation: normal PMI Heart sounds: S1 normal heart sound present, S2 normal heart sound present, no gallops, no murmurs and no rubs GI Palpation (GI): Soft to palpation Back/Spine/Pelvis Other: unremarkable Skin General skin exam: no rashes or lesions noted Neuro General: patient oriented x3 Extrem Other: Trace General: Yes normal to inspection Psych Mental Status: mental status grossly normal Office Procedures EKG Details: EKG with underlying sinus rhythm at 59/Min; no ischemic changes; [place]. [address]-[id number], Complete Assessment & Plan Assessment & Plan (1) Atherosclerotic cardiovascular disease: Code(s): I25.10 - Atherosclerotic heart disease of [place] coronary artery without angina pectoris Category: Medical Plan: In the calcium scoring CT scan from June 2023, total score was 90. All of it is in the LAD. Patient has a private physician in [place] (not PCP) who apparently frequently checks on her lipids and also manages her statins. According to the labs she has brought, LDL is 68 mg/dL. High sensitive CRP 0.4, within range. Apolipoprotein B is also within range. Overall, seem optimal. (2) PVC (premature ventricular contraction): Code(s): I49.3 - Ventricular premature depolarization Category: Medical Plan: Echocardiogram with LVEF of 55-60%; no significant valvular findings. In the Holter, underlying rhythm is sinus with an average rate of 67/Min. Rare supraventricular and ventricular ectopy with minimal burden. Overall, very low burden and with normal LVEF no specific management. She is already on beta-blockers that may can be continued. (3) PAC (premature atrial contraction): Code(s): I49.1 - Atrial premature depolarization Category: Medical Plan: Beta-blockers as above. Plan Total time spent including review of outside records, counseling, documentation, coordination of care 31 minutes. Medications: Changed From pseudoephedrine HCl ER (Sudafed 12 Hour) 120 mg PO Q12H 30 tabs 0RF J01.90 - Acute sinusitis, unspecified To pseudoephedrine HCl ER (Sudafed 12 Hour) 120 mg PO Q12H PRN J01.90 - Acute sinusitis, unspecified Coding Level of Care Code Est Pt Level 4 (01725) Diagnoses Atherosclerotic cardiovascular disease I25.10 PVC (premature ventricular contraction) I49.3 PAC (premature atrial contraction) I49.1 CPT Codes EKG - CPT: 28940-[id number], Complete ([id number])
--- OUTSIDE RECORDS SUMMARY | 2025-04-06 12:59 | XMS_ITS | Patient Health Record ---
Author Organization [facility] [address] Address [address] [place] [address] Care Team Providers Care User Experience Team Lead Name Role Phone Gonzalez Nieves Primary Care Provider Unavailabl Jakub Quinn Unavailable [phone] [facility] [place] Unavailable U navailable Allergies Allergen (clinical drug ingredient) Drug/Non Drug Allergy documented on EMR Reaction Allergy Type Onset Date Status caffeine Caffeine palpitations Drug Allergy Acti ve Flexeril hives Drug Allergy Active codeine Codeine stomach upset Drug Allergy Act ming Reason For Referral No Information Medications Medication SIG (Take, Route, Frequency, Duration) Notes Start Date End Date Status Estrace 0.1 MG/GM Cream as directed Vaginal Active Naproxen 250 MG Tablet 1 tablet with danica d or milk Orally Twice a day; Duration: 90 days OTC Active Gabapentin 300 MG Capsule 1-2 capsules Orally once a day; Duration: 90 days Active Amitriptyline HCl 10 MG Tablet 1 tablet at bedtime Orally Once a day Active Rosuvastatin Calcium 20 MG Tablet 1 tablet Orally twice a week Active Atenolol 50 MG Tablet 1 tablet Orally twice a day Active amLODIPine Besylate 2.5 MG Tablet 1 tablet Orally Once a day Active Gabapentin 100 MG Capsule 1 capsule Orally QAM; Duration: 90 days patient to take 100 mg during daytime and continue 300 mg in evening 03/20/2022 Active SUMAtriptan Succinate 25 MG Tablet 1 tablet at least 2 hours between doses as needed Orally prn Active Restasis Multidose A ctive Triamcinolone & Emollient Active Social History Social History General Social Info Question Answer Notes Opioid Risk Tool Family history of substance abuse? No Age (kyle box if 16-45)? No History of preadolescent sexual abuse? No Psychological disease? No Alcohol Screening Did you have a drink containing alco hol in the past year? No Points 0 Interpretation Negative Problems Problem Type SNOMED Code ICD Code Onset Dates Problem Status W/U Status Risk Notes Problem Lumbosacral spondylosis without myelopathy (76397243) Other spondylosis, lumbar region (M47.896) Active confirmed Problem Low Back Pain (M54.5) Active confirmed Problem Lumbar radiculopathy (695687825) Radiculopathy, lumbar region (M54.16) Active confirmed Problem Long-term current use of drug therapy (326920464) Other intermediate (current) drug therapy (Z79.899) Active confirmed Problem Low back pain (944111136) Low back pain, unspecified (M54.50) Active confirmed Plan Of Treatment No Information Insurance Providers Payer Name Payer Address Payer Phone Subscriber Number Group Number Insured Name Patient Relationship to Insured Coverage Start Date Coverage End Date [employer] Commercial [address] [address] [facility]ly [facility] [place] [address] [id number] Ivonne Jimenez Self - patient is [...]
== END 2025-04-06 13:09 | disposition home or self-care (01) ==
LOC: HO.HCS 12:17
PROVIDERS: PCP Internal Medicine; Visit Provider Internal Medicine
DX: I25.10 Atherosclerotic heart disease of native coronary artery without angina pectoris (principal); I49.3 Ventricular premature depolarization; I49.1 Atrial premature depolarization
CPT/HCPCS: 93010; 99214

== ENCOUNTER → 2025-04-06 12:17 | Outpatient (BNVA) | payer OTHER, SELFPAY | PROVIDERS: PCP Internal Medicine; Visit Provider Internal Medicine | DX: I25.10 Atherosclerotic heart disease of native coronary artery without angina pectoris (principal) | CPT/HCPCS: 93005 ==

== ENCOUNTER 2025-04-18 14:37 | Outpatient (AMB) | payer OTHER, SELFPAY ==
--- NOTE | 2025-04-18 14:59 | A.OFFVIS_ITS ---
Vital Signs 04/18/25 15:06 Height 5 ft 7 in Weight 205 lb BMI 32.1 BP 127/57 L Blood Pressure Location Rt brachial Position Sitting Pulse 66 Intake Visit Reasons: pain right breast s/p biopsy due for US Intake Note: Patient scheduled today's visit c/o pain at stero bx site on Rt breast. Patient c/o: consistent sharp pain at bx site. Rt br st bx/ [facility]: 10-14-2024 Card Fixer Required: No Accompanied by: Self / Same As Patient Allergies caffeine Allergy (Severe, Verified 04/18/25 15:04) Palpitations cyclobenzaprine (From Flexeril) Allergy (Severe, Verified 04/18/25 15:04) Hives iodine Allergy (Severe, Verified 04/18/25 15:04) Hives Beef Containing Products Allergy (Intermediate, Verified 04/18/25 15:04) Itching, wheezing iodine Allergy (Severe, Uncoded 04/18/25 15:04) hives codone Allergy (Intermediate, Uncoded 04/18/25 15:04) Stomach Upset Medication List - Last Reconciled 04/18/25 by Hilton Stephenson MD acetaminophen (Tylenol Extra Strength) 1,000 mg PO Q6H PRN amlodipine 5 mg PO DAILY aspirin (Adult Aspirin Regimen) 81 mg PO DAILY atenolol 50 mg PO BID biotin 1,000 mcg PO DAILY cholecalciferol (vitamin D3) 25 mcg PO DAILY coQ10 (ubiquinol) 200 mg PO DAILY estradiol 0.01%(0.1mg/gram) vaginal flaxseed oil 1,000 mg PO DAILY fluorometholone 0.1% drps ophthalmic (eye) lifitegrast 5% (Xiidra) drps ophthalmic (eye) magnesium citrate,mag oxide mg PO wd-yq-gt2-weg-yyv-owmt-lut-titi 250 mg (90 mg-160 mg) (Ocuvite Adult 50 Plus) 1 cap PO DAILY naproxen sodium (Aleve) 220 mg PO BID PRN avvyn-4r-jcd-epa-fish oil-D3 667 mg (280 mg- 280 mg-107 mg) (Cardio [place] Benefits) caps PO omeprazole magnesium (Prilosec OTC) 20 mg PO DAILY PRN [PRNFish oil 5 mL PO DAILY] pseudoephedrine HCl ER (Sudafed 12 Hour) 120 mg PO Q12H PRN rosuvastatin 20 mg PO ONCE triamcinolone acetonide 0.1% 1 appl topical BID-TID vitamin B complex (B Complex-Vitamin B12 tablet) 1 tab PO DAILY HPI HPI pain right breast s/p biopsy due for US: Details: She had stereotactic biopsy for a right breast mass last October,. She says that since that time, she has been having this periodic sharp pain on the right breast around the area of the biopsy. She denies any nipple or skin changes. She denies any palpable mass The biopsy was benign at that time. [facility] Medical History (Updated 04/18/25 @ 15:29 by Hilton Stephenson MD) Breast pain Calcification of right breast Atherosclerotic cardiovascular disease Lower back pain Migraine Hyperlipidemia Hypertension Surgical History History of colonoscopy with polypectomy Hx of surgical procedure S/P anal fissurectomy Hx of cholecystectomy History of breast biopsy Family History Family/Other Substance use disorder Maternal Aunt Ovarian cancer Other Lung cancer Stomach cancer Social History Housing: House Patient Tobacco Use Status: Former Tobacco user e-Cigarette/Vaping Use: Never Used Second Hand Smoke Exposure: No service: No Current occupational status: retired Cognitive needs: No Hearing needs: No Vision needs: Yes Female Reproductive History Menstrual Age of Menarche: 14 Review of Systems Const Denies chills and Denies fever(s) Card Denies chest pain, Denies dyspnea and Denies dyspnea on exertion Resp Denies cough, Denies dyspnea and Denies dyspnea on exertion GI Denies hematochezia and Denies change in bowel habits Denies hematuria Musc Denies back pain and Denies limited range of motion Neuro Denies focal weakness and Denies convulsions Psych Denies depression and Denies mood swings Physical Exam Vital Signs: Last Vital Signs Pulse 66 04/18/25 15:06 BP 127/57 L 04/18/25 15:06 BMI result Body Mass Index 32.1 Const General: comfortable and no acute distress Chest Other: No palpable breast masses, no nipple or skin changes, no axillary lymphadenopathy Resp Effort & Inspection: normal respiratory effort Assessment & Plan Assessment & Plan (1) Breast pain: Code(s): N64.4 - Mastodynia Category: Medical Plan: She describes periodic pain on the right breast since she had the stereotactic biopsy last October,. Current exam does not suggest any pathology I did tell her that this is not unusual for a stereotactic biopsy has a large si ze needle is used. She is scheduled to have another mammogram in August 2025 so I would has proceed with this. I told her that I would hold off on imaging study prior to that for now. I did tell her that if she problems or concerns before August, she should come back to the office to be re-evaluated. She seems to be very comfortable with the plan. Coding Level of Care Code Est Pt Level 3 (41768) Diagnoses Breast pain N64.4
--- OUTSIDE RECORDS SUMMARY | 2025-04-18 15:03 | XMS_ITS | Patient Health Record ---
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 Role Phone Gonzalez Nieves Primary Care Provider Unavailabl Jakub Quinn Unavailable [phone] [facility] [place] Unavailable U navailable Allergies Allergen (clinical drug [...] Risk Notes Problem Lumbosacral spondylosis without myelopathy (33260565) Other spondylosis, lumbar region (M47.896) Active confirmed Problem Low back pain (069823960) Low Back Pain (M54.5) Active confirmed Problem Lumbar radiculopathy (323101598) Radiculopathy, lumbar region (M54.16) Active confirmed Problem Long-term current use of drug therapy (472936962) 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
[2025-04-18 15:06] VITALS: BP 127/57; PULSE 66; BMI 32.1
== END 2025-04-18 15:21 | disposition home or self-care (01) ==
LOC: HO.HGS 14:38
PROVIDERS: PCP Internal Medicine; Visit Provider Surgery
DX: N64.4 Mastodynia (principal)
CPT/HCPCS: 99213

== ENCOUNTER 2025-07-22 10:54 | Outpatient (REF) | payer MEDICARE, SELFPAY ==
[2025-07-22 13:12] LABS: MANUAL DIFF FLAG NO
[2025-07-22 13:24] LABS: Hematocrit 49.6 % (37.0-47.0); Hemoglobin 16.1 g/dl (12.0-16.0); Imm Gran Abs Auto 0.02 X10*3/uL (0.00-0.03); Imm Gran Pct Auto 0.4 % (0.0-0.4); Lymphocytes Absolute Auto 1.7 X10*3/uL (1.2-4.9); Mean Corpuscular HGB Conc 32.5 g/dl (31.0-35.0); Mean Corpuscular Hemoglobin 29.5 pg (27.0-33.0); Mean Corpuscular Volume 91.0 fL (80.0-98.0); NRBC Abs Auto 0.000 X10*3/uL (0.0-0.012); NRBC Pct Auto 0.0 /100WBC (0.0-0.2); Platelet Count 205 X10*3/uL (160-400); Red Blood Count 5.45 X10*6/uL (4.20-5.50); White Blood Count 5.3 X10*3/uL (4.8-10.8)
[2025-07-22 13:46] LABS: Alanine Aminotransferase 18 U/L (0-31); Albumin Level 4.1 g/dL (3.5-5.0); Alkaline Phosphatase 81 U/L (39-117); Anion Gap 12 (12-20); Aspartate Amino Transferase 33 U/L (5-31); Blood Urea Nitrogen 19 mg/dL (9-16); Calcium 9.4 mg/dL (8.4-10.2); Carbon Dioxide 27 mmol/L (22-29); Chloride 108 mmol/L (96-108); Cholesterol 128 mg/dL (<200); Estimated Glomerular Filt Rate 58; HDL Cholesterol 40 mg/dL (>40); Potassium 4.3 mmol/L (3.3-5.1); Sodium 143 mmol/L (135-145); Total Protein 7.1 g/dL (6.5-8.0); Triglycerides 74 mg/dL (<150)
[2025-07-22 14:30] LABS: Folate 13.4 ng/mL (> or = 4.0); Vitamin B12 852 pg/mL (200-900)
== END 2025-07-22 10:55 | disposition home or self-care (01) ==
LOC: HO.HMGCLDS 10:54
PROVIDERS: PCP Internal Medicine; Visit Provider Internal Medicine
DX: I10 Essential (primary) hypertension (principal); I25.10 Atherosclerotic heart disease of native coronary artery without angina pectoris; R00.2 Palpitations; E78.5 Hyperlipidemia, unspecified; G43.909 Migraine, unspecified, not intractable, without status migrainosus; Z78.0 Asymptomatic menopausal state
CPT/HCPCS: 36415; 80053; 80061; 82306; 82607; 82746; 85025

== ENCOUNTER 2025-07-27 13:46 | Outpatient (AMB) | payer OTHER, SELFPAY ==
[2025-07-27 13:52] VITALS: BP 114/72; PULSE 66; RESP 16; TEMP 36.7; O2SAT 100; BMI 32.1
--- NOTE | 2025-07-27 13:52 | MHC.PC.OV ---
Vital Signs 07/27/25 13:52 Height 5 ft 7 in Weight 205 lb BMI 32.1 BP 114/72 Blood Pressure Location Rt brachial Position Sitting Respiration 16 Pulse 66 Pulse Source Pulse Oximeter Temp 98.1 F Temp Source Oral Pulse Oximetry (%) 100 Oxygen Delivery Method Room Air Intake Visit Reasons: RUQ abd pain Intake Note: Pt is here today c/o RUQ pain where she used to have her gallbladder x1week ago Allergies caffeine Allergy (Severe, Verified 07/27/25 14:09) Palpitations cyclobenzaprine (From Flexeril) Allergy (Severe, Verified 07/27/25 14:09) Hives iodine Allergy (Severe, Verified 07/27/25 14:09) Hives Beef Containing Products Allergy (Intermediate, Verified 07/27/25 14:09) Itching, wheezing iodine Allergy (Severe, Uncoded 07/27/25 14:09) hives codone Allergy (Intermediate, Uncoded 07/27/25 14:09) Stomach Upset Medication List - Last Reconciled 07/27/25 by Nasreen Luis MD acetaminophen (Tylenol Extra Strength) 1,000 mg PO Q6H PRN amlodipine 5 mg PO DAILY aspirin (Adult Aspirin Regimen) 81 mg PO DAILY atenolol 50 mg PO BID biotin 1,000 mcg PO DAILY cholecalciferol (vitamin D3) 25 mcg PO DAILY coQ10 (ubiquinol) 200 mg PO DAILY estradiol 0.01%(0.1mg/gram) vaginal flaxseed oil 1,000 mg PO DAILY magnesium citrate,mag oxide mg PO naproxen sodium (Aleve) 220 mg PO BID PRN [id number] oil-D3 667 mg (280 mg- 280 mg-107 mg) (Cardio [place] Benefits) caps PO [PRNFish oil 5 mL PO DAILY] pseudoephedrine HCl ER (Sudafed 12 Hour) 120 mg PO Q12H PRN rosuvastatin 20 mg PO ONCE triamcinolone acetonide 0.1% 1 appl topical BID-TID vitamin B complex (B Complex-Vitamin B12 tablet) 1 tab PO DAILY Tobacco use date assessed: 07/27/25 Fall risk assessment: 1 Fall in past year Last assessed Fall Risk: 07/27/25 Dental Screening Dental Screen Date: 07/27/25 Did you have a dental visit in the last 12 months?: Yes Did you have a dental problem in the last 6 months where you did not have access to dental care?: No Was dental information given to patient?: Patient has dentist HPI RUQ abd pain HPI Details The patient is a 70-year-old female presenting with complaints of abdominal pain and numbness in her feet. The patient reports a sharp, stabbing pain in the right upper quadrant that radiates to her back, which feels very similar to the pain she experienced before her gallbladder surgery over 20 years ago. The pain is not triggered by food. She also has a history of GERD. The patient has an ongoing issue with numbness in both feet, which is worse in the right foot and now causing difficulty with ambulation. She has been diagnosed with profound pes planus, arthritis, and plantar fasciitis by a equity analyst. A prior nerve conduction study resulted in a diagnosis of idiopathic neuropathy. She also experiences stabbing lower back pain when bending over, and a shooting pain that travels down her right leg to the ankle. She has a known history of lumbar stenosis and disc issues at L4-L5. She has undergone physical therapy, including recently at [facility] [place], without improvement. Her symptoms of numbness worsen with compression stockings. The patient's medical history is also significant for alpha-gal syndrome, an allergy to beef, which developed after a tick bite in [place]. Exposure to beef causes wheezing and breathing difficulties. She was treated with tetracycline for one month following the tick bite. [facility] Medical History (Updated 08/07/25 @ 21:17 by Nasreen Luis MD) Alpha-gal syndrome Lumbosacral radiculopathy due to degenerative joint disease of spine Pes planus of both feet Burning sensation of feet Breast pain Calcification of right breast Atherosclerotic cardiovascular disease Lower back pain Migraine Hyperlipidemia Hypertension Surgical History History of colonoscopy with polypectomy Hx of surgical procedure S/P anal fissurectomy Hx of cholecystectomy History of breast biopsy Family History Family/Other Substance use disorder Maternal Aunt Ovarian cancer Other Lung cancer Stomach cancer Social History Housing: House Patient Tobacco Use Status: Former Tobacco user e-Cigarette/Vaping Use: Never Used Second Hand Smoke Exposure: No service: No Current occupational status: retired Cognitive needs: No Hearing needs: No Vision needs: Yes Female Reproductive History Menstrual Age of Menarche: 14 Questionnaire PHQ-9 Over the last 2 weeks, how often have you been bothered by any of the following problems? 1. Little interest or pleasure in doing things: not at all 2. Feeling down, depressed, or hopeless: not at all 3. Trouble falling or staying asleep, or sleeping too much: not at all 4. Feeling tired or having little energy: not at all 5. Poor appetite or overeating: not at all 6. Feeling bad about yourself - or that you are a failure or have let yourself or your family down: not at all 7. Trouble concentrating on things, such as reading the newspaper or watching television: not at all 8. Moving or speaking so slowly that other people could have noticed. Or the opposite - being so fidgety or restless that you have been moving around a lot more than usual: not at all 9. Thoughts that you would be better off or of hurting yourself in some way: not at all Total score: 0 Depression Screening Interpretation: Negative Depression Screening Done: Yes Source: Developed by Drs. Lauro Henry, Dyana Adam, Juan C Roland and colleagues, with an educational torey from [employer]. Thrive Questionnaire Date Thrive assessed: 11/09/24 I am a: Patient What is your living situation today?: I have a steady place to live Within the past 12 months, did the food you bought not last and you didn't have the money to get more?: Never true Within the past 12 months, did you worry whether your food would run out before you got money to buy more?: Never true Do you have trouble paying for medicines?: No Do you have trouble getting transportation to medical appointments?: No Do you have trouble paying your heating and electricity bill?: No Do you have trouble taking care of your child, family member or friend?: No Do you have trouble with day-to-day activities such as bathing, preparing meals, shopping, managing finances, etc.?: No Are you currently unemployed and looking for a job?: No Are you interested in more education?: No Please select the resources that you would like help with: None Currently or been in a relationship where the following occur: No concerns reported THRIVE Score: 0 AUDIT C Alcohol Use Questionnaire (AUDIT-C) 2. How many drinks containing alcohol do you have on a typical day when you are drinking?: 1 or 2 Total Score: 0 RADHA-7 AMB Questionnaire RADHA-7 Date RADHA - 7 assessed: 11/16/24 Feeling nervous, anxious, or on edge: 0 = Not at all Not being able to stop or control worryin = Not at all Worrying too much about different things: 0 = Not at all Trouble relaxin = Not at all Being so restless that it is hard to sit still: 0 = Not at all Becoming easily annoyed or irritable: 0 = Not at all Feeling afraid as if something awful might happen: 0 = Not at all Total RADHA-7 score (0-4 normal; 5-9 mild; 10-14 moderate; 15-21 severe): 0 Source: Developed by Drs. Lauro Henry, Dyana Adam, Juan C Roland and colleagues, with an educational torey from [employer]. Review of Systems Const All systems reviewed & are unremarkable except as noted in HPI and below Physical exam (Primary Care) Vital Signs: Last Vital Signs Temp 98.1 F 07/27/25 13:52 Pulse 66 07/27/25 13:52 Resp 16 07/27/25 13:52 BP 114/72 07/27/25 13:52 Pulse Ox 100 07/27/25 13:52 Oxygen Delivery Method Room Air 07/27/25 13:52 BMI result Body Mass Index 32.1 Tobacco/Smoking Status: Tobacco use Status Tobacco use date assessed 07/27/25 07/27/25 13:59 Patient Tobacco Use Status Former Tobacco user 07/27/25 13:59 e-Cigarette/Vaping Use Never Used 07/27/25 13:59 PHQ-9: PHQ-9 Score PHQ-9: Total score 0 07/27/25 14:11 Depression Screening Interpretation: Negative Thrive Assessment: Date of Thrive Assessment Date Thrive assessed 11/09/24 07/27/25 13:59 Currently or been in a relationship where the following occur: No concerns reported Const General: no acute distress and alert Orientation/consciousness: patient oriented x3 HENMT Ears: external ears normal, TM's normal bilaterally and EAC's normal General nose exam: Normal external nose present and No nasal discharge present Mouth: oropharynx normal and moist mucous membranes Eyes General: appearance normal, both eyes and all related structures Conjunctivae: conjunctivae normal Sclerae: sclerae normal Pupils: Equal, round and reactive pupils present EOM: EOMs intact bilaterally Neck Neck: Yes full ROM, Yes no lymphadenopathy and Yes supple Resp Effort & Inspection: normal respiratory effort and able to speak in complete sentences Auscultation: clear to auscultation bilaterally Cardio Rate: regular rate Rhythm: regular rhythm Heart sounds: S1 normal heart sound present and S2 normal heart sound present GI Palpation (GI): Soft to palpation, Tenderness to palpation present (GI) in the RUQ; Bledsoe's sign negative and no masses Auscultation: normal bowel sounds Back/Spine/Pelvis Back: No back tenderness Skin General skin exam: no rashes or lesions noted Neuro General: patient oriented x3, gait normal, tone normal, moves all extremities, Normal light touch and pain sensation and no focal motor deficits Cranial nerves: Yes CN's II-XII intact bilaterally and Yes Equal, round and reactive pupils present Cognition (Neuro): normal cognition Extrem Other: Positive Pes planus General: Yes full ROM, Yes no joint enlargement, Yes no clubbing, cyanosis or edema and Yes no calf tenderness Psych Appearance: grossly normal and well kempt Mental Status: mental status grossly normal Speech and movement: Normal speech and movement present Affect: normal affect Coding Level of Care Code Est Pt Level 4 (85203) Diagnoses Right upper quadrant abdominal pain R10.11 Burning sensation of feet R20.8 Pes planus of both feet M21.41; M21.42 Lumbosacral radiculopathy due to degenerative joint disease of spine M47.27 Assessment & Plan Assessment & Plan (1) Right upper quadrant abdominal pain: Code(s): R10.11 - Right upper quadrant pain (2) Burning sensation of feet: Code(s): R20.8 - Other disturbances of skin sensation Category: Medical (3) Pes planus of both feet: Code(s): M21.41 - Flat foot [pes planus] (acquired), right foot; M21.42 - Flat foot [pes planus] (acquired), left foot Category: Medical (4) Lumbosacral radiculopathy due to degenerative joint disease of spine: Code(s): M47.27 - Other spondylosis with radiculopathy, lumbosacral region Category: Medical Plan 1. Abdominal pain The patient presents with sharp, stabbing right upper quadrant pain similar to her pre-cholecystectomy symptoms. Given her history of GERD and the nature of the pain, differential diagnoses include gastritis or retained bile duct stones. A trial of omeprazole 20mg once a day, one hour before eating, for four weeks will be initiated. The patient was counseled to avoid fatty foods. If symptoms do not improve, a HIDA scan will be ordered. 2. Peripheral neuropathy and lumbar radiculopathy The patient reports progressive bilateral foot numbness, poor balance, a history of idiopathic neuropathy, and right-sided sciatica. Physical exam is notable for profound pes planus and absent ankle reflexes, with possible tarsal tunnel syndrome contributing to her foot symptoms. A lumbar MRI will be ordered to evaluate her known lumbar stenosis and rule out significant radiculopathy. No improvement with the physical therapy A referral will be placed for a podiatry consultation for a second opinion and further evaluation of her foot issues. Patient was informed and verbally consented to the use of an ambient scribe for clinic note documentation during this visit. Orders: Orders MR lumbar spine wo con 07/27/25 M47.27 - Other spondylosis with radiculopathy, lumbosacral region Referrals Podiatry Referral R20.8 - Other disturbances of skin sensation, M21.41 - Flat foot [pes planus] (acquired), right foot, M21.42 - Flat foot [pes planus] (acquired), left foot
--- OUTSIDE RECORDS SUMMARY | 2025-07-28 01:53 | XMS_ITS ---
Author Name [facility] Organization Unknown History of Medication Use Medication Directions Dispensed Refills Start Date End Date Stat us Aleve 220mg Caplet 05/03/2025 ac tive Amlodipine Besylate 5mg Tablet 05/03/2025 active Atenolol 50mg Tablet 05/03/2025 active B Complex #1 Tablet 05/03/2025 a ctive Biotin [id number] Capsule 05/03/2025 active D3 2000 Softgel 05/03/2025 activ e Estradiol 0.01% Vaginal Cream 05/03/2025 active Flaxseed Oil 1000mg Softgel 05/03/2025 active Prilosec 10mg Delayed-Release Capsule 05/03/2025 active Rosuvastatin Calcium 20mg Tablet 05/03/2025 active Triamcinolone Acetonide 0.1% Lotion 05/03/2025 active Ubiquinol 100mg Softgel 05/03/2025 active thin ribbon to the affected area on the eyelids four times daily 12/20/2024 completed tobramycin-dexametha sone (ointment) thin ribbon to the affected area on the eyelids four times daily 12/20/2024 completed Xdemvy (drops) one drop twice daily for 6 weeks then stop 12/20/2024 completed estradiol (ESTRACE) 0.01 % vaginal cream Place 0.5 grams into the vagina at bedtime twice weekly 08/26/2024 active instill one drop into both eyes four times a day 04/13/2024 completed Eysuvis (drops, suspension) one drop four times daily for 2 weeks then twice daily for 2 weeks then stop 01/14/2024 completed Xiidra (dropperette) one drop twice daily in each eye 07/24/2023 completed conjugated estrogens (PREMARIN) vaginal cream Apply a blueberry sized dollop into vagina digitally twice weekly 06/12/2023 08/26/2024 active Restasis 0.05 % ophthalmic emulsion Administer 1 drop to both eyes 2 (two) times a day. 05/16/2023 01/13/2025 active amLODIPine (NORVASC) 5 MG tablet Take 5 mg by mouth daily. 05/16/2023 active atenolol (TENORMIN) 50 MG tablet Take 50 mg by mouth 2 (two) times a day. 05/16/2023 active rosuvastatin (CRESTOR) 20 MG tablet Take 20 mg by mouth 3 (three) times a week. 04/18/2023 active estradiol (ESTRACE) 0.01 % vaginal cream Insert 2 g into the vagina daily. 08/26/2024 aborted estradiol completed acetaminophen (TYLENOL) 120 MG suppository Insert 120 mg into the rectum 4 times daily (every 6 hours) as needed for moderate pain. active amitriptyline completed amlodipine (tablet) 5 mg comp leted atenolol (tablet) 50 mg comple ty B-Complex (tablet) compl eted biotin completed Biotin 3 MG Tab Take 1 tablet by mouth daily. active coQ10 (ubiquinol) comple ty ergocalciferol (VITAMIN D2,DRISDOL) 35662 units Cap Take 50,000 Units by mouth once a week. active estradiol (cream) 0.01 % (0.1 mg/gram) completed Eysuvis 0.25 % eye drops,suspension active ezetimibe (tablet) 10 mg compl eted iVizia (PF) completed magnesium completed magnesium 30 MG tablet Take 30 mg by mouth 2 (two) times a day. active Miebo (PF) 100 % eye drops active naproxen sodium (ALEVE) 220 mg tablet Take 220 mg by mouth 2 (two) times a day with meals. Take with meals or food to reduce stomach upset. active Ocuvite Lutein 25 comple ty [place]-3 completed OMEprazole (PriLOSEC) 10 MG capsule Take 10 mg by mouth daily. active rosuvastatin (tablet) 20 mg completed thiamine (VITAMIN B-1) 250 mg tablet Take 250 mg by mouth daily. active tobramycin-dexametha sone 0.3 %-0.1 % eye ointment active triamcinolone (KENALOG) 0.025 % cream Apply topically 2 (two) times a day. active Vitamin D3 completed Xdemvy 0.25 % eye drops active Xiidra 5 % eye drops in a dropperette active Allergies Allergen Reaction Severity Comment Documented Date Source Status CYCLOBENZAPRINE UNKNOWN/PATIENT AND FAMILY UNABLE TO DEFINE 06/12/2023 [facility] active CAFFEINE OTHER: SEVERE HEART PALPITATIONS [facility] OXYCODONE OTHER: VERY ILL [facility] BEEF DERIVED (BOVINE) [facility] FISH CONTAINING PRODUCTS HIVES [facility] FLEXALL SWELLING [facility] FLEXERIL [facility] T IODINE [facility] SEAFOOD [facility] T SHELLFISH DERIVED HIVES CT [facility] Problems Problem Status Onset Date Problem Type Date of Resolution Source Tendonitis of left ankle active 2025-05-03 ProblemAct [facility] Tendonitis of right ankle active 2025-05-03 ProblemAct [facility] Sprain of calcaneofibular ligament of left ankle, subsequent encounter active 2025-07-05 EncounterDiagnosisAct [facility]_PO [facility] Congenital pes planus, right foot - Flat Foot active 2025-07-05 EncounterDiagnosisAct [facility] Pain in right foot active 2025-07-05 EncounterDiagnosisAc t [facility] Sprain of calcaneofibular ligament of right ankle, initial encounter active 2025-05-03 ProblemAct [facility] Pain in left foot active 2025-07-05 EncounterDiagnosisAct [facility] Sprain of calcaneofibular ligament of right ankle, subsequent encounter active 2025-07-05 ProblemAct [facility] Sprain of calcaneofibular ligament of left ankle, initial encounter active 2025-05-03 ProblemAct [facility] Congenital pes planus, left foot -Flat Foot active 2025-07-05 EncounterDiagnosisAct [facility]PO [facility] Urinary symptom or sign active EncounterDiagnosisAct [facility] Vaginal discharge active 2024-08-26 ProblemAct [facility] Encounters Encounter Type Encounter Reason Primary Diagnosis Location Date Ambulatory [facility] 06/09/2025 Ambulatory [facility] 05/06/2025 Ambulatory [facility] 04/04/2025 Ambulatory [facility] 2024 Ambulatory [facility] 03/02/2025 Ambulatory Gynecologic Exam Gynecologic Exam [facility] 01/13/2025 Ambulatory [facility] 12/20/2024 Ambulatory [facility] 09/22/2024 Ambulatory [place] [facility] 08/26/2024 Ambulatory [facility] 04/21/2024 Ambulatory [facility] 04/13/2024 Ambulatory [facility] 01/14/2024 Ambulatory [facility] 06/12/2023 Ambulatory Unspecified symptoms and signs involving the genitourinary system Unspecified symptoms and signs involving the genitourinary system [place] [facility] 06/12/2023 Care Team Organization Name Specialty Phone Email Start Date End Ethan moralez [facility] 05/03/2025 [facility] JOSH GEORGE Primary Care [facility] 03/28/2025 [facility] 11/19/2023 [facility] provided No Primary Care 06/16/2023 10/24/2024 [place] [facility] 06/12/2023 02/11/2025 [place] [facility] 06/12/2023 06/12/2023 [facility] No provided Primary Care 06/12/2023 023
--- OUTSIDE RECORDS SUMMARY | 2025-07-28 01:53 | XMS_ITS | Data Portability ---
Author Organization DEN - Cecilio Mcnulty, Inactive Address [address] [place] [address] Care Team Providers Care Pearl Hand Name Role Phone SOLEDAD JONAS Neurologist DANO ALAS Senior Applications Engineer PABLO GUERRERO Application Security Engineer [phone] [facility] Relay Technician DENICE MALDONADO Tip Finisher Assessment Encounter Date Assessment Date Assessment LastModified by Organization Details LastModified Time 10/06/2024 10/06/2024 Duration of visit: 40 minutes phong Not available 10/06/2024 13:02:28 12/02/2024 12/02/2024 Patient has received initial Covid 19 vaccinations along with appropriate boosters. Patient has received annual high-dose influenza vaccine. RSV vaccine has been recommended. Shingrix vaccines have been recommended. Patient had last gynecology exam in 08/26/2024 (negative Pap smear) with Dr. Denice Maldonado. Patient encouraged to continue with annual mammography and had a right breast biopsy on 10/14/2024 (benign). Patient's last bone density test was on 12/18/2021 and was normal with follow-up recommended after 12/18/2026. Last eye exam was in November 2024 and following annually. Patient's last dental exam was in November 2024 and following regularly. InBody screening is notable for normal muscle mass. Patient will add vitamin K2 100 mcg daily. Next annual wellness exam will be done in one year. phong Not available 12/02/2024 17:51:59 Plan of Treatment Reminders Order Date Submit Date Provider Last Modified By Organization Details Last Modified Time Details Appointments FOLLOW UP 30 12/02/ 2025 01:00P Fernanda Mcnulty M.D. Not available Not available Not available Lab CMP, serum or plasma 2024 025 [employer] [facility], [address] [place] [address], [phone], 04/26/2025 08:50:36 CBC 2024 025 [employer] [facility], [address] [place] [address], [phone], 04/26/2025 08:50:37 homocyste ine, serum or plasma 2024 025 [employer] [facility], [address] [place] [address], [phone], 12/03/2024 16:34:39 insulin, serum 2024 025 [employer] [facility], [address] [place] [address], [phone], 12/08/2024 02:10:09 glucose tolerance test, post-75G, 3 specimens 2024 025 [employer] [facility], [address] [place] [address], [phone], 12/08/2024 02:10:07 unlisted lab - LP pla2 activity 2024 025 [employer] [facility], [address] [place] [address], [phone], 12/08/2024 02:10:08 Referral None recorded. Procedures body compositi on analysis (PROC) 2024 025 [facility], [address] [place] [address], [facility] [address], [address], 01/07/2025 11:41:30 gait test (PROC) 2024 025 [facility], [address] [place] [address] 1, [place], [address], 01/07/2025 11:41:30 Surgeries None recorded. Imaging electroca rdiogram 2024 025 [facility], [address] [facility], [address], [place], [address], 01/07/2025 11:41:30 audiogram 2024 025 [facility], [address] [facility], [address], [place], [address], 01/07/2025 11:41:30 Medication Orders valacyclo vir 1 gram tablet 2024 025 [email or web address] [facility]/Pharmacy #[id number], [facility] [place], [address], 03/24/2025 10:03:00 Bryan-V Benefits 1,220 mg-330 mg-670 mg/5 mL oral liquid 2024 025 [facility]/Pharmacy #[id number], [address] [facility], [place], [address], 12/02/2024 09:15:27 rosuvasta tin 20 mg tablet 2024 025 [facility]/Pharmacy #[id number], [address] [place], [address], 10/06/2024 12:11:04 Patient TargetsNo targets recorded. Patient Instructions Encounter Date Encounter Id Patient Instructions Last Modified By Organization Details Last Modified Time 11/22/2024 [id number] (TEDDY) ankle brachial index* phong Not available 01/07/2025 11:41:30 epworth sleepiness scale* boubacar Not available 01/07/2025 11:41:30 functional assessment screening* boubacar Not available 01/07/2025 11:41:30 spirometry testing* boubacar Not available 01/07/2025 11:41:30 STOP bang sleep apnea tool* phong Not available 01/07/2025 11:41:30 ip architect test* ikleinhen Not available 01/07 11:41:30 vision screen* ikleinhen Not available 0 01/07/2025 11:41:30 Patient reminded blood was drawn today. Encouraged to hydrate and be cautious as they may become dizzy or light headed. If issues or symptoms, return to clinic or contact nearest medical personnel. We look forward to seeing you to discuss the results of these labs. Be well and see you soon! Not available 11/22/2024 08:09:43 12/02/2024 [id number] In compliance with Medicare guidelines, we will be billing Medicare to inform them of your adherence to completing your necessary preventive care. [email or web address] Not available 12/01/2024 14:16:49 Discussed and explained advance directives such as standard forms to the patient. Face to face discussion lasted for a duration of __5_ minutes. caioen Not available 12/02/2024 17:51:22 Reason for Referral None Reported. Results Created Date Observation Date Name Description Value Unit Range Abnormal Flag Note LastModifiedBy Organization Detail LastModifiedTime 11/23/1911/22/2024 cogni tive asses sment test* braincheck - screen normal Furth er testi ng not warra nted Not Available Not Available 11/22/2024 08:37:25 11/23/19 25 11/23/2024 ALBUM IN, RANDO M URINE W/CRE ATINI NE creatinine, random urine 138 mg/dL 20-275 normal Not Available [facility] [address], [address], 11/23/2024 17:13:08 11/23/19 25 11/23/2024 ALBUM IN, RANDO M URINE W/CRE ATINI NE albumin, urine 0.2 mg/dL see note: normal Refer ence Range : Refer ence Range Not estab lishe d Not Available [facility] [address], [address], 11/23/2024 17:13:08 11/23/19 25 11/23/2024 ALBUM IN, RANDO M URINE W/CRE ATINI NE albumin/crea tinine ratio, random urine 1 mg/g_ creat <30 normal NOTE: The urine album in value is less than 0.2 mg/dL there fore we are unabl e to calcu late excre tion and/o r creat inine ratio . The ADA defin es abnor malit ies in album in excre tion as follo ws: Album inuri a Categ ory Resul t (mg/g creat inine ) Mali l to Mildl [...] a diagn ostic categ ory. Not Available [facility] [address], [address], 11/23/2024 17:13:08 11/23/19 25 11/23/2024 BASIC METAB OLIC PANEL glucose 92 mg/dL 65-99 normal Fasti ng refer ence inter hayley Not Available [facility] [address], [place], [address], 11/23/2024 17:13:09 11/23/19 25 11/23/2024 BASIC METAB OLIC PANEL urea nitrogen (BUN) 18 mg/dL 7-25 normal Not Available [facility] [address], [address], 11/23/2024 17:13:09 11/23/19 25 11/23/2024 BASIC METAB OLIC PANEL creatinine 0.85 mg/dL 0.50-1 .05 normal Not Available [facility] [address], [address], 11/23/2024 17:13:09 11/23/19 25 11/23/2024 BASIC METAB OLIC PANEL eGFR 75 mL/mi n/1.7 3m2 > or = 60 normal Not Available [facility] [address], [place], [address], 11/23/2024 17:13:09 11/23/19 25 11/23/2024 BASIC METAB OLIC PANEL BUN/creatini ne ratio SEE NOTE: (calc ) 6-22 Not Repor ty: BUN and Creat inine are withi n refer ence range . Not Available [facility] [address], [place], [address], 11/23/2024 17:13:09 11/23/19 25 11/23/2024 BASIC METAB OLIC PANEL sodium 142 mmol/ L 135-14 6 normal Not Available [facility] [address], [place], [address], 11/23/2024 17:13:09 11/23/19 25 11/23/2024 BASIC METAB OLIC PANEL potassium 4.9 mmol/ L 3.5-5. 3 normal Not Available [facility] [address], [place], [address], 11/23/2024 17:13:09 11/23/19 25 11/23/2024 BASIC METAB OLIC PANEL chloride 105 mmol/ L 98-110 normal Not Available [facility] [address], [place], [address], 11/23/2024 17:13:09 11/23/19 25 11/23/2024 BASIC METAB OLIC PANEL carbon dioxide 32 mmol/ L 20-32 normal Not Available [facility] [address], [place], [address], 11/23/2024 17:13:09 11/23/19 25 11/23/2024 BASIC METAB OLIC PANEL calcium 9.3 mg/dL 8.6-10 .4 normal Not Available [facility] [address], [place], [address], 11/23/2024 17:13:09 11/23/19 25 11/23/2024 HEPAT IC FUNCT ION PANEL protein, total 6.6 g/dL 6.1-8. 1 normal Not Available [facility] [address], [place], [address], 11/23/2024 17:13:10 11/23/19 25 11/23/2024 HEPAT IC FUNCT ION PANEL albumin 4.1 g/dL 3.6-5. 1 normal Not Available [facility] [address], [place], [address], 11/23/2024 17:13:10 11/23/19 25 11/23/2024 HEPAT IC FUNCT ION PANEL globulin 2.5 g/dL_ (calc ) 1.9-3. 7 normal Not Available [facility] [address], [place], [address], 11/23/2024 17:13:10 11/23/19 25 11/23/2024 HEPAT IC FUNCT ION PANEL albumin/glob ulin ratio 1.6 (calc ) 1.0-2. 5 normal Not Available [facility] [address], [place], [address], 11/23/2024 17:13:10 11/23/19 25 11/23/2024 HEPAT IC FUNCT ION PANEL bilirubin, total 0.6 mg/dL 0.2-1. 2 normal Not Available [facility] [address], [place], [address], 11/23/2024 17:13:10 11/23/19 25 11/23/2024 HEPAT IC FUNCT ION PANEL bilirubin, direct 0.1 mg/dL < or = 0.2 normal Not Available [facility] [address], [place], [address], 11/23/2024 17:13:10 11/23/19 25 11/23/2024 HEPAT IC FUNCT ION PANEL bilirubin, indirect 0.5 mg/dL _(nikolai c) 0.2-1. 2 normal Not Available [facility] [address], [place], [address], 11/23/2024 17:13:10 11/23/19 25 11/23/2024 HEPAT IC FUNCT ION PANEL alkaline phosphatase 80 U/L 37-153 normal Not Available [facility] [address], [place], [address], 11/23/2024 17:13:10 11/23/19 25 11/23/2024 HEPAT IC FUNCT ION PANEL AST 21 U/L 10-35 normal Not Available [facility] [address], [place], [address], 11/23/2024 17:13:10 11/23/19 25 11/23/2024 HEPAT IC FUNCT ION PANEL ALT 16 U/L 6-29 normal Not Available [facility] [address], [place], [address], 11/23/2024 17:13:10 11/23/19 25 11/23/2024 CBC (H/H, RBC, INDIC ES, WBC, PLT) white blood cell count 5.0 thous and/u L 3.8-10 .8 normal Not Available [facility] [address], [place], [address], 11/23/2024 17:13:10 11/23/19 25 11/23/2024 CBC (H/H, RBC, INDIC ES, WBC, PLT) red blood cell count 5.23 jamel on/uL 3.80-5 .10 high Not Available [facility] [address], [place], [address], 11/23/2024 17:13:10 11/23/19 25 11/23/2024 CBC (H/H, RBC, INDIC ES, WBC, PLT) hemoglobin 15.8 g/dL 11.7-1 5.5 high Not Available [facility] [address], [place], [address], 11/23/2024 17:13:10 11/23/19 25 11/23/2024 CBC (H/H, RBC, INDIC ES, WBC, PLT) hematocrit 48.1 % 35.0-4 5.0 high Not Available [facility] [address], [place], [address], 11/23/2024 17:13:10 11/23/19 25 11/23/2024 CBC (H/H, RBC, INDIC ES, WBC, PLT) MCV 92.0 fL 80.0-1 00.0 normal Not Available [facility] [address], [place], [address], 11/23/2024 17:13:10 11/23/19 25 11/23/2024 CBC (H/H, RBC, INDIC ES, WBC, PLT) MCH 30.2 pg 27.0-3 3.0 normal Not Available [facility] [address], [place], [address], 11/23/2024 17:13:10 11/23/19 25 11/23/2024 CBC (H/H, RBC, INDIC ES, WBC, PLT) MCHC 32.8 g/dL 32.0-3 6.0 normal For adult s, a sligh t decre ase in the calcu lated MCHC value (in the range of 30 to 32 g/dL) is most likel y not clini sherry signi fican t; [place], it shoul d be inter prete d with cauti on in corre latio n with other red cell venus eters and the patie nt's clini nikolai condi tion. Not Available [facility] [address], [place], [address], 11/23/2024 17:13:10 11/23/19 25 11/23/2024 CBC (H/H, RBC, INDIC ES, WBC, PLT) RDW 12.7 % 11.0-1 5.0 normal Not Available [facility] [address] [place], [place], [address], 11/23/2024 17:13:10 11/23/19 25 11/23/2024 CBC (H/H, RBC, INDIC ES, WBC, PLT) platelet count 208 thous and/u L 140-40 0 normal Not Available [facility] [address], [place], [address], 11/23/2024 17:13:10 11/23/19 25 11/23/2024 CBC (H/H, RBC, INDIC ES, WBC, PLT) MPV 11.5 fL 7.5-12 .5 normal Not Available [facility] [address], [place], [address], 11/23/2024 17:13:10 11/23/19 25 11/23/2024 URINA LYSIS , COMPL ETE color DARK YELLOW yellow normal Not Available [facility] [address] [place], [place], [address], 11/23/2024 17:13:11 11/23/19 25 11/23/2024 URINA LYSIS , COMPL ETE appearance CLOUDY clear abnormal Not Available [facility] [address], [place], [address], 11/23/2024 17:13:11 11/23/19 25 11/23/2024 URINA LYSIS , COMPL ETE specific gravity 1.021 1.001- 1.035 normal Not Available [facility] [address], [place], [address], 11/23/2024 17:13:11 11/23/19 25 11/23/2024 URINA LYSIS , COMPL ETE pH 8.5 5.0-8. 0 high Not Available [facility] [address], [place], [address], 11/23/2024 17:13:11 11/23/19 25 11/23/2024 URINA LYSIS , COMPL ETE glucose NEGATI VE negati ve normal Not Available [facility] [address], [place], [address], 11/23/2024 17:13:11 11/23/19 25 11/23/2024 URINA LYSIS , COMPL ETE bilirubin NEGATI VE negati ve normal Not Available [facility] [address], [place], [address], 11/23/2024 17:13:11 11/23/19 25 11/23/2024 URINA LYSIS , COMPL ETE ketones NEGATI VE negati ve normal Not Available [facility] [address], [place], [address], 11/23/2024 17:13:11 11/23/19 25 11/23/2024 URINA LYSIS , COMPL ETE occult blood NEGATI VE negati ve normal Not Available [facility] [address], [place], [address], 11/23/2024 17:13:11 11/23/19 25 11/23/2024 URINA LYSIS , COMPL ETE protein NEGATI VE negati ve normal Not Available [facility] [address], [place], [address], 11/23/2024 17:13:11 11/23/19 25 11/23/2024 URINA LYSIS , COMPL ETE nitrite NEGATI VE negati ve normal Not Available [facility] [address], [place], [address], 11/23/2024 17:13:11 11/23/19 25 11/23/2024 URINA LYSIS , COMPL ETE leukocyte esterase NEGATI VE negati ve normal Not Available [facility] [address], [place], [address], 11/23/2024 17:13:11 11/23/19 25 11/23/2024 URINA LYSIS , COMPL ETE WBC NONE SEEN /hpf < or = 5 normal Not Available [facility] [address], [place], [address], 11/23/2024 17:13:11 11/23/19 25 11/23/2024 URINA LYSIS , COMPL ETE RBC NONE SEEN /hpf < or = 2 normal Not Available [facility] [address], [place], [address], 11/23/2024 17:13:11 11/23/19 25 11/23/2024 URINA LYSIS , COMPL ETE squamous epithelial cells 0-5 /hpf < or = 5 Not Available [facility] [address], [place], [address], 11/23/2024 17:13:11 11/23/19 25 11/23/2024 URINA LYSIS , COMPL ETE bacteria NONE SEEN /hpf none seen normal Not Available [facility] [address], [place], [address], 11/23/2024 17:13:11 11/23/19 25 11/23/2024 URINA LYSIS , COMPL ETE hyaline cast NONE SEEN /lpf none seen normal Not Available [facility] [address], [place], [address], 11/23/2024 17:13:11 11/23/19 25 11/23/2024 URINA LYSIS , COMPL ETE note This urine was meena zed for the prese nce of WBC, RBC, bacte lorena, casts , and other forme d eleme nts. Only those eleme nts seen were repor ty. Not Available [facility] [address], [place], [address], 11/23/2024 17:13:11 11/23/19 25 11/22/2024 APOLI POPRO TEIN B apolipoprote in B 71 mg/dL <90 Risk: Optim al <90 mg/dL ; Moder ate 90-11 9 mg/dL ; High >= 120 mg/dL ; Cardi ovasc ular event risk categ ory cut point s (opti mal, moder ate, high) are based on Natio nal Lipid Assoc iatio n recom menda tiliseth - Kai PEREZ et al. J of Clin Lipid . 2015; 9: 129-1 69 and Guillermo SALDAÑA et al. Endoc r Pract . 2017; 23(Sterling ppl 2):1- 87. Not Available [facility] - Manual Order Only [address], [place], [address], 12/06/2024 03:07:23 11/23/19 25 11/22/2024 HSCRP hs-CRP 0.4 mg/L <1.0 Refer ence Range : Optim al <1.0 mg/L, accor ding to Guillermo SALDAÑA et al. Endoc r Pract .2017 ;23(S uppl 2):1- 87. The AHA/C DC Guide lines recom mend hs-CR P range s for ident ifyin g Relat natalie Cardi ovasc ular Risk in patie nts ages >17 years : <1.0 mg/L Lower Relat natalie Cardi ovasc ular Risk; 1.0-3 .0 mg/L [place] ge Relat natalie Cardi ovasc ular Risk; 3.1-1 0.0 mg/L [place] r Relat natalie Cardi ovasc ular Risk. If resul t is betwe en 3.1 and 10.0 mg/L, consi karel retes ting in 1-2 weeks [...] menda tions are based on Pears on TA, Mensa h [place], Chelsey der RW, et al. Geme rs of infla mmati on and cardi ovasc ular disea se: appli catio n to clini nikolai and publi c healt h pract ice: A state ment for healt hcare johnie rees from the [facility] rs for Disea se Contr ol and Preve ntion and the Ameri can Heart Assoc iatio n. Circu latio n 2003; 107(3 ): 499-5 11. Not Available [facility] - Manual Order Only [address], [place], [address], 12/06/2024 03:07:24 11/23/19 25 11/22/2024 LIPID PANEL cholesterol, total 132 mg/dL <200 Not Available [facility] - Manual Order Only [address], [place], [address], 12/06/2024 03:07:24 11/23/19 25 11/22/2024 LIPID PANEL HDL cholesterol 48 mg/dL >49 low Not Available [facility] - Manual Order Only [address], [place], [address], 12/06/2024 03:07:24 11/23/19 25 11/22/2024 LIPID PANEL triglyceride s 82 mg/dL <150 Not Available [facility] - Manual Order Only [address], [place], [address], 12/06/2024 03:07:24 11/23/19 25 11/22/2024 LIPID PANEL LDL cholesterol 68 mg/dL _(nikolai c) <100 Marisela able range <100 mg/dL for prima ry preve ntion ; <70 mg/dL for patie nts with CHD or diabe tic patie nts with >= 2 CHD risk facto rs. LDL-C is now calcu lated using the Jia n-Hop kins calcu latio n, which is a valid ated novel yvano d provi ding blaire r accur acy than the Fried bj equat ion in the estim ation of LDL-C . Jia montero SS et al. OLGA LIDIA. 2013; 310(1 9): 2061- 2068 (http ://ed ucati on.Qu bradfordPower Surge [employer]. com/f aq/FA Q164) Not Available [facility] - Manual Order Only [address], [place], [address], 12/06/2024 03:07:24 11/23/19 25 11/22/2024 LIPID PANEL chol/HDL-C 2.8 calc <5.0 Not Available [facility] - Manual Order Only [address], [place], [address], 12/06/2024 03:07:24 11/23/19 25 11/22/2024 LIPID PANEL non-HDL cholesterol 84 mg/dL _(nikolai c) <130 For patie nts with diabe ayo plus 1 major ASCVD risk facto r, treat ing to a non-H DL-C goal of <100 mg/dL (LDL- C of <70 mg/dL ) is consi dered a thera peuti c optio n. Not Available [facility] - Manual Order Only [address], [place], [address], 12/06/2024 03:07:24 11/23/19 25 11/22/2024 ADMA AND SDMA adma (asymmetric dimethylargi nine) 111 NG/mL <100 high [place] ty ADMA level s are assoc iated [...] >123 ng/mL defin es a high relat natalie risk popul ation . (Refe rence : 1-Nghia Gates et al. J Am Heart Assoc . 2015; 4: e0018 33).T his test was devel oped and its meena tical perfo rmanc e ella cteri stics have been deter mined by [facility] [place] [facility] at [facility]. It has not been clear ed or appro syeda by the U.S. Food and Drug Admin istra tion. This assay has been valid ated pursu ant to the CLIA regul ation s and is used for clini nikolai purpo ses. Not Available [facility] - Manual Order Only [address], [place], [address], 12/06/2024 03:07:25 11/23/19 25 11/22/2024 ADMA AND SDMA sdma (symmetric dimethylargi nine) 115 NG/mL 73-135 Not Available [facility] - Manual Order Only [address], [place], [address], 12/06/2024 03:07:25 11/23/19 25 11/22/2024 TMAO (TRIM ETHYL AMINE N-OXI DE) tmao (trimethylam ine N-oxide) 2.3 um <6.2 Based on a popul ation [...] ffs for TMAO to asses s relat natalie risk of a cardi ovasc ular event : A cut-o ff of <6.2 uM defin es a popul ation at optim al relat natalie risk for a cardi ovasc ular event relat natalie to those above this level . 6.2-9 .9 uM defin es a popul ation at moder ate relat natalie risk for a cardi ovasc ular event (two- fold incre ased risk of MACE at 3 years ) relat natalie to those with TMAO <6.2 uM (1). Given the dose- depen dent relat ionsh ip betwe en TMAO and cardi ovasc ular event risk demon strat ed acros s multi ple clini nikolai subgr oups (2), those above the upper limit of the [facility] 95% popul ation inter hayley (>=10 .0 uM) are defin ed as high relat natalie risk for a cardi ovasc ular event relat natalie to those with TMAO <6.2 uM. (Refe helene s: 1-Shivam love et al. N Engl J Med. 2013; 368:1 575-1 584. 2-Kings burgos Y, et al. J Am Heart Assoc . 2017; 6(7)) .This test was devel oped and its meena tical perfo rmanc e ella cteri stics have been deter mined by [facility] at [facility]. It has not been clear ed or appro syeda by the U.S. Food and Drug Admin istra tion. This assay has been valid ated pursu ant to the CLIA regul ation s and is used for clini nikolai purpo ses. Not Available [facility] [address], [place], [address], 12/06/2024 03:07:25 11/23/19 25 11/22/2024 THYRO ID STIMU LATIN G HORMO NE (TSH) thyroid stimulating hormone (TSH) 2.14 mlu/L 0.40-4 .50 Not Available [facility] - Manual Order Only [address], [place], [address], 12/06/2024 03:07:26 11/23/19 25 11/22/2024 URIC ACID uric acid 4.3 mg/dL 2.5-7. 3 Not Available [facility] - Manual Order Only [address], [place], [address], 12/06/2024 03:07:26 11/23/19 25 11/22/2024 HEMOG LOBIN A1C HbA1C 5.5 % <5.7 For the purpo se of [...] ayo. Curre ntly, no conse nsus exist katie cazares use of hemog lobin A1c for [...] al Care in Diabe ayo (ADA) . This test was perfo rmed on the Dylan brijesh c503 platf orm. Effec tive 024, a kimble e in test platf orms from the [facility] Archi tect to the Dylan brijesh c503 may have shift ed HbA1c resul ts nikos red to histo rical resul ts. Based on labor atory valid ation testi ng condu cted at [facility] , the Dylan platf orm relat natalie to the Abbot t platf orm had an avera ge incre ase in HbA1c value of <=0.3 %. This diffe rence is withi n accep ty varia bilit y estab lishe d by the Natio nal Glyco hemog lobin Stand ardiz ation Progr am. Note that not all indiv idual s will have had a shift in their resul ts and direc t nikos rison s betwe en histo rical and curre nt resul ts for testi ng condu cted on diffe rent platf orms is not recom meet d. Not Available [facility] - Manual Order Only [id number], [place], [address], 12/06/2024 03:07:27 11/23/19 25 11/22/2024 HEMOG LOBIN A1C estimated average glucose 112 mg/dL <117 Not Available [facility] - Manual Order Only [id number], [place], [address], 12/06/2024 03:07:27 11/23/19 25 11/22/2024 MYELO PEROX IDASE myeloperoxid ase 351 pmol/ L <470 Based on a high risk sub-p opula tion (N=92 0) defin ed as ambul atory stabl e patie nts witho ut acute coron mingo syndr ome who under went elect natalie diagn ostic coron migno angio graph y (1) and a refer [...] with Joce et al). This test was devbette carrillo and its meena tical perfo rmanc e ella cteri stics have been deter mined by [facility] [place] [facility] at [facility]. It has not been clear ed or appro syeda by the U.S. Food and Drug Admin istra tion. This assay has been valid ated pursu ant to the CLIA regul ation s and is used for clini nikolai purpo ses. Not Available [facility] - Manual Order Only [id number], [place], [address], 12/06/2024 03:07:27 11/23/19 25 11/22/2024 VITAM IN D 25 HYDRO XY LC-MS /MS vitamin D 25 hydroxy by lc-MS/MS 42.8 NG/mL >29.9 Vitam in D, 25-Hy droxy [...] infor mariela mcnair e refer to http: //[facility] n.que stdia gnost ics.c om/fa q/FAQ 199(T his link is being provi ded for infor liliana n/[facility] catio nal purpo ses only. )This test was devel gerardo and its meena tical perfo rmanc e ella cteri stics have been deter mined by [facility] timothy seg[place] of [facility] sotelo at [facility]. It has not been clear ed or appro syeda by the U.S. Food and Drug Admin istra tion. This assay has been valid ated pursu ant to the CLIA regul ation s and is used for clini nikolai purpo ses. Not Available [facility] - Manual Order Only [id number] [facility] [address], [place], [address], 12/06/2024 03:07:27 12/01/19 25 11/30/2024 visio n scree n* Acuity Far - Right Eye 20/22 Not Available Main O ffice [address] [address], [place], [address], 11/30/2024 11:26:51 12/01/19 25 11/30/2024 visio n scree n* Acuity Far - Left Eye 20/30 Not Available Main O ffice [address] [facility] [address], [place], [address], 11/30/2024 11:26:51 12/01/19 25 11/30/2024 visio n scree n* Acuity Intermediate - OU 20/50 Not Available Main O ffice [address] [facility] [address], [place], [address], 11/30/2024 11:26:51 12/01/1911/30/2024 visio n scree n* Acuity Near - OU Not Available Main O ffice [address], [place], [address], 11/30/2024 11:26:51 12/01/1911/30/2024 visio n scree n* Lateral Glare Failed Not Available Main O ffice [address], [place], [address], 11/30/2024 11:26:51 12/01/1911/30/2024 visio n scree n* Stereopsis Far 90% Not Available Main O ffice [address], [place], [address], 11/30/2024 11:26:51 12/01/1911/30/2024 visio n scree n* Phorias Far - Horizontal 0.0 Not Available Fernanda n Office [address], [place], [address], 11/30/2024 11:26:51 12/01/1911/30/2024 visio n scree n* Phorias Far - Vertical 0.0 Not Available Main Office [address], [place], [address], 11/30/2024 11:26:51 12/01/1911/30/2024 visio n scree n* Fusion Far 4 Dots Not Available Main Of fice [address], [place], [address], 11/30/2024 11:26:51 12/01/1911/30/2024 visio n scree n* Colors Far - Jose Guadalupe 10 out of 12 Not Available Main Office [address], [place], [address], 11/30/2024 11:26:51 12/01/1911/30/2024 visio n castroe n* Peripheral Vision Test - Left Percei syeda Not Available Main Office [address] [facility] [address], [place], [address], 11/30/2024 11:26:51 12/01/19 25 11/30/2024 visio n scree n* Peripheral Vision Test - Right Percei syeda Not Available Main Office [address] [facility] [address], [place], [address], 11/30/2024 11:26:51 12/01/19 25 11/30/2024 ip architect test* Unknown Analyte 67.6 Not Available Main O ffice [address] [facility] [address], [place], [address], 11/22/2024 08:09:49 12/01/1911/30/2024 ip architect test* Unknown Analyte 74.2 Not Available Main O ffice [address] [facility] [address], [place], [address], 11/22/2024 08:09:49 12/01/1911/30/2024 ip architect test* Unknown Analyte 59.9 Not Available Main O ffice [address] [facility] [address], [place], [address], 11/22/2024 08:09:49 12/01/1911/30/2024 ip architect test* Unknown Analyte 70.3 Not Available Main O ffice [address] [facility] [address], [place], [address], 11/22/2024 08:09:49 12/01/1911/30/2024 ip architect test* Unknown Analyte 56.4 Not Available Main O ffice [address] [facility] [address], [place], [address], 11/22/2024 08:09:49 12/01/19 25 11/30/2024 ip architect test* Unknown Analyte 70.3 Not Available Main O ffice [address] [facility] [address], [place], [address], 11/22/2024 08:09:49 12/01/1911/30/2024 gait test (PROC ) Time taken to walk 4m 3.81 Not Available Main Office [address], [place], [address], 11/22/2024 08:09:49 12/01/1911/30/2024 gait test (PROC ) Gait speed in meters p/s 1.05 Not Available Main O ffice [address], [place], [address], 11/22/2024 08:09:49 12/01/1911/30/2024 STOP bang sleep apnea tool* Result 2 Not Available Main Offic e [address], [place], [address], 11/22/2024 08:09:49 12/01/1911/30/2024 STOP bang sleep apnea tool* Interpretati on 0-2 Low Risk for DANIEL Not Available Main Office [address], [place], [address], 11/22/2024 08:09:49 12/01/1911/30/2024 STOP bang sleep apnea tool* CPAP No Not Available Main Offic e [address], [place], [address], 11/22/2024 08:09:49 12/01/1911/30/2024 lakeisha metry testi ng* FVC [L] - % 2.35 Not Available Main O ffice [address], [place], [address], 11/22/2024 08:09:49 12/01/1911/30/2024 lakeisha metry testi ng* FEV1 [L] - % 1.91 Not Available Main Office [address], [place], [address], 11/22/2024 08:09:49 12/01/1911/30/2024 lakeisha metry testi ng* FEV1/FVC Ratio- % 0.81 Not Available Main O ffice [address], [place], [address], 11/22/2024 08:09:49 12/01/1911/30/2024 funct ional asses sment scree edie* Gender Female Not Available Main Offic e [address], [place], [address], 11/22/2024 08:09:48 12/01/1911/30/2024 funct ional asses sment scree edie* Status if not performed Coni johnson ed Not Available Main Office [address] [facility] [address], [place], [address], 11/22/2024 08:09:48 12/01/1911/30/2024 epwor th sleep iness scale * Total Score 4 Not Available Main O ffice [address], [place], [address], 11/22/2024 08:09:48 12/01/1911/30/2024 epwor th sleep iness scale * Indication 0-10 Normal Not Available Main Office [address] [facility] [address], [place], [address], 11/22/2024 08:09:48 12/01/1911/30/2024 (TEDDY) ankle brach ial index * Right Arm 138 Not Available Main Off ice [address], [place], [address], 11/22/2024 08:09:48 12/01/1911/30/2024 (TEDDY) ankle brach ial index * Left Arm 126 Not Available Main Offi ce [address], [place], [address], 11/22/2024 08:09:48 12/01/19 25 11/30/2024 (TEDDY) ankle brach ial index * Right Ankle 150 Not Available Main O ffice [address], [place], [address], 11/22/2024 08:09:48 12/01/19 25 11/30/2024 (TEDDY) ankle brach ial index * Left Ankle 142 Not Available Main Of fice [address], [place], [address], 11/22/2024 08:09:48 12/01/19 25 11/30/2024 (TEDDY) ankle brach ial index * Right TEDDY 1.09 Not Available Main Off ice [address], [place], [address], 11/22/2024 08:09:48 12/01/19 25 11/30/2024 (TEDDY) ankle brach ial index * Right TEDDY Intrepretati on 1.0 - 1.4 - Normal Not Available Main Office [address] [facility] [address], [place], [address], 11/22/2024 08:09:48 12/01/19 25 11/30/2024 (TEDDY) ankle brach ial index * Left TEDDY 1.03 Not Available Main Offi ce [address] [facility] [address], [place], [address], 11/22/2024 08:09:48 12/01/19 25 11/30/2024 (TEDDY) ankle brach ial index * Left TEDDY Interpretati on 1.0 - 1.4 - Normal Not Available Main Office [address] [facility] [address], [place], [address], 11/22/2024 08:09:48 12/01/19 25 11/30/2024 body compo sitio n meena sis (PROC ) Body Mass Index (BMI) 31.8 Not Available Main Office [address] [facility] [address], [place], [address], 11/22/2024 08:09:47 12/01/19 25 11/30/2024 body compo sitio n meena sis (PROC ) Body Fat % 48.8 Not Available Main Of fice [address] [facility] [address], [place], [address], 11/22/2024 08:09:47 12/01/19 25 11/30/2024 body compo sitio n meena sis (PROC ) Skeletal Muscle Mass (SMS) 55.8 Not Available Main O ffice [address] [facility] [address], [place], [address], 11/22/2024 08:09:47 12/01/19 25 11/30/2024 body compo sitio n meena sis (PROC ) Basal Metabolic Rate (BMR) 1389 Not Available Main Office [address] [facility] [address], [place], [address], 11/22/2024 08:09:47 12/03/19 25 12/03/2024 HOMOC YSTEI NE homocysteine 7.7 umol/ L <10.4 normal Homoc ystei ne is incre ased by [...] Med. 1999; 131(5 ):331 -9. Not Available [facility] [place] [facility] [address], [place], [place], [address], 12/03/2024 16:34:39 12/03/19 25 12/08/2024 GLUCO SE JAVAD ANCE TEST, 3 SPECI MENS, (75G) fasting specimen 81 mg/dL 65-99 normal Not Available [facility] [place] [facility] [address], [place], [address], 12/08/2024 02:10:07 12/03/19 25 12/08/2024 GLUCO SE JAVAD ANCE TEST, 3 SPECI MENS, (75G) 1 hour specimen 142 mg/dL normal Not Available [facility] [place] [facility] [address], [place], [address], 12/08/2024 02:10:07 12/03/19 25 12/08/2024 GLUCO SE JAVAD ANCE TEST, 3 SPECI MENS, (75G) 2 hour specimen 82 mg/dL <140 normal Not Available [facility] [place] [facility] [address], [place], [address], 12/08/2024 02:10:07 12/03/19 25 12/08/2024 GLUCO SE JAVAD ANCE TEST, 3 SPECI MENS, (75G) comment [facility] for [facility] Melli tus Gluco se Value (mg/d L) Inter preta tion Fasti ng 1 Hr 2 Hr Javad ance Javad ance ----- ----- ---- ----- ---- ----- ---- ----- ---- Mali l <1 00 Not Estab lishe d <140 Impai red Fasti ng 100-1 25 Impai red Javad ance 140-1 99 Diabe ayo >OR=1 26* >OR=2 00* * Must be confi rmed by testi ng on a subse quent day. Not Available [facility] [place] [facility] [address], [place], [address], 12/08/2024 02:10:07 12/03/19 25 12/08/2024 LP PLA2 ACTIV ITY LP pla2 activity 81 nmol/ min/m L <=123 Risk: Optim al <=123 nmol/ min/m L; High >123 nmol/ min/m L. This test was devel oped and its meena tical perfo rmanc e ella cteri stics have been deter mined by [facility]. It has not been clear ed or appro syeda by the FDA. This assay has been valid ated pursu ant to the CLIA regul ation s and is used for clini nikolai purpo ses. Not Available [facility] [place] [facility] [address], [place], [address], 12/08/2024 02:10:08 12/03/1912/08/2024 INSUL IN insulin 16.6 uIU/m L normal Refer ence Range < or = 18.4 Risk: Optim al < or = 18.4 Moder ate NA High >18.4 Adult cardi ovasc ular event risk categ ory cut point s (opti mal, moder ate, high) are based on Insul in Refer ence Inter hayley studi es perfo rmed at [facility] in 2021. Not Available [facility] [place] [facility] [address], [place], [address], 12/08/2024 02:10:08 01/13/20 25 01/13/2025 URINA LYSIS , COMPL ETE W/REF ADRIANNA TO CULTU RE color YELLOW yellow normal Not Available [facility] [place] [facility] [address], [place], [address], 01/13/2025 05:54:51 01/13/20 25 01/13/2025 URINA LYSIS , COMPL ETE W/REF ADRIANNA TO CULTU RE appearance CLEAR clear normal Not Available [facility] [place] [facility] [address], [place], [address], 01/13/2025 05:54:51 01/13/20 25 01/13/2025 URINA LYSIS , COMPL ETE W/REF ADRIANNA TO CULTU RE specific gravity 1.017 1.001- 1.035 normal Not Available [facility] [place] [facility] [address], [place], [address], 01/13/2025 05:54:51 01/13/20 25 01/13/2025 URINA LYSIS , COMPL ETE W/REF ADRIANNA TO CULTU RE pH 8.0 5.0-8. 0 normal Not Available [facility] [place] [facility] [address], [place], [address], 01/13/2025 05:54:51 01/13/20 25 01/13/2025 URINA LYSIS , COMPL ETE W/REF ADRIANNA TO CULTU RE glucose NEGATI VE negati ve normal Not Available [facility] [address], [place], [address], 01/13/2025 05:54:51 01/13/20 25 01/13/2025 URINA LYSIS , COMPL ETE W/REF ADRIANNA TO CULTU RE bilirubin NEGATI VE negati ve normal Not Available [facility] [place] [facility] [address], [place], [address], 01/13/2025 05:54:51 01/13/20 25 01/13/2025 URINA LYSIS , COMPL ETE W/REF ADRIANNA TO CULTU RE ketones NEGATI VE negati ve normal Not Available [facility] [place] [facility] [address], [place], [address], 01/13/2025 05:54:51 01/13/20 25 01/13/2025 URINA LYSIS , COMPL ETE W/REF ADRIANNA TO CULTU RE occult blood NEGATI VE negati ve normal Not Available [facility] [address], [place], [address], 01/13/2025 05:54:51 01/13/20 25 01/13/2025 URINA LYSIS , COMPL ETE W/REF ADRIANNA TO CULTU RE protein NEGATI VE negati ve normal Not Available [facility] [place] [facility] [address], [place], [address], 01/13/2025 05:54:51 01/13/20 25 01/13/2025 URINA LYSIS , COMPL ETE W/REF ADRIANNA TO CULTU RE nitrite NEGATI VE negati ve normal Not Available [facility] [place] [facility] [address], [place], [address], 01/13/2025 05:54:51 01/13/20 25 01/13/2025 URINA LYSIS , COMPL ETE W/REF ADRIANNA TO CULTU RE leukocyte esterase NEGATI VE negati ve normal Not Available [facility] [address], [place], [address], 01/13/2025 05:54:51 01/13/20 25 01/13/2025 URINA LYSIS , COMPL ETE W/REF ADRIANNA TO CULTU RE WBC NONE SEEN /hpf < or = 5 normal Not Available [facility] [place] [facility] [address], [place], [address], 01/13/2025 05:54:51 01/13/20 25 01/13/2025 URINA LYSIS , COMPL ETE W/REF ADRIANNA TO CULTU RE RBC NONE SEEN /hpf < or = 2 normal Not Available [facility] [address], [place], [address], 01/13/2025 05:54:51 01/13/20 25 01/13/2025 URINA LYSIS , COMPL ETE W/REF ADRIANNA TO CULTU RE squamous epithelial cells 10-20 /hpf < or = 5 abnormal Not Available [facility] [address], [place], [address], 01/13/2025 05:54:51 01/13/20 25 01/13/2025 URINA LYSIS , COMPL ETE W/REF ADRIANNA TO CULTU RE bacteria NONE SEEN /hpf none seen normal Not Available [facility] [address], [place], [address], 01/13/2025 05:54:51 01/13/20 25 01/13/2025 URINA LYSIS , COMPL ETE W/REF ADRIANNA TO CULTU RE hyaline cast NONE SEEN /lpf none seen normal Not Available [facility] [place] [facility] [address], [place], [address], 01/13/2025 05:54:51 01/13/20 25 01/13/2025 URINA LYSIS , COMPL ETE W/REF ADRIANNA TO CULTU RE note This urine was meena zed for the prese nce of WBC, RBC, bacte lorena, casts , and other forme d eleme nts. Only those eleme nts seen were repor yt. Not Available [facility] [place] [facility] [address] [place], [place], [address], 01/13/2025 05:54:51 01/13/20 25 01/13/2025 URINA LYSIS , COMPL ETE W/REF ADRIANNA TO CULTU RE reflexive urine culture NO CULTU RE INDIC ATED Not Available [facility] [place] [facility] [address] [place], [place], [address], 01/13/2025 05:54:51 04/25/20 25 04/26/2025 COMPR EHENS NATALIE METAB OLIC PANEL glucose 78 mg/dL 65-99 normal Fasti ng refer ence inter hayley Not Available [facility] [place] [facility] [address] [place], [place], [address], 04/26/2025 08:50:36 04/25/20 25 04/26/2025 COMPR EHENS NATALIE METAB OLIC PANEL urea nitrogen (BUN) 16 mg/dL 7-25 normal Not Available [facility] [place] [facility] [address] [place], [place], [address], 04/26/2025 08:50:36 04/25/20 25 04/26/2025 COMPR EHENS NATALIE METAB OLIC PANEL creatinine 0.80 mg/dL 0.50-1 .05 normal Not Available [facility] [address] [place], [place], [address], 04/26/2025 08:50:36 04/25/20 25 04/26/2025 COMPR EHENS NATALIE METAB OLIC PANEL eGFR 80 mL/mi n/1.7 3m2 > or = 60 normal Not Available [facility] [address], [place], [address], 04/26/2025 08:50:36 04/25/20 25 04/26/2025 COMPR EHENS NATALIE METAB OLIC PANEL BUN/creatini ne ratio SEE NOTE: (calc ) 6-22 Not Repor ty: BUN and Creat inine are withi n refer ence range . Not Available [facility] [address], [place], [address], 04/26/2025 08:50:36 04/25/20 25 04/26/2025 COMPR EHENS NATALIE METAB OLIC PANEL sodium 142 mmol/ L 135-14 6 normal Not Available [facility] [address], [place], [address], 04/26/2025 08:50:36 04/25/2004/26/2025 COMPR EHENS NATALIE METAB OLIC PANEL potassium 4.4 mmol/ L 3.5-5. 3 normal Not Available [facility] [address], [place], [address], 04/26/2025 08:50:36 04/25/20 25 04/26/2025 COMPR EHENS NATALIE METAB OLIC PANEL chloride 106 mmol/ L 98-110 normal Not Available [facility] [address], [place], [address], 04/26/2025 08:50:36 04/25/20 25 04/26/2025 COMPR EHENS NATALIE METAB OLIC PANEL carbon dioxide 31 mmol/ L 20-32 normal Not Available [facility] [place] [facility] [address], [place], [address], 04/26/2025 08:50:36 04/25/20 25 04/26/2025 COMPR EHENS NATALIE METAB OLIC PANEL calcium 9.4 mg/dL 8.6-10 .4 normal Not Available [facility] [address], [place], [address], 04/26/2025 08:50:36 04/25/20 25 04/26/2025 COMPR EHENS NATALIE METAB OLIC PANEL protein, total 6.6 g/dL 6.1-8. 1 normal Not Available [facility] [address], [place], [address], 04/26/2025 08:50:36 04/25/20 25 04/26/2025 COMPR EHENS NATALIE METAB OLIC PANEL albumin 3.9 g/dL 3.6-5. 1 normal Not Available [facility] [address], [place], [address], 04/26/2025 08:50:36 04/25/20 25 04/26/2025 COMPR EHENS NATALIE METAB OLIC PANEL globulin 2.7 g/dL_ (calc ) 1.9-3. 7 normal Not Available [facility] [address], [place], [address], 04/26/2025 08:50:36 04/25/20 25 04/26/2025 COMPR EHENS NATALIE METAB OLIC PANEL albumin/glob ulin ratio 1.4 (calc ) 1.0-2. 5 normal Not Available [facility] [address], [place], [address], 04/26/2025 08:50:36 04/25/20 25 04/26/2025 COMPR EHENS NATALIE METAB OLIC PANEL bilirubin, total 0.7 mg/dL 0.2-1. 2 normal Not Available [facility] [address], [place], [address], 04/26/2025 08:50:36 04/25/20 25 04/26/2025 COMPR EHENS NATALIE METAB OLIC PANEL alkaline phosphatase 71 U/L 37-153 normal Not Available [facility] [address], [place], [address], 04/26/2025 08:50:36 04/25/20 25 04/26/2025 COMPR EHENS NATALIE METAB OLIC PANEL AST 21 U/L 10-35 normal Not Available [facility] [address], [place], [address], 04/26/2025 08:50:36 04/25/20 25 04/26/2025 COMPR EHENS NATALIE METAB OLIC PANEL ALT 14 U/L 6-29 normal Not Available [facility] [address], [place], [address], 04/26/2025 08:50:36 04/25/20 25 04/26/2025 CBC (H/H, RBC, INDIC ES, WBC, PLT) white blood cell count 8.5 thous and/u L 3.8-10 .8 normal Not Available [facility] [address], [place], [address], 04/26/2025 08:50:37 04/25/20 25 04/26/2025 CBC (H/H, RBC, INDIC ES, WBC, PLT) red blood cell count 5.17 jamel on/uL 3.80-5 .10 high Not Available [facility] [address], [place], [address], 04/26/2025 08:50:37 04/25/20 25 04/26/2025 CBC (H/H, RBC, INDIC ES, WBC, PLT) hemoglobin 15.8 g/dL 11.7-1 5.5 high Not Available [facility] [address], [place], [address], 04/26/2025 08:50:37 04/25/20 25 04/26/2025 CBC (H/H, RBC, INDIC ES, WBC, PLT) hematocrit 49.1 % 35.0-4 5.0 high Not Available [facility] [address], [place], [address], 04/26/2025 08:50:37 04/25/20 25 04/26/2025 CBC (H/H, RBC, INDIC ES, WBC, PLT) MCV 95.0 fL 80.0-1 00.0 normal Not Available [facility] [address], [place], [address], 04/26/2025 08:50:37 04/25/20 25 04/26/2025 CBC (H/H, RBC, INDIC ES, WBC, PLT) MCH 30.6 pg 27.0-3 3.0 normal Not Available [facility] [address], [place], [address], 04/26/2025 08:50:37 04/25/20 25 04/26/2025 CBC (H/H, RBC, INDIC ES, WBC, PLT) MCHC 32.2 g/dL 32.0-3 6.0 normal For adult s, a sligh t decre ase in the calcu lated MCHC value (in the range of 30 to 32 g/dL) is most likel y not clini sherry signi dillon t; [place], it shoul d be inter prete d with cauti on in corre latio n with other red cell venus eters and the patie nt's clini nikolai condi tion. Not Available [facility] [place] [facility] [address], [place], [address], 04/26/2025 08:50:37 04/25/20 25 04/26/2025 CBC (H/H, RBC, INDIC ES, WBC, PLT) RDW 13.0 % 11.0-1 5.0 normal Not Available [facility] [place] [facility] [address], [place], [address], 04/26/2025 08:50:37 04/25/2004/26/2025 CBC (H/H, RBC, INDIC ES, WBC, PLT) platelet count 195 thous and/u L 140-40 0 normal Not Available [facility] [place] [facility] [address], [place], [address], 04/26/2025 08:50:37 04/25/20 25 04/26/2025 CBC (H/H, RBC, INDIC ES, WBC, PLT) MPV 11.4 fL 7.5-12 .5 normal Your reque to have a amie nuneze copy faxed [facility]: [phone] Not Available [facility] [place] [facility] [address], [place], [address], 04/26/2025 08:50:37 09/15/1908/26/2024 US, pauline id arter y No observ ation record ed. phong Not Available 2024 12:44:03 10/15/1910/14/2024 stere otact ic brandee t biops y (PROC ) No observ ation record ed. [facility] [address] [facility], [place], [address], 10/28/2024 19:33:36 11/23/19 25 11/30/2024 elect rocar diogr am No observ ation record ed. [facility] Main [facility] [address], [place], [address], 12/02/2024 17:21:57 11/23/19 25 11/30/2024 audio gram No observ ation record ed. [facility] [address] [facility] [address], [place], [address], 12/02/2024 17:21:57 12/07/19 audio gram No observ ation record ed. [id number] Not Available 2024 14:52:44 12/07/19 visio n scree n* No observ ation record ed. [email or web address] Not Available 2024 14:54:01 12/07/19 25 lakeisha metry testi ng* No observ ation record ed. [email or web address] Not Available 2024 14:54:24 12/07/19 25 elect rocar diogr am No observ ation record ed. Not Available 2024 14:55:02 12/07/19 25 body compo sitio n meena sis (PROC ) No observ ation record ed. [email or web address] Not Available 2024 14:55:32 12/09/19 25 10/14/2024 biops y, breas t (PROC ) No observ ation record ed. [facility] [address] [facility], [place], [address], 12/12/2024 22:21:57 Result Notes None recorded. Problems Name Problem SNOMED Code Status Onset Date Resolution Date Notes Provider Name and Address Organization Details Recorded Time Palpitat ions 30022607 Active PVCs Cecilio Mcnulty MD [address] [place], [address] , [place] - Cecilio Mcnulty 3 11:19:24 Migraine 25883455 Active with aura, left sided pain Cecilio Mcnulty MD [address], [place], [address], [place] - [place], Cecilio D. 3 10:17:28 Hyperten sive disorder 13094491 Active Cecilio Mcnulty MD [address] [place] [address], [place], [address], [place] - [place], Cecilio D. 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 3 10:19:11 Low back pain 684332215 Active Cecilio Mcnulty MD [address] [place] [address], [place], [address], [place] - [place], Cecilio D. 3 10:20:07 Eczema 21737551 Active Cecilio Mcnulty MD [address] [place], [place] [address] [place], [address], [place] - [place], Cecilio D. 3 10:20:41 Hemorrho ids 40356405 Active Cecilio Mcnulty MD [address] [place] [address], [place], [address], [place] - Kleinkendra, Cecilio D. 3 10:20:57 Kidney stone 77404631 Completed 02/20/2023 Cecilio Mcnulty MD [address] [place] [address] [place], [address], [place] - Kleinkendra, Cecilio D. 3 10:25:36 Peripher al vestibul ar disease 27797660 Active Cecilio Mcnulty MD [address] [place] [address], [place], [address], [place] - [place], Cecilio D. 3 11:19:36 Hyperlip idemia 39971466 Active Cecilio Mcnulty MD [address] [place] [address], [place], [address], [place] - [place], Cecilio D. 4 18:12:16 Fibromya lgia 329188289 Active Cecilio Mcnulty MD [address] [place] [address], [address], [place] Cecilio Moore 4 12:36:37 Obesity 077964488 Active Cecilio Mcnulty MD [address] [place] [address], [address], [place] - Cecilio Mcnulty. 4 18:12:21 Dry eyes 386757506 Active Cecilio Mcnulty MD [address] [place] [address], [address], [place] - Cecilio Mcnulty. 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 5 10:43:30 Vesicula r eczema 070693464 Active Fingers - Advised to use Aquaphor [...] in the moisture . 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 5 13:04:43 Calcific ation of breast 572604454 Active Short interval mammogra m noting possible change in right breast calcific ation. Right breast biopsy schedule d for 10/14/2024 . Cecilio Mcnulty MD [address] [place], [address], [place] Cecilio Moore 5 10:44:14 Insulin resistan ce 965137259 Active 2024 2 hour GTT (81,142, 82) and insulin 16.6 Cecilio Mcnulty MD [address] [place] [address], [address], [place] Cecilio Moore 5 08:01:09 Pain in bilatera l feet 22158633668 386168 Active 2024 Cecilio Mcnulty MD [address] [place] [address], [address], [place] Cecilio Moore 5 16:37:28 Edema of lower extremit y 310470896 Active 2024 Cecilio Mcnulty MD [address] [place] [address], [address], [place] Cecilio Moore 16:37:23 Problem Notes None recorded. Procedures Surgical History Date Name Laterality Status Provider Name and Address Organization Details Recorded Time 12/03/19 25 JULITO CORTES completed Cecilio Jennings 12/01/2024 14:16:50 11/07/19 25 Dental prophylaxis adult completed Cecilio Martinez 11/29/2024 15:48:23 10/14/19 25 stereotactically guided core needle biopsy completed Cecilio Mcnulty MD [address] [place] [address], [address], Cecilio Moore 10/28/2024 19:33:22 10/30/19 24 JULITO CORTES completed Cecilio Mcnulty MD [address] [place] [address], [address], Cecilio Moore 10/29/2023 18:49:30 08/08/20 23 comprehensive eye examination completed Cecilio Martinez 10/17/2023 12:51:20 11/07/19 23 Most Recent Mammogram completed Cecilio Coronado 02/20/2023 10:07:11 05/09/20 22 Date of Last Pap Smear completed Cecilio Coronado 02/20/2023 10:07:45 12/19/19 22 Dxa bone density yasir vrt fx completed Cecilio Coronado 10/31/2023 09:53:28 09/08/19 05 Academic Vice President Surgery completed Cecilio Coronado 02/20/2023 08:59:01 09/08/19 [...] low 02/20/2023 2670 RxNorm Cecilio Mcnulty MD [address] [place] [address], [address], Cecilio Moore 3 10:36:38 3654 cyclobenz aprine hydrochlo ride medicatio n hives Not available low 02/20/2023 99061 RxNorm Cecilio Mcnulty MD [address] [place] [address], [address], Cecilio Moore 3 10:36:45 3655 hydrochlo rothiazid e medicatio n vomiting Not available low 02/20/2023 5487 RxNorm Cecilio Mcnulty MD [address] [place] [address], [address], [place] - Cecilio Mcnulty 3 10:37:08 5070 iodine medicatio n Not available Not available Not available 10/06/2024 5933 RxNorm Genevieve lewis, [place] Kaye Cecilio Mcnulty 5 11:14:20 Medications Name Sig Start Date Stop Date Status Note LastModified by Organization Details LastModified Time azithromy ashli 250 mg tablet TAKE 2 TABLETS BY MOUTH TODAY, THEN TAKE 1 TABLET DAILY FOR 9 DAYS DIRECTED 02/15 completed Not Available Not Available Not Available valacyclo vir 1 gram tablet TAKE 1 TABLET BY MOUTH EVERY 8 HOURS FOR 7 DAYS 03/24 completed Not Available Not Available Not Available [...] completed Not Available Not Available Not Available aspirin 81 mg tablet,de layed release Take 1 tablet every day by oral route. active Not Available Not Available No t Available triamcino lone acetonide 0.1 % topical cream APPLY A THIN LAYER TO THE AFFECTED AREA(S) BY TOPICAL ROUTE 2 TIMES PER DAY 2024 active Not Available Not Available Not Avai lable TobraDex 0.3 %-0.1 % eye ointment APPLY THIN RIBBON TO AFFECTED AREA ON EYELIDS OF BOTH EYES FOUR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 sumatripta n at onset of headaches/ aura. Obesity 109140969 E66.09 Z68.31 Patient has an elevated BMI of 31.8 and an InBody screening notable for elevated body fat mass/perce nt body fat. Patient has been advised to reduce portion size, increase exercise (aerobic and resistance training) and reduce/chloe id consumptio n of complex carbohydra te and starch after 3 p.m. Patient will consider intermitte nt fasting in hopes of indirectly leading to weight loss. Recheck at next visit. Screening procedure 2012 5006 Z13.9 [id number] Patient is a non-smoker . Counseling 527327489 Z71 .89 [id number] Patient and I have had a detailed [...] as antibiotic s and vasopresso r agents. Arterioscl erotic vascular disease 49324342 I70.8 315244 The CIMT test was abnormal with evidence [...] homocystei ne, 2 hour Glucose Tolerance Test, and an insulin level. Several genetic markers were checked including Apo E Genotype (E3/E4, very low-fat diet and avoid alcohol), 9p21 Genotype (Homozygou s non-kris r, no increased cardiovasc ular risk), KIF6 Genotype (Homozygou s non-kris r, no increased cardiovasc ular risk), Haptoglobi n Genotype (Hp 2/2, Recommend gluten-mayte e diet), MTHFR Genotype (No variant on 677 genotype), VVRH1T1 Genotype (reduced statin transport) and LPA-Aspiri n Genotype (Homozygou s non-kris r, no increased cardiovasc ular risk). Patient reportedly had negative sleep study approximat brigette 15 years ago and has no issues with snoring or sleep at this time. Additional testing including oral pathogen evaluation is also recommende d to complete Cardiovasc ular root cause evaluation . Calcific c oronary arteriosclerosis 45278037 I25.10 I25.84 6079650 Patient has a history of positive coronary calcium score of 84. Patient will continue with daily low-dose aspirin along with aggressive lipid management as noted below. Homocystei ne level will be checked. [id number] Cecilio Mcnulty MD Main Office [address] [facility] [place] [address] 01/03/2025 08:45:16 01/03/2025 09:11:41 Herpes zoster 8351298 B02.9 07814224 Patient has a 4 day history of neck stiffness and skin irritation with subsequent developmen t of 2 pink papules and escalating hypersensi tivity over the past 24 hours indicative of probable herpes zoster. Patient was placed on valacyclov ir 1 g 3 times daily for 7 days and will follow-up as needed. If sensitivit y escalates will consider gabapentin for further symptomati c treatment. [id number] Cecilio Mcnulty MD Main Office [address] [facility] [place] [address] 03/24/2025 09:52:13 03/24/2025 10:48:21 Edema of lower extremity [id number] R60.0 91507 Patient has had the developmen t of lower extremity edema over the past several weeks along with occasional lightheade dness when bending over or standing up quickly. Patient does not have evidence of orthostasi s. At this time we will check comprehens natalie metabolic panel and CBC. Patient has been encouraged to elevate lower extremitie s midday in hopes of reducing swelling in the late afternoon and evening. Patient may consider wearing compressio n stockings. If patient has continued mild lower extremity edema and normal blood work then we will consider low-dose diuretic therapy. Patient has upcoming cardiology appointmen t (04/07/2025 ) and echocardio gram may be appropriat e for further cardiac assessment at that time. Hypertensive disorder 38 583570 I10 Patient has borderline blood pressure. Patient will continue current management consisting of amlodipine and atenolol therapy. Patient will have basic metabolic panel drawn at this time and we will consider addition of low-dose diuretic therapy. Patient been encouraged to follow a low-sodium diet and to increase activity/e xercise. Patient encouraged to continue to follow blood pressure at home. Goal blood pressure is less than 130/80. Pain in bi lateral feet [id number] 3483421 M79.671 M79.672 [id number] Patient has bilateral foot pain which is exacerbate d with increased walking or standing. Patient has used orthotics in the past and will be referred to Dr. Nasra Mistry of podiatry. Health Concerns Section Related Observation LastModified by Organization Detai ls LastModified Time None Recorded Concern Status LastModified by Organization Details LastModified Time None Recorded Advance Directives Directive None Recorded Payers Insurance Date Sequence Insurance Name Policy Number Policy [place] Covered Member ID [place] Member ID Guarantor Name 06/28/2025 1 [employer] (MEDICARE REPLACEMENT/ ADVANTAGE - PPO) Ivonne Jimenez [id number] Ivonne Jimenez Notes Date Note Type Note Provider Name and Address Organization Details Recorded Time 10/06/2024 text/html Patient now presents for review of recent CIMT scan. Cecilio Mcnulty MD [address] [place] [address], [phone], [place] - Cecilio Mcnulty 10/06/2024 13:04:00 11/22/2024 text/html Medicare Annual Wellness VisitReported by PatientSocial/Behavior al HistoryFor diet and nutrition, patient reportshealthy diet. For fracture risk, patient reportsno history of fractures,no recent explained fracture,no sudden unexplained fractures, andno previous musculoskeletal injuries. For physical activity, patient reportsexercises on a regular basis,recent increase in physical activity, andgood physical condition.Mental Status:For depression risk, patient reportsnever feels sad, empty, or tearful,no loss of interest in activities,no significant changes in weight,no sleep disturbances or insomnia,no agitation,no loss of energy,no feelings of worthlessness or guilt,no thoughts of suicide,no history of depression, andno history of mood disorders. For orientation, patient reportsno disorientation to time,no disorientation to date, andno disorientation to place. For concentration and memory, patient reportsno decreased concentrating ability,no memory lapses or loss, anddoes not forget words. For speech/motor difficulties, patient reportsno speech difficulties,no difficulty expressing formulated concepts,no difficulty with fine manipulative tasks,no difficulty writing/copying,no slowed reaction time, anddoes not knock things over when trying to pick them up.Functional AbilityFor hearing, patient reportsno loss of hearing. For vision, patient reportsno vision problems. For activities of daily living, patient reportsable to bathe with limited or no assistance,able to contol urination and bowels,able to dress with limited or no assistance,able to feed self with limited or no assistance,able to get out of chair or bed with limited or no assistance,able to groom with limited or no assistance, andable to toilet with limited or no assistance. For instrumental activities of daily living, patient reportsable to do house work with limited or no assistance,able to grocery shop with limited or no assistance,able to manage medications with limited or no assistance,able to manage money with limited or no assistance,able to prepare meals with limited or no assistance, andable to use the phone with limited or no assistance. For falls risk assessment, patient reportsno frequent falls while walking,no fall in the past year,no fall since last visit, andno dizziness/vertigo. For home safety, patient reportsno unsafe david hazzards,no unsafe stairs,no unsafe gas appliances,working smoke/co detectors,wears protective head gear for biking/high velocity,use of seatbelts,practicing 'safer sex',no vision or hearing loss while driving,no fire arms,has hand bars in the bathroom/shower, andgood lighting in the home. [facility]. Cecilio Mcnulty MD [address] [place] [address], [phone], [place] - Cecilio Mcnulty. 01/07/2025 11:41:35 12/02/2024 text/html Medicare Annual Wellness VisitReported by PatientSocial/Behavior al HistoryFor diet and nutrition, patient reportshealthy diet. For fracture risk, patient reportsno history of fractures,no recent explained fracture,no sudden unexplained fractures, andno previous musculoskeletal injuries. For physical activity, patient reportsexercises on a regular basis,recent increase in physical activity, andgood physical condition.Mental Status:For depression risk, patient reportsnever feels sad, empty, or tearful,no loss of interest in activities,no significant changes in weight,no sleep disturbances or insomnia,no agitation,no loss of energy,no feelings of worthlessness or guilt,no thoughts of suicide,no history of depression, andno history of mood disorders. For orientation, patient reportsno disorientation to time,no disorientation to date, andno disorientation to place. For concentration and memory, patient reportsno decreased concentrating ability,no memory lapses or loss, anddoes not forget words. For speech/motor difficulties, patient reportsno speech difficulties,no difficulty expressing formulated concepts,no difficulty with fine manipulative tasks,no difficulty writing/copying,no slowed reaction time, anddoes not knock things over when trying to pick them up.Functional AbilityFor hearing, patient reportsno loss of hearing. For vision, patient reportsno vision problems. For activities of daily living, patient reportsable to bathe with limited or no assistance,able to contol urination and bowels,able to dress with limited or no assistance,able to feed self with limited or no assistance,able to get out of chair or bed with limited or no assistance,able to groom with limited or no assistance, andable to toilet with limited or no assistance. For instrumental activities of daily living, patient reportsable to do house work with limited or no assistance,able to grocery shop with limited or no assistance,able to manage medications with limited or no assistance,able to manage money with limited or no assistance,able to prepare meals with limited or no assistance, andable to use the phone with limited or no assistance. For falls risk assessment, patient reportsno frequent falls while walking,no fall in the past year,no fall since last visit, andno dizziness/vertigo. For home safety, patient reportsno unsafe david hazzards,no unsafe stairs,no unsafe gas appliances,working smoke/co detectors,wears protective head gear for biking/high velocity,use of seatbelts,practicing 'safer sex',no vision or hearing loss while driving,no fire arms,has hand bars in the bathroom/shower, andgood lighting in the home. Patient is here for the [facility] Wellness Program and Subsequent Annual Wellness Exam. During this visit we will review and discuss their Health Risk Assessment and review the various tests and procedures performed as part of the [facility] Annual Wellness Program. The patient [...] home and driving safety. Cecilio Mcnulty MD [address] [place] [address], [phone], Cecilio Moore. 12/02/2024 17:54:27 01/03/2025 text/html Patient now presents for four-day history of tingling in the right posterior scalp and stiffness in the right side of the neck. Patient noted yesterday developed several sensitive bumps in the occipital area with subsequent development of burning and sensitivity of the skin. Patient denies any additional skin lesions or paresthesias. Cecilio Mcnulty MD [address] [place] [address], [phone], Cecilio Moore. 01/03/2025 12:46:10 03/24/2025 text/html Patient presents for 2-week history of bilateral lower leg swelling which is worse in the evening and improved if patient elevates her legs and therefore better upon awakening each morning. Patient has also developed bilateral foot and ankle discomfort with severity 7/10. Patient has been taking Aleve 2 tablets daily and on occasion an additional tablet at night. Patient notes blood pressures approximately 120/70. Patient has episodic palpitations without any interval change. Patient denies any chest pain or shortness of breath. Patient notes occasional lightheadedness if he bends over or stands up quickly and denies any headache or syncopal episodes. Patient does note twisting her ankle and falling approximately 1 month ago and does note swelling of the left ankle/foot is slightly worse than the right ankle/foot. Patient also notes tapering off amitriptyline in the recent past and denies any difficulties after discontinuation of amlodipine. Cecilio Mcnulty MD [address] [place] [address], [phone], [place] - Cecilio Mcnulty 03/24/2025 16:38:09 OBGyn Episode No OBEpisode recorded.
--- OUTSIDE RECORDS SUMMARY | 2025-07-28 01:53 | XMS_ITS | Clinical Summary ---
Author Organization [facility] Address [address] [place] [address] Care Team Providers Care Gm Mobile Name Role Phone Unavailable Primary Care Provider Unavailabl e Allergies Active Allergy Reactions Criticality Noted Date Comments Cyclobenzaprine Unknown/Patient and Family Unable to Define Medium 06/12/2023 Medications amLODIPine (NORVASC) 5 MG tablet Take 5 mg by mouth daily. 3 Active atenolol (TENORMIN) 50 MG tablet Take 50 mg by mouth 2 (two) times a day. 3 Active rosuvastatin (CRESTOR) 20 MG tablet Take 20 mg by mouth 3 (three) times a week. 3 Active naproxen sodium (ALEVE) 220 mg tablet Take 220 mg by mouth 2 (two) times a day with meals. Take with meals or food to reduce stomach upset. Active OMEprazole (PriLOSEC) 10 MG capsule Take 10 mg by mouth daily. Active magnesium 30 MG tablet Take 30 mg by mouth 2 (two) times a day. Active ergocalciferol (VITAMIN D2,DRISDOL) 71459 units Cap Take 50,000 Units by mouth once a week. Active Biotin 3 MG Tab Take 1 tablet by mouth daily. Active thiamine (VITAMIN B-1) 250 mg tablet Take 250 mg by mouth daily. Active triamcinolone (KENALOG) 0.025 % cream Apply topically 2 (two) times a day. Active estradiol (ESTRACE) 0.01 % vaginal creamIndication s:Atrophic vaginitis Place 0.5 grams into the vagina at bedtime twice weekly 42.5 g 1 4 Active Active Problems Problem Noted Date Diagnosed [...] collected Encounter for annual routine gynecological exami nation 06/12/2023 Assessment & Plan (01/13/2025 11:49 AM EDT): Annual court assistant Pap deferred to 2026 Mammo current Bone density has been normal Colonoscopy? Assessment & Plan (06/12/2023 10:55 AM EDT): Annual court assistant Pap done - every 3-4 years Mammo and colonoscopy current Bone density was perfect a few years ago Mild urge incontinence - declines meds Vaginal estrogen reinitiated Family History Medical History Relation Name Comments Heart attack Brother Hypertension Mother Relation Name Status Comments Brother Mother Social History Tobacco Use Types Packs/Day Years Used Date Smoking Tobacco: Never Smokeless Tobacco: Never Tobacco Cessation:Counseling Given: Not Answered Comments No Sex and Gender Information Value Date Recorded Sex Assigned at Female 06/12/2023 10:26 AM EDT Legal Sex Female 12:34 PM EDT Gender Identity Female 06/12/2023 10:26 AM EDT Sexual Orientation Heterosexual (straight) 06/12 10:26 AM EDT Last Filed Vital Signs Vital Sign Reading Time Taken Comments Blood Pressure 142/80 01/13/2025 11:35 AM EDT Pulse 65 08/26/2024 2:11 PM EST Temperature - - Respiratory Rate - - Oxygen Saturation - - Inhaled Oxygen Concentration - - Weight 92.1 kg (203 lb) 01/13/2025 11:35 AM EDT Height 170.2 cm (5' 7 ) 01/13/2025 11:35 AM EDT Body Mass Index 31.79 01/13/2025 11:35 AM EDT Plan of Treatment Health Maintenance Due Date Last Done Comments Advance Care Planning 1955 Hepatitis C Virus Screening 1955 DTaP/Tdap/Td Vaccines (1 - Tdap) 1975 Mammogram 1996 Colonoscopy 2001 Pneumococcal Vaccines 50+ (1 of 1 - PCV) 2006 RSV Vaccine 50 years and older and Patients (1 - Risk 50-74 years 1-dose series) 2006 Zoster (Shingles) Vaccine (1 of 2) 2006 DXA Bone Density (Females,Ages 65 and older) 2021 Influenza Vaccine 04/08/2025 05/09/2022, 06/06/2020 COVID-19 Vaccine ( - 2024- season) 2025 06/03/2022, 01/23/2022, 07/09/2021, Additional history exists Hepatitis B Vaccines Aged Out No long er eligible based on patient's age to complete this topic Insurance [facility]
--- OUTSIDE RECORDS SUMMARY | 2025-07-28 01:53 | XMS_ITS | Patient Health Record ---
Author Organization [facility] Address [address] [place] [address] Care Team Providers Care Environmental Service Aide Name Role Phone Gonzalez Nieves Primary Care Provider Unavailabl e Jennifer Salazar Unavailable [facility] [place] Unavailable U navailable Allergies Allergen (clinical drug [...] Risk Notes Problem Lumbosacral spondylosis without myelopathy (83881766) Other spondylosis, lumbar region (M47.896) Active confirmed Problem Low back pain (798339603) Low Back Pain (M54.5) Active confirmed Problem Lumbar radiculopathy (995319562) Radiculopathy, lumbar region (M54.16) Active confirmed Problem Long-term current use of drug therapy (233708396) Other penitentiary (current) drug therapy (Z79.899) Active confirmed Problem Low back pain (554725482) Low back pain, unspecified (M54.50) Active confirmed Plan Of Treatment No Information Insurance Providers Payer Name Payer Address Payer Phone Subscriber Number Group Number Insured Name Patient Relationship to Insured Coverage Start Date Coverage End Date [employer] [address] [address] [place] [address] [id number] Ivonne Jimenez Self - patient is [...]
== END 2025-07-27 15:21 | disposition home or self-care (01) ==
LOC: HO.HMCC 13:47
PROVIDERS: PCP Internal Medicine; Visit Provider Internal Medicine
DX: R10.11 Right upper quadrant pain (principal); R20.8 Other disturbances of skin sensation; M21.41 Flat foot [pes planus] (acquired), right foot; M21.42 Flat foot [pes planus] (acquired), left foot; M47.27 Other spondylosis with radiculopathy, lumbosacral region

== ENCOUNTER 2025-08-12 13:13 | Outpatient (REF) | payer MEDICARE, SELFPAY ==
[2025-08-12 16:11] LABS: MANUAL DIFF FLAG NO
[2025-08-12 16:17] LABS: Hematocrit 48.7 % (37.0-47.0); Hemoglobin 15.9 g/dl (12.0-16.0); Imm Gran Abs Auto 0.01 X10*3/uL (0.00-0.03); Imm Gran Pct Auto 0.2 % (0.0-0.4); Lymphocytes Absolute Auto 2.1 X10*3/uL (1.2-4.9); Mean Corpuscular HGB Conc 32.6 g/dl (31.0-35.0); Mean Corpuscular Hemoglobin 29.9 pg (27.0-33.0); Mean Corpuscular Volume 91.7 fL (80.0-98.0); NRBC Abs Auto 0.000 X10*3/uL (0.0-0.012); NRBC Pct Auto 0.0 /100WBC (0.0-0.2); Platelet Count 219 X10*3/uL (160-400); Red Blood Count 5.31 X10*6/uL (4.20-5.50); White Blood Count 5.9 X10*3/uL (4.8-10.8)
[2025-08-12 17:07] LABS: Alanine Aminotransferase 26 U/L (0-31); Albumin Level 4.3 g/dL (3.5-5.0); Alkaline Phosphatase 81 U/L (39-117); Amylase 63 U/L (28-100); Anion Gap 8 (12-20); Aspartate Amino Transferase 35 U/L (5-31); Blood Urea Nitrogen 17 mg/dL (9-16); Calcium 9.5 mg/dL (8.4-10.2); Carbon Dioxide 31 mmol/L (22-29); Chloride 108 mmol/L (96-108); Estimated Glomerular Filt Rate > 60; Lipase 35 U/L (8-78); Potassium 4.2 mmol/L (3.3-5.1); Sodium 143 mmol/L (135-145); Total Protein 7.2 g/dL (6.5-8.0)
--- OUTSIDE RECORDS SUMMARY | 2025-08-12 17:22 | XMS_ITS | Clinical Summary ---
Author Organization [facility] Address [address] [place] [address] Phone Care Team Providers Care Equipment Operator Warehouse Name Role Phone Cecilio Mcnulty MD Primary Care Provider [phone] Allergies No known active allergies Medications No known medications Social History Tobacco Use Types Packs/Day Years Used Date Smoking Tobacco: Never Assessed Comments Unknown Sex and Gender Information Value Date Recorded Sex Assigned at Female 10/08/2024 9:19 AM EST Legal Sex Female 10:19 AM EST Gender Identity Female 10/08/2024 9:19 AM EST Sexual Orientation Straight 10/08/2024 9: 19 AM EST Plan of Treatment Health Maintenance Due Date Last Done Comments Colorectal Cancer Screening: Colonoscopy 1955 DTaP,Tdap,and Td Vaccines (1 - Tdap) 1975 Pneumococcal Vaccine: 50+ Ye ars (1 of 1 - PCV) 2006 Zoster Vaccines (1 of 2) 2006 Depression Screening 09/08/2024 Falls Risk Assessment 09/23/2024 Hepatitis C Screening 09/23/2024 Medicare Annual Wellness Visit 09/23/2024 Osteoporosis Screening (Bone Density Screening) 09/23/2024 Social Influencers of Health Screening 09/23/2024 COVID-19 Vaccine (1 - 2024-2 6 season) 2025 Influenza Vaccine (#1) 2025 Breast Cancer Screening 10/14/2026 10/14/2024 RSV Immunization Adult Patie nts (1 - 1-dose 75+ series) 2031 HIB [...] age to complete this topic Meningococcal B Vaccine Aged Out No l onger eligible based on patient's age to complete this topic RSV Immunization Patients Un karel 20 months Aged Out No longer eligible b ased on patient's age to complete this topic Varicella Vaccines Aged Out No longer eligible based on patient's age to complete this topic Medical Devices Implanted Type Area Exhibition Carver Device Identifier Shelf Expiration Date Model / Serial / Lot Marker Biopsy Hydromark Radiological Implant Strl Breast Bx - [id number] Implanted:Qty: 1 on 10/14/2024 by Anneliese Ponce MD at [facility] Imaging Implants Right: Breast DEVICOR [employer] [id number] 03/11/2027 4010-05- 10-T3 / / [id number] Procedures Procedure Name Priority Date/Time Associated Diagnosis Comments MG MAMMO DIGITAL DIAGNOSTIC POST CLIP RIGHT Routine 10/14/2024 10:08 AM EST 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 from Last 3 Months or Most Recently Relevant to Health Maintenance Results * MG Mammo Digital Diagnostic Clip [...] Signed Date: 10/15/2024 13:53 ET Workstation ID: [id number] Transcribed By: Self Edit Transcribed Date: 10/15/2024 13:49 ET Narrative 10/15/2024 1:53 PM EST STEREOTACTIC BREAST CORE NEEDLE BIOPSY CLINICAL: 69 years old, Female, referred for stereotactic breast biopsy of right breast calcifications. COMPARISON: 09/02/2024, 02/17/2024, 01/08/2024, 12/10/2022 PROCEDURE: Informed consent was obtained. Preprocedure time out was performed per routine. The patient was positioned upright, and preliminary digital tomographic/stereotactic imaging of the right breast confirms the presence of calcifications medially at 3:00. A medial approach was used. The skin was prepped using sterile technique. Cutaneous and subcutaneous anesthesia was achieved using 2% Xylocaine. A standard 10-gauge core biopsy needle was advanced to the target, and satisfactory positioning was confirmed with pre- and post-fire imaging. A total of 5 vacuum assisted core biopsy specimens were obtained. Specimen radiograph reveals the presence of calcification. Specimens were sent for pathologic analysis, results pending. A coil shaped postbiopsy clip was deployed to kyle the biopsy site. Postprocedure mammographic images disclose the clip to be at the targeted site. RCC, RMLO and RML 2-D post procedure mammography was performed. There are no visualized residual microcalcifications noted at the biopsy site. There is a small hematoma measuring 1.6 x 0.4 cm at the biopsy site. BREAST DENSITY: Specimens were sent for pathologic analysis, results pending. Hemostasis was achieved with manual compression. Dermabond and sterile gauze were applied, and the patient was given post biopsy instructions. There were no immediate complications. The patient tolerated the procedure well and left [...] Signed Date: 10/15/2024 13:53 ET Workstation ID: [id number] Transcribed By: Self Edit Transcribed Date: 10/15/2024 13:49 ET us Hilton Stephenson MD IMG BI PROCEDURES F inal Result from Last 3 Months or Most Recently Relevant to Health Maintenance Insurance [facility] MEDICARE ADVANTAGE on file Care Teams Equipment Operator Warehouse Relationship Specialty Start Date End Date Cecilio Mcnulty MD [address] [place] [phone] PCP - General Internal Medicine 10/08/24
--- OUTSIDE RECORDS SUMMARY | 2025-08-12 17:22 | XMS_ITS | Clinical Summary ---
Author Organization [facility] Address [address] [place] [address] Care Team Providers Care Senior Property Manager Name Role Phone Unavailable Primary Care Provider [...] times a day. Active ergocalciferol (VITAMIN D2,DRISDOL) 70039 units Cap Take 50,000 Units by mouth [...] & Plan (01/13/2025 11:49 AM EDT): Annual ocularist Pap deferred to 2026 Mammo current Bone density has been normal Colonoscopy? Assessment & Plan (06/12/2023 10:55 AM EDT): Annual ocularist Pap done - every 3-4 years Mammo [...] patient's age to complete this topic Insurance [facility] MEDICARE
== END 2025-08-12 13:14 | disposition home or self-care (01) ==
LOC: HO.HMGCLDS 13:13
PROVIDERS: PCP Internal Medicine; Visit Provider Internal Medicine
DX: R10.11 Right upper quadrant pain (principal); Z90.49 Acquired absence of other specified parts of digestive tract
CPT/HCPCS: 36415; 80053; 82150; 83690; 85025

== ENCOUNTER 2025-08-25 07:54 | Outpatient (AMB) | payer OTHER, SELFPAY ==
--- OUTSIDE RECORDS SUMMARY | 2025-08-25 08:01 | XMS_ITS | Clinical Summary ---
Author Organization [facility] Address [address] [place] [address] Care Team Providers Care Aerospace Project Manager Name Role Phone Unavailable Primary Care [...] times a day. Active ergocalciferol (VITAMIN D2,DRISDOL) 49103 units Cap Take 50,000 Units by mouth [...] & Plan (01/13/2025 11:49 AM EDT): Annual torch cutter Pap deferred to 2026 Mammo current Bone density has been normal Colonoscopy? Assessment & Plan (06/12/2023 10:55 AM EDT): Annual torch cutter Pap done - every 3-4 years Mammo [...] patient's age to complete this topic Insurance [facility] MEDICARE
--- OUTSIDE RECORDS SUMMARY | 2025-08-25 08:01 | XMS_ITS | Clinical Summary ---
Author Organization [facility] Address [address] [place] [address] Phone Care Team Providers Care Floor Plan Adjuster Name Role Phone Cecilio Mcnulty MD Primary Care Provider [phone] Allergies No known active allergies Medications No [...] this topic Medical Devices Implanted Type Area Master Welder Device Identifier Shelf Expiration Date Model / Serial / Lot Marker Biopsy Hyd[employer]ark Radiological Implant Strl Breast Bx - [id number] Implanted:Qty: 1 on 10/14/2024 by Anneliese Ponce MD at [facility] Imaging Implants Right: Breast DEVICOR [employer] [id number] 03/11/2027 4010-05- 10-T3 / / [id number] Procedures Procedure Name Priority Date/Time Associated [...] Signed Date: 10/15/2024 13:53 ET Workstation ID: [id number] Transcribed By: Self Edit Transcribed Date: 10/15/2024 [...] Signed Date: 10/15/2024 13:53 ET Workstation ID: [id number] Transcribed By: Self Edit Transcribed Date: 10/15/2024 13:49 ET us Hilton Stephenson MD IMG BI PROCEDURES F inal Result from Last 3 Months or Most Recently Relevant to Health Maintenance Insurance [facility] MEDICARE ADVANTAGE on file Care Teams Floor Plan Adjuster Relationship Specialty Start Date End Date Cecilio Mcnulty MD [address] [place] [phone] PCP - General Internal Medicine 10/08/24
--- OUTSIDE RECORDS SUMMARY | 2025-08-25 08:01 | XMS_ITS | Data Portability ---
Author Organization [facility] - Cecilio Mcnulty, Inactive Address [address] [place] [address] Care Team Providers Care Starch Treating Assistant Name Role Phone SOLEDAD JONAS Neurologist DANO ALAS Armor Reconnaissance Vehicle Crewman PABLO GUERRERO Travel Services Professional [phone] [facility] Assembler Show Motor DENICE MALDONADO Strip Presser Assessment Encounter Date Assessment Date Assessment LastModified by Organization Details LastModified Time 12/02/2024 12/02/2024 Patient has received initial Covid [...] exam will be done in one year. ikleinhen Not available 12/02/2024 17:51:59 08/22/2025 08/22/2025 I think the ikleinhen Not available 18:50:51 Plan of Treatment Reminders Order Date Submit Date Provider Last Modified By Organization Details Last Modified Time Details Appointments [facility] 2025 10:00A M Residential Pest Control Technician Not available Not available Not available [facility] 2025 09:00A M Cecilio Mcnulty M.D. Not available Not available Not available Lab CMP, serum or plasma 2024 025 [employer] [facility], [address] [place] [address], [place], [address], 04/26/2025 08:50:36 CBC 2024 025 [employer] [facility], [address] [place] [address], [place], [address], 04/26/2025 08:50:37 homocyst eine, serum or plasma 2024 025 [employer] [facility], [address] [place] [address], [place], [address], 12/03/2024 16:34:39 Referral None recorded . Procedures body composit ion analysis (PROC) 2024 025 [facility], [address] [place] [address] 1, [place], [address], 01/07/2025 11:41:30 gait test (PROC) 2024 025 [facility], [address] [place] [address] 1, [place], [address], 01/07/2025 11:41:30 Surgeries None recorded . Imaging electroc ardiogra m 2024 025 [facility], [address] [place] [address] 1, [place], [address], 01/07/2025 11:41:30 audiogra m 2024 025 [facility], [address] [place] [address] 1, [place], [address], 01/07/2025 11:41:30 Medication Orders gabapent in 100 mg capsule 2024 025 [id number], [address] [place], [address], 08/22/2025 12:14:48 valacycl ovir 1 gram tablet 2024 025 [email or web address] [id number], [address] [place], [address], 03/24/2025 10:03:00 Patient TargetsNo targets recorded. Patient Instructions Encounter Date Encounter Id Patient Instructions Last Modified By Organization Details Last Modified Time 11/22/2024 [id number] ([id number]) ankle brachial index* ikleinhen Not available 01/07/2025 11:41:30 epworth sleepiness scale* ikleinhen Not available 01/07/2025 11:41:30 functional assessment screening* ikleinhen Not available 01/07/2025 11:41:30 spirometry testing* ikleinhen Not available 01/07/2025 11:41:30 STOP bang sleep apnea tool* ikleinhen Not available 01/07/2025 11:41:30 gm video test* ikleinhen Not available 01/07 11:41:30 vision [...] you soon! Not available 11/22/2024 08:09:43 12/02/2024 [id number] In compliance with Medicare guidelines, we will be billing Medicare to inform them of your adherence to completing your necessary preventive care. Not available 12/01/2024 14:16:49 Discussed and explained advance directives such as standard forms to the patient. Face to face discussion lasted for a duration of __5_ minutes. phong Not available 12/02/2024 17:51:22 08/22/2025 [id number] influenza (flu) vaccine (inactivated or recombinant): what you need to know phong Not available 08/22/2025 12:40:21 After discussion of the risks and benefits, the patient elected to proceed with the injection. Confirmed that the patient does not have history of prior adverse reactions, active infections, or relevant allergies. There was no effusion, erythema, or warmth, and the skin was clear. The skin was sterilized with alcohol and Injection provided IM. Not available 08/22/2025 12:05:35 Reason for Referral None Reported. Results Created [...] urine 138 mg/dL 20-275 normal Not Available [facility] [address], [address], 11/23/2024 17:13:08 11/23/19 25 11/23/2024 ALBUM IN, RANDO M URINE W/CRE ATINI NE albumin, urine 0.2 mg/dL see note: normal Refer ence Range : Refer ence Range Not estab lishe d Not Available [facility] [address], [address], 11/23/2024 17:13:08 11/23/19 25 11/23/2024 ALBUM IN, [...] a diagn ostic categ ory. Not Available [facility] [place] [facility] [address], [place], [address], 11/23/2024 17:13:08 11/23/19 25 11/23/2024 BASIC METAB OLIC PANEL glucose 92 mg/dL 65-99 normal Fasti ng refer ence inter hayley Not Available [facility] [place] [facility] [address], [place], [address], 11/23/2024 17:13:09 11/23/19 25 11/23/2024 BASIC METAB OLIC PANEL urea nitrogen (BUN) 18 mg/dL 7-25 normal Not Available [facility] [place] [facility] [address], [place], [address], 11/23/2024 17:13:09 11/23/19 25 11/23/2024 BASIC METAB OLIC PANEL creatinine 0.85 mg/dL 0.50-1 .05 normal Not Available [facility] [address], [place], [address], 11/23/2024 17:13:09 11/23/19 25 11/23/2024 BASIC METAB OLIC PANEL eGFR 75 mL/mi n/1.7 3m2 > or = 60 normal Not Available [facility] [address], [place], [address], 11/23/2024 17:13:09 11/23/19 25 11/23/2024 BASIC METAB OLIC PANEL BUN/creatini ne ratio SEE NOTE: (calc ) 6-22 Not Repor ty: BUN and Creat inine are withi n refer ence range . Not Available [facility] [place] [facility] [address], [place], [address], 11/23/2024 17:13:09 11/23/19 25 11/23/2024 BASIC METAB OLIC PANEL sodium 142 mmol/ L 135-14 6 normal Not Available [facility] [place] [facility] [address], [place], [address], 11/23/2024 17:13:09 11/23/19 25 11/23/2024 BASIC METAB OLIC PANEL potassium 4.9 mmol/ L 3.5-5. 3 normal Not Available [facility] [place] [facility] [address], [place], [address], 11/23/2024 17:13:09 11/23/19 25 11/23/2024 BASIC METAB OLIC PANEL chloride 105 mmol/ L 98-110 normal Not Available [facility] [place] [facility] [address], [place], [address], 11/23/2024 17:13:09 11/23/19 25 11/23/2024 BASIC METAB OLIC PANEL carbon dioxide 32 mmol/ L 20-32 normal Not Available [facility] [place] [facility] [address], [place], [address], 11/23/2024 17:13:09 11/23/19 25 11/23/2024 BASIC METAB OLIC PANEL calcium 9.3 mg/dL 8.6-10 .4 normal Not Available [facility] [place] [facility] [address], [place], [address], 11/23/2024 17:13:09 11/23/19 25 11/23/2024 HEPAT IC FUNCT ION PANEL protein, total 6.6 g/dL 6.1-8. 1 normal Not Available [facility] [address] [place], [address], 11/23/2024 17:13:10 11/23/19 25 11/23/2024 HEPAT IC FUNCT ION PANEL albumin 4.1 g/dL 3.6-5. 1 normal Not Available [facility] [address], [place], [address], 11/23/2024 17:13:10 11/23/19 25 11/23/2024 HEPAT IC FUNCT ION PANEL globulin 2.5 g/dL_ (calc ) 1.9-3. 7 normal Not Available [facility] [address], [place], [address], 11/23/2024 17:13:10 11/23/19 25 11/23/2024 HEPAT IC FUNCT ION PANEL albumin/glob ulin ratio 1.6 (calc ) 1.0-2. 5 normal Not Available [facility] [address], [place], [address], 11/23/2024 17:13:10 11/23/19 25 11/23/2024 HEPAT IC FUNCT ION PANEL bilirubin, total 0.6 mg/dL 0.2-1. 2 normal Not Available [facility] [address], [place], [address], 11/23/2024 17:13:10 11/23/19 25 11/23/2024 HEPAT IC FUNCT ION PANEL bilirubin, direct 0.1 mg/dL < or = 0.2 normal Not Available [facility] [address], [place], [address], 11/23/2024 17:13:10 11/23/19 25 11/23/2024 HEPAT IC FUNCT ION PANEL bilirubin, indirect 0.5 mg/dL _(nikolai c) 0.2-1. 2 normal Not Available [facility] [address], [place], [address], 11/23/2024 17:13:10 11/23/19 25 11/23/2024 HEPAT IC FUNCT ION PANEL alkaline phosphatase 80 U/L 37-153 normal Not Available [facility] [address] [place], [place], [address], 11/23/2024 17:13:10 11/23/19 25 11/23/2024 HEPAT IC FUNCT ION PANEL AST 21 U/L 10-35 normal Not Available [facility] [address], [place], [address], 11/23/2024 17:13:10 11/23/19 25 11/23/2024 HEPAT IC FUNCT ION PANEL ALT 16 U/L 6-29 normal Not Available [facility] [address], [place], [address], 11/23/2024 17:13:10 11/23/19 25 11/23/2024 CBC (H/H, RBC, INDIC ES, WBC, PLT) white blood cell count 5.0 thous and/u L 3.8-10 .8 normal Not Available [facility] [address], [place], [address], 11/23/2024 17:13:10 11/23/19 25 11/23/2024 CBC (H/H, RBC, INDIC ES, WBC, PLT) red blood cell count 5.23 jamel on/uL 3.80-5 .10 high Not Available [employer] [address], [place], [address], 11/23/2024 17:13:10 11/23/19 25 11/23/2024 CBC (H/H, RBC, INDIC ES, WBC, PLT) hemoglobin 15.8 g/dL 11.7-1 5.5 high Not Available [facility] [place] [facility] [address] [place], [place], [address], 11/23/2024 17:13:10 11/23/19 25 11/23/2024 CBC (H/H, RBC, INDIC ES, WBC, PLT) hematocrit 48.1 % 35.0-4 5.0 high Not Available [facility] [place] [facility] [address] [place], [place], [address], 11/23/2024 17:13:10 11/23/19 25 11/23/2024 CBC (H/H, RBC, INDIC ES, WBC, PLT) MCV 92.0 fL 80.0-1 00.0 normal Not Available [facility] [place] [facility] [address] [place], [place], [address], 11/23/2024 17:13:10 11/23/19 25 11/23/2024 CBC (H/H, RBC, INDIC ES, WBC, PLT) MCH 30.2 pg 27.0-3 3.0 normal Not Available [facility] [place] [facility] [address] [place], [place], [address], 11/23/2024 17:13:10 11/23/19 25 11/23/2024 CBC (H/H, RBC, INDIC ES, WBC, PLT) MCHC 32.8 g/dL 32.0-3 6.0 normal For adult s, a sligh t decre ase in the calcu lated MCHC value (in the range of 30 to 32 g/dL) is most likel y not clini sherry signi dillon t; [place], it shoul d be inter prete d with cauti on in [facility] lat n with other red cell venus eters and the patie nt's clini nikolai condi tion. Not Available [facility] [place] [facility] [address] [place], [place], [address], 11/23/2024 17:13:10 11/23/19 25 11/23/2024 CBC (H/H, RBC, INDIC ES, WBC, PLT) RDW 12.7 % 11.0-1 5.0 normal Not Available [facility] [address], [place], [address], 11/23/2024 17:13:10 11/23/19 25 11/23/2024 CBC (H/H, RBC, INDIC ES, WBC, PLT) platelet count 208 thous and/u L 140-40 0 normal Not Available [facility] [address], [place], [address], 11/23/2024 17:13:10 11/23/19 25 11/23/2024 CBC (H/H, RBC, INDIC ES, WBC, PLT) MPV 11.5 fL 7.5-12 .5 normal Not Available [facility] [address], [place], [address], 11/23/2024 17:13:10 11/23/19 25 11/23/2024 URINA LYSIS , COMPL ETE color DARK YELLOW yellow normal Not Available [facility] [address], [place], [address], 11/23/2024 17:13:11 11/23/19 25 11/23/2024 URINA LYSIS , COMPL ETE appearance CLOUDY clear abnormal Not Available [facility] [address], [place], [address], 11/23/2024 17:13:11 11/23/19 25 11/23/2024 URINA LYSIS , COMPL ETE specific gravity 1.021 1.001- 1.035 normal Not Available [facility] [address], [place], [address], 11/23/2024 17:13:11 11/23/19 25 11/23/2024 URINA LYSIS , COMPL ETE pH 8.5 5.0-8. 0 high Not Available [facility] [place] [facility] [address], [place], [address], 11/23/2024 17:13:11 11/23/19 25 11/23/2024 URINA LYSIS , COMPL ETE glucose NEGATI VE negati ve normal Not Available [facility] [place] [facility] [address], [place], [address], 11/23/2024 17:13:11 11/23/19 25 11/23/2024 URINA LYSIS , COMPL ETE bilirubin NEGATI VE negati ve normal Not Available [facility] [place] [facility] [address], [place], [address], 11/23/2024 17:13:11 11/23/19 25 11/23/2024 URINA LYSIS , COMPL ETE ketones NEGATI VE negati ve normal Not Available [facility] [place] [facility] [address], [place], [address], 11/23/2024 17:13:11 11/23/19 25 11/23/2024 URINA LYSIS , COMPL ETE occult blood NEGATI VE negati ve normal Not Available [facility] [place] [facility] [address], [place], [address], 11/23/2024 17:13:11 11/23/19 25 11/23/2024 URINA LYSIS , COMPL ETE protein NEGATI VE negati ve normal Not Available [facility] [place] [facility] [address], [place], [address], 11/23/2024 17:13:11 11/23/19 25 11/23/2024 URINA LYSIS , COMPL ETE nitrite NEGATI VE negati ve normal Not Available [facility] [place] [facility] [address], [place], [address], 11/23/2024 17:13:11 11/23/19 25 11/23/2024 URINA LYSIS , COMPL ETE leukocyte esterase NEGATI VE negati ve normal Not Available [facility] [place] [facility] [address], [place], [address], 11/23/2024 17:13:11 11/23/19 25 11/23/2024 URINA LYSIS , COMPL ETE WBC NONE SEEN /hpf < or = 5 normal Not Available [facility] [place] [facility] [address], [place], [address], 11/23/2024 17:13:11 11/23/19 25 11/23/2024 URINA LYSIS , COMPL ETE RBC NONE SEEN /hpf < or = 2 normal Not Available [facility] [address], [place], [address], 11/23/2024 17:13:11 11/23/19 25 11/23/2024 URINA LYSIS , COMPL ETE squamous epithelial cells 0-5 /hpf < or = 5 Not Available [facility] [address], [place], [address], 11/23/2024 17:13:11 11/23/19 25 11/23/2024 URINA LYSIS , COMPL ETE bacteria NONE SEEN /hpf none seen normal Not Available [facility] [place] [facility] [address], [place], [address], 11/23/2024 17:13:11 11/23/19 25 11/23/2024 URINA LYSIS , COMPL ETE hyaline cast NONE SEEN /lpf none seen normal Not Available [facility] [place] [facility] [address], [place], [address], 11/23/2024 17:13:11 11/23/19 25 11/23/2024 URINA LYSIS , COMPL ETE note This urine was meena zed for the prese nce of WBC, RBC, bacte lorena, casts , and other forme d eleme nts. Only those eleme nts seen were repor ty. Not Available [facility] [place] [facility] [address], [place], [address], 11/23/2024 17:13:11 11/23/19 25 11/22/2024 APOLI POPRO TEIN B apolipoprote in B 71 mg/dL <90 Risk: Optim al <90 mg/dL ; Moder ate 90-11 9 mg/dL ; High >= 120 mg/dL ; Cardi ovasc ular event risk categ ory cut point s (opti mal, moder ate, high) are based on Natio nal Lipid Assoc iatio n recom menda rainer - Kai PEREZ et al. J of Clin Lipid . 2015; 9: 129-1 69 and Guillermo SALDAÑA et al. Endoc r Pract . 2017; 23(Sterling ppl 2):1- 87. Not Available [facility] - Manual Order Only [address], [place], [address], 12/06/2024 03:07:23 11/23/19 25 11/22/2024 HSCRP hs-CRP [...] Cardi ovasc ular Risk; 1.0-3 .0 mg/L [place] ge Relat natalie Cardi ovasc ular Risk; [...] Pears on TA, Mensa h GA, Chelsey nder RW, et al. Marke rs of infla mmati on and cardi ovasc ular disea se: appli catio n to clini nikolai and publi c healt h pract ice: A state ment for healt hcare johnie kelley als from the [facility] rs for Disea se Contr ol and Preve ntion and the [facility] can Heart Assoc iatio n. Circu latio n 2002; 107(3 ): 499-5 11. Not Available [facility] - Manual Order Only [address], [place], [address], 12/06/2024 03:07:24 11/23/19 25 11/22/2024 LIPID PANEL cholesterol, total 132 mg/dL <200 Not Available [facility] - Manual Order Only [address], [place], [address], 12/06/2024 03:07:24 11/23/19 25 11/22/2024 LIPID PANEL HDL cholesterol 48 mg/dL >49 low Not Available [facility] Order Only [address], [place], [address], 12/06/2024 03:07:24 11/23/19 25 11/22/2024 LIPID PANEL triglyceride s 82 mg/dL <150 Not Available [facility] - Manual Order Only [address], [place], [address], 12/06/2024 03:07:24 11/23/19 25 11/22/2024 LIPID PANEL [...] a valid ated novel metho d provi debora lorenzote r accur acy than the Fried bj equat ion in the estim ation of LDL-C . Jia montero SS et al. OLGA LIDIA. 2013; 310(1 9): 2061- 2068 (http ://ed ucati on.Qu estContinuing Education Records & Resources. com/f aq/FA Q164) Not Available [facility] - Manual Order Only [address], [place], [address], 12/06/2024 03:07:24 11/23/19 25 11/22/2024 LIPID PANEL chol/HDL-C 2.8 calc <5.0 Not Available [facility] - Manual Order Only [address], [place], [address], 12/06/2024 03:07:24 11/23/19 25 11/22/2024 LIPID PANEL non-HDL cholesterol 84 mg/dL _(nikolai c) <130 For patie nts with diabe ayo plus 1 major ASCVD risk facto r, treat ing to a non-H DL-C goal of <100 mg/dL (LDL- C of <70 mg/dL ) is consi dered a thera peuti c optio n. Not Available [facility] - Manual Order Only [address], [place], [address], 12/06/2024 03:07:24 11/23/19 25 11/22/2024 ADMA AND SDMA adma (asymmetric dimethylargi nine) 111 NG/mL <100 high [place] ty ADMA level s are assoc iated [...] popul ation . (Refe rence : 1-Nghia lianna Gates et al. J Am Heart Assoc . 2015; 4: e0018 33).T his test was devel oped and its meena tical perfo rmanc e ella cteri stics have been deter mined by [facility] [place] [facility] at [facility]. It has not been clear ed or appro syeda by the U.S. Food and Drug Admin istra tion. This assay has been valid ated pursu ant to the CLIA regul ation s and is used for clini nikolai purpo ses. Not Available [facility] - Manual Order Only [address], [place], [address], 12/06/2024 03:07:25 11/23/19 25 11/22/2024 ADMA AND SDMA sdma (symmetric dimethylargi nine) 115 NG/mL 73-135 Not Available [facility] - Manual Order Only [address], [place], [address], 12/06/2024 03:07:25 11/23/19 25 11/22/2024 TMAO (TRIM [...] those above the upper limit of the [facility] 95% popul ation inter hayley (>=10 .0 uM) are defin ed as high relat natalie risk for a cardi ovasc ular event relat natalie to those with TMAO <6.2 uM. (Refe helene s: 1-Shivam love et al. N Engl J Med. 2013; 368:1 575-1 584. 2-Kings burgos Y, et al. J Am Heart Assoc . 2017; 6(7)) .This test was devbette carrillo and its meena tical perfo rmanc e ella cteri stics have been deter mined by [facility] ometa jose seg[place] [place] at [facility]. It has not been clear ed or appro syeda by the U.S. Food and Drug Admin istra tion. This assay has been valid ated pursu ant to the CLIA regul ation s and is used for clini nikolai purpo ses. Not Available [facility] Order Only [address], [place], [address], 12/06/2024 03:07:25 11/23/19 25 11/22/2024 THYRO ID STIMU LATIN G HORMO NE (TSH) thyroid stimulating hormone (TSH) 2.14 mlu/L 0.40-4 .50 Not Available [facility] - Manual Order Only [address], [place], [address], 12/06/2024 03:07:26 11/23/19 25 11/22/2024 URIC ACID uric acid 4.3 mg/dL 2.5-7. 3 Not Available [facility] - Manual Order Only [address], [place], [address], 12/06/2024 03:07:26 11/23/19 25 11/22/2024 HEMOG LOBIN [...] brijesh c503 platf orm. Effec tive 024, juan alberto perkins in test platf orms from the [facility] to the Dylan brijesh c503 may have shift ed HbA1c resul ts nikos red to histo rical resul ts. Based on labor atory valid ation testi ng condu cted at [facility] , the Dylan platf orm relat natalie [...] is not recom meet d. Not Available [facility] - Manual Order Only [address], [place], [address], 12/06/2024 03:07:27 11/23/19 25 11/22/2024 HEMOG LOBIN A1C estimated average glucose 112 mg/dL <117 Not Available [facility] - Manual Order Only [address], [place], [address], 12/06/2024 03:07:27 11/23/19 25 11/22/2024 MYELO PEROX [...] by [facility] ometa bolandrew [facility] [place] at [facility]. It has not been clear ed or appro syeda by the U.S. Food and Drug Admin istra tion. This assay has been valid ated pursu ant to the CLIA regul ation s and is used for clini nikolai purpo ses. Not Available [facility] Manual Order Only [address] [facility] [address], [place], [address], 12/06/2024 03:07:27 11/23/19 25 11/22/2024 VITAM IN [...] mariela mcnair e refer to http: //[facility] cody montero.que stdia gnost ics.c om/fa q/FAQ 199(T his link is being provi ded for infor matio n/edu catio nal purpo ses only. )This test was devel oped and its meena tical perfo rmanc e ella cteri stics have been deter mined by [facility]unny wilson Cardi timothy seg[place] [facility] [place] [facility] at [facility]. It has not been clear ed or appro syeda by the U.S. Food and Drug Admin istra tion. This assay has been valid ated pursu ant to the CLIA regul ation s and is used for clini nikolai purpo ses. Not Available [facility] - Manual Order Only [address], [place], [address], 12/06/2024 03:07:27 12/01/1911/30/2024 visio n scree n* Acuity Far - Right Eye 20/22 Not Available Main O ffice [address] [address], [place], [address], 11/30/2024 11:26:51 12/01/19 25 11/30/2024 visio n scree n* Acuity Far - Left Eye 20/30 Not Available Main O ffice [address] [address], [place], [address], 11/30/2024 11:26:51 12/01/19 25 11/30/2024 visio n scree n* Acuity Intermediate - OU 20/50 Not Available Main O ffice [address] [address], [place], [address], 11/30/2024 11:26:51 12/01/19 25 11/30/2024 visio n scree n* Acuity Near - OU 20/25 Not Available Main O ffice [address] [facility] [address], [place], [address], 11/30/2024 11:26:51 12/01/19 25 11/30/2024 visio n scree n* Lateral Glare Failed Not Available Main O ffice [address] [address], [place], [address], 11/30/2024 11:26:51 12/01/19 25 11/30/2024 visio n scree n* Stereopsis Far 90% Not Available Main O ffice [address] [facility] [address], [place], [address], 11/30/2024 11:26:51 12/01/19 25 11/30/2024 visio n scree n* Phorias Far - Horizontal 0.0 Not Available Fernanda n Office [address] [facility] [address], [place], [address], 11/30/2024 11:26:51 12/01/19 25 11/30/2024 visio n scree n* Phorias Far - Vertical 0.0 Not Available Main Office [address] [facility] [address] 1, [place], [address], 11/30/2024 11:26:51 12/01/19 25 11/30/2024 visio n scree n* Fusion Far 4 Dots Not Available Main Of fice [address] [facility] [address], [place], [address], 11/30/2024 11:26:51 12/01/19 25 11/30/2024 visio n scree n* Colors Far - Jose Guadalupe 10 out of 12 Not Available Main Office [address] [facility] [address], [place], [address], 11/30/2024 11:26:51 12/01/19 25 11/30/2024 visio n scree n* Peripheral Vision Test - Left Percei syeda Not Available Main Office [address] [facility] [address], [place], [address], 11/30/2024 11:26:51 12/01/19 25 11/30/2024 visio n scree n* Peripheral Vision Test - Right Percei syeda Not Available Main Office [address] [facility] [address], [place], [address], 11/30/2024 11:26:51 12/01/1911/30/2024 gm video test* Unknown Analyte 67.6 Not Available Main O ffice [address] [facility] [address], [place], [address], 11/22/2024 08:09:49 12/01/1911/30/2024 gm video test* Unknown Analyte 74.2 Not Available Main O ffice [address] [facility] [address], [place], [address], 11/22/2024 08:09:49 12/01/1911/30/2024 gm video test* Unknown Analyte 59.9 Not Available Main O ffice [address] [facility] [address], [place], [address], 11/22/2024 08:09:49 12/01/1911/30/2024 gm video test* Unknown Analyte 70.3 Not Available Main O ffice [address] [facility] [address], [place], [address], 11/22/2024 08:09:49 12/01/1911/30/2024 gm video test* Unknown Analyte 56.4 Not Available Main O ffice [address] [facility] [address], [place], [address], 11/22/2024 08:09:49 12/01/1911/30/2024 gm video test* Unknown Analyte 70.3 Not Available Main O ffice [address] [facility] [address], [place], [address], 11/22/2024 08:09:49 12/01/1911/30/2024 gait test (PROC ) Time taken to walk 4m 3.81 Not Available Main Office [address] [facility] [address], [place], [address], 11/22/2024 08:09:49 12/01/1911/30/2024 gait test (PROC ) Gait speed in meters p/s 1.05 Not Available Main O ffice [address], [place], [address], 11/22/2024 08:09:49 12/01/1911/30/2024 STOP bang sleep apnea tool* Result 2 Not Available Main Offic e [address], [place], [address], 11/22/2024 08:09:49 12/01/19 25 11/30/2024 STOP bang sleep apnea tool* Interpretati on 0-2 Low Risk for DANIEL Not Available Main Office [address], [place], [address], 11/22/2024 08:09:49 12/01/1911/30/2024 STOP bang sleep apnea tool* CPAP No Not Available Main Offic e [address] [facility] [address], [place], [address], 11/22/2024 08:09:49 12/01/1911/30/2024 lakeisha metry testi ng* FVC [L] - % 2.35 Not Available Main O ffice [address] [facility] [address], [place], [address], 11/22/2024 08:09:49 12/01/1911/30/2024 lakeisha metry testi ng* FEV1 [L] - % 1.91 Not Available Main Office [address], [place], [address], 11/22/2024 08:09:49 12/01/1911/30/2024 lakeisha metry testi ng* FEV1/FVC Ratio- % 0.81 Not Available Main O ffice [address], [place], [address], 11/22/2024 08:09:49 12/01/19 25 11/30/2024 funct ional asses sment scree edie* Gender Female Not Available Main Offic e [address], [place], [address], 11/22/2024 08:09:48 12/01/1911/30/2024 funct ional asses katherin irizarry* Status if not performed Patien divina weissin ed Not Available Main Office [address] [facility] [address], [place], [address], 11/22/2024 08:09:48 12/01/19 25 11/30/2024 epwor th sleep iness scale * Total Score 4 Not Available Main O ffice [address] [facility] [address], [place], [address], 11/22/2024 08:09:48 12/01/1911/30/2024 epwor th sleep iness scale * Indication 0-10 Normal Not Available Main Office [address] [facility] [address], [place], [address], 11/22/2024 08:09:48 12/01/19 25 11/30/2024 (TEDDY) ankle brach ial index * Right Arm 138 Not Available Main Off ice [address] [facility] [address], [place], [address], 11/22/2024 08:09:48 12/01/1911/30/2024 (TEDDY) ankle brach ial index * Left Arm 126 Not Available Main Offi ce [address] [facility] [address], [place], [address], 11/22/2024 08:09:48 12/01/1911/30/2024 (TEDDY) ankle brach ial index * Right Ankle 150 Not Available Main O ffice [address] [facility] [address], [place], [address], 11/22/2024 08:09:48 12/01/19 25 11/30/2024 (TEDDY) ankle brach ial index * Left Ankle 142 Not Available Main Of fice [address], [place], [address], 11/22/2024 08:09:48 12/01/19 25 11/30/2024 (TEDDY) ankle brach ial index * Right TEDDY 1.09 Not Available Main Off ice [address] [facility] [address], [place], [address], 11/22/2024 08:09:48 12/01/19 25 11/30/2024 (TEDDY) ankle brach ial index * Right TEDDY Intrepretati on 1.0 - 1.4 - Normal Not Available Main Office [address] [facility] [address], [place], [address], 11/22/2024 08:09:48 12/01/19 25 11/30/2024 (TEDDY) ankle brach ial index * Left TEDDY 1.03 Not Available Main Offi ce [address] [facility] [address], [place], [address], 11/22/2024 08:09:48 12/01/19 25 11/30/2024 (TEDDY) ankle brach ial index * Left TEDDY Interpretati on 1.0 - 1.4 - Normal Not Available Main Office [address] [facility] [address], [place], [address], 11/22/2024 08:09:48 12/01/1911/30/2024 body compo sitio n meena sis (PROC ) Body Mass Index (BMI) 31.8 Not Available Main Office [address] [place] [address] 1, [place], [address], 11/22/2024 08:09:47 12/01/1911/30/2024 body compo sitio n meena sis (PROC ) Body Fat % 48.8 Not Available Main [facility] [address] [place] [address] [address], [place], [address], 11/22/2024 08:09:47 12/01/19 25 11/30/2024 body compo sitio n meena sis (PROC ) Skeletal Muscle Mass (SMS) 55.8 Not Available Main O ffice [address] [facility] [address], [place], [address], 11/22/2024 08:09:47 12/01/1911/30/2024 body compo sitio n meena sis (PROC ) Basal Metabolic Rate (BMR) 1389 Not Available Main Office [address] [facility] [address], [place], [address], 11/22/2024 08:09:47 12/03/1912/03/2024 HOMOC YSTEI NE homocysteine 7.7 umol/ L [...] ure to nitro us oxide . Lisa orantes J, et al., Shruti Inter n Med. 1999; 131(5 ):331 -9. Not Available [email or web address] [address], [address], 12/03/2024 16:34:39 12/03/19 25 12/08/2024 GLUCO SE JAVAD ANCE TEST, 3 SPECI MENS, (75G) fasting specimen 81 mg/dL 65-99 normal Not Available [email or web address] [address], [place], [address], 12/08/2024 02:10:07 12/03/19 25 12/08/2024 GLUCO SE JAVAD ANCE TEST, 3 SPECI MENS, (75G) 1 hour specimen 142 mg/dL normal Not Available [email or web address] [address], [address], 12/08/2024 02:10:07 12/03/19 25 12/08/2024 GLUCO SE JAVAD ANCE TEST, 3 SPECI MENS, (75G) 2 hour specimen 82 mg/dL <140 normal Not Available [email or web address] [place] [facility] [address], [place], [address], 12/08/2024 02:10:07 12/03/19 25 12/08/2024 GLUCO SE [...] 00* * Must be confi rmed by berto haney on a subse quent day. Not Available [email or web address] [place] [facility] [address], [place], [address], 12/08/2024 02:10:07 12/03/19 25 12/08/2024 LP PLA2 ACTIV ITY LP pla2 activity 81 nmol/ min/m L <=123 Risk: Optim al <=123 nmol/ min/m L; High >123 nmol/ min/m L. This test was devel oped and its meena tical perfo rmanc e ella cteri stics have been deter mined by [facility]. It has not been clear ed or appro syeda by the FDA. This assay has been valid ated pursu ant to the CLIA regul ation s and is used for clini nikolai purpo ses. Not Available [email or web address] [place] [facility] [address], [place], [address], 12/08/2024 02:10:08 12/03/1912/08/2024 INSUL IN insulin 16.6 uIU/m L normal Refer ence Range < or = 18.4 Risk: Optim al < or = 18.4 Moder ate NA High >18.4 Adult cardi ovasc ular event risk categ ory cut point s (opti mal, moder ate, high) are based on Insul in Refer ence Inter hayley studi es perfo rmed at [facility] in 2021. Not Available [facility] [employer] [place] [facility] [address], [place], [address], 12/08/2024 02:10:08 01/13/2001/13/2025 URINA LYSIS , COMPL ETE W/REF ADRIANNA TO CULTU RE color YELLOW yellow normal Not Available [facility] [place] [facility] [address], [place], [address], 01/13/2025 05:54:51 01/13/2001/13/2025 URINA LYSIS , COMPL ETE W/REF ADRIANNA TO CULTU RE appearance CLEAR clear normal Not Available [facility] [place] [facility] [address], [place], [address], 01/13/2025 05:54:51 01/13/20 25 01/13/2025 URINA LYSIS , COMPL ETE W/REF ADRIANNA TO CULTU RE specific gravity 1.017 1.001- 1.035 normal Not Available [facility] [address], [place], [address], 01/13/2025 05:54:51 01/13/20 25 01/13/2025 URINA LYSIS , COMPL ETE W/REF ADRIANNA TO CULTU RE pH 8.0 5.0-8. 0 normal Not Available [email or web address] [address], [place], [address], 01/13/2025 05:54:51 01/13/20 25 01/13/2025 URINA LYSIS , COMPL ETE W/REF ADRIANNA TO CULTU RE glucose NEGATI VE negati ve normal Not Available [facility] [place] [facility] [address], [place], [address], 01/13/2025 05:54:51 01/13/20 25 01/13/2025 URINA LYSIS , COMPL ETE W/REF ADRIANNA TO CULTU RE bilirubin NEGATI VE negati ve normal Not Available [facility] [place] [facility] [address], [place], [address], 01/13/2025 05:54:51 01/13/20 25 01/13/2025 URINA LYSIS , COMPL ETE W/REF ADRIANNA TO CULTU RE ketones NEGATI VE negati ve normal Not Available [facility] [place] [facility] [address], [place], [address], 01/13/2025 05:54:51 01/13/20 25 01/13/2025 URINA LYSIS , COMPL ETE W/REF ADRIANNA TO CULTU RE occult blood NEGATI VE negati ve normal Not Available [facility] [place] [facility] [address], [place], [address], 01/13/2025 05:54:51 01/13/20 25 01/13/2025 URINA LYSIS , COMPL ETE W/REF ADRIANNA TO CULTU RE protein NEGATI VE negati ve normal Not Available [facility] [place] [facility] [address], [place], [address], 01/13/2025 05:54:51 01/13/20 25 01/13/2025 URINA LYSIS , COMPL ETE W/REF ADRIANNA TO CULTU RE nitrite NEGATI VE negati ve normal Not Available [facility] [place] [facility] [address], [place], [address], 01/13/2025 05:54:51 01/13/20 25 01/13/2025 URINA LYSIS , COMPL ETE W/REF ADRIANNA TO CULTU RE leukocyte esterase NEGATI VE negati ve normal Not Available [facility] [place] [facility] [address], [place], [address], 01/13/2025 05:54:51 01/13/20 25 01/13/2025 URINA LYSIS , COMPL ETE W/REF ADRIANNA TO CULTU RE WBC NONE SEEN /hpf < or = 5 normal Not Available [facility] [place] [facility] [address], [place], [address], 01/13/2025 05:54:51 01/13/20 25 01/13/2025 URINA LYSIS , COMPL ETE W/REF ADRIANNA TO CULTU RE RBC NONE SEEN /hpf < or = 2 normal Not Available [facility] [address], [place], [address], 01/13/2025 05:54:51 01/13/20 25 01/13/2025 URINA LYSIS , COMPL ETE W/REF ADRIANNA TO CULTU RE squamous epithelial cells 10-20 /hpf < or = 5 abnormal Not Available [facility] [place] [facility] [address], [place], [address], 01/13/2025 05:54:51 01/13/20 25 01/13/2025 URINA LYSIS , COMPL ETE W/REF ADRIANNA TO CULTU RE bacteria NONE SEEN /hpf none seen normal Not Available [facility] [place] [facility] [address], [place], [address], 01/13/2025 05:54:51 01/13/20 25 01/13/2025 URINA LYSIS , COMPL ETE W/REF ADRIANNA TO CULTU RE hyaline cast NONE SEEN /lpf none seen normal Not Available [facility] [place] [facility] [address], [place], [address], 01/13/2025 05:54:51 01/13/20 25 01/13/2025 URINA LYSIS , COMPL ETE W/REF ADRIANNA TO CULTU RE note This urine was meena zed for the prese nce of WBC, RBC, bacte lorena, casts , and other forme d eleme nts. Only those eleme nts seen were repor ty. Not Available [facility] [address], [place], [address], 01/13/2025 05:54:51 01/13/20 25 01/13/2025 URINA LYSIS , COMPL ETE W/REF ADRIANNA TO CULTU RE reflexive urine culture NO CULTU RE INDIC ATED Not Available [facility] [address], [place], [address], 01/13/2025 05:54:51 04/25/20 25 04/26/2025 COMPR EHENS NATALIE METAB OLIC PANEL glucose 78 mg/dL 65-99 normal Fasti ng refer ence inter hayley Not Available [facility] [address], [place], [address], 04/26/2025 08:50:36 04/25/20 25 04/26/2025 COMPR EHENS NATALIE METAB OLIC PANEL urea nitrogen (BUN) 16 mg/dL 7-25 normal Not Available [facility] [address], [place], [address], 04/26/2025 08:50:36 04/25/20 25 04/26/2025 COMPR EHENS NATALIE METAB OLIC PANEL creatinine 0.80 mg/dL 0.50-1 .05 normal Not Available [facility] [address], [place], [address], 04/26/2025 08:50:36 04/25/20 25 04/26/2025 COMPR EHENS NATALIE METAB OLIC PANEL eGFR 80 mL/mi n/1.7 3m2 > or = 60 normal Not Available [facility] [address], [place], [address], 04/26/2025 08:50:36 04/25/20 25 04/26/2025 COMPR EHENS NATALIE METAB OLIC PANEL BUN/creatini ne ratio SEE NOTE: (calc ) 6-22 Not Repor ty: BUN and Creat inine are withi n refer ence range . Not Available [facility] [place] [facility] [address], [place], [address], 04/26/2025 08:50:36 04/25/20 25 04/26/2025 COMPR EHENS NATALIE METAB OLIC PANEL sodium 142 mmol/ L 135-14 6 normal Not Available [facility] [address], [place], [address], 04/26/2025 08:50:36 04/25/20 25 04/26/2025 COMPR EHENS NATALIE METAB OLIC PANEL potassium 4.4 mmol/ L 3.5-5. 3 normal Not Available [facility] [address], [place], [address], 04/26/2025 08:50:36 04/25/20 25 04/26/2025 COMPR EHENS NATALIE METAB OLIC PANEL chloride 106 mmol/ L 98-110 normal Not Available [facility] [address], [place], [address], 04/26/2025 08:50:36 04/25/20 25 04/26/2025 COMPR EHENS NATALIE METAB OLIC PANEL carbon dioxide 31 mmol/ L 20-32 normal Not Available [facility] [address], [place], [address], 04/26/2025 08:50:36 04/25/20 25 04/26/2025 COMPR EHENS NATALIE METAB OLIC PANEL calcium 9.4 mg/dL 8.6-10 .4 normal Not Available [facility] [address], [place], [address], 04/26/2025 08:50:36 04/25/20 25 04/26/2025 COMPR EHENS NATALIE METAB OLIC PANEL protein, total 6.6 g/dL 6.1-8. 1 normal Not Available [facility] [address], [place], [address], 04/26/2025 08:50:36 04/25/20 25 04/26/2025 COMPR EHENS NATALIE METAB OLIC PANEL albumin 3.9 g/dL 3.6-5. 1 normal Not Available [facility] [address], [place], [address], 04/26/2025 08:50:36 04/25/20 25 04/26/2025 COMPR EHENS NATALIE METAB OLIC PANEL globulin 2.7 g/dL_ (calc ) 1.9-3. 7 normal Not Available [facility] [address], [place], [address], 04/26/2025 08:50:36 04/25/20 25 04/26/2025 COMPR EHENS NATALIE METAB OLIC PANEL albumin/glob ulin ratio 1.4 (calc ) 1.0-2. 5 normal Not Available [facility] [address], [place], [address], 04/26/2025 08:50:36 04/25/20 25 04/26/2025 COMPR EHENS NATALIE METAB OLIC PANEL bilirubin, total 0.7 mg/dL 0.2-1. 2 normal Not Available [facility] [address], [place], [address], 04/26/2025 08:50:36 04/25/20 25 04/26/2025 COMPR EHENS NATALIE METAB OLIC PANEL alkaline phosphatase 71 U/L 37-153 normal Not Available [facility] [employer] [facility] [address], [place], [address], 04/26/2025 08:50:36 04/25/20 25 04/26/2025 COMPR EHENS NATALIE METAB OLIC PANEL AST 21 U/L 10-35 normal Not Available [facility] [address], [place], [address], 04/26/2025 08:50:36 04/25/20 25 04/26/2025 COMPR EHENS NATALIE METAB OLIC PANEL ALT 14 U/L 6-29 normal Not Available [facility] [address], [place], [address], 04/26/2025 08:50:36 04/25/20 25 04/26/2025 CBC (H/H, RBC, INDIC ES, WBC, PLT) white blood cell count 8.5 thous and/u L 3.8-10 .8 normal Not Available [facility] [address], [place], [address], 04/26/2025 08:50:37 04/25/20 25 04/26/2025 CBC (H/H, RBC, INDIC ES, WBC, PLT) red blood cell count 5.17 jamel on/uL 3.80-5 .10 high Not Available [facility] [address], [place], [address], 04/26/2025 08:50:37 04/25/20 25 04/26/2025 CBC (H/H, RBC, INDIC ES, WBC, PLT) hemoglobin 15.8 g/dL 11.7-1 5.5 high Not Available [facility] [address], [place], [address], 04/26/2025 08:50:37 04/25/20 25 04/26/2025 CBC (H/H, RBC, INDIC ES, WBC, PLT) hematocrit 49.1 % 35.0-4 5.0 high Not Available [facility] [place] [facility] [address], [place], [address], 04/26/2025 08:50:37 04/25/2004/26/2025 CBC (H/H, RBC, INDIC ES, WBC, PLT) MCV 95.0 fL 80.0-1 00.0 normal Not Available [facility] [place] [facility] [address], [place], [address], 04/26/2025 08:50:37 04/25/2004/26/2025 CBC (H/H, RBC, INDIC ES, WBC, PLT) MCH 30.6 pg 27.0-3 3.0 normal Not Available [facility] [place] [facility] [address], [place], [address], 04/26/2025 08:50:37 04/25/2004/26/2025 CBC (H/H, RBC, INDIC [...] nikolai condi tion. Not Available [facility] [place] [facility] [address], [place], [address], 04/26/2025 08:50:37 04/25/20 25 04/26/2025 CBC (H/H, RBC, INDIC ES, WBC, PLT) RDW 13.0 % 11.0-1 5.0 normal Not Available [facility] [place] [facility] [address], [place], [address], 04/26/2025 08:50:37 04/25/20 25 04/26/2025 CBC (H/H, RBC, INDIC ES, WBC, PLT) platelet count 195 thous and/u L 140-40 0 normal Not Available [facility] [address], [place], [address], 04/26/2025 08:50:37 04/25/20 25 04/26/2025 CBC (H/H, RBC, INDIC ES, WBC, PLT) MPV 11.4 fL 7.5-12 .5 normal Your reque to have a [employer] copy faxed has been chinedu leachedg ed. [place] to: [phone] Not Available [facility] [address], [place], [address], 04/26/2025 08:50:37 08/03/20 25 08/06/2025 LIPID PANEL , STAND DALILA cholesterol, total 118 mg/dL <200 normal Not Available [facility] [address], [place], [address], 08/06/2025 20:06:39 08/03/20 25 08/06/2025 LIPID PANEL , STAND DALILA HDL cholesterol 46 mg/dL > or = 50 low Not Available [facility] [address], [place], [address], 08/06/2025 20:06:39 08/03/20 25 08/06/2025 LIPID PANEL , STAND DALILA triglyceride s 83 mg/dL <150 normal Not Available [facility] [address], [place], [address], 08/06/2025 20:06:39 08/03/20 25 08/06/2025 LIPID PANEL , STAND DALILA LDL-choleste rol 55 mg/dL _(nikolai c) normal Refer ence range [...] 310(1 9): 2061- 2068 (http ://ed ucati onCupomNow. [employer]/f aq/FA Q164) Not Available [email or web address] [address], [place], [address], 08/06/2025 20:06:39 08/03/2008/06/2025 LIPID PANEL , STAND DALILA chol/HDLC ratio 2.6 (calc ) <5.0 normal Not Available [email or web address] [place] [facility] [address], [place], [address], 08/06/2025 20:06:39 08/03/20 25 08/06/2025 LIPID PANEL , STAND DALILA non HDL cholesterol 72 mg/dL _(nikolai c) <130 normal For patie nts with diabe ayo plus 1 major ASCVD risk facto r, treat ing to a non-H DL-C goal of <100 mg/dL (LDL- C of <70 mg/dL ) is consi dered a thera pevalery c optio n. Not Available [email or web address] [place] [facility] [address], [place], [address], 08/06/2025 20:06:39 08/03/20 25 08/06/2025 BASIC METAB OLIC PANEL glucose 83 mg/dL 65-99 normal Fasti ng refer ence inter hayley Not Available [email or web address] [place] [facility] [address], [place], [address], 08/06/2025 20:06:40 08/03/20 25 08/06/2025 BASIC METAB OLIC PANEL urea nitrogen (BUN) 15 mg/dL 7-25 normal Not Available [facility] [place] [facility] [address], [place], [address], 08/06/2025 20:06:40 08/03/20 25 08/06/2025 BASIC METAB OLIC PANEL creatinine 0.83 mg/dL 0.50-1 .05 normal Not Available [facility] [place] [facility] [address], [place], [address], 08/06/2025 20:06:40 08/03/20 25 08/06/2025 BASIC METAB OLIC PANEL eGFR 76 mL/mi n/1.7 3m2 > or = 60 normal Not Available [facility] [address], [place], [address], 08/06/2025 20:06:40 08/03/2008/06/2025 BASIC METAB OLIC PANEL BUN/creatini ne ratio SEE NOTE: (calc ) 6-22 Not Repor ty: BUN and Creat inine are withi n refer ence range . Not Available [facility] [address], [place], [address], 08/06/2025 20:06:40 08/03/20 25 08/06/2025 BASIC METAB OLIC PANEL sodium 142 mmol/ L 135-14 6 normal Not Available [facility] [address], [place], [address], 08/06/2025 20:06:40 08/03/20 25 08/06/2025 BASIC METAB OLIC PANEL potassium 4.8 mmol/ L 3.5-5. 3 normal Not Available [facility] [address] [place], [address], 08/06/2025 20:06:40 08/03/20 25 08/06/2025 BASIC METAB OLIC PANEL chloride 105 mmol/ L 98-110 normal Not Available [facility] [address], [place], [address], 08/06/2025 20:06:40 08/03/20 25 08/06/2025 BASIC METAB OLIC PANEL carbon dioxide 31 mmol/ L 20-32 normal Not Available [facility] [address], [place], [address], 08/06/2025 20:06:40 08/03/20 25 08/06/2025 BASIC METAB OLIC PANEL calcium 9.2 mg/dL 8.6-10 .4 normal Not Available [facility] [address], [place], [address], 08/06/2025 20:06:40 08/03/20 25 08/06/2025 HEPAT IC FUNCT ION PANEL protein, total 6.6 g/dL 6.1-8. 1 normal Not Available [facility] [address], [place], [address], 08/06/2025 20:06:40 08/03/20 25 08/06/2025 HEPAT IC FUNCT ION PANEL albumin 4.0 g/dL 3.6-5. 1 normal Not Available [facility] [address], [place], [address], 08/06/2025 20:06:40 08/03/20 25 08/06/2025 HEPAT IC FUNCT ION PANEL globulin 2.6 g/dL_ (calc ) 1.9-3. 7 normal Not Available [facility] [address], [place], [address], 08/06/2025 20:06:40 08/03/20 25 08/06/2025 HEPAT IC FUNCT ION PANEL albumin/glob ulin ratio 1.5 (calc ) 1.0-2. 5 normal Not Available [facility] [employer] [facility] [address], [place], [address], 08/06/2025 20:06:40 08/03/20 25 08/06/2025 HEPAT IC FUNCT ION PANEL bilirubin, total 0.5 mg/dL 0.2-1. 2 normal Not Available [facility] Lab [address], [place], [address], 08/06/2025 20:06:40 08/03/20 25 08/06/2025 HEPAT IC FUNCT ION PANEL bilirubin, direct 0.1 mg/dL < or = 0.2 normal Not Available [facility] [address], [place], [address], 08/06/2025 20:06:40 08/03/20 25 08/06/2025 HEPAT IC FUNCT ION PANEL bilirubin, indirect 0.4 mg/dL _(nikolai c) 0.2-1. 2 normal Not Available [facility] [address], [place], [address], 08/06/2025 20:06:40 08/03/20 25 08/06/2025 HEPAT IC FUNCT ION PANEL alkaline phosphatase 73 U/L 37-153 normal Not Available [facility] [employer] [facility] [address], [place], [address], 08/06/2025 20:06:40 08/03/20 25 08/06/2025 HEPAT IC FUNCT ION PANEL AST 22 U/L 10-35 normal Not Available [facility] [address], [place], [address], 08/06/2025 20:06:40 08/03/20 25 08/06/2025 HEPAT IC FUNCT ION PANEL ALT 18 U/L 6-29 normal Not Available [email or web address] [address] [place], [place], [address], 08/06/2025 20:06:40 08/03/20 25 08/06/2025 APOLI POPRO TEIN B apolipoprote in B 65 mg/dL <90 Refer ence Range : <90 Risk Categ ory: Optim al <90 Moder ate 90-12 9 High > or = 130 A marisela able treat ment targe t may be <80 mg/dL or lower deprosa elena cazares on the risk categ ory of the patie nt inclu ding patie nts on lipid lower ing thera pies, patie nts with ASCVD , diabe ayo with >1 risk facto rs, Stage 3 or great er CKD with album inuri a, or heter ozygo us famil ial hyper brionna stero lemia . ApoB relat natalie risk categ ory cut point s are based AACE/ DARLING and ACC/A LOPEZ recom menda tions . (Neto pompa SM, et al. 2019. doi:1 0.101 6/j.j acc.2 018.1 1.002 ; Yani gaines Y, et al. 2020. doi:1 0.415 8/- 2019- 0490) . Not Available [email or web address] [address] [place] Orantes, [place], [address], 08/06/2025 20:06:41 08/03/20 25 08/06/2025 HEMOG LOBIN A1C hemoglobin A1C 5.5 % <5.7 normal For the purpo se of scree edie for the prese nce of diabe ayo: <5.7% Consi stent with the absen ce of diabe ayo 5.7-6 .4% Consi stent with incre ased risk for diabe ayo (pred iabet es) > or =6.5% Consi stent with diabe ayo This assay resul t is consi stent with a decre ased risk of diabe ayo. Curre ntly, no conse nsus exist s regar debora use of hemog lobin A1c for diagn [...] ards of Medic al Care in Diabe ayo(A DA). Your reque st to have a [employer] marah copy faxed has been chinedu [facility] ed. Queue d to: [phone] Not Available [facility] [address], [place], [address], 08/06/2025 20:06:41 11/23/19 25 11/30/2024 elect rocdali diogr am No observ ation record ed. [facility] Main Office [address], [address], 12/02/2024 17:21:57 11/23/1911/30/2024 audio gram No observ ation record ed. [facility] Office [address] [address], [place], [address], 12/02/2024 17:21:57 12/07/19 audio gram No observ ation record ed. [email or web address] Not Available 2024 14:52:44 12/07/19 25 visio n scree n* No observ ation record ed. [email or web address] Not Available 2024 14:54:01 12/07/19 25 lakeihsa metry testi ng* No observ ation record ed. [email or web address] Not Available 2024 14:54:24 12/07/19 25 elect rocar diogr am No observ ation record ed. [email or web address] Not Available 2024 14:55:02 12/07/19 25 body compo sitio n meena sis (PROC ) No observ ation record ed. [email or web address] Not Available 2024 14:55:32 12/09/19 25 10/14/2024 ko ybrandee t (PROC ) No observ ation record ed. [facility] / [address], [address], 12/12/2024 22:21:57 Result Notes None recorded. Problems Name Problem SNOMED Code Status Onset Date Resolution Date Notes Provider Name and Address Organization Details Recorded Time Palpitat ions 50052876 Active PVCs Cecilio Mcnulty MD [address] [place] [address], [address], [place] Cecilio Savannah 3 11:19:24 Migraine 50867930 Active with aura, left sided pain Cecilio Mcnulty MD [address] [place] [address], [address], [place] - Yahir Mcnultyn Charlene. 3 10:17:28 Hyperten sive disorder 48565236 Active Cecilio Mcnulty MD [address] [place] [address], [address], [place] Cecilio D. 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 3 10:19:11 Low back pain 517419711 Active Cecilio Mcnulty MD [address] [place] [address], [address], [place] Cecilio Charlene. 3 10:20:07 Eczema 59848562 Active Cecilio Mcnulty MD [address] [place] [address], [address], [place] Cecilio Charlene. 3 10:20:41 Hemorrho ids 56028407 Active Cecilio Mcnulty MD [address] [place] [address], [address], [place] - Yahir Mcnultywinston Nuñez 3 10:20:57 Kidney stone 63136035 Completed 02/20/2023 Cecilio Mcnulty MD [address] [place] [address], [address] [place] [address] 9, [place] - Cecilio Mcnulty 3 10:25:36 Peripher al vestibul ar disease 99306640 Active Cecilio Mcnulty MD [address] [place] [address], [address] [place] [address] 9, [place] - Cecilio Mcnulty 3 11:19:36 Hyperlip idemia 42997853 Active Cecilio Mcnulty MD [address] [place] [address], [address] [place] [address] 9, [place] - Cecilio Mcnulty 4 18:12:16 Fibromya lgia 101856534 Active Cecilio Mcnulty MD [address] [place] [address], [address] [place] [address] 9, [place] - Cecilio Mcnulty 4 12:36:37 Obesity 048025258 Active Cecilio Mcnulty MD [address] [place] [address], [address], [place] - Cecilio Mcnulty 4 18:12:21 Dry eyes 420788279 Active Cecilio Mcnulty MD [address] [place] [address], [address] [place] [address] 9, [place] - Cecilio Mcnulty 5 07:34:53 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 Cecilio Mcnulty MD [address] [place], [address], [place] Cecilio Moore 5 10:43:57 Calcific coronary arterios clerosis 19478872 Active Cecilio Mcnulty MD [address] [place] [address], [address], [place] Cecilio Moore 5 13:05:02 Arterios clerotic vascular disease 39106704 Active Cecilio Mcnulty MD [address] [place] [address], [address], [place] Cecilio Moore 5 13:04:43 Calcific ation of breast 446491064 Active Short interval mammogra m noting possible change in right breast calcific ation. Right breast biopsy schedule d for 10/14/2024 . Cecilio Mcnulty MD [address] [place] [address], [address], [place] Cecilio Moore 5 10:44:14 Insulin resistan ce 910502319 Active 2024 2 hour GTT (81,142, 82) and insulin 16.6 Cecilio Mcnulty MD [address] [place] [address], [address], [place] Cecilio Moore 5 08:01:09 Pain in bilatera l feet 33472736804 547721 Active 2024 Cecilio Mcnulty MD [address] [place] [address], [address], [place] Cecilio Moore 5 16:37:28 Edema of lower extremit y 494715640 Active 2024 Cecilio Mcnulty MD [address] [place] [address], [address], [place] Cecilio Moore 5 16:37:23 Problem Notes None recorded. Procedures Surgical History Date Name Laterality Status Provider Name and Address Organization Details Recorded Time 12/03/19 25 Cecilio Holley D. 12/01/2024 14:16:50 11/07/19 25 Dental prophylaxis adult completed Cecilio Martinez 11/29/2024 15:48:23 10/14/19 25 stereotactically guided core needle biopsy completed Cecilio Mcnulty MD [address] [place], [address], Cecilio Moore 10/28/2024 19:33:22 10/30/19 24 JULITO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 increased walking or standing. Patient has used orthotics in the past and will be referred to Dr. Nasra Mistry of podiatry. [id number] Cecilio Mcnulty MD Main Office [address] [place], [place] [address] [place] [address] 08/22/2025 11:21:43 08/22/2025 12:22:10 Calcific coronary arteriosclerosis 29632094 I25.10 I25.84 5788430 Patient has a history of positive coronary calcium score of 84. Patient will continue with daily low-dose aspirin along with aggressive lipid management as noted below. Hypertensive disorder 38 857767 I10 Patient has borderline blood pressure. Patient will continue current management consisting of amlodipine and atenolol therapy. Patient been encouraged to follow a low-sodium diet and to increase activity/e xercise. Patient encouraged to continue to follow blood pressure at home. Goal blood pressure is less than 130/80. Hyperlipidemia 25592893 E78.49 Patient has a history of elevated LDL and low HDL and had increased rosuvastat in 20 mg to 5 times per week due to an abnormal coronary calcium score of 89. Patient is taking low-dose aspirin (81 mg) daily. Patient was encouraged to continue to follow a low-choles terol diet and to increase both aerobic exercise and resistance training. Lipoprotei n (a) was previously normal at 58. Due to known abnormal coronary calcium score and repeat CIMT scan with increased plaque formation, patient will continue fish oil regimen consisting of and a [place] (EPA 1680 mg/DHA 560 mg) and [place]-V benefits (EPA 330 mg/DHA 670 mg) daily and continue increased rosuvastat in dose of 20 mg daily. Current lipid profile is notable for total cholestero l 118, HDL 46, triglyceri caden 83, LDL 55 and apolipopro tein B 65. Peripheral vestibular disease 16291481 H81.399 Patient has a history of peripheral vestibular disease/dy sfunction and patient will taper off amitriptyl ine as noted above. Patient will notify the office if develops any significan t recurrent symptoms while tapering amitriptyl ine or after its discontinu ation. Patient was referred to neurology (Drs. Wakefield/Carmelina pardo) for continued management . Arterioscl erotic vascular disease 48866654 I70.8 099977 The CIMT test was abnormal with evidence [...] pressure is less than 120/80. Further testing included LP-PLA2 (normal), homocystei ne (normal), 2 hour Glucose Tolerance Test (fasting specimen 81, 1 hour specimen 142, 2 hour specimen 82 and therefore patient notable for insulin resistance ), and an insulin level (elevated at 16.6, goal is less than 10). Several genetic markers were checked including Apo E Genotype (E3/E4, very low-fat diet and avoid alcohol), 9p21 Genotype (Homozygou s non-kris r, no increased cardiovasc ular risk), KIF6 Genotype (Homozygou s non-kris r, no increased cardiovasc ular risk), Haptoglobi n Genotype (Hp 2/2, Recommend gluten-mayte e diet), MTHFR Genotype (No variant on 677 genotype), [id number] Genotype (reduced statin transport) and LPA-Aspiri n Genotype (Homozygou s non-kris r, no increased cardiovasc ular risk). Patient reportedly had negative sleep study enrique machuca 15 years ago and has no issues with snoring or sleep at this time. Additional testing including oral pathogen evaluation is also recommende d to complete Cardiovasc ular root cause evaluation . Insulin resistance 19898 5000 E88.819 509594 Patient was noted to have abnormal 2-hour glucose tolerance test with 1 hour glucose specimen of 146 indicating the presence of insulin resistance . Patient has again been advised to reduce consumptio n of complex carbohydra te, starch and glucose as well as trying to avoid complex carbohydra te and starch during the dinner hour as well as avoiding snacking after dinner. Regular exercise regimen consisting of both aerobic exercise and resistance training has been strongly recommende d. Current hemoglobin A1c is 5.5 and we will recheck in 6 months. Palpitations 63672732 R0 0.2 Patient has a history of palpitatio ns associated with PVCs. Patient will continue atenolol 50 mg twice daily. Patient has been evaluated by clinical cardiology /electroph ysiology in the past and patient will continue to follow with Dr. Israel montero of cardiology . Obesity 614569733 E66.09 Z68.32 Patient has an elevated BMI of 32.2. Patient has been advised to reduce portion size, increase exercise (aerobic and resistance training) and reduce/chloe id consumptio n of complex carbohydra te and starch after 3 p.m. Patient will consider intermitte nt fasting in hopes of indirectly leading to weight loss. Recheck at next visit. Influenza vaccine needed [id number] 106 Z23 Patient given influenza vaccine without complicati on. Patient declined high dose influenza vaccine due to side effects noted last year and therefore patient was given regular dose. Paresthesia 78160470 R20 .2 74383 Patient with hypersensi tivity of the left mid back of unknown etiology. Uncertain if this is a postherpet ic paresthesi a without skin rash or whether patient has developed idiopathic paresthesi a. At this time we have discussed potential treatment options which include gabapentin . Patient wishes to proceed with gabapentin 100 mg each evening and will contact the office in 3 days for potential medication adjustment based on results. Side effects and benefits have been explained and understood . Health Concerns Section Related Observation LastModified by Organization [facility] LastModified Time None Recorded Concern Status LastModified by Organization Details LastModified Time None Recorded Advance Directives Directive None Recorded Payers Insurance Date Sequence Insurance Name Policy Number Policy [place] Covered Member ID [place] Member ID Guarantor Name 08/22/2025 1 [employer] (MEDICARE REPLACEMENT/ ADVANTAGE - PPO) Ivonne Jimenez [id number] Ivonne Jimenez 08/22/2025 1 [employer] (MEDICARE REPLACEMENT/ ADVANTAGE - PPO) Ivonne Jimenez [id number] Ivonne Jimenez Notes Date Note Type Note Provider Name and Address Organization Details Recorded Time 11/22/2024 text/html Medicare Annual Wellness VisitReported by [...] the home. Patient presents today [facility]. Cecilio Mcnulty MD [address] [place] [address], [phone], [place] - Cecilio Mcnulty. 01/07/2025 11:41:35 12/02/2024 [...] the home. Patient is here for the [facility] Wellness Program and Subsequent Annual Wellness Exam. During this visit we will review and discuss their Health Risk Assessment and review the various tests and procedures performed as part of the [facility] Annual Wellness Program. The patient has no [...] home and driving safety. Cecilio Mcnulty MD [address] [place] [address], [phone], Cecilio Moore 12/02/2024 17:54:27 01/03/2025 text/html Patient now presents for four-day history of tingling in the right posterior scalp and stiffness in the right side of the neck. Patient noted yesterday developed several sensitive bumps in the occipital area with subsequent development of burning and sensitivity of the skin. Patient denies any additional skin lesions or paresthesias. [place], [phone], Cecilio Moore. 01/03/2025 12:46:10 03/24/2025 text/html Patient presents for 2-week history of bilateral lower leg swelling which is worse in the evening and improved if patient elevates her legs and therefore better upon awakening each morning. Patient has also developed bilateral foot and ankle discomfort with severity 03/17. Patient has been taking Aleve 2 tablets [...] after discontinuation of amlodipine. Cecilio Mcnulty MD [address] [place] [address], [phone], [place] - Cecilio Mcnulty. 03/24/2025 16:38:09 08/22/2025 text/html Ivonne Jimenez is a 70-year-old female who presents for a 6 month follow-up appointment regarding multiple ongoing health concerns. She reports experiencing pain similar to what she felt prior to her gallbladder removal approximately twenty years ago. She has scheduled a CT scan at [facility] on 09/26/2025 to evaluate for possible stones in her bile duct. She describes the pain as sharp and radiating to her back, with no clear correlation to specific foods, though she has noted improvement after avoiding nuts and other fatty foods. Ivonne also reports an itchy, crawling sensation and discomfort under her left shoulder blade, which has persisted for approximately one month. She denies burning, rash, or trauma but notes skin sensitivity in the affected area. She has difficulty wearing a bra due to the discomfort. Ivonne has neuropathy in her feet, with the right foot being more affected than the left. She describes numbness and an annoying sensation, likening it to banging her foot to wake it up. She has been evaluated by a canvas cutter hand and is profoundly flat-footed with arthritis issues. Ivonne reports no new medications or supplements and has lost five pounds recently. She is aiming to reduce her weight to 170 pounds. Cecilio Mcnulty MD [address] [place] [address], [phone], [place] - Cecilio Mcnulty. 08/22/2025 18:51:15 OBGyn Episode No OBEpisode recorded.
--- OUTSIDE RECORDS SUMMARY | 2025-08-25 08:01 | XMS_ITS | Continuity of Care Document ---
Author Organization Cecilio Moore, Main Office Address [address] [address] Care Team Providers Care Film Vault Supervisor Name Role Phone SOLEDAD JONAS Neurologist DANO ALAS News Reporter PABLO GUERRERO Rabbler [phone] [facility] Supply Specialist BERNARDO MALDONADO Pre K Lead Teacher Assessment Encounter Date Assessment Date Assessment LastModified by Organization Details LastModified Time 08/22/2025 08/22/2025 I think the [email or web address] Not available 18:50:51 Plan of Treatment Reminders Order Date Submit Date Provider Last Modified By Organization Details Last Modified Time Details Appointments [facility] 2025 10:00A M Diamond Grader Not available Not available Not available [facility] 2025 09:00A M Cecilio Mcnulty M.D. Not available Not available Not available Lab None recorded . Referral None recorded . Procedures None recorded . Surgeries None recorded . Imaging None recorded . Medication Orders gabapent in 100 mg capsule 2024 025 [facility]/Pharmacy #[id number], [address] [facility], [place], [address], 08/22/2025 12:14:48 Patient TargetsNo targets recorded. Patient Instructions Encounter Date Encounter Id Patient Instructions Last Modified By Organization Details Last Modified Time 08/22/2025 [id number] influenza (flu) vaccine (inactivated or recombinant): what you need to know [email or web address] Not available 08/22/2025 12:40:21 After discussion of the risks and benefits, the patient elected to proceed with the injection. Confirmed that the patient does not have history of prior adverse reactions, active infections, or relevant allergies. There was no effusion, erythema, or warmth, and the skin was clear. The skin was sterilized with alcohol and Injection provided IM. [email or web address] Not available 08/22/2025 12:05:35 Reason for Referral None Reported. Results Created Date Observation Date Name Description Value Unit Range Abnormal Flag Note LastModifiedBy Organization Detail LastModifiedTime 08/03/2008/06/2025 LIPID PANEL , STAND DALILA cholesterol, total 118 mg/dL <200 normal Not Available [facility] [address], [address], 08/06/2025 20:06:39 08/03/2008/06/2025 LIPID PANEL , STAND DALILA HDL cholesterol 46 mg/dL > or = 50 low Not Available [facility] [address], [address], 08/06/2025 20:06:39 08/03/2008/06/2025 LIPID PANEL , STAND DALILA triglyceride s 83 mg/dL <150 normal Not Available [facility] [place] [facility] [address], [address], 08/06/2025 20:06:39 08/03/2008/06/2025 LIPID PANEL , STAND DALILA LDL-choleste rol [...] is a valid ated novel metho d josette rudd r accur acy than the Fried bj equat ion in the estim ation of LDL-C . Jia montero SS et al. OLGA LIDIA. 2013; 310(1 9): 2061- 2068 (http ://ed sherrieati on.[employer] bradfordRhinoCyte astridLooker. com/f aq/FA Q164) Not Available [facility] [place] [facility] [address], [place], [address], 08/06/2025 20:06:39 08/03/20 25 08/06/2025 LIPID PANEL , STAND DALILA chol/HDLC ratio 2.6 (calc ) <5.0 normal Not Available [facility] [place] [facility] [address], [place], [address], 08/06/2025 20:06:39 08/03/20 25 08/06/2025 LIPID PANEL , STAND DALILA non HDL cholesterol 72 mg/dL _(nikolai c) <130 normal For patie nts with diabe ayo plus 1 major ASCVD risk facto r, treat ing to a non-H DL-C goal of <100 mg/dL (LDL- C of <70 mg/dL ) is consi dered a thera pemelecioi c optio n. Not Available [facility] [place] [facility] [address], [place], [address], 08/06/2025 20:06:39 08/03/20 25 08/06/2025 BASIC METAB OLIC PANEL glucose 83 mg/dL 65-99 normal Fasti ng refer ence inter hayley Not Available [facility] [place] [facility] [address], [place], [address], 08/06/2025 20:06:40 08/03/20 25 08/06/2025 BASIC METAB OLIC PANEL urea nitrogen (BUN) 15 mg/dL 7-25 normal Not Available [facility] [place] [facility] [address], [place], [address], 08/06/2025 20:06:40 08/03/20 25 08/06/2025 BASIC METAB OLIC PANEL creatinine 0.83 mg/dL 0.50-1 .05 normal Not Available [facility] [address] [place], [place], [address], 08/06/2025 20:06:40 08/03/20 25 08/06/2025 BASIC METAB OLIC PANEL eGFR 76 mL/mi n/1.7 3m2 > or = 60 normal Not Available [facility] [address] [place], [place], [address], 08/06/2025 20:06:40 08/03/20 25 08/06/2025 BASIC METAB OLIC PANEL BUN/creatini ne ratio SEE NOTE: (calc ) 6-22 Not Repor ty: BUN and Creat inine are withi n refer ence range . Not Available [facility] [address], [place], [address], 08/06/2025 20:06:40 08/03/20 25 08/06/2025 BASIC METAB OLIC PANEL sodium 142 mmol/ L 135-14 6 normal Not Available [facility] [address], [place], [address], 08/06/2025 20:06:40 08/03/20 25 08/06/2025 BASIC METAB OLIC PANEL potassium 4.8 mmol/ L 3.5-5. 3 normal Not Available [facility] [address], [place], [address], 08/06/2025 20:06:40 08/03/20 25 08/06/2025 BASIC METAB OLIC PANEL chloride 105 mmol/ L 98-110 normal Not Available [facility] [address], [place], [address], 08/06/2025 20:06:40 08/03/20 25 08/06/2025 BASIC METAB OLIC PANEL carbon dioxide 31 mmol/ L 20-32 normal Not Available [facility] [address], [place], [address], 08/06/2025 20:06:40 08/03/20 25 08/06/2025 BASIC METAB OLIC PANEL calcium 9.2 mg/dL 8.6-10 .4 normal Not Available [facility] [address], [place], [address], 08/06/2025 20:06:40 08/03/20 25 08/06/2025 HEPAT IC FUNCT ION PANEL protein, total 6.6 g/dL 6.1-8. 1 normal Not Available [facility] [address], [place], [address], 08/06/2025 20:06:40 08/03/20 25 08/06/2025 HEPAT IC FUNCT ION PANEL albumin 4.0 g/dL 3.6-5. 1 normal Not Available [facility] [address], [place], [address], 08/06/2025 20:06:40 08/03/20 25 08/06/2025 HEPAT IC FUNCT ION PANEL globulin 2.6 g/dL_ (calc ) 1.9-3. 7 normal Not Available [facility] [address], [place], [address], 08/06/2025 20:06:40 08/03/20 25 08/06/2025 HEPAT IC FUNCT ION PANEL albumin/glob ulin ratio 1.5 (calc ) 1.0-2. 5 normal Not Available [facility] [address], [place], [address], 08/06/2025 20:06:40 08/03/20 25 08/06/2025 HEPAT IC FUNCT ION PANEL bilirubin, total 0.5 mg/dL 0.2-1. 2 normal Not Available [facility] [address], [place], [address], 08/06/2025 20:06:40 08/03/2008/06/2025 HEPAT IC FUNCT ION PANEL bilirubin, direct 0.1 mg/dL < or = 0.2 normal Not Available [facility] [place] [facility] [address], [place], [address], 08/06/2025 20:06:40 08/03/20 25 08/06/2025 HEPAT IC FUNCT ION PANEL bilirubin, indirect 0.4 mg/dL _(nikolai c) 0.2-1. 2 normal Not Available [facility] [place] [facility] [address], [place], [address], 08/06/2025 20:06:40 08/03/20 25 08/06/2025 HEPAT IC FUNCT ION PANEL alkaline phosphatase 73 U/L 37-153 normal Not Available [facility] [place] [facility] [address], [place], [address], 08/06/2025 20:06:40 08/03/20 25 08/06/2025 HEPAT IC FUNCT ION PANEL AST 22 U/L 10-35 normal Not Available [facility] [place] [facility] [address], [place], [address], 08/06/2025 20:06:40 08/03/20 25 08/06/2025 HEPAT IC FUNCT ION PANEL ALT 18 U/L 6-29 normal Not Available [facility] [place] [facility] [address], [place], [address], 08/06/2025 20:06:40 08/03/20 25 08/06/2025 APOLI POPRO [...] hyper brionna stero lemia . ApoB relat ming risk categ ory cut point s are based AACE/ DARLING and ACC/A LOPEZ recom menda tions . (Neto pompa SM, et al. 2019. doi:1 0.101 6/j.j acc.2 018.1 1.002 ; Yani gaines Y, et al. 2020. doi:1 0.415 8/CS 3430) . Not Available [facility] [place] [facility] [address] [place], [place], [address], 08/06/2025 20:06:41 08/03/20 25 08/06/2025 HEMOG LOBIN A1C hemoglobin A1C 5.5 % <5.7 normal For the purpo se of scregregorio edie for the prese nce of diabe [...] DA). Your reque st to have a dupli marah copy faxed has been chinedu pressley ed. [place] to: [phone] Not Available [facility] [place] [facility] [address], [place], [address], 08/06/2025 20:06:41 Result Notes None recorded. Problems Name Problem SNOMED Code Status Onset Date Resolution Date Notes Provider Name and Address Organization Details Recorded Time Palpitat ions 19880643 Active PVCs Cecilio Mcnulty MD [address] [place] [address], [address], [place] - Cecilio Mcnulty 3 11:19:24 Migraine 14892435 Active with aura, left sided pain Cecilio Mcnulty MD [address] [place] [address], [address], [place] - Cecilio Mcnulty. 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 3 10:19:11 Low back pain 304208316 Active Cecilio Mcnulty MD [address] [place] [address], [address], [place] - Cecilio Mcnulty 3 10:20:07 Eczema 92943211 Active Cecilio Mcnulty MD [address] [place] [address] [place], [address], [place] - Cecilio Mcnulty 3 10:20:41 Hemorrho ids 27292300 Active Cecilio Mcnulty MD [address] [place] [address], [address], [place] - Cecilio Mcnulty. 3 10:20:57 Kidney stone 78393508 Completed 02/20/2023 Cecilio Mcnulty MD [address] [place] [address], [address], [place] - Cecilio Mcnulty 3 10:25:36 Peripher al vestibul ar disease 34591924 Active Cecilio Mcnulty MD [address] [place] [address], [address], [place] - Cecilio Mcnulty. 3 11:19:36 Hyperlip idemia 58543861 Active Cecilio Mcnulty MD [address] [place] [address], [address], [place] - Cecilio Mcnulty 4 18:12:16 Fibromya lgia 832382452 Active Cecilio Mcnulty MD [address] [place] [address], [address], [place] - Cecilio Mcnulty 4 12:36:37 Obesity 575931384 Active Cecilio Mcnulty MD [address] [place] [address], [address], [place] - Cecilio Mcnulty. 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 Cecilio Mcnulty MD [address] [place] [address], [address], [place] Cecilio Moore 5 10:43:57 Calcific coronary arterios clerosis 11887925 Active Cecilio Mcnulty MD [address] [place] [address], [address], [place] Cecilio Moore 5 13:05:02 Arterios clerotic vascular disease 34453294 Active Cecilio Mcnulty MD [address] [place] [address], [address], [place] Cecilio Moore 5 13:04:43 Calcific ation of breast 172570316 Active Short interval mammogra m noting possible change in right breast calcific ation. Right breast biopsy schedule d for 10/14/2024 . Cecilio Mcnulty MD [address] [place] [address], [address], [place] Cecilio Moore 5 10:44:14 Insulin resistan ce 994600382 Active 2024 2 hour GTT (81,142, 82) and insulin 16.6 Cecilio Mcnulty MD [address] [place] [address], [address], [place] Cecilio Moore 5 08:01:09 Pain in bilatera l feet 92915810052 899115 Active 2024 Cecilio Mcnulty MD [address] [place] [address], [address], [place] Cecilio Moore 5 16:37:28 Edema of lower extremit y 227579957 Active 2024 Cecilio Mcnulty MD [address] [place] [address], [address], [place] Cecilio Moore 5 16:37:23 Problem Notes None recorded. Procedures Surgical History Date Name Laterality Status Provider Name and Address Organization Details Recorded Time 12/03/19 25 JULITO CORTES completed Cecilio Jennings 12/01/2024 14:16:50 11/07/19 25 Dental prophylaxis adult completed Cecilio Martinez 11/29/2024 15:48:23 10/14/19 25 stereotactically guided core needle biopsy completed Cecilio Mcnulty MD [address] [place], [address], Cecilio Moore 10/28/2024 19:33:22 10/30/19 24 JULITO CORTES completed Cecilio Mcnulty MD [address] [place], [address], Cecilio Moore 10/29/2023 18:49:30 08/08/20 23 comprehensive eye examination completed Cecilio Martinez 10/17/2023 12:51:20 11/07/19 23 Most Recent Mammogram completed Cecilio Coronado 02/20/2023 10:07:11 05/09/20 22 Date of Last Pap Smear completed Cecilio Coronado 02/20/2023 10:07:45 12/19/19 22 Dxa bone density yasir vrt fx completed Cecilio Coronado 10/31/2023 09:53:28 09/08/19 05 [place] Drill Operator Surgery completed Cecilio Coronado 02/20/2023 08:59:01 09/08/19 [...] 02/20/2023 1886 RxNorm DEN Fu Ian D. 08:59:50 3653 codeine medicatio n vomiting Not available low 02/20/2023 2670 RxNorm Cecilio Mcnulty MD [address] [place], [address], [place] Cecilio Moore 3 10:36:38 3654 cyclobenz aprine hydrochlo ride medicatio n hives Not available low 02/20/2023 97179 RxNorm Cecilio Mcnulty MD [address] [place], [address], [place] Cecilio Moore 3 10:36:45 3655 hydrochlo rothiazid e medicatio n vomiting Not available low 02/20/2023 5487 RxNorm Cecilio Mcnulty MD [address] [place], [address], [place] Cecilio Moore 3 10:37:08 5070 iodine medicatio n Not available Not available Not available 10/06/2024 5933 RxNorm Genevieve Lamar debbie, Cecilio Moore 5 11:14:20 5851 cyclobenz aprine medicatio n Not available Not available high 08/17/20252022 44979 RxNorm unrec ogniz ed react ion (text : Unkno wn/Angel tient and Famil y Unabl e to Defin e, code: 60227 5006) (from [facility]) Not Available vicky - External Data Service [...] a day by oral route as needed. 12/15/ 2025 active Not Available Not Available Not Avai [...] Available Not Available Eysuvis 0.25 % eye drops,[facility] LOC[facility] : BOTH EYES. ONE DROP FOUR TIMES DAILY FOR 2 WEEKS THEN TWICE DAILY FOR 2 WEEKS THEN STOP 02/15 completed Not Available Not Available Not Available [place]-V Benefits 1,220 mg-330 mg-670 mg/5 mL oral [...] Not Available Not Available Vitals Date Recorded Systolic And Diastolic Provider Name and Address Organization Details Last Updated DateTime 08/22/2025 132/70 mm[Hg] Cecilio Mcnulty MD [address] [place] [address], [address], Cecilio Moore 08/22/2025 18:24:03 Date Recorded Body height Body mass index (BMI) Body weight Body temperature Heart rate Oxygen saturation Provider Name and Address Organization Details Last Updated DateTime 170.18 cm 32.2 kg/m2 19312.5 9 g 97.7 [degF] 61 /min 96 % Genevieve Cecilio Castillo 11:36:04 Social History Question Answer Notes LastModified by Organizat [employer] Details LastModified Time Tobacco Smoking Status Never Smoker DEN Fu Ian D. 02/20/2023 08:52:45 What Is Your Level Of Caffeine Consumption? None [email or web address] Information not available 02/20/2023 What Type Of Diet Are You Following? REGULAR [email or web address] Information not available 02/20/2023 What Was The Date Of Your Most Recent Tobacco Screening? 08/22/2025 [email or web address] Information not available 08/22/2025 Has Tobacco Cessation Counseling Been Provided? No Information not available 02/20/2023 Sex: Unknown Functional Status Question Answer Note LastModified by Organizat [employer] Details LastModified Time Do you use any illicit or recreational drugs? No [email or web address] Information not available 02/20/2023 Do you or have you ever used any other forms of tobacco or nicotine? No [email or web address] Information not available 02/20/2023 What is your level of alcohol consumption? None Information not available 02/20/2023 What is your exercise level? Occasional Walks twice a week [email or web address] Information not available 02/20/2023 Mental Status None recorded. Family History Relationship Description Onset Age of this Age Resolved Age Notes LastModified by Organization Details LastModified Time Brother Family history of Cardiovascul ar disease CABG x 4 [email or web address] Not available 03/24/2025 09:52:46 Brother Migraine [email or web address] Not availab le 03/24/2025 09:52:46 Mother Family history of Hypertension [email or web address] Not available 09:52:46 Mother Family history of hyperlipidem ia [email or web address] Not available 2024 09:52:46 Unspecified Relation Family history of headache disorder Not available 2024 09:52:46 Maternal Uncle Family [...] PF 5 completed Cecilio Mcnulty MD [address] [place] [address], [address], Cecilio Moore 08/22/2025 12:11:53 COVID-19, mRNA, LNP-S, [...] D. 04/22/2023 11:51:57 Pneumococcal conjugate PCV20, polysaccharide [id number] conjugate, adjuvant, PF 3 completed DEN Fu Ian D. 04/22/2023 11:52:47 Pneumococcal conjugate PCV 13 1 completed DEN Fu Ian D. 04/22/2023 11:53:17 influenza, unspecified formulation 2 completed DEN Fu Ian D. 04/22/2023 11:53:43 COVID-19, mRNA, LNP-S, bivalent, PF, 50 mcg/0.5 mL or 25mcg/0.25 mL dose 3 completed Cecilio Mcnulty MD [address] [place] [address], [address], Cecilio Moore 04/25/2023 08:05:28 COVID-19, mRNA, LNP-S, PF, 10 mcg/0.2 mL 5 completed DEN Orosco, Cecilio D. 06/27/2025 10:03:26 Past Encounters Encounter ID Performer Location Encounter Start Date Encounter Closed Date Diagnosis/Indication Diagnosis SNOMED-CT Code Diagnosis ICD10 Code Diagnosis IMO Codes Diagnosis Note [id number] Cecilio Mcnulty MD Main Office [address] [place], [place] [address] [place] [address] 08/22/2025 11:21:43 08/22/2025 12:22:10 Calcific coronary arteriosclerosis 22106650 I25.10 I25.84 6071584 Patient has a history of positive coronary calcium score of 84. Patient will continue with daily low-dose aspirin along with aggressive lipid management as noted below. Hypertensive disorder 38 973981 I10 Patient has borderline blood pressure. Patient will continue current management consisting of amlodipine and atenolol therapy. Patient been encouraged to follow a low-sodium diet and to increase activity/e xercise. Patient encouraged to continue to follow blood pressure at home. Goal blood pressure is less than 130/80. Hyperlipidemia 78197150 E78.49 Patient has a history of elevated [...] fish oil regimen consisting of and a [place] (EPA 1680 mg/DHA 560 mg) and [place]-V benefits (EPA 330 mg/DHA 670 mg) daily and continue increased rosuvastat in dose of 20 mg daily. Current lipid profile is notable for total cholestero l 118, HDL 46, triglyceri caden 83, LDL 55 and apolipopro tein B 65. Peripheral vestibular disease 01426653 H81.399 Patient has a history of peripheral vestibular disease/dy sfunction and patient will taper off amitriptyl ine as noted above. Patient will notify the office if develops any significan t recurrent symptoms while tapering amitriptyl ine or after its discontinu ation. Patient was referred to neurology (Drs. Wakefield/Grab le-Esposit o) for continued management . 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 Patient reportedly had negative sleep study [facility] 15 years ago and has no issues with snoring or sleep at this time. Additional testing including oral pathogen evaluation is also recommende d to complete Cardiovasc ular root cause evaluation . Insulin resistance 42932 5000 E88.004 512955 Patient was noted to have abnormal 2-hour [...] we will recheck in 6 months. Palpitations 15431375 R0 0.2 Patient has a history of palpitatio ns associated with PVCs. Patient will continue atenolol 50 mg twice daily. Patient has been evaluated by clinical cardiology /electroph ysiology in the past and patient will continue to follow with Dr. Israel montero of cardiology . Obesity 764057695 E66.09 Z68.32 Patient has an elevated BMI of 32.2. Patient has been advised to reduce portion size, increase exercise (aerobic and resistance training) and reduce/chloe id consumptio n of complex carbohydra te and starch after 3 p.m. Patient will consider intermitte nt fasting in hopes of indirectly leading to weight loss. Recheck at next visit. Influenza vaccine needed [id number] 106 Z23 Patient given influenza vaccine without complicati on. Patient declined high dose influenza vaccine due to side effects noted last year and therefore patient was given regular dose. Paresthesia 16524088 R20 .2 00457 Patient with hypersensi tivity of the left [...] [employer] (MEDICARE REPLACEMENT/ ADVANTAGE - PPO) Ivonne Rodríguez Barbara [id number] Ivonne Barbara Notes Date Note Type Note Provider Name and Address Organization Details Recorded Time 08/22/2025 text/html Ivonne Jimenez is a 70-year-old female who presents for a 6 month follow-up appointment regarding multiple ongoing health concerns. She reports experiencing pain similar to what she felt prior to her gallbladder removal approximately twenty years ago. She has scheduled a CT scan at [facility] on 09/26/2025 to evaluate for possible stones [...] up. She has been evaluated by a inserting machine operator and is profoundly flat-footed with arthritis issues. Ivonne reports no new medications or supplements and has lost five pounds recently. She is aiming to reduce her weight to 170 pounds. Cecilio Mcnulty MD [address] [place] [address], [address], [place] - Cecilio Mcnulty 08/22/2025 18:51:15 OBGyn Episode No OBEpisode recorded.
[2025-08-25 08:09] VITALS: BMI 31.3
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
== END 2025-08-25 08:33 | disposition home or self-care (01) ==
LOC: HO.HPODS 07:55
PROVIDERS: PCP Internal Medicine; Visit Provider Student in an Organized Health Care Education/Training Program
DX: E66.9 Obesity, unspecified (principal); M47.27 Other spondylosis with radiculopathy, lumbosacral region; G62.9 Polyneuropathy, unspecified; M21.41 Flat foot [pes planus] (acquired), right foot; M21.42 Flat foot [pes planus] (acquired), left foot; I83.93 Asymptomatic varicose veins of bilateral lower extremities
CPT/HCPCS: 99204